=== PATIENT | female | born 1950 | race Caucasian/White ===

== ENCOUNTER 2017-04-11 07:52 | Inpatient (IN) | payer MEDICARE ==
[2017-04-11] MEDS ORDERED: methylPREDNISolone 125 MG* 2 ML VIAL IV ONE (08:01)
[2017-04-11] MEDS ORDERED: Albuterol/Ipratropium NEB.SOL* Albuterol 2.5 MG/Ipratropium 0.5 MG 3 ML INH ONE (08:01)
[2017-04-11 08:15] LABS: Hematocrit 32 % (35-47); Hemoglobin 9.4 g/dl (12.0-16.0); Mean Corpuscular HGB Conc 30 g/dl (31-36); Mean Corpuscular Hemoglobin 24 pg (27-31); Mean Corpuscular Volume 82 fL (80-97); Mean Platelet Volume 8 um3 (7.4-10.4); Red Blood Count 3.86 10^6/ul (4.0-5.4); Red Cell Distribution Width 18 % (10.5-15); White Blood Count 14.2 10^3/ul (3.5-10.8)
[2017-04-11 08:18] LABS: Add Diff/Slide Review? Slide Review Added; Comments Flag Yes
[2017-04-11 08:27] LABS: Albumin 3.4 g/dL (3.2-5.2); BUN/Creatinine Ratio 16.7 (8-20); Calcium 8.6 mg/dL (8.6-10.3); EGFR African American 54.6 (>60); EGFR Non-African American 42.5 (>60); Globulin 2.9 g/dL (2-4); Potassium 5.1 mmol/L (3.5-5.0); Total Bilirubin 0.4 mg/dL (0.2-1.0); Total Protein 6.3 g/dL (6.4-8.9)
[2017-04-11 08:29] LABS: FIO2 100
[2017-04-11 08:29] LABS: Troponin I 0.03 ng/mL (<0.04)
[2017-04-11 08:33] LABS: PCO2 Arterial 35 mmHg (35-45)
[2017-04-11] MEDS ORDERED: cefTRIAXone(*) 1 GM in NS 0.9% 50 ML* 50 ML IVPB ONE (08:34)
[2017-04-11] MEDS ORDERED: Azithromycin IV(*) 500 MG in NS 0.9% 250 ML* 250 ML IVPB ONE (08:34)
[2017-04-11] MEDS ORDERED: Furosemide IV* 10 MG/ML VIAL (40 MG) IV ONE (08:35)
[2017-04-11] MEDS ORDERED: NS 0.9% 1000 ML* 1,000 ML IV ONE (08:47)
--- NOTE | 2017-04-11 08:50 | RAD ---
INDICATION: Respiratory distress COMPARISON: Chest x-ray dated July 08, 2016 TECHNIQUE: Single AP portable view of the chest was obtained. FINDINGS: Image quality is compromised due to the relative inferiority of a portable chest x-ray. Again seen is a cardiac pacemaker overlying the left upper chest with a single lead overlying the heart. There is a very mild degree of cardiomegaly and coarse calcification overlying the arch of the aorta. There is interval appearance of density partially obscuring the left lung base and causing left costophrenic angle blunting. Elsewhere the lungs are grossly clear. There is questionable engorgement of the pulmonary vasculature, but this may be projectional magnification of fact of a portable AP only chest x-ray. Visualized bones are normal for the patient's age. IMPRESSION: In the correct clinical setting the constellation of findings on this portable chest x-ray could be seen in the setting of congestive heart failure.
[2017-04-11] MEDS ORDERED: Insulin GLARGINE(*) 1 UNITS UNIT SUBCUT ONE (09:41)
[2017-04-11] MEDS ORDERED: NS 0.9% 1000 ML* 1,000 ML IV SCH ×2 (09:45→13:38)
--- NOTE | 2017-04-11 09:46 | ED ---
Gayle Castillo Salem, scribed for Bipin Melton MD on 04/11/17 at 0809 . Shortness of Breath - HPI Summary HPI Summary: Patient is a 66 y/o F who presents to the ED per EMS with SOB since yesterday night. Per EMS, pts O2 sat was at 97% upon their arrival and she was tachycardic at 110bpm. Pt denies CP, coughing, wheezing, or any pain. Pt had similar sx in June 2016. Shx of Tobacco use, but denies PMHx of COPD. Pt is taking blood thinners. Per EMS, transport time was approximately 5 minutes. - History of Current Complaint Chief Complaint: EDRespiratoryDistress Time Seen by Provider: 04/11/17 08:13 Hx Obtained From: Patient Onset/Duration: Gradual Onset, Lasting Hours, Still Present Timing: Constant Current Severity: Moderate Dyspnea At: Rest Aggrevating Factors: Nothing Alleviating Factors: Nothing Associated Signs & Symptoms: Negative - Allergy/Home Medications Allergies/Adverse Reactions: Allergies Allergy/AdvReac Type Severity Reaction Status Date / Time Shellfish Allergy Allergy Severe ANAPHYLACTI Verified 01/26/17 10:55 C Atorvastatin [From Lipitor] Allergy Unknown Unknown Verified 01/26/17 10:55 Reaction Details Iodine Allergy See Comment Verified 01/26/17 10:55 Nickel Allergy Unknown Verified 01/26/17 10:55 Reaction Details TOPICAL IODINE Allergy Mild PER PT Uncoded 01/26/17 10:55 DECREASES HEALING PMH/Surg Hx/FS Hx/Imm Hx Endocrine/Hematology History: Reports: Hx Diabetes Cardiovascular History: Reports: Hx Auto Implanted Cardiovert Defib, Hx Congestive Heart Failure - in the past, Hx Hypercholesterolemia, Hx Hypertension , Hx Pacemaker/ICD, Other Cardiovascular Problems/Disorders - DIABETIC Denies: Hx Angina Respiratory History: Reports: Hx Asthma, Hx Pneumonia - 13 yrs ago Denies: Hx Chronic Obstructive Pulmonary Disease (COPD) GI History: Reports: Hx Gastroesophageal Reflux Disease - prilosec History: Denies: Hx Renal Disease Musculoskeletal History: Reports: Hx Arthritis, Hx Back Problems, Hx Scoliosis Sensory History: Reports: Hx Contacts or Glasses, Other Sensory Impairments - dentures Opthamlomology History: Reports: Hx Contacts or Glasses, Other Sensory Impairments - dentures Neurological History: Reports: Hx Nerve Disease - "bulging disc", Other Neuro Impairments/Disorders - PAIN CLINIC PT Psychiatric History: Reports: Hx Depression - Cancer History Hx Chemotherapy: No Hx Radiation Therapy: No - Surgical History Surgery Procedure, Year, and Place: Bilat carpal tunnel , Hysterectomy, femoral artery bypass bilateral 2009, heart cath with stent placement 2013, difibrillator/pacemaker 2014, back surgery "a long time ago" Hx Anesthesia Reactions: No Infectious Disease History: No Infectious Disease History: Reports: Hx Shingles Denies: Traveled Outside the [place] in Last 30 Days - Family History Family History: No FHx of Breast Cancer - Social History Alcohol Use: None Substance Use Type: Reports: None Smoking Status (MU): Former Smoker Type: Cigarettes Have You Smoked in the Last Year: No Review of Systems Positive: Other - No pain. Cardiovascular: Other - No wheezing. Positive: Other - Tachycardia. . Negative: Chest Pain Positive: Shortness Of Breath. Negative: Cough All Other Systems Reviewed And Are Negative: Yes Physical Exam - Summary Physical Exam Summary: The patient is in moderate to severe respiratory distress. Pale and diaphoretic. She can follow commands and is able to sit up. The skin is warm and skin color reflects adequate perfusion. HEENT: The head is normocephalic and atraumatic. The pupils are equal and reactive. The conjunctivae are clear and without drainage. Nares are patent and without drainage. Mouth reveals moist mucous membranes and the throat is without erythema and exudate. The external ears are intact. The ear canals are patent and without drainage. The tympanic membranes are intact. Neck is supple with full range of motion and non-tender. There are no carotid bruits. There is no neck vein distension. Respiratory: Chest is non-tender. Diffuse wheezing. Rales. Rhonchi all throughout. Cardiovascular: Hear is regular rhythm, but tachycardic. There is no murmur or rub auscultated. There is no peripheral edema and pulses are symmetrical and equal. Abdomen: The abdomen is soft and non-tender. Distended. Musculoskeletal: There is no back pain noted. Extremities are non-tender with full range of motion. Capillary refill in less than 3 seconds. There is no peripheral edema of lower extremities. Cyanosis in nail beds. Neurological: Patient is alert and oriented to person, place and time. The patient has symmetrical motor strength in all four extremities. Cranial nerves are grossly intact. Deep tendon reflexes are symmetrical and equal in all four extremities. Psychiatric: The patient has an appropriate affect and does not exhibit any anxiety or depression. Triage Information Reviewed: Yes Vital Signs On Initial Exam: Initial Vitals Temp Pulse Resp BP Pulse Ox 97.6 F 112 25 163/98 100 04/11/17 07:54 04/11/17 07:54 04/11/17 07:54 04/11/17 07:54 04/11/17 07:54 Vital Signs Reviewed: Yes Diagnostics - Vital Signs Vital Signs Temp Pulse Resp BP Pulse Ox 04/11/17 08:04 100 04/11/17 07:58 97.6 F 112 25 159/81 100 04/11/17 07:54 97.6 F 112 25 163/98 100 - Laboratory Lab Results: Lab Results 04/11/17 04/11/17 04/11/17 Range/Units 07:56 07:56 07:56 WBC 14.2 H (3.5-10.8) 10^3/ul RBC 3.86 L (4.0-5.4) 10^6/ul Hgb 9.4 L (12.0-16.0) g/dl Hct 32 L (35-47) % MCV 82 (80-97) fL MCH 24 L (27-31) pg MCHC 30 L (31-36) g/dl RDW 18 H (10.5-15) % Plt Count 440 (150-450) 10^3/ul MPV 8 (7.4-10.4) um3 Neut % (Auto) 73.9 (38-83) % Lymph % (Auto) 13.1 L (25-47) % [place] % (Auto) 9.1 H (1-9) % Eos % (Auto) 2.8 (0-6) % Baso % (Auto) 1.1 (0-2) % Absolute Neuts (auto) 10.5 H (1.5-7.7) 10^3/ul Absolute Lymphs (auto) 1.9 (1.0-4.8) 10^3/ul Absolute Monos (auto) 1.3 H (0-0.8) 10^3/ul Absolute Eos (auto) 0.4 (0-0.6) 10^3/ul Absolute Basos (auto) 0.2 (0-0.2) 10^3/ul Absolute Nucleated RBC 0.01 10^3/ul Nucleated RBC % 0.1 INR (Anticoag Therapy) (0.89-1.11) Patient Temperature ABG pH (7.35-7.45) ABG pCO2 (35-45) mmHg ABG pO2 (80-100) mmHg ABG HCO3 (19-31) mmol/L ABG O2 Saturation (95-98) % ABG Base Excess (-2.0-2.0) Respiration Rate O2 Delivery Device Ventilator Type Vent Mode FiO2 Inspiratory Time PEEP Pressure Support Pressure Control EPAP IPAP BiPAP Sodium 134 (133-145) mmol/L Potassium 5.1 H (3.5-5.0) mmol/L Chloride 101 (101-111) mmol/L Carbon Dioxide 21 L (22-32) mmol/L Anion Gap 12 H (2-11) mmol/L BUN 21 (6-24) mg/dL Creatinine 1.26 H (0.51-0.95) mg/dL Est GFR ( Amer) 54.6 (>60) Est GFR (Non-Af Amer) 42.5 (>60) BUN/Creatinine Ratio 16.7 (8-20) Glucose 371 H (70-100) mg/dL Lactic Acid 5.4 H* (0.5-2.0) mmol/L Calcium 8.6 (8.6-10.3) mg/dL Total Bilirubin 0.40 (0.2-1.0) mg/dL AST 16 (13-39) U/L ALT 15 (7-52) U/L Alkaline Phosphatase 117 H (34-104) U/L Troponin I 0.03 (<0.04) ng/mL B-Natriuretic Peptide ( - 100) pg/mL Total Protein 6.3 L (6.4-8.9) g/dL Albumin 3.4 (3.2-5.2) g/dL Globulin 2.9 (2-4) g/dL Albumin/Globulin Ratio 1.2 (1-3) 04/11/17 04/11/17 04/11/17 Range/Units 07:56 07:56 08:23 WBC (3.5-10.8) 10^3/ul RBC (4.0-5.4) 10^6/ul Hgb (12.0-16.0) g/dl Hct (35-47) % MCV (80-97) fL MCH (27-31) pg MCHC (31-36) g/dl RDW (10.5-15) % Plt Count (150-450) 10^3/ul MPV (7.4-10.4) um3 Neut % (Auto) (38-83) % Lymph % (Auto) (25-47) % [place] % (Auto) (1-9) % Eos % (Auto) (0-6) % Baso % (Auto) (0-2) % Absolute Neuts (auto) (1.5-7.7) 10^3/ul Absolute Lymphs (auto) (1.0-4.8) 10^3/ul Absolute Monos (auto) (0-0.8) 10^3/ul Absolute Eos (auto) (0-0.6) 10^3/ul Absolute Basos (auto) (0-0.2) 10^3/ul Absolute Nucleated RBC 10^3/ul Nucleated RBC % INR (Anticoag Therapy) 0.96 (0.89-1.11) Patient Temperature Not Reportable ABG pH 7.32 L (7.35-7.45) ABG pCO2 35 (35-45) mmHg ABG pO2 332 H (80-100) mmHg ABG HCO3 19.2 (19-31) mmol/L ABG O2 Saturation 97.9 (95-98) % ABG Base Excess -7.4 L (-2.0-2.0) Respiration Rate Not Reportable O2 Delivery Device fnc Ventilator Type Not Reportable Vent Mode Not Reportable FiO2 100 Inspiratory Time Not Reportable PEEP Not Reportable Pressure Support Not Reportable Pressure Control Not Reportable EPAP Not Reportable IPAP Not Reportable BiPAP Not Reportable Sodium (133-145) mmol/L Potassium (3.5-5.0) mmol/L Chloride (101-111) mmol/L Carbon Dioxide (22-32) mmol/L Anion Gap (2-11) mmol/L BUN (6-24) mg/dL Creatinine (0.51-0.95) mg/dL Est GFR ( Amer) (>60) Est GFR (Non-Af Amer) (>60) BUN/Creatinine Ratio (8-20) Glucose (70-100) mg/dL Lactic Acid (0.5-2.0) mmol/L Calcium (8.6-10.3) mg/dL Total Bilirubin (0.2-1.0) mg/dL AST (13-39) U/L ALT (7-52) U/L Alkaline Phosphatase (34-104) U/L Troponin I (<0.04) ng/mL B-Natriuretic Peptide 522 H ( - 100) pg/mL Total Protein (6.4-8.9) g/dL Albumin (3.2-5.2) g/dL Globulin (2-4) g/dL Albumin/Globulin Ratio (1-3) Result Diagrams: 04/11/17 07:56 04/11/17 07:56 Lab Statement: Any lab studies that have been ordered have been reviewed, and results considered in the medical decision making process. - Radiology CXR Radiology Interpretation Completed By: ED Physician - Questionable right middle lobe infiltrate. Increased vascular congestion., Radiologist - IMPRESSION: In the correct clinical setting the constellation of findings on this portable chest x-ray could be seen in the setting of congestive heart failure. - EKG 0810 EKG Interpretation: Sinus tachycardia @ 106 bpm. PRWP. LAD. Old anterior LA. No STEMI. - Additional Comments Diagnostic Additional Comments: Lactic acid: 5.4 Re-Evaluation - Re-Evaluation First Eval Re-Evaluation Time: 08:39 Comment: Pt is looking much better. She is no longer pale or diaphoretic. Pt is talking and able to sit up. Course/Dx - Course Course Of Treatment: 66 y/o F presents with SOB since yesterday night. Pt denies CP, coughing, wheezing, or any pain. She received Duoneb, Lasix, Rocephin , Zithromax, and Solu-MEDROL. CXR shows, per radiology, IMPRESSION: In the correct clinical setting the constellation of findings on this portable chest x- ray could be seen in the setting of congestive heart failure. Per ED attending, Questionable right middle lobe infiltrate. Increased vascular congestion. EKG shows Sinus tachycardia @ 106 bpm. PRWP. LAD. Old anterior LA. Discussed case with Dr. Sarmiento. Pt will be admitted. Fluid bolus not given secondary to low EF of 20-25%. - Diagnoses Differential Diagnosis/HQI/PQRI: Positive: Bronchitis, CHF, COPD Exacerbation, LA, Pneumonia, Pulmonary Edema Provider Diagnoses: Acute dyspnea, Respiratory distress, CHF (congestive heart failure), PNA ( pneumonia) - Physician Notifications Discussed Care of Patient With: Chetna Sarmiento Time Discussed With Above Provider: 08:45 Instructed by Provider To: Admit As Inpatient Admit/Transition Orders Completed By ED Provider: Yes - Critical Care Time Critical Care Time: 30-74 min - 30 minutes Discharge - Discharge Plan Condition: Stable Disposition: ADMITTED TO [facility] documentation as recorded by the Gayle murphy Salem accurately reflects the service I personally performed and the decisions made by , Bipin Melton MD.
[2017-04-11] MEDS: Insulin LISPRO* 1 UNITS UNIT SUBCUT SCH ×6 (10:35→22:07)
[2017-04-11] MEDS: Carvedilol TAB* 6.25 MG PO SCH ×2 (10:37→21:29)
[2017-04-11] MEDS: Aspirin EC Low Dose* 81 MG TAB.EC PO SCH (11:38)
[2017-04-11] MEDS: Clopidogrel TAB* 75 MG PO SCH (11:38)
[2017-04-11] MEDS: FLUoxetine CAP* 20 MG PO SCH (11:38)
[2017-04-11] MEDS: Gabapentin CAP(*) 300 MG PO SCH ×2 (11:38→21:29)
[2017-04-11] MEDS: Nitroglycerin 0.2 MG/HR PATCH* (5 MG) TRANSDERM SCH (11:38)
[2017-04-11] MEDS: CMCS: Pantoprazole TAB (NF) 40 MG TAB PO SCH ×2 (11:39→21:30)
[2017-04-11 12:24] LABS: BUN/Creatinine Ratio 18.8 (8-20); EGFR African American 70.5 (>60); EGFR Non-African American 54.8 (>60); Potassium 3.9 mmol/L (3.5-5.0)
[2017-04-11 13:10] LABS: Calcium 8.7 mg/dL (8.6-10.3)
[2017-04-11] MEDS ORDERED: Albuterol 2.5 MG/3 ML NEB.SOL* (0.083%) INH PRN (13:38)
[2017-04-11] MEDS: BuPROPion XL* 150 MG TAB.XL PO SCH ×2 (13:50→21:29)
[2017-04-11] MEDS: Heparin VIAL(*) 5000 UNITS/ML VIAL (FIVE THOUSAND) SUBCUT SCH ×2 (14:12→21:30)
--- NOTE | 2017-04-11 14:41 | ECHO ---
Patient: LEE ANN CALVILLO [facility] Rec#: [id number] : 1950 Date: 04/11/2017 Age: 66y Height: 149.86 cm / 59.0 in Weight: 83.91 kg / 184.9 lbs Sex: F BSA: 1.78 Room#: ICU 2 Admit Date#: 04/11/2017 Type: Inpatient Referring: Chetna Kiser MD Reading: Jeanne Matias MD Police Captain Senior: Terra Parham,RDCS,RDMS CC: Abran Gordon MD Transthoracic Echocardiogram Indication: CHF, SOB BP: 154/71 HR: 81 Rhythm: NSR with PVCs Findings History: CHF, cardiomyopathy, AICD, CAD, PCI, HLD, HTN, DM, PVD, smoker Technical Comments: The study quality is fair. Completed 1250 Left Ventricle: The left ventricular size is mild to moderately dilated. There is no left ventricular hypertrophy. There is diffuse global hypokinesis of the left ventricle. There is severely decreased left ventricular systolic function. The estimated ejection fraction is less than 20%. Abnormal left ventricular diastolic filling is observed, consistent with impaired relaxation. Left Atrium: The left atrium is mildly dilated. Right Ventricle: The right ventricular chamber size and systolic function are within normal limits. A pacemaker wire is visualized in the right ventricle. Right Atrium: The right atrial cavity size is normal. Aortic Valve: The aortic valve is trileaflet. There is no evidence of aortic valve thickening. There is trace to mild aortic regurgitation. There is no evidence of aortic stenosis. Mitral Valve: The mitral valve leaflets appear normal. There is moderate to severe mitral regurgitation. lateral jet. There is no evidence of mitral stenosis. Pulmonary vein flow reversal is present. Tricuspid Valve: The tricuspid valve leaflets are normal. There is trace tricuspid regurgitation. Unable to estimate the right ventricular systolic pressure. Pulmonic Valve: The pulmonic valve appears normal. There is a trace pulmonic regurgitation. Pericardium: There is no significant pericardial effusion. Aorta: The aortic root appears normal. There is no dilatation of the aortic arch. Pulmonary Artery: The main pulmonary artery is not well visualized. Venous: The inferior vena cava is dilated. There is a greater than 50% respiratory change in the inferior vena cava dimension. Conclusions The left ventricular size is mild to moderately dilated. There is diffuse global hypokinesis of the left ventricle. There is severely decreased left ventricular systolic function. The estimated ejection fraction is less than 20%. Abnormal left ventricular diastolic filling is observed, consistent with impaired relaxation. The right ventricular chamber size and systolic function are within normal limits. There is trace to mild aortic regurgitation. There is moderate to severe mitral regurgitation, wide lateral jet. There is trace tricuspid regurgitation. Unable to estimate the right ventricular systolic pressure. Compared with prior echo of 07/10/16, EF previously 20-25%, RV function previously depressed, AI is newly noted, the degree of MR has increased from moderate. Measurements Name Value Normal Range RVIDd (AP) 2D 2.4 cm (0.9 - 2.6) RVDdMajor (2D) 2.6 cm (2.2 - 4.4) RAd ISD 4CH 4.2 cm (3.4 - 4.9) RA (A4C)W 3.1 cm (2.9 - 4.6) IVSd (2D) 1 cm (0.6 - 1) LVPWd (2D) 1 cm (0.6 - 1) LVIDd (2D) 6 cm (3.6 - 5.4) LVIDs (2D) 5.3 cm - LV FS (2D) 11 % (25 - 45) Aortic Annulus 2 cm (1.4 - 2.6) Ao root diameter (2D) 3 cm (2.1 - 3.5) Ascending Ao 2.6 cm (2.1 - 3.4) Aortic arch 2.1 cm (1.8 - 3.4) LA dimension (AP) 2D 3.7 cm (2.3 - 3.8) LAd ISD 4CH 5.6 cm (2.9 - 5.3) LA ISD 4CH W 4.2 cm (2.5 - 4.5) Name Value Normal Range LA ESV SP 4CH (A/L) 55.04 ml - LA ESV SP 2CH (A/L) 40.9 ml - LA ESV BP (A/L) 48.39 ml - LA ESV BP (A/L) index 27 ml/m2 - LA ESV SP 4CH (MOD) 51.04 ml - LA ESV SP 2CH (MOD) 38.91 ml - Name Value Normal Range MV E-wave Vmax 0.9 m/sec - MV deceleration time 62 msec - MV A-wave Vmax 1.1 m/sec - MV E:A ratio 0.8 ratio - P. vein S-wave Vmax 0.6 m/sec - P. vein D-wave Vmax 0.5 m/sec - P. vein S:D Vmax ratio 1.2 ratio - P. vein A-wave duration 97 msec - LV septal e' Vmax 0.03 m/sec - LV lateral e' Vmax 0.04 m/sec - LV E:e' septal ratio 30 ratio - LV E:e' lateral ratio 22.5 ratio - Name Value Normal Range AV Vmax 1 m/sec - AV VTI 18.2 cm - AV peak gradient 4 mmHg - AV mean gradient 2 mmHg - LVOT Vmax 0.6 m/sec - LVOT VTI 11.5 cm - LVOT peak gradient 1.4 mmHg - LVOT mean gradient 0.8 mmHg - SUPRIYA Vmax 0.8 m/sec - Name Value Normal Range MV Vmax 1.3 m/sec - MV VTI 18 cm - MV peak gradient 7 mmHg - MV mean gradient 3.3 mmHg - MV PHT 19 msec - MR Vmax 5.4 m/sec - MR VTI 116 cm - MR ERO 1.5 cm2 - MR PISA radius 0.7 cm - MVA (PHT) 11 cm2 - Name Value Normal Range RAP 8 mmHg - IVC diameter 2.2 cm - Name Value Normal Range PV Vmax 0.6 m/sec - PV peak gradient 1.4 mmHg -
--- NOTE | 2017-04-11 19:09 | HP ---
CC: Dr. Gordon; Dr. Herring * HISTORY AND PHYSICAL: DATE OF ADMISSION: 04/11/17 TIME OF EVALUATION: 8:40 a.m. PRIMARY CARE PROVIDER: Abran Gordon MD. ADJUDICATION SPECIALIST: Valentino Herring MD. CHIEF COMPLAINT: Shortness of breath. HISTORY OF PRESENT ILLNESS: Ms. 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 The patient states she was in her usual state of health until yesterday around 8 p.m. when she started to feel that the humidity was bothering her and it was harder to breathe. This symptom persisted overnight, and this morning she says that she was severely short of breath and could not catch her breath. She denies fever or chills, had some dry cough. As per EMS note, the patient was sitting on the couch, tripoding on arrival and they described diffuse rales and wheezes. She need CPAP en route and was on Vapotherm in the emergency room. By the time of my evaluation, she said she was feeling much improved. She denies any recent change of medication. She states she is compliant with her diet. She was last seen by Dr. Herring 3 months ago, and at that time, he offered her the option of converting her ICD to a biventricular ICD/pacemaker and she is considering this option. PAST MEDICAL HISTORY: 1. Ischemic/nonischemic cardiomyopathy with ejection fraction of 20% to 25%. The patient had a possible viral myocarditis when she was 53 with ejection fraction less than 10%, and at that time, she had a negative cardiac cath, but later on she had a positive stress test for CAD. 2. 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 3. Status post bilateral fem-pop bypass in 2010. 4. Status post ICD in 2014. 5. Hyperlipidemia. 6. GI bleed. 7. Degenerative disc disease with spinal stenosis. 8. Type 2 diabetes. 9. Asthma. 10. Status post stent to the iliac artery. 11. Status post carpal tunnel repair. 12. Status post hysterectomy. 13. Status post spinal surgery for spinal stenosis in 1999. MEDICATION LIST: 1. Aspirin 81 mg p.o. daily. 2. Bupropion SR 300 mg p.o. daily. 3. Carvedilol 12.5 mg p.o. b.i.d. 4. Clopidogrel 75 mg p.o. daily. 5. Exenatide. 6. Fexofenadine 180 mg p.o. daily. 7. Fluoxetine 5 mg p.o. daily. 8. Gabapentin 300 mg p.o. t.i.d. 9. Glipizide 10 mg p.o. b.i.d. 10. Lisinopril 1.25 mg p.o. daily. 11. Metoclopramide 10 mg p.o. daily. 12. Minocycline 100 mg p.o. b.i.d. 13. Singulair 10 mg p.o. at bedtime. 14. Naproxen 100 mg p.o. b.i.d. 15. Nitro patch 0.2 mg an our topical daily. 16. Omeprazole 20 mg p.o. daily. 17. Rosuvastatin 10 mg p.o. at bedtime. 18. Torsemide 20 mg p.o. daily. 19. Tramadol 50 mg p.o. q.4 hours p.r.n. pain. ALLERGIES: The patient is allergic to SELFISH, LIPITOR, and NICKEL. FAMILY HISTORY: Her father had a history of coronary artery disease and her mother had cancer. SOCIAL HISTORY: She quit smoking. No history of alcohol or drug use. Surrogate decision maker is her , Antonio Nazario, phone number is [phone]. REVIEW OF SYSTEMS: A 14-point review of systems was performed and all the pertinent negative and positive findings are in the HPI. PHYSICAL EXAMINATION GENERAL: The patient is an elderly lady, sitting up on the stretcher, in no acute distress. VITAL SIGNS: Temperature 97.0, heart rate is 98, respiratory rate 21, oxygen saturation 96% on Vapotherm 3 L. FiO2 is 60%. Blood pressure is 154/71. HEENT: Pupils are equal. Moist mucous membranes. CHEST: Breath sounds present bilaterally with right base crackles. CVS: Normal S1 and S2. Regular rate and rhythm. ABDOMEN: Soft, nontender, nondistended. Bowel sounds present. EXTREMITIES: No edema. NEUROLOGIC: She is alert, awake, and oriented x3. Able to move all 4 extremities. LABORATORY AND IMAGING DATA: The patient had a CBC that showed WBC of 14.2, hemoglobin of 9.4, hematocrit of 32, platelets of 440 with 73% neutrophils. INR is 0.96. ABG showed pH 7.32, pCO2 of 35, pO2 of 332, bicarbonate of 19.2, saturation 97.9. Chemistry showed sodium 139, potassium 5.1, chloride 101, bicarb of 21, anion gap of 12, creatinine of 1.26, glucose of 371, lactic acid of 5.4. LFTs were normal except for alk phos of 117 and her BNP was 522. EKG done on 04/11/17 at 8:10 a.m. showed sinus tachycardia at 106 beats per minute with intraventricular conduction delay. This EKG appears to be changed, but when compared from an EKG almost 10 years ago. Portable chest x-ray was read as compatible with congestive heart failure, but to my read I think she may have a a small infiltrate in the right base. ASSESSMENT AND PLAN: Ms. Nazario is a 66-year-old lady with a past medical history of ischemic/nonischemic cardiomyopathy with ejection fraction of 20% to 25%, peripheral vascular disease, status post ICD placement, hyperlipidemia, GI bleed, spinal stenosis, type 2 diabetes, asthma, who presents to the emergency room with complaints of shortness of breath, found to have possible pneumonia. The patient met sepsis criteria with leukocytosis and tachypnea and her qSOFA score is 1. Source is likely pneumonia. 1. Right lower lobe pneumonia. The patient presents with shortness of breath, but she has no other symptoms including no cough or fever. She does have leukocytosis and lactic acidosis. According to EMS note, on their arrival, the patient has diffuse rales and wheezes, but on my physical examination at this point, she has rales only in her right base and that coincides with my impression of a right lower lobe infiltrate. She is going to be started empirically on ceftriaxone, Zithromax. Blood cultures were sent and we are going to check legionella and pneumococcal antigen. 2: Respiratory: Acute hypoxemic respiratory failure. The patient will be admitted to the intensive care unit on Vapotherm and we are going to titrate the oxygen down if possible. 3. Systolic congestive heart failure. The patient has known systolic CHF with ejection fraction of 20% to 25%. She was seen by Dr. Herring 3 months ago, and at that point, he asked her to consider upgrading her ICD to a biventricular ICD /pacemaker due to her progressive intraventricular conduction delay. The patient denies any changes in her medication, states she is compliant with her diet. She has no signs of peripheral edema at this point. Her BNP is 522 ( even lower than in the past). Although she is at risk for CHF exacerbation, it is not clear to me at this point if CHF is playing a role in her shortness of breath. Her infection for now, I am going to give her gentle hydration and hold her diuretics. 4. Acute kidney injury, likely secondary to infection. I am going to hold her lisinopril and diuretics for now and continue to monitor her renal function. 5. Lactic acidosis secondary to sepsis/poor perfusion. We are going to give her gentle IV hydration and monitor her lactic acid. 6. Type 2 diabetes, uncontrolled. The patient will receive 1 dose of Lantus and we are going to monitor her fingersticks with lispro sliding scale. Code status was discussed with the patient. She wishes to be a full code. 7. DVT prophylaxis: The patient has score of 3 on a DVT prophylaxis guide, and she will be started on subcutaneous heparin. 8. Anemia. I am going to send anemia workup. TIME SPENT: Approximately 75 minutes critical care time was spent to complete the admission. [id number]/[facility] #: [id number] BEATRIZ
[2017-04-11] MEDS: Montelukast Sodium TAB* 10 MG PO SCH (21:29)
[2017-04-11] MEDS: Nitro Patch/OINT Remove PATCH OFF SCH (21:32)
[2017-04-11] MEDS: traMADol TAB* 50 MG PO PRN (22:08)
[2017-04-11] MEDS ORDERED: hydrALAZINE IV* 20 MG/ML VIAL IV SLOW PU PRN (23:29)
[2017-04-12] MEDS: Heparin VIAL(*) 5000 UNITS/ML VIAL (FIVE THOUSAND) SUBCUT SCH ×3 (05:15→21:37)
[2017-04-12 05:46] LABS: Hematocrit 27 % (35-47); Hemoglobin 8.1 g/dl (12.0-16.0); Mean Corpuscular HGB Conc 30 g/dl (31-36); Mean Corpuscular Hemoglobin 24 pg (27-31); Mean Corpuscular Volume 80 fL (80-97); Mean Platelet Volume 8 um3 (7.4-10.4); Red Blood Count 3.36 10^6/ul (4.0-5.4); Red Cell Distribution Width 17 % (10.5-15); White Blood Count 13.7 10^3/ul (3.5-10.8)
[2017-04-12 05:59] LABS: Anion Gap 9 mmol/L (2-11); CO2 Carbon Dioxide 24 mmol/L (22-32); Calcium 8.8 mg/dL (8.6-10.3); Chloride 106 mmol/L (101-111); EGFR African American 89.7 (>60); EGFR Non-African American 69.7 (>60); Glucose 80 mg/dL (70-100); Potassium 3.4 mmol/L (3.5-5.0); Sodium 139 mmol/L (133-145)
[2017-04-12 06:06] LABS: Iron 16 ug/dL (50-212); Total Iron Binding Capacity 402 mcg/dL (250-450); Transferrin 287 mg/dL (203-362)
[2017-04-12 06:28] LABS: Ferritin < 10.0 ng/mL (11-307)
[2017-04-12 06:32] LABS: Folate 13.53 ng/mL (>3.99)
[2017-04-12 06:33] LABS: Vitamin B12 268 pg/mL (180-914)
[2017-04-12 06:37] LABS: BUN/Creatinine Ratio 14.6 (8-20); Blood Urea Nitrogen 12 mg/dL (6-24)
[2017-04-12] MEDS: traMADol TAB* 50 MG PO PRN (07:21)
[2017-04-12] MEDS: Nitroglycerin 0.2 MG/HR PATCH* (5 MG) TRANSDERM SCH (07:46)
[2017-04-12] MEDS: FLUoxetine CAP* 20 MG PO SCH (07:48)
[2017-04-12] MEDS: Gabapentin CAP(*) 300 MG PO SCH (07:48)
[2017-04-12] MEDS: CMCS: Pantoprazole TAB (NF) 40 MG TAB PO SCH ×2 (07:48→09:19)
[2017-04-12] MEDS: Clopidogrel TAB* 75 MG PO SCH (07:48)
[2017-04-12] MEDS: Carvedilol TAB* 6.25 MG PO SCH ×3 (07:48→21:33)
[2017-04-12] MEDS: BuPROPion XL* 150 MG TAB.XL PO SCH (07:49)
[2017-04-12] MEDS: Aspirin EC Low Dose* 81 MG TAB.EC PO SCH (07:49)
[2017-04-12] MEDS: Insulin LISPRO* 1 UNITS UNIT SUBCUT SCH ×7 (08:46→21:36)
[2017-04-12] MEDS ORDERED: MINOCYCLINE 100 MG PO SCH (09:00)
[2017-04-12] MEDS ORDERED: Omeprazole CAP* 20 MG PO SCH (09:00)
[2017-04-12] MEDS: Gabapentin CAP(*) 100 MG PO SCH ×3 (09:17→21:30)
[2017-04-12] MEDS: cefTRIAXone VIAL(*) 1,000 MG in NS 0.9% 50 ML* 50 ML IVPB SCH (09:22)
[2017-04-12] MEDS: CMC:Minocycline (NF) 50 MG CAP PO SCH ×2 (09:23→21:34)
[2017-04-12] MEDS ORDERED: Magnesium CITRATE* 300 ML BTL PO ONE (09:29)
[2017-04-12] MEDS: Torsemide TAB* 20 MG PO SCH (09:35)
[2017-04-12] MEDS: Azithromycin IV(*) 500 MG in NS 0.9% 250 ML* 250 ML IVPB SCH (09:53)
--- NOTE | 2017-04-12 11:22 | PN ---
Subjective Date of Service: 04/12/17 Interval History: Pt feels much better. Less SOB. Discussed pt's anemia. Pt is not aware of black or bloody stools. Does not remember where her GI bleed was and doesn't remember her last colonoscopy apart for the location was probably [place] Objective Active Medications: Albuterol (Ventolin 2.5 Mg/3 Ml Neb.Ai*) 2.5 mg INH Q4H PRN PRN Reason: SOB/WHEEZING Aspirin (Aspirin Ec Low Dose*) 81 mg PO DAILY REPLACED BY [facility] Last Admin: 04/12/17 07:49 Dose: 81 mg Bupropion HCl (Wellbutrin Xl *) 150 mg PO BID REPLACED BY [facility] Last Admin: 04/12/17 07:49 Dose: 150 mg Carvedilol (Coreg Tab*) 12.5 mg PO BID REPLACED BY [facility] Last Admin: 04/12/17 09:18 Dose: Not Given Clopidogrel Bisulfate (Plavix Tab*) 75 mg PO DAILY REPLACED BY [facility] Last Admin: 04/12/17 07:48 Dose: 75 mg Ferrous Sulfate (Ferrous Sulfate Tab*) 325 mg PO BID REPLACED BY [facility] Fluoxetine HCl (Prozac Cap*) 40 mg PO DAILY REPLACED BY [facility] Last Admin: 04/12/17 07:48 Dose: 40 mg Gabapentin (Neurontin Cap(*)) 300 mg PO TID REPLACED BY [facility] Last Admin: 04/12/17 09:17 Dose: Not Given Heparin Sodium (Porcine) (Heparin Vial(*)) 5,000 units SUBCUT Q8HR REPLACED BY [facility] Last Admin: 04/12/17 05:15 Dose: 5,000 units Hydralazine HCl (Apresoline Iv*) 10 mg IV SLOW PU Q4H PRN PRN Reason: SBP>175 Ceftriaxone Sodium 1,000 mg/ (Sodium Chloride) 50 mls @ 200 mls/hr IVPB Q24H REPLACED BY [facility] Last Admin: 04/12/17 09:22 Dose: 200 mls/hr Azithromycin 500 mg/ Sodium (Chloride) 250 mls @ 250 mls/hr IVPB Q24H REPLACED BY [facility] Last Admin: 04/12/17 09:53 Dose: 250 mls/hr Insulin Human Lispro (Humalog*) 0 units SUBCUT AC WAYNE PRN Reason: Protocol Last Admin: 04/12/17 10:05 Dose: 2 units Insulin Human Lispro (Humalog*) 0 units SUBCUT ACHS WAYNE PRN Reason: Protocol Last Admin: 04/12/17 08:46 Dose: Not Given Minocycline HCl (Minocycline (Nf)) 100 mg PO BID REPLACED BY [facility] Last Admin: 04/12/17 09:23 Dose: 100 mg Montelukast Sodium (Singulair Tab*) 10 mg PO BEDTIME REPLACED BY [facility] Last Admin: 04/11/17 21:29 Dose: 10 mg Nitroglycerin (Nitroglycerin 5 Mg Patch*) 1 patch TRANSDERM DAILY REPLACED BY [facility] Last Admin: 04/12/17 07:46 Dose: 1 patch Pantoprazole Sodium (Protonix Tab (Nf)) 40 mg PO DAILY REPLACED BY [facility] Last Admin: 04/12/17 09:19 Dose: Not Given Pharmacy Profile Note (Nitro Patch/Oint Remove*) 1 note PATCH OFF 2100 REPLACED BY [facility] Last Admin: 04/11/17 21:32 Dose: 1 patch Torsemide (Demadex*) 20 mg PO DAILY REPLACED BY [facility] Last Admin: 04/12/17 09:35 Dose: 20 mg Tramadol HCl (Ultram*) 50 mg PO Q6H PRN PRN Reason: PAIN Last Admin: 04/12/17 07:21 Dose: 50 mg Vital Signs 04/11/17 04/11/17 04/11/17 11:30 11:34 12:00 Temperature 97.8 F Pulse Rate 87 85 Respiratory 20 19 Rate Blood Pressure 127/58 145/68 (mmHg) O2 Sat by Pulse 100 100 Oximetry 04/11/17 04/11/17 04/11/17 13:00 14:00 14:02 Temperature Pulse Rate 86 93 92 Respiratory 21 19 19 Rate Blood Pressure 160/83 155/68 (mmHg) O2 Sat by Pulse 100 100 100 Oximetry 04/11/17 04/11/17 04/11/17 14:17 15:00 15:20 Temperature 97.7 F Pulse Rate 103 Respiratory 14 23 Rate Blood Pressure 161/76 (mmHg) O2 Sat by Pulse 100 Oximetry 04/11/17 04/11/17 04/11/17 16:00 17:00 17:04 Temperature Pulse Rate 95 100 Respiratory 25 17 21 Rate Blood Pressure 165/61 178/76 (mmHg) O2 Sat by Pulse 100 100 Oximetry 04/11/17 04/11/17 04/11/17 18:00 18:02 19:00 Temperature Pulse Rate 99 102 Respiratory 24 19 23 Rate Blood Pressure 153/75 172/79 (mmHg) O2 Sat by Pulse 100 100 Oximetry 04/11/17 04/11/17 04/11/17 19:44 20:00 21:00 Temperature 98.7 F Pulse Rate 109 93 Respiratory 24 19 Rate Blood Pressure 150/102 134/65 (mmHg) O2 Sat by Pulse 100 99 Oximetry 04/11/17 04/11/17 04/11/17 22:00 23:00 23:32 Temperature Pulse Rate 93 91 88 Respiratory 18 21 18 Rate Blood Pressure 147/55 144/71 (mmHg) O2 Sat by Pulse 100 98 100 Oximetry 04/12/17 04/12/17 04/12/17 00:00 00:01 00:52 Temperature 97.9 F Pulse Rate 86 86 Respiratory 19 20 19 Rate Blood Pressure 132/71 (mmHg) O2 Sat by Pulse 100 100 Oximetry 04/12/17 04/12/17 04/12/17 01:00 02:00 03:00 Temperature Pulse Rate 85 86 87 Respiratory 18 16 18 Rate Blood Pressure 126/73 134/68 134/54 (mmHg) O2 Sat by Pulse 100 100 100 Oximetry 04/12/17 04/12/17 04/12/17 04:00 05:00 06:00 Temperature 97.4 F Pulse Rate 85 87 99 Respiratory 23 24 20 Rate Blood Pressure 128/67 128/70 140/71 (mmHg) O2 Sat by Pulse 100 100 100 Oximetry 04/12/17 04/12/17 04/12/17 07:00 07:58 08:00 Temperature 98.8 F Pulse Rate 92 94 Respiratory 17 17 Rate Blood Pressure 139/71 148/80 (mmHg) O2 Sat by Pulse 100 100 Oximetry 04/12/17 04/12/17 04/12/17 09:00 09:56 10:00 Temperature Pulse Rate 100 89 Respiratory 23 22 19 Rate Blood Pressure 146/104 134/48 (mmHg) O2 Sat by Pulse 100 100 Oximetry Oxygen Devices in Use Now: High Flow Nasal Cannula - at 5L Appearance: 66 yo F in nAD, AAOx3 Eyes: No Scleral Icterus, PERRLA Ears/Nose/Mouth/Throat: NL Teeth, Lips, Gums, Mucous Membranes Moist Neck: NL Appearance and Movements; NL JVP, Trachea Midline Respiratory: Symmetrical Chest Expansion and Respiratory Effort, Clear to Auscultation Cardiovascular: NL Sounds; No Murmurs; No JVD, RRR Abdominal: NL Sounds; No Tenderness; No Distention Lymphatic: No Cervical Adenopathy Extremities: No Edema, No Clubbing, Cyanosis Skin: No Rash or Ulcers, No Nodules or Sclerosis Neurological: Alert and Oriented x 3, NL Muscle Strength and Tone Result Diagrams: 04/12/17 05:09 04/12/17 05:09 Additional Lab and Data: Lab Results 04/11/17 04/11/17 04/11/17 Range/Units 07:56 07:56 07:56 WBC 14.2 H (3.5-10.8) 10^3/ul RBC 3.86 L (4.0-5.4) 10^6/ul Hgb 9.4 L (12.0-16.0) g/dl Hct 32 L (35-47) % MCV 82 (80-97) fL MCH 24 L (27-31) pg MCHC 30 L (31-36) g/dl RDW 18 H (10.5-15) % Plt Count 440 (150-450) 10^3/ul MPV 8 (7.4-10.4) um3 Neut % (Auto) 73.9 (38-83) % Lymph % (Auto) 13.1 L (25-47) % Ceiba % (Auto) 9.1 H (1-9) % Eos % (Auto) 2.8 (0-6) % Baso % (Auto) 1.1 (0-2) % Absolute Neuts (auto) 10.5 H (1.5-7.7) 10^3/ul Absolute Lymphs (auto) 1.9 (1.0-4.8) 10^3/ul Absolute Monos (auto) 1.3 H (0-0.8) 10^3/ul Absolute Eos (auto) 0.4 (0-0.6) 10^3/ul Absolute Basos (auto) 0.2 (0-0.2) 10^3/ul Absolute Nucleated RBC 0.01 10^3/ul Nucleated RBC % 0.1 INR (Anticoag Therapy) (0.89-1.11) Patient Temperature ABG pH (7.35-7.45) ABG pCO2 (35-45) mmHg ABG pO2 (80-100) mmHg ABG HCO3 (19-31) mmol/L ABG O2 Saturation (95-98) % ABG Base Excess (-2.0-2.0) Respiration Rate O2 Delivery Device Ventilator Type Vent Mode FiO2 Inspiratory Time PEEP Pressure Support Pressure Control EPAP IPAP BiPAP Sodium 134 (133-145) mmol/L Potassium 5.1 H (3.5-5.0) mmol/L Chloride 101 (101-111) mmol/L Carbon Dioxide 21 L (22-32) mmol/L Anion Gap 12 H (2-11) mmol/L BUN 21 (6-24) mg/dL Creatinine 1.26 H (0.51-0.95) mg/dL Est GFR ( Amer) 54.6 (>60) Est GFR (Non-Af Amer) 42.5 (>60) BUN/Creatinine Ratio 16.7 (8-20) Glucose 371 H (70-100) mg/dL Lactic Acid 5.4 H* (0.5-2.0) mmol/L Calcium 8.6 (8.6-10.3) mg/dL Total Bilirubin 0.40 (0.2-1.0) mg/dL AST 16 (13-39) U/L ALT 15 (7-52) U/L Alkaline Phosphatase 117 H (34-104) U/L Troponin I 0.03 (<0.04) ng/mL B-Natriuretic Peptide ( - 100) pg/mL Total Protein 6.3 L (6.4-8.9) g/dL Albumin 3.4 (3.2-5.2) g/dL Globulin 2.9 (2-4) g/dL Albumin/Globulin Ratio 1.2 (1-3) 04/11/17 04/11/17 04/11/17 Range/Units 07:56 07:56 08:23 WBC (3.5-10.8) 10^3/ul RBC (4.0-5.4) 10^6/ul Hgb (12.0-16.0) g/dl Hct (35-47) % MCV (80-97) fL MCH (27-31) pg MCHC (31-36) g/dl RDW (10.5-15) % Plt Count (150-450) 10^3/ul MPV (7.4-10.4) um3 Neut % (Auto) (38-83) % Lymph % (Auto) (25-47) % Ceiba % (Auto) (1-9) % Eos % (Auto) (0-6) % Baso % (Auto) (0-2) % Absolute Neuts (auto) (1.5-7.7) 10^3/ul Absolute Lymphs (auto) (1.0-4.8) 10^3/ul Absolute Monos (auto) (0-0.8) 10^3/ul Absolute Eos (auto) (0-0.6) 10^3/ul Absolute Basos (auto) (0-0.2) 10^3/ul Absolute Nucleated RBC 10^3/ul Nucleated RBC % INR (Anticoag Therapy) 0.96 (0.89-1.11) Patient Temperature Not Reportable ABG pH 7.32 L (7.35-7.45) ABG pCO2 35 (35-45) mmHg ABG pO2 332 H (80-100) mmHg ABG HCO3 19.2 (19-31) mmol/L ABG O2 Saturation 97.9 (95-98) % ABG Base Excess -7.4 L (-2.0-2.0) Respiration Rate Not Reportable O2 Delivery Device Hhfnc Ventilator Type Not Reportable Vent Mode Not Reportable FiO2 100 Inspiratory Time Not Reportable PEEP Not Reportable Pressure Support Not Reportable Pressure Control Not Reportable EPAP Not Reportable IPAP Not Reportable BiPAP Not Reportable Sodium (133-145) mmol/L Potassium (3.5-5.0) mmol/L Chloride (101-111) mmol/L Carbon Dioxide (22-32) mmol/L Anion Gap (2-11) mmol/L BUN (6-24) mg/dL Creatinine (0.51-0.95) mg/dL Est GFR ( Amer) (>60) Est GFR (Non-Af Amer) (>60) BUN/Creatinine Ratio (8-20) Glucose (70-100) mg/dL Lactic Acid (0.5-2.0) mmol/L Calcium (8.6-10.3) mg/dL Total Bilirubin (0.2-1.0) mg/dL AST (13-39) U/L ALT (7-52) U/L Alkaline Phosphatase (34-104) U/L Troponin I (<0.04) ng/mL B-Natriuretic Peptide 522 H ( - 100) pg/mL Total Protein (6.4-8.9) g/dL Albumin (3.2-5.2) g/dL Globulin (2-4) g/dL Albumin/Globulin Ratio (1-3) Microbiology and Other Data: Microbiology 04/11/17 15:03 Nasal Screen MRSA (PCR)([facility]) - Final Nasal Mrsa Negative 04/11/17 10:00 Legionella Urinary Antigen - Final Urine Negative Legionella Streptococcus pneumoniae Ag Screen - Final Negative S. pneumo Antigen Assess/Plan/Problems-Billing Assessment: 66 yo F with h/o nonischemic cardiomyopathy, HTN, GERD, DM2 present with sudden onset SOB , diagnosed with RLL pneumonia - Patient Problems (1) Community acquired bacterial pneumonia Comment: pt was septic at admission continues to be afebrile, leukocytosis improving Acute hypoxemic repiratory failure due to pneumonia improving. Off Vapotherm, on 5 l 02, will transfer from ICU Cont Ceftriaxone/Azithro Legionella, Strp pneumo atg neg. (2) Congestive heart failure (CHF) Comment: Acute on chronic systolic CHF. EF on Echo 04/11/17 at 20%, slightly lower than before. Back to her baseline weight of approx 165lbs. Tx with Lasix 40 mg IV in ED. Today appears euvolemic. Will restart home torsemide and cont daily weights. Continue BB, ASA, Plavix (3) Diabetes Comment: holding glipizide . Continue Lispro SS and Lantus (4) Severe mitral regurgitation Comment: according to Echo MR now mod to severe and worse than before. D/w Pt that she may need valve replacement at some point and asked her to f/u with Dr. Herring after discharge. Pt is also planning to see Dr. Herring to consider biventricular pacer placement (5) Normocytic anemia Comment: iron defficient Cont Protonix PO, stool hemoccult pending Started on iron supplement (6) Acute renal failure Comment: due to sepsis and pneumonia Creat back to baseline Holding lisinopril (7) DVT prophylaxis Comment: due to iron defficiency anemia and w/up for GI bleed anticoagulation will not be started , SCD's Status and Disposition: inpatient
[2017-04-12] MEDS: buPROPion SR TAB.SR* 150 MG PO SCH (21:33)
[2017-04-12] MEDS: Ferrous Sulfate TAB* 325 MG PO SCH (21:33)
[2017-04-12] MEDS: Montelukast Sodium TAB* 10 MG PO SCH (21:34)
[2017-04-12] MEDS: Nitro Patch/OINT Remove PATCH OFF SCH (22:12)
[2017-04-13 05:03] LABS: Hematocrit 25 % (35-47); Hemoglobin 7.6 g/dl (12.0-16.0); Mean Corpuscular HGB Conc 31 g/dl (31-36); Mean Corpuscular Hemoglobin 24 pg (27-31); Mean Corpuscular Volume 79 fL (80-97); Mean Platelet Volume 7 um3 (7.4-10.4); Red Blood Count 3.11 10^6/ul (4.0-5.4); Red Cell Distribution Width 17 % (10.5-15); White Blood Count 9.5 10^3/ul (3.5-10.8)
[2017-04-13 05:14] LABS: BUN/Creatinine Ratio 14.7 (8-20); Calcium 8.6 mg/dL (8.6-10.3); EGFR African American 75.7 (>60); EGFR Non-African American 58.9 (>60); Potassium 3.8 mmol/L (3.5-5.0)
[2017-04-13] MEDS: Heparin VIAL(*) 5000 UNITS/ML VIAL (FIVE THOUSAND) SUBCUT SCH ×3 (05:49→22:16)
[2017-04-13] MEDS: Insulin LISPRO* 1 UNITS UNIT SUBCUT SCH ×7 (07:43→22:13)
[2017-04-13] MEDS: Carvedilol TAB* 6.25 MG PO SCH ×2 (08:26→20:09)
[2017-04-13] MEDS: Aspirin EC Low Dose* 81 MG TAB.EC PO SCH (08:26)
[2017-04-13] MEDS: Gabapentin CAP(*) 300 MG PO SCH ×3 (08:27→20:06)
[2017-04-13] MEDS: FLUoxetine CAP* 20 MG PO SCH (08:27)
[2017-04-13] MEDS: Torsemide TAB* 20 MG PO SCH (08:27)
[2017-04-13] MEDS: buPROPion SR TAB.SR* 150 MG PO SCH ×2 (08:27→20:05)
[2017-04-13] MEDS: Clopidogrel TAB* 75 MG PO SCH (08:27)
[2017-04-13] MEDS: CMCS: Pantoprazole TAB (NF) 40 MG TAB PO SCH (08:28)
[2017-04-13] MEDS: Ferrous Sulfate TAB* 325 MG PO SCH ×2 (08:28→20:06)
[2017-04-13] MEDS: Nitroglycerin 0.2 MG/HR PATCH* (5 MG) TRANSDERM SCH (08:29)
[2017-04-13] MEDS: CMC:Minocycline (NF) 50 MG CAP PO SCH ×2 (08:30→20:08)
[2017-04-13] MEDS: cefTRIAXone VIAL(*) 1,000 MG in NS 0.9% 50 ML* 50 ML IVPB SCH (09:38)
[2017-04-13] MEDS: Azithromycin IV(*) 500 MG in NS 0.9% 250 ML* 250 ML IVPB SCH (10:19)
[2017-04-13] MEDS: traMADol TAB* 50 MG PO PRN ×2 (13:08→20:04)
--- NOTE | 2017-04-13 16:57 | PN ---
Subjective Date of Service: 04/13/17 Interval History: Out of ICU on 4S. Breathing feels much better and titrated down to 1L this AM Denies cough. No SOb. No CP Appetite Ok Objective Active Medications: Albuterol (Ventolin 2.5 Mg/3 Ml Neb.Ai*) 2.5 mg INH Q4H PRN PRN Reason: SOB/WHEEZING Aspirin (Aspirin Ec Low Dose*) 81 mg PO DAILY [facility] Last Admin: 04/13/17 08:26 Dose: 81 mg Bupropion HCl (Wellbutrin Sr Tab*) 150 mg PO BID [facility] Last Admin: 04/13/17 08:27 Dose: 150 mg Carvedilol (Coreg Tab*) 12.5 mg PO BID [facility] Last Admin: 04/13/17 08:26 Dose: 12.5 mg Clopidogrel Bisulfate (Plavix Tab*) 75 mg PO DAILY [facility] Last Admin: 04/13/17 08:27 Dose: 75 mg Ferrous Sulfate (Ferrous Sulfate Tab*) 325 mg PO BID [facility] Last Admin: 04/13/17 08:28 Dose: 325 mg Fluoxetine HCl (Prozac Cap*) 40 mg PO DAILY [facility] Last Admin: 04/13/17 08:27 Dose: 40 mg Gabapentin (Neurontin Cap(*)) 300 mg PO TID [facility] Last Admin: 04/13/17 13:51 Dose: 300 mg Heparin Sodium (Porcine) (Heparin Vial(*)) 5,000 units SUBCUT Q8HR [facility] Last Admin: 04/13/17 13:51 Dose: 5,000 units Hydralazine HCl (Apresoline Iv*) 10 mg IV SLOW PU Q4H PRN PRN Reason: SBP>175 Ceftriaxone Sodium 1,000 mg/ (Sodium Chloride) 50 mls @ 200 mls/hr IVPB Q24H [facility] Last Admin: 04/13/17 09:38 Dose: 200 mls/hr Azithromycin 500 mg/ Sodium (Chloride) 250 mls @ 250 mls/hr IVPB Q24H [facility] Last Admin: 04/13/17 10:19 Dose: 250 mls/hr Insulin Human Lispro (Humalog*) 0 units SUBCUT AC [facility] PRN Reason: Protocol Last Admin: 04/13/17 12:57 Dose: 1 units Insulin Human Lispro (Humalog*) 0 units SUBCUT ACHS [facility] PRN Reason: Protocol Last Admin: 04/13/17 13:50 Dose: 3 units Minocycline HCl (Minocycline (Nf)) 100 mg PO BID [facility] Last Admin: 04/13/17 08:30 Dose: 100 mg Montelukast Sodium (Singulair Tab*) 10 mg PO BEDTIME [facility] Last Admin: 04/12/17 21:34 Dose: 10 mg Nitroglycerin (Nitroglycerin 5 Mg Patch*) 1 patch TRANSDERM DAILY [facility] Last Admin: 04/13/17 08:29 Dose: 1 patch Nystatin (Nystatin Top Powder*) 1 applic TOPICAL BID [facility] Pantoprazole Sodium (Protonix Tab (Nf)) 40 mg PO DAILY [facility] Last Admin: 04/13/17 08:28 Dose: 40 mg Pharmacy Profile Note (Nitro Patch/Oint Remove*) 1 note PATCH OFF 2099 [facility] Last Admin: 04/12/17 22:12 Dose: 1 patch Torsemide (Demadex*) 20 mg PO DAILY [facility] Last Admin: 04/13/17 08:27 Dose: 20 mg Tramadol HCl (Ultram*) 50 mg PO Q6H PRN PRN Reason: PAIN Last Admin: 04/13/17 13:08 Dose: 50 mg Vital Signs 04/12/17 04/12/17 04/12/17 19:37 20:15 21:30 Temperature 97.6 F Pulse Rate 89 Respiratory 18 20 18 Rate Blood Pressure 140/75 (mmHg) O2 Sat by Pulse 100 Oximetry 04/13/17 04/13/17 04/13/17 00:09 03:14 08:01 Temperature 97.9 F 98.5 F 98.3 F Pulse Rate 88 87 86 Respiratory 20 20 16 Rate Blood Pressure 119/56 108/34 122/54 (mmHg) O2 Sat by Pulse 100 100 100 Oximetry 04/13/17 04/13/17 04/13/17 08:27 08:45 10:24 Temperature Pulse Rate Respiratory 16 16 17 Rate Blood Pressure (mmHg) O2 Sat by Pulse Oximetry 04/13/17 04/13/17 04/13/17 12:14 13:08 13:51 Temperature 98.1 F Pulse Rate 77 Respiratory 16 19 16 Rate Blood Pressure 103/48 (mmHg) O2 Sat by Pulse 100 Oximetry 04/13/17 04/13/17 04/13/17 15:08 15:31 15:51 Temperature 98.0 F Pulse Rate 81 Respiratory 18 16 18 Rate Blood Pressure 121/57 (mmHg) O2 Sat by Pulse 100 Oximetry Oxygen Devices in Use Now: Nasal Cannula - 1L Appearance: obese, NAD Eyes: No Scleral Icterus, PERRLA Ears/Nose/Mouth/Throat: NL Teeth, Lips, Gums, Clear Oropharnyx, Mucous Membranes Moist Neck: NL Appearance and Movements; NL JVP Respiratory: Symmetrical Chest Expansion and Respiratory Effort, Clear to Auscultation Cardiovascular: RRR Abdominal: NL Sounds; No Tenderness; No Distention, No Hepatosplenomegaly Lymphatic: No Cervical Adenopathy Extremities: No Edema, No Clubbing, Cyanosis Skin: No Rash or Ulcers Neurological: Alert and Oriented x 3 Result Diagrams: 04/13/17 04:50 04/13/17 04:50 Additional Lab and Data: Lab Results 04/11/17 04/11/17 04/11/17 Range/Units 07:56 07:56 07:56 WBC 14.2 H (3.5-10.8) 10^3/ul RBC 3.86 L (4.0-5.4) 10^6/ul Hgb 9.4 L (12.0-16.0) g/dl Hct 32 L (35-47) % MCV 82 (80-97) fL MCH 24 L (27-31) pg MCHC 30 L (31-36) g/dl RDW 18 H (10.5-15) % Plt Count 440 (150-450) 10^3/ul MPV 8 (7.4-10.4) um3 Neut % (Auto) 73.9 (38-83) % Lymph % (Auto) 13.1 L (25-47) % [place] % (Auto) 9.1 H (1-9) % Eos % (Auto) 2.8 (0-6) % Baso % (Auto) 1.1 (0-2) % Absolute Neuts (auto) 10.5 H (1.5-7.7) 10^3/ul Absolute Lymphs (auto) 1.9 (1.0-4.8) 10^3/ul Absolute Monos (auto) 1.3 H (0-0.8) 10^3/ul Absolute Eos (auto) 0.4 (0-0.6) 10^3/ul Absolute Basos (auto) 0.2 (0-0.2) 10^3/ul Absolute Nucleated RBC 0.01 10^3/ul Nucleated RBC % 0.1 INR (Anticoag Therapy) (0.89-1.11) Patient Temperature ABG pH (7.35-7.45) ABG pCO2 (35-45) mmHg ABG pO2 (80-100) mmHg ABG HCO3 (19-31) mmol/L ABG O2 Saturation (95-98) % ABG Base Excess (-2.0-2.0) Respiration Rate O2 Delivery Device Ventilator Type Vent Mode FiO2 Inspiratory Time PEEP Pressure Support Pressure Control EPAP IPAP BiPAP Sodium 134 (133-145) mmol/L Potassium 5.1 H (3.5-5.0) mmol/L Chloride 101 (101-111) mmol/L Carbon Dioxide 21 L (22-32) mmol/L Anion Gap 12 H (2-11) mmol/L BUN 21 (6-24) mg/dL Creatinine 1.26 H (0.51-0.95) mg/dL Est GFR ( Amer) 54.6 (>60) Est GFR (Non-Af Amer) 42.5 (>60) BUN/Creatinine Ratio 16.7 (8-20) Glucose 371 H (70-100) mg/dL Lactic Acid 5.4 H* (0.5-2.0) mmol/L Calcium 8.6 (8.6-10.3) mg/dL Total Bilirubin 0.40 (0.2-1.0) mg/dL AST 16 (13-39) U/L ALT 15 (7-52) U/L Alkaline Phosphatase 117 H (34-104) U/L Troponin I 0.03 (<0.04) ng/mL B-Natriuretic Peptide ( - 100) pg/mL Total Protein 6.3 L (6.4-8.9) g/dL Albumin 3.4 (3.2-5.2) g/dL Globulin 2.9 (2-4) g/dL Albumin/Globulin Ratio 1.2 (1-3) 04/11/17 04/11/17 04/11/17 Range/Units 07:56 07:56 08:23 WBC (3.5-10.8) 10^3/ul RBC (4.0-5.4) 10^6/ul Hgb (12.0-16.0) g/dl Hct (35-47) % MCV (80-97) fL MCH (27-31) pg MCHC (31-36) g/dl RDW (10.5-15) % Plt Count (150-450) 10^3/ul MPV (7.4-10.4) um3 Neut % (Auto) (38-83) % Lymph % (Auto) (25-47) % [place] % (Auto) (1-9) % Eos % (Auto) (0-6) % Baso % (Auto) (0-2) % Absolute Neuts (auto) (1.5-7.7) 10^3/ul Absolute Lymphs (auto) (1.0-4.8) 10^3/ul Absolute Monos (auto) (0-0.8) 10^3/ul Absolute Eos (auto) (0-0.6) 10^3/ul Absolute Basos (auto) (0-0.2) 10^3/ul Absolute Nucleated RBC 10^3/ul Nucleated RBC % INR (Anticoag Therapy) 0.96 (0.89-1.11) Patient Temperature Not Reportable ABG pH 7.32 L (7.35-7.45) ABG pCO2 35 (35-45) mmHg ABG pO2 332 H (80-100) mmHg ABG HCO3 19.2 (19-31) mmol/L ABG O2 Saturation 97.9 (95-98) % ABG Base Excess -7.4 L (-2.0-2.0) Respiration Rate Not Reportable O2 Delivery Device [facility] Ventilator Type Not Reportable Vent Mode Not Reportable FiO2 100 Inspiratory Time Not Reportable PEEP Not Reportable Pressure Support Not Reportable Pressure Control Not Reportable EPAP Not Reportable IPAP Not Reportable BiPAP Not Reportable Sodium (133-145) mmol/L Potassium (3.5-5.0) mmol/L Chloride (101-111) mmol/L Carbon Dioxide (22-32) mmol/L Anion Gap (2-11) mmol/L BUN (6-24) mg/dL Creatinine (0.51-0.95) mg/dL Est GFR ( Amer) (>60) Est GFR (Non-Af Amer) (>60) BUN/Creatinine Ratio (8-20) Glucose (70-100) mg/dL Lactic Acid (0.5-2.0) mmol/L Calcium (8.6-10.3) mg/dL Total Bilirubin (0.2-1.0) mg/dL AST (13-39) U/L ALT (7-52) U/L Alkaline Phosphatase (34-104) U/L Troponin I (<0.04) ng/mL B-Natriuretic Peptide 522 H ( - 100) pg/mL Total Protein (6.4-8.9) g/dL Albumin (3.2-5.2) g/dL Globulin (2-4) g/dL Albumin/Globulin Ratio (1-3) Microbiology and Other Data: Microbiology 04/11/17 15:03 Nasal Screen MRSA (PCR)(SUNG) - Final Nasal Mrsa Negative 04/11/17 10:00 Legionella Urinary Antigen - Final Urine Negative Legionella Streptococcus pneumoniae Ag Screen - Final Negative S. pneumo Antigen Assess/Plan/Problems-Billing Assessment: 66 yo F with h/o severe nonischemic cardiomyopathy (EF 20%), HTN, GERD, DM2 present with sudden onset SOB in setting of suspected RLL pneumonia - Patient Problems (1) Acute respiratory failure with hypoxia Comment: With associated sepis now resolved Suspect in setting or RLL PNA althout no cough/fever and onset was fairly rapid Improving with CTX and azithro (2) Acute renal failure Comment: due to sepsis and pneumonia Creat back to baseline Holding lisinopril (3) Community acquired bacterial pneumonia Comment: pt was septic at admission continues to be afebrile, leukocytosis improved Cont Ceftriaxone/Azithro Legionella, Strp pneumo atg neg. (4) Normocytic anemia Comment: iron defficient Cont Protonix PO, stool hemoccult negative would benefit from outpatient cscope Started on iron supplement (5) Severe mitral regurgitation Comment: according to Echo MR now mod to severe and worse than before. D/w Pt that she may need valve replacement at some point and asked her to f/u with Dr. Herring after discharge. Pt is also planning to see Dr. Herring to consider biventricular pacer placement (6) Diabetes Comment: holding glipizide . Continue Lispro SS and Lantus (7) DVT prophylaxis Comment: due to iron defficiency anemia and w/up for GI bleed anticoagulation will not be started , SCD's Status and Disposition: inpatient
[2017-04-13] MEDS: Montelukast Sodium TAB* 10 MG PO SCH (20:08)
[2017-04-13] MEDS: Nystatin TOP POWDER* 15 GM BTL TOPICAL SCH (20:10)
[2017-04-13] MEDS: Nitro Patch/OINT Remove PATCH OFF SCH (22:17)
[2017-04-14] MEDS: Heparin VIAL(*) 5000 UNITS/ML VIAL (FIVE THOUSAND) SUBCUT SCH ×2 (05:32→12:50)
[2017-04-14 05:40] LABS: Hematocrit 25 % (35-47); Hemoglobin 7.7 g/dl (12.0-16.0); Mean Corpuscular HGB Conc 31 g/dl (31-36); Mean Corpuscular Hemoglobin 24 pg (27-31); Mean Corpuscular Volume 79 fL (80-97); Mean Platelet Volume 8 um3 (7.4-10.4); Red Blood Count 3.18 10^6/ul (4.0-5.4); Red Cell Distribution Width 17 % (10.5-15); White Blood Count 7.8 10^3/ul (3.5-10.8)
[2017-04-14 05:56] LABS: BUN/Creatinine Ratio 10.2 (8-20); Calcium 8.7 mg/dL (8.6-10.3); EGFR African American 82.7 (>60); EGFR Non-African American 64.3 (>60); Potassium 3.3 mmol/L (3.5-5.0)
[2017-04-14] MEDS ORDERED: Potassium Chlor TAB* 20 MEQ TAB.ER PO ONE (08:12)
[2017-04-14] MEDS: Insulin LISPRO* 1 UNITS UNIT SUBCUT SCH ×4 (08:31→12:51)
[2017-04-14] MEDS: Carvedilol TAB* 6.25 MG PO SCH (08:53)
[2017-04-14] MEDS: Aspirin EC Low Dose* 81 MG TAB.EC PO SCH (08:53)
[2017-04-14] MEDS: buPROPion SR TAB.SR* 150 MG PO SCH (08:53)
[2017-04-14] MEDS: cefTRIAXone VIAL(*) 1,000 MG in NS 0.9% 50 ML* 50 ML IVPB SCH (08:54)
[2017-04-14] MEDS: Gabapentin CAP(*) 300 MG PO SCH ×2 (08:54→12:51)
[2017-04-14] MEDS: Torsemide TAB* 20 MG PO SCH (08:54)
[2017-04-14] MEDS: traMADol TAB* 50 MG PO PRN (08:55)
[2017-04-14] MEDS: FLUoxetine CAP* 20 MG PO SCH (08:55)
[2017-04-14] MEDS: CMCS: Pantoprazole TAB (NF) 40 MG TAB PO SCH (08:55)
[2017-04-14] MEDS: Ferrous Sulfate TAB* 325 MG PO SCH (08:55)
[2017-04-14] MEDS: Clopidogrel TAB* 75 MG PO SCH (08:56)
[2017-04-14] MEDS: CMC:Minocycline (NF) 50 MG CAP PO SCH (08:56)
[2017-04-14] MEDS: Nitroglycerin 0.2 MG/HR PATCH* (5 MG) TRANSDERM SCH (08:56)
[2017-04-14] MEDS: Nystatin TOP POWDER* 15 GM BTL TOPICAL SCH (09:00)
[2017-04-14] MEDS: Azithromycin IV(*) 500 MG in NS 0.9% 250 ML* 250 ML IVPB SCH (09:47)
[2017-04-14 11:28] VITALS: BP 124/51
--- NOTE | 2017-04-15 03:54 | DS ---
CC: Dr. Gordon; Dr. Herring * DISCHARGE SUMMARY: DATE OF ADMISSION: 04/11/17 DATE OF DISCHARGE: 04/14/17 PRIMARY CARE PROVIDER: Dr. Gordon. POEM WRITER: Dr. Herring. PRIMARY DIAGNOSES: 1. Right lower lobe pneumonia. 2. Combined systolic/diastolic heart failure exacerbation. SECONDARY DIAGNOSES: Include: 1. Hypertension. 2. Peripheral vascular disease. 3. Hyperlipidemia. 4. History of GI bleed. 5. Iron deficiency anemia. 6. Type 2 diabetes. 7. Asthma. MEDICATIONS ON DISCHARGE: 1. Fexofenadine 180 mg daily. 2. Carvedilol 12.5 mg daily. 3. Aspirin 81 mg daily. 4. Bydureon 2 mg subcutaneously weekly. 5. Clopidogrel 75 mg daily. 6. Neurontin 300 mg 3 times daily. 7. Fluoxetine 40 mg daily. 8. Lisinopril 1.25 mg daily. 9. Glipizide 10 mg twice daily. 10. Minocycline 100 mg twice daily. 11. Metoclopramide 10 mg daily. 12. Naproxen 500 mg twice daily. 13. Singulair 10 mg daily at bedtime. 14. Nitroglycerin 5 mg patch transdermally. 15. Prilosec 20 mg daily. 16. Crestor 10 mg at bedtime. 17. Wellbutrin SR 300 mg daily. 18. Torsemide 20 mg daily. 19. Tramadol 50 mg every 4 hours as needed for pain, max daily dose of 6. 20. Levaquin 750 mg for 4 additional days. 21. Ferrous sulfate 325 mg twice daily. PERTINENT LABORATORY DATA: Lactic acid on presentation 5.4, creatinine on presentation 1.26, on discharge 0.88. Ferritin less than 10, iron percent saturation 4, iron 16, TIBC 402, hemoglobin on discharge 7.7, MCV of 79, stool occult blood was negative. HISTORY OF PRESENT ILLNESS AND HOSPITAL COURSE: This is a 66-year-old female with past medical history as outlined in the history of present illness on day of admission including severe ischemic systolic heart failure with an estimated ejection fraction of 20% to 25%, been in her usual state of health, suddenly developed shortness of breath, presented to the hospital, thought to in the setting of right lower lobe pneumonia, leukocytosis 14.2 on presentation. She was treated with Lasix in the emergency room and then continued on ceftriaxone and azithromycin throughout her hospital stay. She required Vapotherm for part of her stay. However, titrated off to no oxygen requirements prior to discharge. There were no complications during the patient's hospital stay. Her discharge medications were only altered to include Levaquin 750 mg for 4 additional days. The patient was back to her baseline, able to ambulate her usual distance approximately 30 feet to the bathroom and back without shortness of breath on the day of discharge. The patient's ambulation is only limited by her lower back pain and not by work of breathing. At followup, please: 1. Consider CBC for continued stability of hemoglobin. 2. Adjust medications as necessary for continued blood pressure control. 3. No other specific labs or vitals that need followup. Reasons to return to the hospital including, but not limited to, recurrent or worsening symptoms, shortness of breath, chest pain, nausea, vomiting, lightheadedness, or loss of consciousness, near loss of consciousness, fever, chills, night sweats, bleeding from any source, black stools, and inability to obtain or tolerate medications were discussed with the patient and her . They acknowledged understanding. TIME SPENT: Greater than 45 minutes was spent on discharge of this patient, greater than half was spent [id number] with the patient. [id number]/[facility] #: [id number] BEATRIZ
== END 2017-04-14 17:30 | disposition home or self-care (01) | DRG 871 ==
LOC: ED 07:52 → ICU 08:46 → MEDTELE 04-12 09:30
PROVIDERS: ADMIT Internal Medicine; ATTEND Internal Medicine
DX: A41.9 Sepsis, unspecified organism (principal); J18.9 Pneumonia, unspecified organism; J96.01 Acute respiratory failure with hypoxia; N17.9 Acute kidney failure, unspecified; I50.41 Acute combined systolic (congestive) and diastolic (congestive) heart failure; G45.1 Carotid artery syndrome (hemispheric); I10 Essential (primary) hypertension; E11.51 Type 2 diabetes mellitus with diabetic peripheral angiopathy without gangrene; E78.5 Hyperlipidemia, unspecified; D50.9 Iron deficiency anemia, unspecified; J45.909 Unspecified asthma, uncomplicated; E11.65 Type 2 diabetes mellitus with hyperglycemia; M54.5 Low back pain; I25.5 Ischemic cardiomyopathy; I72.4 Aneurysm of artery of lower extremity; M48.00 Spinal stenosis, site unspecified; Z79.82 Long term (current) use of aspirin; Z95.810 Presence of automatic (implantable) cardiac defibrillator; Z79.84 Long term (current) use of oral hypoglycemic drugs; Z79.899 Other long term (current) drug therapy; Z91.013 Allergy to seafood; Z88.8 Allergy status to other drugs, medicaments and biological substances; Z91.048 Other nonmedicinal substance allergy status; Z82.49 Family history of ischemic heart disease and other diseases of the circulatory system; Z80.9 Family history of malignant neoplasm, unspecified; Z87.891 Personal history of nicotine dependence; I34.0 Nonrheumatic mitral (valve) insufficiency
CPT/HCPCS: 36415; 36600; 71010; 80048; 80053; 82272; 82607; 82728; 82746; 82803; 83036; 83540; 83550; 83605; 83880; 84484; 85025; 85610; 87040; 87641; 87899; 93005; 93306; 94760; A9270-GY; J0456; J0696; J1644; J1940; J2930

== ENCOUNTER 2018-05-20 23:27 | Inpatient (IN) | payer MEDICARE ==
--- NOTE | 2018-05-20 23:30 | ED ---
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 Dyspnea at rest. called EMS. Pt on CPAP by EMS. PMHx COPD, CHF. Denies PMHx AK. Non smoker. SOB not alleviated by anything. Associated sx: wheezing. - History of Current Complaint Hx Obtained From: Patient Onset/Duration: Sudden Onset, Lasting Minutes, Still Present Dyspnea At: Rest Alleviating Factors: Nothing Associated Signs & Symptoms: Wheezing - Allergy/Home Medications Allergies/Adverse Reactions: Allergies Allergy/AdvReac Type Severity Reaction Status Date / Time atorvastatin [From Lipitor] Allergy Unknown Verified 05/13/18 10:24 Reaction Details nickel Allergy Unknown Verified 05/13/18 10:24 Reaction Details shellfish derived Allergy Anaphylatic Verified 05/13/18 10:24 Shock TOPICAL IODINE Allergy Mild PER PT Uncoded 02/27/18 11:12 DECREASES HEALING PMH/Surg Hx/FS Hx/Imm Hx Previously Healthy: No Endocrine/Hematology History: Reports: Hx Anticoagulant Therapy - PLAVIX, Hx Diabetes Denies: Hx Blood Disorders, Hx Blood Transfusions, Hx Bone Marrow Disease, Hx Sickle Cell Disease, Hx Thyroid Disease, Hx Anemia, Hx Unexplained Bleeding, Other Endocrine/Hematological Disorders Cardiovascular History: Reports: Hx Auto Implanted Cardiovert Defib, Hx Congestive Heart Failure - in the past, Hx Coronary Artery Disease, Hx Hypercholesterolemia, Hx Hypertension, Hx Pacemaker/ICD, Other Cardiovascular Problems/Disorders - heart failure Denies: Hx Aneurysm, Hx Angina, Hx Angioplasty, Hx Cardiac Arrest, Hx Cardiomegaly, Hx Congenital Heart Disease, Hx Deep Vein Thrombosis, Hx Embolism , Hx Hypotension, Hx Peripheral Vascular Disease, Hx Rheumatic Fever, Hx Syncope , Hx Valvular Heart Disease Respiratory History: Reports: Hx Asthma, Hx Pneumonia - 13 yrs ago Denies: Hx Chronic Bronchitis, Hx Chronic Obstructive Pulmonary Disease (COPD ), Hx Cystic Fibrosis, Hx Lung Cancer, Hx Pleural Effusion, Hx Pulmonary Edema, Hx Pulmonary Embolism, Hx Seasonal Allergies, Hx Sleep Apnea, Other Respiratory Problems/Disorders GI History: Reports: Hx Gastroesophageal Reflux Disease Denies: Hx Cirrhosis, Hx Crohn's Disease, Hx Diverticulosis, Hx Gall Bladder Disease, Hx Gastrointestinal Bleed, Hx Hiatal Hernia, Hx Irritable Bowel, Hx Jaundice, Hx Obstructive Bowel, Hx Ileostomy, Hx Pyloric Stenosis, Hx Ulcer, Other GI Disorders History: Denies: Hx Renal Disease Musculoskeletal History: Reports: Hx Arthritis, Hx Back Problems, Hx Scoliosis Denies: Hx Bursitis, Hx Congenital Bone Abnormalities, Hx Fibromyalgia, Hx Gout, Hx Orthopedic Injury, Hx Osteoporosis, Hx Tendonitis, Other Musculoskeletal History Sensory History: Reports: Hx Contacts or Glasses Denies: Hx Cataracts, Hx Eye Injury, Hx Eye Prosthesis, Hx Glaucoma, Hx Legally Blind, Hx Macular Degeneration, Hx Vision Problem, Hx Deafness, Hx Hearing Aid, Hx Hearing Problem, Other Sensory Impairments Opthamlomology History: Reports: Hx Contacts or Glasses Denies: Hx Cataracts, Hx Eye Injury, Hx Eye Prosthesis, Hx Glaucoma, Hx Legally Blind, Hx Macular Degeneration, Hx Vision Problem, Other Sensory Impairments Neurological History: Reports: Hx Nerve Disease - "bulging disc", Other Neuro Impairments/Disorders - PAIN CLINIC PT Denies: Hx Dementia, Hx Developmental Delay, Hx Headaches, Hx Migraine, Hx Seizures, Hx Spinal Cord Injury, Hx Transient Ischemic Attacks (TIA) Psychiatric History: Reports: Hx Depression Denies: Hx Anxiety, Hx Attention Deficit Hyperactivity Disorder, Hx Eating Disorder, Hx Panic Disorder, Hx Post Traumatic Stress Disorder, Hx Inpatient Treatment, Hx Community Mental Health Tx, Hx Schizophrenia, Hx Bipolar Disorder , Hx Suicide Attempt, Hx of Violent Episodes Against Others, Hx Substance Abuse , Other Psychiatric Issues/Disorders - Cancer History Hx Chemotherapy: No Hx Radiation Therapy: No - Surgical History Surgery Procedure, Year, and Place: Bilat carpal tunnel , Hysterectomy, femoral artery bypass bilateral 2009, heart cath with stent placement 2013, difibrillator/pacemaker 2014, back surgery "a long time ago" Hx Anesthesia Reactions: No Infectious Disease History: Reports: Hx Shingles Denies: Hx Clostridium Difficile, Hx Hepatitis, Hx Human Immunodeficiency Virus (HIV), Hx of Known/Suspected MRSA, Hx Tuberculosis, History Other Infectious Disease - Family History Family History: No FHx of Breast Cancer - Social History Alcohol Use: None Substance Use Type: Reports: None Smoking Status (MU): Former Smoker Type: Cigarettes Have You Smoked in the Last Year: No Review of Systems Constitutional: Negative Eyes: Negative ENT: Negative Cardiovascular: Negative Positive: Shortness Of Breath, Other - wheezing Gastrointestinal: Negative Genitourinary: Negative Musculoskeletal: Negative Skin: Negative Neurological: Negative Psychological: Normal All Other Systems Reviewed And Are Negative: Yes Physical Exam - Summary Physical Exam Summary: Appearance: mod resp distress Skin: warm, dry, reflects adequate perfusion Head/face: normal Eyes: EOMI, JOSE ENT: normal Neck: supple, non-tender Respiratory: Bilateral wheezes, Cardiovascular: Tachycardia, pulses symmetrical Abdomen: non-tender, soft Bowel: present Musculoskeletal: normal, strength/ROM intact Neuro: normal, sensory motor intact, A&Ox3 Triage Information Reviewed: Yes Vital Signs Reviewed: Yes Procedures - Intubation Time of Intubation: 00:00 Intubation Method: orotracheal Tube Size (cm): 7.5 Medications: Succinylcholine Breath Sounds after Intubation: equal Intubation Complications: no complications Post Intubation Xray: Yes Progress/Xray Impression: Pt tolerated well Diagnostics - Laboratory Result Diagrams: 05/20/18 23:43 05/21/18 00:25 Lab Statement: Any lab studies that have been ordered have been reviewed, and results considered in the medical decision making process. - Radiology CXR Radiology Interpretation Completed By: ED Physician - R lower lobe infiltrate CXR2 Radiology Interpretation Completed By: ED Physician - R Lower Lobe PNA - EKG 1 EKG Interpretation: 00:33 - Sinus Tachycardia @ 112 BPM. 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 CXR 1 shows R lower lobe infiltrate. Intubation done, pt tolerated well. EKG @ 00:33 - Sinus Tachycardia @ 112 BPM. CXR 2 shows R lower lobe PNA. Trop negative. Spoke with Dr. Avila, who indicated after reviewing the pt's EKG that the pt has no acute AK. Pt accepted to Dr. Gould's services at [facility]. - Diagnoses Differential Diagnosis/HQI/PQRI: Positive: Asthma, Bronchitis, CHF, COPD Exacerbation, AK, Pneumonia, Pneumothorax, Pulmonary Edema, Unstable Angina Provider Diagnoses: Hypoxia, COPD exacerbation, PNA (pneumonia), Respiratory failure, Sepsis, Required emergency intubation - Physician Notifications Discussed Care of Patient With: Cody Avila Time Discussed With Above Provider: 00:40 Instructed by Provider To: Other - MD will look at EKG - Critical Care Time Critical Care Time: 75-104 min Discharge - Sign-Out/Discharge Documenting (check all that apply): Patient Departure - Discharge Plan Condition: Stable Disposition: ADMITTED TO [facility] - Billing Disposition and Condition Condition: STABLE Disposition: Admitted to Health System
[2018-05-20] MEDS ORDERED: Magnesium Sulfate 2 GM IV* 2 GM/50 ML BAG ONE (23:31)
[2018-05-20] MEDS ORDERED: methylPREDNISolone 125 MG* 2 ML VIAL ONE (23:31)
[2018-05-20] MEDS ORDERED: Albuterol/Ipratropium NEB.SOL* Albuterol 2.5 MG/Ipratropium 0.5 MG 3 ML INH ONE ×2 (23:32→23:34)
[2018-05-20] MEDS ORDERED: Magnesium Sulfate 2 GM IV* 2 GM/50 ML BAG IVPB ONE (23:32)
[2018-05-20] MEDS ORDERED: methylPREDNISolone 125 MG* 2 ML VIAL IV ONE (23:32)
[2018-05-21 00:01] LABS: Hematocrit 34 % (35-47); Hemoglobin 10.2 g/dl (12.0-16.0); INR 0.87 (0.77-1.02); Mean Corpuscular HGB Conc 30 g/dl (31-36); Mean Corpuscular Hemoglobin 24 pg (27-31); Mean Corpuscular Volume 79 fL (80-97); Red Blood Count 4.26 10^6/ul (4.00-5.40); Red Cell Distribution Width 18 % (10.5-15); White Blood Count 18.3 10^3/ul (3.5-10.8)
[2018-05-21 00:04] LABS: ABS Basophils 0.2 10^3/ul (0-0.2); ABS Eosinophils 0.7 10^3/ul (0-0.6); ABS Lymphocytes 4.4 10^3/ul (1.0-4.8); ABS Nucleated RBC 0.1 10^3/ul; Nucleated Red Blood Cells % 0.3
[2018-05-21 00:09] LABS: EGFR Non-African American 46.6 (>60)
[2018-05-21] MEDS ORDERED: Piperacillin/Tazobac ADVAN(*) 3.375 GM in NS 0.9% 100 ML* 100 ML IVPB ONE (00:14)
[2018-05-21] MEDS ORDERED: Vancomycin(*) 1,000 MG in NS 0.9% 250 ML* 250 ML IVPB ONE (00:15)
[2018-05-21 00:43] LABS: Eosinophil % 3.7 % (0-6); Mean Platelet Volume 8.5 um3 (7.4-10.4); Platelet Count 361 10^3/ul (150-450)
[2018-05-21] MEDS ORDERED: Al Hydrox/Mg Hydrox/Simet LIQ* 30 ML UDC PO PRN (01:05)
[2018-05-21] MEDS ORDERED: Ondansetron INJ* 2 MG/ML VIAL IV PRN (01:05)
[2018-05-21] MEDS ORDERED: Propofol* 100 ML ONE (01:13)
[2018-05-21] MEDS ORDERED: Furosemide IV* 10 MG/ML 10 ML VIAL (100 MG) IV ONE (01:40)
[2018-05-21 01:41] LABS: Corrected Retic Count 2.6 % (0.5-1.5); Hematocrit for Retic CNT 33 % (35-47); Immature Retic Fraction 0.55; RBC Retic Count 4.23 10^6/ul (4.6-6.2)
[2018-05-21] MEDS ORDERED: Nitroglycerin 2% OINT* 1 GM PAK TOPICAL ONE (01:42)
[2018-05-21] MEDS ORDERED: nitroGLYCERIN DRIP* 25,000 MCG/250 ML BTL ONE (01:57)
[2018-05-21] MEDS ORDERED: nitroGLYCERIN DRIP* 25,000 MCG/250 ML BTL IV SCH (02:00)
[2018-05-21] MEDS ORDERED: Propofol* 500 MG/50 ML BTL IV SCH (02:00)
[2018-05-21] MEDS: Propofol* 100 ML IV SCH ×2 (02:25→07:19)
[2018-05-21] MEDS ORDERED: Pantoprazole IV* 40 MG IV SCH (03:00)
[2018-05-21] MEDS ORDERED: Insulin REGULAR(*) 1 UNITS UNIT IV PUSH ONE (03:18)
[2018-05-21] MEDS: Insulin REGULAR(*) 1 UNITS UNIT SUBCUT SCH ×7 (03:21→23:49)
[2018-05-21 05:23] LABS: ABS Basophils 0.1 10^3/ul (0-0.2); ABS Eosinophils 0 10^3/ul (0-0.6); ABS Lymphocytes 0.5 10^3/ul (1.0-4.8); ABS Monocytes 0.4 10^3/ul (0-0.8); ABS Neutrophils 16.2 10^3/ul (1.5-7.7); ABS Nucleated RBC 0 10^3/ul; Eosinophil % 0.2 % (0-6); Hematocrit 32 % (35-47); Hemoglobin 9.9 g/dl (12.0-16.0); Lymphocyte % 3.1 % (25-47); Mean Corpuscular HGB Conc 31 g/dl (31-36); Mean Corpuscular Hemoglobin 24 pg (27-31); Mean Corpuscular Volume 76 fL (80-97); Mean Platelet Volume 7.8 um3 (7.4-10.4); Nucleated Red Blood Cells % 0.1; Platelet Count 283 10^3/ul (150-450); Red Blood Count 4.21 10^6/ul (4.00-5.40); Red Cell Distribution Width 18 % (10.5-15); White Blood Count 17.3 10^3/ul (3.5-10.8)
[2018-05-21 05:42] LABS: EGFR Non-African American 45.2 (>60)
[2018-05-21] MEDS: Heparin VIAL(*) 5000 UNITS/ML VIAL (FIVE THOUSAND) SUBCUT SCH ×3 (06:13→20:38)
--- NOTE | 2018-05-21 07:32 | RAD ---
Indication: Shortness of breath. Single frontal view of the chest performed at 2340 hours was reviewed. Comparison is made with previous exam dated April 11, 2017. No mediastinal shift is noted. Heart is of normal size and configuration. Airspace disease is noted in the right base. Pacemaker leads are in place. IMPRESSION: QUESTION OF EARLY RIGHT BASILAR AIRSPACE DISEASE.
--- NOTE | 2018-05-21 07:42 | RAD ---
INDICATION: Tube placement. COMPARISON: Comparison is made with a prior chest x-ray study from May 20, 2018. TECHNIQUE: A portable view of the chest was obtained. FINDINGS: The patient is status post intubation. The endotracheal tube tip projects approximately 1.4 cm above the jeri. There is a nasogastric tube which demonstrates normal course. The heart is mildly enlarged. There is a transvenous pacemaker present. There is a small infiltrate at the right lung base which appears to have progressed slightly. No pleural effusion is seen. IMPRESSION: 1. STATUS POST INTUBATION. THE ENDOTRACHEAL TUBE TIP IS JUST ABOVE THE JERI NOTED. 2. RIGHT BASILAR INFILTRATE DEMONSTRATING SLIGHT PROGRESSION. R1
--- NOTE | 2018-05-21 07:45 | RAD ---
INDICATION: Status post endotracheal tube repositioning. COMPARISON: Comparison is made with a prior exam of the same date from approximately one hour earlier. TECHNIQUE: A single portable view of the chest was obtained. The lung bases are cut off on the film. FINDINGS: There is an endotracheal tube present the tip projects approximately 1.8 cm above the jeri. There is a nasogastric tube which projects over the midline partially visualized on this study. The heart is mildly enlarged and unchanged. There are infiltrates at both lung bases and suggestion of a small left pleural effusion. IMPRESSION: 1. ENDOTRACHEAL TUBE DESCRIBED. 2. BIBASILAR INFILTRATES AND SMALL LEFT PLEURAL EFFUSION. R1
--- NOTE | 2018-05-21 08:00 | HP ---
CC: Dr. Gordon; Valentino Herring M.D. HISTORY AND PHYSICAL: DATE OF ADMISSION: 05/21/18. TIME OF EVALUATION: 0100. PRIMARY CARE PHYSICIAN: Dr. Gordon. PATIENT COMPANION: Valentino Herring M.D. CHIEF COMPLAINT: Respiratory distress. HISTORY OF PRESENT ILLNESS: This is a 67-year-old female with a past medical history of ischemic cardiomyopathy with ejection fraction of 20%, who presented to the emergency room with acute onset of respiratory distress. The patient was subsequently intubated in the emergency room, and the history is provided by the , who is at the bedside. The patient states that the patient always has dyspnea on exertion at baseline. She is only able to ambulate 30 feet before she gets dyspneic. He states for the past few days she has been complaining of shortness of breath and has needed the air conditioning on, which is unusual. She does not usually complain of many things. She was denying any chest pain. No cough. No fever. No other URI symptoms or other complaints. This evening, she was laying down around 11 p.m. when she went to go get ready for bed, she became more acutely dyspneic. She had her get a fan for her and did not improve her shortness of breath and subsequently asked to call EMS. The patient was placed on CPAP via EMS. On arrival to the emergency room, the patient was richards, pale, and cool and clammy. The concern was that she was tiring out and they promptly intubated her. The patient denies any recent changes to her medications. No weight changes. Regarding her COPD, she is on room air. No increased use in her inhalers. She states that she last saw Dr. Herring a month or two ago and there was nothing out of the ordinary during that visit. Otherwise, review of systems is limited due to the patient being intubated and sedated. In the emergency room, the patient had labs, imaging, was given vancomycin, Zosyn, Solu-Medrol, magnesium sulfate, DuoNeb, and referred to the hospitalist service for further evaluation. PAST MEDICAL HISTORY: 1. COPD, on room air. 2. Chronic pain followed with the pain clinic. 3. Depression. 4. History of GI bleed. 5. History of cardiomyopathy with ejection fraction of less than 20%. 6. Jrfprsdj-gg-dnwibm MR. 7. Diabetes. 8. History of ICD pacemaker placement. 9. Coronary artery disease followed by Dr. Herring. 10. Hypertension. 11. Hyperlipidemia. 12. GERD. 13. Arthritis. MEDICATIONS: Per her pain medicine note from 05/13/18: 1. Fluoxetine 40 mg daily. 2. Neurontin 400 mg p.o. 4 times a day. 3. Exenatide microspheres 2 mg subcu weekly. 4. Nitroglycerin patch transdermally daily. 5. Bupropion 200 mg p.o. daily. 6. Tramadol 50 mg t.i.d. as needed. 7. Demodex 20 mg p.o. daily. 8. Fexofenadine 180 mg a day. 9. Lisinopril 2.5 mg daily. 10. Tramadol 100 mg daily. 11. Aspirin 81 mg daily. 12. Coreg 12.5 mg p.o. b.i.d. 13. Plavix 75 mg daily. 14. Reglan 10 mg daily. 15. Minocycline 100 mg p.o. b.i.d. 16. Singulair 10 mg at bedtime. 17. Omeprazole 20 mg daily. 18. Rosuvastatin 10 mg at bedtime. 19. Glipizide 10 mg p.o. b.i.d. ALLERGIES: ATORVASTATIN, NICKEL, SHELLFISH, TOPICAL IODINE. FAMILY HISTORY: Mother from lung cancer, who was also a smoker. Father from an NH. SOCIAL HISTORY: The patient lives at home with her . As mentioned, she only leaves her house for appointments, only able to ambulate 30 feet before getting dyspneic, ambulates with a walker, former smoker, quit in 2002, a pack per day for 20 days. No alcohol use or illicit drug use. Her is her healthcare proxy, who is at the bedside. Code status is confirmed, a full code. REVIEW OF SYSTEMS: Limited due to the patient's intubation and sedation. PHYSICAL EXAMINATION GENERAL: The patient is richards-appearing, cool and clammy and sedated. VITAL SIGNS: Temp is 98.5, pulse rate 107, respiratory rate 16, oxygen saturation 100% intubated with an FiO2 of 40, blood pressure 166/95. HEENT: Head: Normocephalic. Pupils are dilated and reactive. Anicteric. Oropharynx: The patient has ET tube in place. NECK: Supple. No lymphadenopathy. RESPIRATORY: Diminished breath sounds. No wheezing, rhonchi or rales. CARDIAC: Tachycardia. Soft systolic murmur heard throughout. ABDOMEN: Hypoactive bowel sounds, soft, nondistended, nontender. EXTREMITIES: Cool and clammy. No edema. +1 pulses. NEUROLOGIC: The patient is sedated and unresponsive, was just given a paralytic. No spontaneous movement at this time. LABORATORY DATA: White count 18.3, hemoglobin 10, hematocrit 34, platelets 361. INR is 0.87. Initial blood gas is 7.2, pCO2 of 51, pO2 of 116. Repeat blood gas post-intubation is 7.14, pCO2 of 59, pO2 of 67. Venous pO2 is 60. Sodium 135, potassium 5.3, chloride 103, bicarb 19, anion gap of 13, BUN 25, creatinine 1.16, glucose 384, lactic acid 5.8, troponin is 0.03 x2. BNP is 455. RADIOGRAPHIC DATA: EKG is showing some minimal elevation of ST in the anterolateral leads, tachycardic. Chest x-ray shows pulmonary edema. ASSESSMENT AND PLAN: This is a 67-year-old female with past medical history of cardiomyopathy with ejection fraction of less than 20, who presents to the emergency room with acute onset respiratory distress, promptly intubated in the emergency room. 1. Respiratory failure. Assessment: The patient's history and physical are concerning for acute decompensated respiratory failure. I did speak with Dr. Cameron regarding management. Initially, the patient was given Lasix 80 mg and Nitro patch. After seeing with Dr. Cameron, he recommended placing the patient on the nitroglycerin drip, which will be placed in place of the patch. We will repeat her lactate and her venous O2 per Dr. Cameron's request and order an echocardiogram, and followup with Cardiology in the morning. Mixed metabolic and respiratory acidosis. Respiratory therapy has adjusted her vent settings for her respiratory acidosis, metabolic acidosis, likely from her lactic acidosis. Plan: We will follow her numbers in hopes that the nitroglycerin will improve perfusion. 2. Acute kidney injury. In setting of CHF, renally dose her medications and repeat her labs. 3. Diabetes. Her glucose is elevated. She is n.p.o. currently. We will place her on regular insulin to follow her sugars closely. 4. Chronic medical problems. We will hold her p.o. agents at this time. We hold her oral agents at this time for gastroesophageal reflux disease, we will place her on gastrointestinal prophylaxis. 5. Deep venous thrombosis prophylaxis. The patient scores high risk. We will place her on heparin subcu t.i.d. 6. Code status. Full code. 7. Fluids, electrolytes, and nutrition. The patient is n.p.o. at this time due to intubated and sedated. Defer to Dr. Cameron for further management. TIME SPENT: The patient's time greater than 60 minutes were spent doing the history and physical, more than than half of the time was spent in direct patient contact and discussion with Dr. Cameron for critical care time. [id number]/[facility] #: [id number] MTDD
[2018-05-21] MEDS ORDERED: Chlorhexidine MOUTHWASH 0.12%* 15 ML UDC TOPICAL SCH (11:00)
--- NOTE | 2018-05-21 11:18 | ECHO ---
Patient: LEE ANN CALVILLO [facility] Rec#: [id number] : 1950 Date: 05/21/2018 Age: 67y Height: 119 cm / 46.9 in Weight: 65 kg / 143.3 lbs Sex: F BSA: 1.35 Room#: ICU 12 Admit Date#: 05/21/2018 Type: Inpatient Referring: Bre Gould Reading: Jesus Alberto Ashley MD Pedodontist: Terra Parham RDCS,RDMS CC: Valentino Herring MD Transthoracic Echocardiogram Indication: CHF BP: 119/65 HR: 93 Rhythm: NSR with PVCs Findings History: COPD, CHF, AICD, cardiomyopathy, HTN, HLD, CAD, PCI Technical Comments: The study quality is fair. The study is technically limited due to patient being intubated and on a ventilator. Left Ventricle: The left ventricular size is mild to moderately dilated. Mild concentric left ventricular hypertrophy is observed. There is global hypokinesis of the left ventricle with minor regional variation. There is severely decreased left ventricular systolic function. The estimated ejection fraction is 20-25%. There is an E to A reversal in the mitral valve flow pattern suggestive of diastolic dysfunction. Left Atrium: The left atrial chamber size is normal. Right Ventricle: The right ventricular chamber size and systolic function are within normal limits. A pacemaker wire is visualized in the right ventricle. Right Atrium: The right atrial cavity size is normal. A pacemaker wire is visualized in the right atrium. Aortic Valve: The aortic valve is trileaflet. The aortic valve leaflets are mildly thickened. There is no evidence of aortic regurgitation. There is no evidence of aortic stenosis. Mitral Valve: The mitral valve leaflets appear normal. There is mild mitral regurgitation. The quality of the regurgitation interrogation is limited by suboptimal images. There is no evidence of mitral stenosis. Tricuspid Valve: The tricuspid valve leaflets are normal. There is trace tricuspid regurgitation. There is evidence of mild pulmonary hypertension. Pulmonic Valve: The pulmonic valve appears normal. There is a trace pulmonic regurgitation. Pericardium: There is no significant pericardial effusion. Aorta: The aortic root appears normal. There is no dilatation of the aortic arch. Pulmonary Artery: The main pulmonary artery is not well visualized. Venous: Unable to accurately comment on the size collapsibility of the IVC as the patient in known to be on mechanical ventilation. Conclusions The left ventricular size is mild to moderately dilated. Mild concentric left ventricular hypertrophy is observed. There is severely decreased left ventricular systolic function. The estimated ejection fraction is 20-25%. A pacemaker wire is visualized in the right ventricle. A pacemaker wire is visualized in the right atrium. There is mild mitral regurgitation(The quality of the regurgitation interrogation is limited by suboptimal images). There is trace tricuspid regurgitation. There is a trace pulmonic regurgitation. Compared to report of study from 04/11/2017 the degree of mitral regurgitation appears less (from available views), it was moderate to severe on prior study. Suboptimal imaging of the regurgitation may underestimate the severity. Measurements Name Value Normal Range RVIDd (AP) 2D 2.4 cm (0.9 - 2.6) RVDdMajor (2D) 1.9 cm (2.2 - 4.4) RAd ISD 4CH 4.2 cm (3.4 - 4.9) RA (A4C)W 3 cm (2.9 - 4.6) IVSd (2D) 1.1 cm (0.6 - 1) LVPWd (2D) 1.2 cm (0.6 - 1) LVIDd (2D) 6.2 cm (3.6 - 5.4) LVIDs (2D) 5.5 cm - LV FS (2D) 11 % (25 - 45) Aortic Annulus 2.1 cm (1.4 - 2.6) Ao root diameter (2D) 2.8 cm (2.1 - 3.5) Ascending Ao 2.4 cm (2.1 - 3.4) Aortic arch 2.3 cm (1.8 - 3.4) LAd ISD 4CH 5.2 cm (2.9 - 5.3) LA ISD 4CH W 4.1 cm (2.5 - 4.5) Name Value Normal Range LA ESV BP (A/L) index 28 ml/m2 - Name Value Normal Range MV E-wave Vmax 0.7 m/sec - MV deceleration time 49 msec - MV A-wave Vmax 1 m/sec - MV E:A ratio 0.7 ratio - LV septal e' Vmax 0.06 m/sec - LV lateral e' Vmax 0.06 m/sec - LV E:e' septal ratio 13 ratio - LV E:e' lateral ratio 13 ratio - Name Value Normal Range AV Vmax 1.1 m/sec - AV VTI 20 cm - AV peak gradient 5 mmHg - AV mean gradient 3 mmHg - LVOT Vmax 0.9 m/sec - LVOT VTI 13 cm - LVOT peak gradient 3.2 mmHg - LVOT mean gradient 1 mmHg - SUPRIYA Vmax 0.8 m/sec - Name Value Normal Range TR Vmax 2.6 m/sec - TR peak gradient 27 mmHg - RAP 8 mmHg - RVSP 35 mmHg - IVC diameter 2 cm - Name Value Normal Range PV Vmax 0.5 m/sec - PV peak gradient 1 mmHg -
[2018-05-21] MEDS ORDERED: Etomidate* 2 MG/ML 20 ML VIAL (40 MG) ONE (12:02)
[2018-05-21] MEDS ORDERED: Succinylcholine* 20 MG/ML 10 ML VIAL ONE (12:02)
[2018-05-21] MEDS ORDERED: Rocuronium* 10 MG/ML VIAL ONE (12:10)
[2018-05-21] MEDS ORDERED: Albuterol/Ipratropium NEB.SOL* Albuterol 2.5 MG/Ipratropium 0.5 MG 3 ML INH PRN (13:46)
--- NOTE | 2018-05-21 14:10 | PN ---
Date of Service: 05/21/18 Critical Care Services: Patient has done well since admission, and was weaned and extubated today without difficulty. The principal problem does not appear to be heart failure, but rather an acute exacerbation of asthma/COPD. Vital Signs: Temp Pulse Resp BP SpO2 FiO2 98.3 F 106 19 167/90 100 50 Physical Exam: Gen:Somnolent but arousable and responds appropriately HEENT: No facial asymmetry Lungs: No crackles or wheezes Cardiac: Reg rhythm. II/ early systolic murmur heard throughout the precordium Abdomen: Not distended. Extremities:1+edema. No cyanosis Fluid Balance (Past 24 Hours): 05/21/18 06:59 Intake Total 395.9 Balance -1439.1 Weight 162 lb Intake: IV Fluids 50 IVPB 255 ABX - VANCOMYCIN 255 Medicated IV 90.9 CC - Nitroglycerine/ 28.9 Tridil CC - Propofol/Diprivan 62 Output: NG Tube Drainage Amount 300 Unger 1535 Labs: Laboratory Results - last 24 hr 05/20/18 05/20/18 05/20/18 23:40 23:43 23:43 WBC 18.3 H RBC 4.26 Hgb 10.2 L Hct 34 L Plt Count 361 INR (Anticoag Therapy) APTT Patient Temperature ABG pH 7.20 ABG pCO2 51 ABG pO2 116 H ABG HCO3 18.7 L ABG O2 Saturation 97.7 Sodium 135 Potassium TNP Chloride 103 Carbon Dioxide 19 L Anion Gap 13 H BUN 25 H Creatinine 1.16 H Est GFR ( Amer) 56.4 Est GFR (Non-Af Amer) 46.6 BUN/Creatinine Ratio 21.6 H Glucose 384 H POC Glucose (mg/dL) Glucose Meter Confirm Lactic Acid Calcium 8.7 Iron TIBC % Saturation Unsat Iron Binding Transferrin Ferritin Total Bilirubin 0.30 AST TNP ALT 16 Alkaline Phosphatase 168 H Troponin I 0.03 C-Reactive Protein 7.16 B-Natriuretic Peptide Total Protein 6.4 Albumin 3.4 Globulin 3.0 Albumin/Globulin Ratio 1.1 05/20/18 05/20/18 05/20/18 23:43 23:43 23:43 WBC RBC RBC (Retic) Hgb Hct HCT (Retic) MCV MCH MCHC RDW Plt Count MPV Neut % (Auto) Lymph % (Auto) Davison % (Auto) Eos % (Auto) Baso % (Auto) Absolute Neuts (auto) Absolute Lymphs (auto) Absolute Monos (auto) Absolute Eos (auto) Absolute Basos (auto) Absolute Nucleated RBC Nucleated RBC % Retic Count, Calc Corrected Retic Count Retic Shift Factor Retic Production Index Immature Retic Fraction Mean Retic Volume INR (Anticoag Therapy) 0.87 APTT 20.6 L Patient Temperature ABG pH ABG pH (Temp Correct) ABG pCO2 ABG pCO2 (Temp Corrct ABG pO2 ABG pO2 (Temp Correct ABG HCO3 ABG O2 Saturation ABG Base Excess VBG pH VBG pCO2 VBG pO2 VBG HCO3 VBG O2 Saturation VBG Base Excess Respiration Rate O2 Delivery Device Ventilator Type Vent Mode FiO2 Inspiratory Time PEEP Pressure Support Pressure Control EPAP IPAP BiPAP Sodium Potassium Chloride Carbon Dioxide Anion Gap BUN Creatinine Est GFR ( Amer) Est GFR (Non-Af Amer) BUN/Creatinine Ratio Glucose POC Glucose (mg/dL) Glucose Meter Confirm Lactic Acid 5.8 H* Calcium Iron TIBC % Saturation Unsat Iron Binding Transferrin Ferritin Total Bilirubin AST ALT Alkaline Phosphatase Troponin I C-Reactive Protein B-Natriuretic Peptide 455 H Total Protein Albumin Globulin Albumin/Globulin Ratio 05/21/18 05/21/18 05/21/18 00:25 00:40 01:38 WBC RBC RBC (Retic) Hgb Hct HCT (Retic) MCV MCH MCHC RDW Plt Count MPV Neut % (Auto) Lymph % (Auto) Davison % (Auto) Eos % (Auto) Baso % (Auto) Absolute Neuts (auto) Absolute Lymphs (auto) Absolute Monos (auto) Absolute Eos (auto) Absolute Basos (auto) Absolute Nucleated RBC Nucleated RBC % Retic Count, Calc Corrected Retic Count Retic Shift Factor Retic Production Index Immature Retic Fraction Mean Retic Volume INR (Anticoag Therapy) APTT ABG pH 7.14 ABG pCO2 59 ABG pO2 67 L ABG HCO3 17.8 L ABG O2 Saturation 89.3 L VBG pH 7.16 L VBG pCO2 55 H VBG pO2 60 H VBG HCO3 17.7 L VBG O2 Saturation 87.4 Respiration Rate 14 O2 Delivery Device ventilator Ventilator Type 500 Vent Mode cmv/apv FiO2 40 Inspiratory Time 0.86 PEEP 5 Sodium Potassium 5.3 H AST 21 ALT Alkaline Phosphatase Troponin I 0.03 05/21/18 05/21/18 05/21/18 03:18 05:10 05:10 WBC 17.3 H Hgb 9.9 L Hct 32 L Plt Count 283 ABG pH 7.29 L ABG pCO2 41 ABG pO2 83 ABG HCO3 19.8 ABG O2 Saturation 96.7 ABG Base Excess -6.5 L FiO2 50 Sodium 136 Potassium 4.2 Chloride 101 Carbon Dioxide 24 Anion Gap 11 BUN 25 H Creatinine 1.19 H Glucose 319 POC Glucose (mg/dL) Glucose Meter Confirm Lactic Acid Calcium 8.8 Iron TIBC % Saturation Unsat Iron Binding Transferrin Ferritin Total Bilirubin 0.40 AST 25 ALT 19 Alkaline Phosphatase 149 H Troponin I 0.12 H* C-Reactive Protein B-Natriuretic Peptide Total Protein 6.4 Albumin 3.5 Globulin 2.9 Albumin/Globulin Ratio 1.2 05/21/18 05/21/18 05/21/18 05:10 05:10 08:08 VBG pH 7.31 L VBG pCO2 47 VBG pO2 41 VBG HCO3 22.4 L VBG O2 Saturation 74.7 Ventilator Type Vent Mode FiO2 Inspiratory Time PEEP Pressure Support Pressure Control EPAP IPAP BiPAP Sodium Potassium Chloride Carbon Dioxide Anion Gap BUN Creatinine Est GFR ( Amer) Est GFR (Non-Af Amer) BUN/Creatinine Ratio Glucose POC Glucose (mg/dL) 276 Glucose Meter Confirm Lactic Acid 3.9 Calcium Iron TIBC % Saturation Unsat Iron Binding Transferrin Ferritin Total Bilirubin AST ALT Alkaline Phosphatase Troponin I C-Reactive Protein B-Natriuretic Peptide Total Protein Albumin Globulin Albumin/Globulin Ratio Studies: CXR: No pulmonary infiltrates. Cardiac ECHO: LVEF < 20%, which is unchanged from prior study. Nutrition: None since admission Impression: Despite the poor systolic function, I do not think that CHF is responsible for this admission. The culprit is more likely to be an acute exacerbation of asthma /COPD Plan: Will Rx for both airways obstructive disease and systolic heart failure. Critical Care Time: 50 minutes (including time to wean from ventilator and extubate).
[2018-05-21] MEDS: methylPREDNISolone 125 MG* 2 ML VIAL IV SCH (14:27)
[2018-05-21] MEDS: Lisinopril TAB* 5 MG PO SCH (14:28)
[2018-05-21] MEDS: Gabapentin CAP(*) 400 MG PO SCH ×2 (16:59→20:33)
[2018-05-21] MEDS ORDERED: Acetaminophen TAB* 325 MG PO PRN (19:52)
[2018-05-21] MEDS: Carvedilol TAB* 6.25 MG PO SCH (20:33)
[2018-05-21] MEDS: Morphine INJ* 2 MG/ML 1 ML SYRINGE (TWO MG - NEW SYRINGE VERSION) IV PRN (20:34)
[2018-05-21] MEDS: Montelukast Sodium TAB* 10 MG PO SCH (20:34)
[2018-05-21] MEDS: Nystatin TOP POWDER* 15 GM BTL TOPICAL SCH (22:36)
[2018-05-22] MEDS: methylPREDNISolone 125 MG* 2 ML VIAL IV SCH ×2 (02:02→13:45)
[2018-05-22] MEDS: Insulin REGULAR(*) 1 UNITS UNIT SUBCUT SCH ×5 (03:58→21:03)
[2018-05-22] MEDS: Heparin VIAL(*) 5000 UNITS/ML VIAL (FIVE THOUSAND) SUBCUT SCH ×3 (06:01→21:03)
[2018-05-22] MEDS: Lisinopril TAB* 5 MG PO SCH (08:10)
[2018-05-22] MEDS: Gabapentin CAP(*) 400 MG PO SCH ×4 (08:10→21:02)
[2018-05-22] MEDS: Carvedilol TAB* 6.25 MG PO SCH ×2 (08:10→21:02)
[2018-05-22] MEDS: Morphine INJ* 2 MG/ML 1 ML SYRINGE (TWO MG - NEW SYRINGE VERSION) IV PRN (08:11)
[2018-05-22] MEDS: Nystatin TOP POWDER* 15 GM BTL TOPICAL SCH ×2 (08:11→21:04)
[2018-05-22 13:09] LABS: Hematocrit 28 % (35-47); Hemoglobin 8.6 g/dl (12.0-16.0); Mean Corpuscular HGB Conc 31 g/dl (31-36); Mean Corpuscular Hemoglobin 24 pg (27-31); Mean Corpuscular Volume 77 fL (80-97); Platelet Count 242 10^3/ul (150-450); Red Cell Distribution Width 17 % (10.5-15); White Blood Count 16.1 10^3/ul (3.5-10.8)
[2018-05-22 13:31] LABS: EGFR Non-African American 51.1 (>60)
[2018-05-22 14:03] LABS: ABS Basophils 0 10^3/ul (0-0.2); ABS Eosinophils 0 10^3/ul (0-0.6); ABS Lymphocytes 0.6 10^3/ul (1.0-4.8); ABS Monocytes 1.1 10^3/ul (0-0.8); ABS Neutrophils 14.2 10^3/ul (1.5-7.7)
[2018-05-22 14:08] LABS: ABS Basophils 0 10^3/ul (0-0.2); ABS Neutrophils 15.5 10^3/ul (1.5-7.7); Monocytes % 1 % (0-7)
[2018-05-22] MEDS: Montelukast Sodium TAB* 10 MG PO SCH (21:01)
[2018-05-22] MEDS ORDERED: Dextrose 50% Syringe 50 ML* 25 GM/50 ML SYRINGE IV PUSH PRN (21:04)
[2018-05-22] MEDS ORDERED: Insulin GLARGINE(*) 1 UNITS UNIT ONE (21:14)
--- NOTE | 2018-05-22 21:17 | PN ---
Subjective Date of Service: 05/22/18 Interval History: patient reports she feels much better today. Denies any wheezing or SOB. Denies CP. Reports good appetite. Feels that she is close to her baseline. She only ambulates between rooms at home and is fairly home bound. She has been getting up to use the bathroom and feels steady on her feet, breathing feels at baseline. She has some generalized weakness and states she feels "tired". She is not on oxygen at home, currently wearing 2L O2. Objective Active Medications: Acetaminophen (Tylenol Tab*) 650 mg PO Q6H PRN PRN Reason: PAIN Al Hydrox/Mg Hydrox/Simethicone (Maalox Plus*) 30 ml PO Q6H PRN PRN Reason: INDIGESTION Albuterol/Ipratropium (Duoneb (Albuterol 2.5 Mg/Ipratropium 0.5 Mg)) 1 neb INH Q6H PRN PRN Reason: SOB/WHEEZING Carvedilol (Coreg Tab*) 12.5 mg PO BID [facility] Last Admin: 05/22/18 21:02 Dose: 12.5 mg Dextrose (D50w Syringe 50 Ml*) 12.5 gm IV PUSH .FOR FS < 60 - SS PRN PRN Reason: FS < 60 Gabapentin (Neurontin Cap(*)) 400 mg PO QID [facility] Last Admin: 05/22/18 21:02 Dose: 400 mg Heparin Sodium (Porcine) (Heparin Vial(*)) 5,000 units SUBCUT Q8HR [facility] Last Admin: 05/22/18 21:03 Dose: 5,000 units Insulin Glargine (Lantus(*)) 8 units SUBCUT Q24H [facility] Insulin Human Lispro (Humalog*) 0 units SUBCUT ACHS [facility]; Protocol Lisinopril (Prinivil Tab*) 5 mg PO DAILY [facility] Last Admin: 05/22/18 08:10 Dose: 5 mg Montelukast Sodium (Singulair Tab*) 10 mg PO BEDTIME [facility] Last Admin: 05/22/18 21:01 Dose: 10 mg Morphine Sulfate (Morphine Inj ((Syringe))*) 2 mg IV Q2H PRN PRN Reason: PAIN Last Admin: 05/22/18 08:11 Dose: 2 mg Nystatin (Nystatin Top Powder*) 1 applic TOPICAL BID [facility] Last Admin: 05/22/18 21:04 Dose: 1 applic Ondansetron HCl (Zofran Inj*) 4 mg IV Q4H PRN PRN Reason: NAUSEA/VOMITING Prednisone (Deltasone Tab*) 60 mg PO DAILY [facility] Vital Signs - 8 hr 05/22/18 05/22/18 05/22/18 13:44 15:33 16:00 Temperature 98.0 F Pulse Rate 85 Respiratory 16 18 18 Rate Blood Pressure 118/30 (mmHg) O2 Sat by Pulse 100 Oximetry 05/22/18 05/22/18 05/22/18 17:33 18:06 18:18 Temperature Pulse Rate 118 Respiratory 18 Rate Blood Pressure (mmHg) O2 Sat by Pulse 100 100 Oximetry 05/22/18 05/22/18 05/22/18 19:34 19:37 21:02 Temperature 98.2 F Pulse Rate 91 Respiratory 20 16 18 Rate Blood Pressure 121/49 (mmHg) O2 Sat by Pulse 100 Oximetry Oxygen Devices in Use Now: Nasal Cannula, CPAP Appearance: A+Ox 3 chronically ill 67 yo female in NAD. at bedside,. Eyes: No Scleral Icterus, PERRLA Ears/Nose/Mouth/Throat: NL Teeth, Lips, Gums, Mucous Membranes Moist Neck: NL Appearance and Movements; NL JVP Respiratory: Symmetrical Chest Expansion and Respiratory Effort, Clear to Auscultation Cardiovascular: NL Sounds; No Murmurs; No JVD, RRR, No Edema Abdominal: NL Sounds; No Tenderness; No Distention, - - obese Extremities: No Edema, No Clubbing, Cyanosis Skin: No Rash or Ulcers, No Nodules or Sclerosis Neurological: Alert and Oriented x 3, NL Sensation, NL Muscle Strength and Tone Lines/Tubes/Other Access: Clean, Dry and Intact Peripheral IV Nutrition: Taking PO's Result Diagrams: 05/22/18 12:59 05/22/18 12:59 Microbiology and Other Data: Microbiology 05/20/18 00:00 Aerobic Blood Culture - Preliminary Blood Venous No Growth Day 1 Anaerobic Blood Culture - Preliminary No Growth Day 1 05/20/18 00:00 Aerobic Blood Culture - Preliminary Blood Venous No Growth Day 1 Anaerobic Blood Culture - Preliminary No Growth Day 1 05/21/18 02:54 Nasal Screen MRSA (PCR) - Final Nasal Mrsa Not Detected Assess/Plan/Problems-Billing Assessment: 67 yo female with a PMH of chronic systolic HF with cardiomyopathy with EF 20%, COPD, chronic pain followed at the pain clinic, hx of GI bleed, MR , hx of ICD, diabetes who presented 05/20 with acute respiratory failure requiring intubation thought to be secondary to asthma exacerbation - Patient Problems (1) Acute respiratory failure with hypoxia Comment: Resolved Was intubated less than 24 hours for suspected asthma exacerbation. Dc solumedrol and start Prednisone taper continue nebs continue oxygen therapy with goal to titrate as tolerates recommend patient be sent home with nebulizers machine (2) Diabetes Comment: Hyperglycemic suspect d/t steroids. holding glipizide . Continue Lispro SS and start Lantus 8 units qpm (3) Congestive heart failure (CHF) Comment: chronic systolic CHF. EF on Echo 05/21/18 at 20%, stable from last years echo Does not appear to be in failure. Appears euvolemic. Will restart home torsemide and cont daily weights. Continue BB, lisinopril, ASA. Plavix on hold for appointment with pain clinic next - holds for 1 week prior, apply 05/27/18. (4) Acute renal failure Comment: improving. recheck in am. (5) Normocytic anemia Comment: iron deficient anemia hx of GI in the past Stool for occult blood pending (6) Severe mitral regurgitation Comment: according to Echo MR mild regur improved from previous follows with Dr. Herring. (7) DVT prophylaxis Comment: HSQ Status and Disposition: inpatient. DC to home when medically stable.
[2018-05-22] MEDS ORDERED: Insulin GLARGINE(*) 1 UNITS UNIT SUBCUT SCH (22:00)
[2018-05-23] MEDS: Heparin VIAL(*) 5000 UNITS/ML VIAL (FIVE THOUSAND) SUBCUT SCH ×2 (06:20→13:51)
[2018-05-23 07:33] LABS: ABS Basophils 0.1 10^3/ul (0-0.2); ABS Eosinophils 0 10^3/ul (0-0.6); ABS Lymphocytes 1.5 10^3/ul (1.0-4.8); ABS Monocytes 1.5 10^3/ul (0-0.8); ABS Neutrophils 12.3 10^3/ul (1.5-7.7); ABS Nucleated RBC 0 10^3/ul; Eosinophil % 0.1 % (0-6); Hematocrit 28 % (35-47); Hemoglobin 8.9 g/dl (12.0-16.0); Lymphocyte % 9.9 % (25-47); Mean Corpuscular HGB Conc 31 g/dl (31-36); Mean Corpuscular Hemoglobin 24 pg (27-31); Mean Corpuscular Volume 76 fL (80-97); Mean Platelet Volume 7.8 um3 (7.4-10.4); Nucleated Red Blood Cells % 0; Platelet Count 260 10^3/ul (150-450); Red Cell Distribution Width 18 % (10.5-15); White Blood Count 15.3 10^3/ul (3.5-10.8)
[2018-05-23 07:57] LABS: EGFR Non-African American 60.1 (>60)
[2018-05-23] MEDS: Insulin LISPRO* 1 UNITS UNIT SUBCUT SCH ×2 (08:15→12:10)
[2018-05-23] MEDS: Carvedilol TAB* 6.25 MG PO SCH (08:49)
[2018-05-23] MEDS: Gabapentin CAP(*) 400 MG PO SCH ×2 (08:49→13:51)
[2018-05-23] MEDS ORDERED: Torsemide TAB* 20 MG PO SCH (09:00)
[2018-05-23] MEDS ORDERED: Tramadol ER(NF) 100 MG TAB.ER PO SCH (09:00)
[2018-05-23] MEDS ORDERED: Lisinopril TAB* 5 MG PO SCH (09:00)
[2018-05-23] MEDS: traMADol TAB* 50 MG PO PRN ×2 (09:00→12:28)
[2018-05-23] MEDS ORDERED: MINOCYCLINE 100 MG PO SCH (09:00)
[2018-05-23] MEDS ORDERED: Aspirin 81 mg CHEW TAB* 81 MG TAB.CHEW PO SCH (09:00)
[2018-05-23] MEDS ORDERED: Metoclopramide TAB* 10 MG PO SCH (09:00)
[2018-05-23] MEDS ORDERED: FLUoxetine CAP* 20 MG PO SCH (09:00)
[2018-05-23] MEDS ORDERED: predniSONE TAB* 20 MG PO SCH (09:00)
[2018-05-23] MEDS ORDERED: Nitroglycerin 0.2 MG/HR PATCH* (5 MG) TRANSDERM SCH (09:00)
[2018-05-23] MEDS ORDERED: Omeprazole CAP* 20 MG PO SCH (09:00)
[2018-05-23] MEDS ORDERED: buPROPion SR TAB.SR* 150 MG PO SCH (09:00)
--- NOTE | 2018-05-23 09:08 | PN ---
Subjective Date of Service: 05/23/18 Interval History: Ms. Nazario states that she is feeling much better and she is eager for discharge to home. Objective Active Medications: Acetaminophen (Tylenol Tab*) 650 mg PO Q6H PRN Al Hydrox/Mg Hydrox/Simethicone (Maalox Plus*) 30 ml PO Q6H PRN Albuterol/Ipratropium (Duoneb (Albuterol 2.5 Mg/Ipratropium 0.5 Mg)) 1 neb INH Q6H PRN Aspirin (Aspirin 81 Mg Chew Tab*) 81 mg PO DAILY WAYNE Bupropion HCl (Wellbutrin Sr Tab*) 300 mg PO DAILY WAYNE Carvedilol (Coreg Tab*) 12.5 mg PO BID WAYNE Dextrose (D50w Syringe 50 Ml*) 12.5 gm IV PUSH .FOR FS < 60 - SS PRN Fluoxetine HCl (Prozac Cap*) 40 mg PO DAILY WAYNE Gabapentin (Neurontin Cap(*)) 400 mg PO QID WAYNE Heparin Sodium (Porcine) (Heparin Vial(*)) 5,000 units SUBCUT Q8HR WAYNE Insulin Glargine (Lantus(*)) 8 units SUBCUT Q24H WAYNE Insulin Human Lispro (Humalog*) 0 units SUBCUT ACHS WAYNE; Protocol Lisinopril (Prinivil Tab*) 2.5 mg PO DAILY WAYNE Metoclopramide HCl (Reglan Tab*) 10 mg PO DAILY WAYNE Minocycline HCl (Minocycline (Nf)) 100 mg PO BID WAYNE Montelukast Sodium (Singulair Tab*) 10 mg PO BEDTIME WAYNE Montelukast Sodium (Singulair Tab*) 10 mg PO BEDTIME WAYNE Morphine Sulfate (Morphine Inj ((Syringe))*) 2 mg IV Q2H PRN Nitroglycerin (Nitroglycerin 5 Mg Patch*) 1 patch TRANSDERM DAILY WAYNE Nystatin (Nystatin Top Powder*) 1 applic TOPICAL BID WAYNE Omeprazole (Prilosec Cap*) 20 mg PO DAILY WAYNE Ondansetron HCl (Zofran Inj*) 4 mg IV Q4H PRN Prednisone (Deltasone Tab*) 60 mg PO DAILY WAYNE Torsemide (Demadex*) 20 mg PO Q48H WAYNE Torsemide (Demadex*) 40 mg PO Q48H WAYNE Tramadol HCl (Ultram*) 50 mg PO TID PRN Oxygen Devices in Use Now: None Appearance: Female lying in bed in NAD Eyes: No Scleral Icterus Ears/Nose/Mouth/Throat: Mucous Membranes Moist Neck: NL Appearance and Movements; NL JVP Respiratory: Symmetrical Chest Expansion and Respiratory Effort, Clear to Auscultation Cardiovascular: NL Sounds; No Murmurs; No JVD, No Edema Abdominal: NL Sounds; No Tenderness; No Distention Lymphatic: No Cervical Adenopathy Extremities: No Edema Skin: No Rash or Ulcers Neurological: Alert and Oriented x 3, NL Muscle Strength and Tone Nutrition: Taking PO's Result Diagrams: 05/23/18 07:12 05/23/18 07:12 Assess/Plan/Problems-Billing Assessment: Ms. Nazario is a 67 yo female with a PMH of chronic systolic HF with cardiomyopathy with EF 20%, asthma, chronic pain followed at the pain clinic, hx of GI bleed, MR, hx of ICD, diabetes who presented 05/20 with acute respiratory failure requiring intubation thought to be secondary to asthma exacerbation. - Patient Problems (1) Acute respiratory failure with hypoxia Comment: - Resolved. Now off O2. - Was intubated less than 24 hours for suspected asthma exacerbation. - Complete prednisone taper, recommend patient be sent home with nebulizer. (2) Congestive heart failure (CHF) Comment: - Asymptomatic, appears euvolemic. - Chronic systolic CHF. EF on Echo 05/21/18 at 20%, stable from last years echo. - Continue torsemide, BB, lisinopril, ASA. Plavix on hold for appointment with pain clinic next - holds for 1 week prior, apply 05/27/18. (3) Diabetes Comment: - BGs better controlled, likely elevated due to steroids. - Resume home glipizide. (4) Acute renal failure Comment: - Resolved. (5) Microcytic anemia Comment: - Chronic, slightly lower than baseline since 2016. - Hx of GI bleed in the past. - Unable to tolerate iron supplementation due to constipation, recommend close follow up with PCP. (6) DVT prophylaxis Comment: - HSQ Status and Disposition: Discharge to home.
[2018-05-23 12:00] VITALS: BP 107/33
[2018-05-23] MEDS: Nystatin TOP POWDER* 15 GM BTL TOPICAL SCH (12:11)
[2018-05-23] MEDS ORDERED: Montelukast Sodium TAB* 10 MG PO SCH (21:00)
--- NOTE | 2018-05-24 01:55 | DS ---
CC: Dr. Gordon * [facility] MEDICINE DISCHARGE SUMMARY: DATE OF ADMISSION: 05/21/18 DATE OF DISCHARGE: 05/23/18 PRIMARY CARE PHYSICIAN: Dr. Gordon. ATTENDING PHYSICIAN: Dr. Kareem Welsh * (dictation provided by Alona Walker NP). PRIMARY DIAGNOSES: Asthma exacerbation; acute hypercarbic respiratory failure, requiring intubation. SECONDARY DIAGNOSES: 1. Asthma versus chronic obstructive pulmonary disease. 2. Chronic pain, followed at the pain clinic. 3. Depression. 4. History of GI bleed with iron-deficiency anemia. 5. History of cardiomyopathy with ejection fraction less than 20%. 6. Tacehder-cf-zrsuvh mitral regurgitation. 7. Diabetes. 8. History of ICD pacemaker placement. 9. Coronary artery disease, followed by Dr. Herring. 10. Hypertension. 11. Hyperlipidemia. 12. GERD. 13. Arthritis. MEDICATIONS AT THE TIME OF DISCHARGE: 1. Carvedilol 12.5 mg p.o. b.i.d. 2. Aspirin 81 mg p.o. daily. 3. Fluoxetine 40 mg p.o. daily. 4. Fexofenadine 180 mg p.o. daily. 5. Exenatide 2 mg subcutaneously weekly. 6. Metoclopramide 10 mg p.o. daily. 7. Lisinopril 1.25 mg p.o. daily. 8. Gabapentin 400 mg p.o. four times a day. 9. Montelukast 10 mg p.o. at bedtime. 10. Minocycline 100 mg p.o. b.i.d. 11. Rosuvastatin 10 mg p.o. at bedtime. 12. Omeprazole 20 mg p.o. daily. 13. Nitroglycerin patch 0.2 mg daily. 14. Tramadol ER 100 mg p.o. daily. 15. Tramadol IR 50 mg p.o. t.i.d. p.r.n. 16. Torsemide 20 mg p.o. daily. 17. Glipizide 10 mg p.o. b.i.d. 18. Bupropion SR 300 mg p.o. daily. 19. Prednisone 40 mg to taper. 20. Nystatin topically b.i.d. 21. Albuterol ipratropium nebulizers 1 neb q. 6 hours p.r.n. shortness of breath. HOSPITAL COURSE: Ms. Nazario is a 67-year-old female with a past medical history as outlined above who presented to the emergency room on 05/21/18 with concern for shortness of breath. Please see the dictated H and P from Bre Gould for complete details. In brief, at the time of arrival, the patient was in acute hypoxic respiratory distress and required immediate intubation. Health history was provided by the , who is at the bedside, who states the patient was always dyspneic on exertion at baseline, but that she has been complaining of more shortness of breath over the past few days and had been requesting that air conditioner be on, which was unusual for her. In the emergency room, she was richards, pale, cool, and clammy and, therefore, she was immediately intubated. Her workup included a chest x-ray, which showed "question of early right basilar airspace disease." She had labs, which showed a white blood cell count of 18.3. Her ABG showed pH 7.20, pCO2 51, pO2 116. Her CRP was only 7.16. Ms. Nazario was admitted to the intensive care unit for acute hypercarbic respiratory failure. She was able to be extubated the next day. She was continued on prednisone for her asthma versus COPD and has been doing well in the intervening 24 hours. The reminder of her workup included EKG, which showed sinus tachycardia with a heart rate about 112, but with a nonspecific intraventricular conduction delay. Similar tracing was seen on the followup EKG. The patient had transthoracic echocardiogram, which confirmed continued ejection fraction of 20% to 25% and it appeared that her mitral regurgitation had actually improved. Ms. Nazario has been doing very well today. She has been up and able to ambulate short distances without oxygen. Our plan is for her to be discharged home and follow closely with Dr. Gordon and her other specialists as needed. The only other thing of interest during the hospitalization is that the patient has had anemia, which is a little worse than at baseline. Since 2016 she has had a hemoglobin of about 9 to 10. Today she is 8.9, but has been stable throughout the hospitalization. She has no dark tarry stools or report blood in her stool. She states that she has a known history of microcytic anemia, but that she is not able to tolerate iron supplementation because it makes her constipated. At this time, the patient shows no overt evidence of bleeding and further endoscopic evaluation is not warranted both because of the patient's chronic complex underlying medical problems and inability to tolerate endoscopy. I recommend that she have her labs checked in 1 week with report to Dr. Gordon. DISPOSITION: To home. DIET: Low fat, low salt, and low carb. ACTIVITY: As tolerated. FOLLOW UP PLANS: Please follow up with Dr. Gordon regarding this acute hospitalization for asthma versus COPD exacerbation with acute hypercarbic respiratory failure and for ongoing chronic microcytic anemia. TIME SPENT: Approximately 60 minutes were spent on the discharge of this patient, more than half that time was spent with the patient at the bedside reviewing the events leading up to this hospitalization, performing the physical examination, and reviewing the plan of care. ALONA WALKER NP [id number]/[facility] #: [id number] BEATRIZ
[2018-05-24] MEDS ORDERED: Torsemide TAB* 20 MG PO SCH (22:00)
== END 2018-05-23 15:00 | disposition home or self-care (01) | DRG 208 ==
LOC: ED 23:27 → ICU 05-21 01:05 → MED 05-21 17:56
PROVIDERS: ADMIT Pediatrics; ATTEND Internal Medicine
PROC: 0BH17EZ Insertion of Endotracheal Airway into Trachea, Via Natural or Artificial Opening (ICD-10-PCS; principal; 2018-05-21)
PROC: 5A1935Z Respiratory Ventilation, Less than 24 Consecutive Hours (ICD-10-PCS; 2018-05-21)
PROC: 0BP1XDZ Removal of Intraluminal Device from Trachea, External Approach (ICD-10-PCS; 2018-05-21)
DX: J96.01 Acute respiratory failure with hypoxia (principal); J44.1 Chronic obstructive pulmonary disease with (acute) exacerbation; N17.9 Acute kidney failure, unspecified; J45.901 Unspecified asthma with (acute) exacerbation; I42.9 Cardiomyopathy, unspecified; I50.22 Chronic systolic (congestive) heart failure; J96.02 Acute respiratory failure with hypercapnia; I25.10 Atherosclerotic heart disease of native coronary artery without angina pectoris; I11.0 Hypertensive heart disease with heart failure; K21.9 Gastro-esophageal reflux disease without esophagitis; G89.29 Other chronic pain; E11.65 Type 2 diabetes mellitus with hyperglycemia; E78.5 Hyperlipidemia, unspecified; I34.0 Nonrheumatic mitral (valve) insufficiency; D64.9 Anemia, unspecified; M41.9 Scoliosis, unspecified; M19.90 Unspecified osteoarthritis, unspecified site; F32.9 Major depressive disorder, single episode, unspecified; Z88.8 Allergy status to other drugs, medicaments and biological substances; Z87.01 Personal history of pneumonia (recurrent); Z91.041 Radiographic dye allergy status; Z91.013 Allergy to seafood; Z95.810 Presence of automatic (implantable) cardiac defibrillator; Z90.710 Acquired absence of both cervix and uterus; Z95.5 Presence of coronary angioplasty implant and graft; Z98.62 Peripheral vascular angioplasty status; Z86.19 Personal history of other infectious and parasitic diseases; Z80.3 Family history of malignant neoplasm of breast; Z87.891 Personal history of nicotine dependence; Z82.49 Family history of ischemic heart disease and other diseases of the circulatory system; Z81.2 Family history of tobacco abuse and dependence; Z79.82 Long term (current) use of aspirin; Z79.84 Long term (current) use of oral hypoglycemic drugs; Z79.52 Long term (current) use of systemic steroids
CPT/HCPCS: 36415; 36600; 71045; 80048; 80053; 82728; 82803; 82947; 83540; 83550; 83605; 83735; 83880; 84484; 85025; 85045; 85060; 85610; 85730; 86140; 87040; 87641; 93005; 93306; 99284; A9270-GY; J0330; J1644; J1940; J2270; J2543; J2704; J2930; J3370; J3475; J7512

== ENCOUNTER 2019-01-06 12:41 | Observation (INO) | payer MEDICARE ==
--- NOTE | 2019-01-06 13:11 | ED ---
Lower Extremity - HPI Summary HPI Summary: This patient is a 68 year old F presenting to ED with a chief complaint of R foot pain since 12/28/18 s/p she bumped it on stairs. It started in the toe and then gradually radiated to right below her ankle. Patient states that the area is swollen and a little erythematous. She has not been able to ambulate. The patient rates the pain 9/10 in severity. Symptoms aggravated by ambulation. Symptoms alleviated by nothing. Patient denies SOB, CP, N/V, urinary or BM sx, and any rashes. Patient was on blood thinners but stopped on 01/01/19 after she tripped on her dog and hit her head on the bathtub. Patient reports bruises on her face that is secondary to the fall. She also has bruises on her arms that are her baseline. - History of Current Complaint Chief Complaint: EDExtremityLower Stated Complaint: RT FOOT SWELLING/LEFT LEG WEAKNESS PER PT Time Seen by Provider: 01/06/19 12:57 Hx Obtained From: Patient Mechanism Of Injury: Blunt Trauma - hit her foot on stairs Onset of Pain: Immediate Onset/Duration: Still Present Severity Initially: Severe Severity Currently: Severe Pain Intensity: 9 Pain Scale Used: 0-10 Numeric Timing: Constant, Lasting Days Location: Is Discrete @ - R foot Associated Signs And Symptoms: Positive: Swelling, Redness Aggravating Factor(s): Ambulation Alleviating Factor(s): Nothing Able to Bear Weight: No - Allergies/Home Medications Allergies/Adverse Reactions: Allergies Allergy/AdvReac Type Severity Reaction Status Date / Time atorvastatin [From Lipitor] Allergy Unknown Verified 01/06/19 12:54 Reaction Details nickel Allergy Unknown Verified 01/06/19 12:54 Reaction Details shellfish derived Allergy Anaphylatic Verified 01/06/19 12:54 Shock TOPICAL IODINE Allergy Mild PER PT Uncoded 12/19/18 11:03 DECREASES HEALING Home Medications: Home Medications Carvedilol TAB* [Coreg TAB*] 12.5 mg PO BID 01/06/19 [History Confirmed 01/06/19 ] Clopidogrel TAB* [Plavix TAB*] 75 mg PO DAILY 01/06/19 [History Confirmed ] DULoxetine DR CAP* [Cymbalta CAP*] 30 mg PO DAILY 01/06/19 [History Confirmed ] Exenatide Microspheres [Bydureon] 2 mg SUBCUT WEEKLY 01/06/19 [History Confirmed 01/06/19] FLUoxetine CAP* [PROzac CAP*] 20 mg PO DAILY 01/06/19 [History Confirmed ] Fluconazole 100 MG TAB* [Diflucan 100 MG TAB*] 100 mg PO DAILY 01/06/19 [ History Confirmed 01/06/19] Fluocinonide 0.05 % TOPICAL BID 01/06/19 [History Confirmed 01/06/19] Gabapentin CAP(*) [Neurontin 400 mg CAP(*)] 400 mg PO QID 01/06/19 [History Confirmed 01/06/19] Lisinopril [Lisinopril 2.5 MG-] 2.5 mg PO DAILY 01/06/19 [History Confirmed ] Naproxen [Naproxen 250 mg tab] 500 mg PO BID PRN 01/06/19 [History Confirmed ] Nystatin CREAM* [Nystatin Cream*] 1 applic TOPICAL BID 01/06/19 [History Confirmed 01/06/19] Rosuvastatin (NF) [Crestor (NF)] 10 mg PO DAILY 01/06/19 [History Confirmed ] Torsemide TAB* [Demadex*] 20 mg PO EVERY OTHER DAY 01/06/19 [History Confirmed 01/06/19] Torsemide [Demadex 20 MG] 40 mg PO EVERY OTHER DAY 01/06/19 [History Confirmed 01/06/19] Tramadol ER(NF) [Ultram HCl ER(NF)] 100 mg PO DAILY 01/06/19 [History Confirmed 01/06/19] Tramadol HCl 50 mg PO TID 01/06/19 [History Confirmed 01/06/19] glipiZIDE TAB* [Glucotrol TAB*] 10 mg PO BID 01/06/19 [History Confirmed ] PMH/Surg Hx/FS Hx/Imm Hx Endocrine/Hematology History: Reports: Hx Anticoagulant Therapy - plavix 75mg, Hx Diabetes Denies: Hx Blood Disorders, Hx Blood Transfusions, Hx Bone Marrow Disease, Hx Sickle Cell Disease, Hx Thyroid Disease, Hx Anemia, Hx Unexplained Bleeding, Other Endocrine/Hematological Disorders Cardiovascular History: Reports: Hx Auto Implanted Cardiovert Defib - 2002, Hx Congestive Heart Failure - in the past, Hx Coronary Artery Disease, Hx Hypercholesterolemia, Hx Hypertension, Hx Pacemaker/ICD, Other Cardiovascular Problems/Disorders - heart failure Denies: Hx Aneurysm, Hx Angina, Hx Angioplasty, Hx Cardiac Arrest, Hx Cardiomegaly, Hx Congenital Heart Disease, Hx Deep Vein Thrombosis, Hx Embolism , Hx Hypotension, Hx Peripheral Vascular Disease, Hx Rheumatic Fever, Hx Syncope , Hx Valvular Heart Disease Respiratory History: Reports: Hx Asthma - hospitalization 05/21/18 for asthma (3 days), Hx Pneumonia - 13 yrs ago Denies: Hx Chronic Bronchitis, Hx Chronic Obstructive Pulmonary Disease (COPD ), Hx Cystic Fibrosis, Hx Lung Cancer, Hx Pleural Effusion, Hx Pulmonary Edema, Hx Pulmonary Embolism, Hx Seasonal Allergies, Hx Sleep Apnea, Other Respiratory Problems/Disorders GI History: Reports: Hx Gastroesophageal Reflux Disease Denies: Hx Cirrhosis, Hx Crohn's Disease, Hx Diverticulosis, Hx Gall Bladder Disease, Hx Gastrointestinal Bleed, Hx Hiatal Hernia, Hx Irritable Bowel, Hx Jaundice, Hx Obstructive Bowel, Hx Ileostomy, Hx Pyloric Stenosis, Hx Ulcer, Other GI Disorders History: Denies: Hx Renal Disease Musculoskeletal History: Reports: Hx Arthritis, Hx Back Problems, Hx Scoliosis Denies: Hx Bursitis, Hx Congenital Bone Abnormalities, Hx Fibromyalgia, Hx Gout, Hx Orthopedic Injury, Hx Osteoporosis, Hx Tendonitis, Other Musculoskeletal History Sensory History: Reports: Hx Contacts or Glasses Denies: Hx Cataracts, Hx Eye Injury, Hx Eye Prosthesis, Hx Glaucoma, Hx Legally Blind, Hx Macular Degeneration, Hx Vision Problem, Hx Deafness, Hx Hearing Aid, Hx Hearing Problem, Other Sensory Impairments Opthamlomology History: Reports: Hx Contacts or Glasses Denies: Hx Cataracts, Hx Eye Injury, Hx Eye Prosthesis, Hx Glaucoma, Hx Legally Blind, Hx Macular Degeneration, Hx Vision Problem, Other Sensory Impairments Neurological History: Reports: Hx Nerve Disease - "bulging disc", "fusion 80's" , Other Neuro Impairments/Disorders - PAIN CLINIC PT Denies: Hx Dementia, Hx Developmental Delay, Hx Headaches, Hx Migraine, Hx Seizures, Hx Spinal Cord Injury, Hx Transient Ischemic Attacks (TIA) Psychiatric History: Reports: Hx Depression Denies: Hx Anxiety, Hx Attention Deficit Hyperactivity Disorder, Hx Eating Disorder, Hx Panic Disorder, Hx Post Traumatic Stress Disorder, Hx Inpatient Treatment, Hx Community Mental Health Tx, Hx Schizophrenia, Hx Bipolar Disorder , Hx Suicide Attempt, Hx of Violent Episodes Against Others, Hx Substance Abuse , Other Psychiatric Issues/Disorders - Cancer History Hx Chemotherapy: No Hx Radiation Therapy: No - Surgical History Surgery Procedure, Year, and Place: Bilat carpal tunnel , Hysterectomy, femoral artery bypass bilateral 2009, heart cath with stent placement 2013, difibrillator/pacemaker 2014, back surgery "a long time ago" Hx Anesthesia Reactions: No Infectious Disease History: No Infectious Disease History: Reports: Hx Shingles - 5 years ago Denies: Hx Clostridium Difficile, Hx Hepatitis, Hx Human Immunodeficiency Virus (HIV), Hx of Known/Suspected MRSA, Hx Tuberculosis, History Other Infectious Disease, Traveled Outside the [place] in Last 30 Days - Family History Known Family History: Positive: Other Family History: No FHx of Breast Cancer - Social History Alcohol Use: None Substance Use Type: Reports: None Smoking Status (MU): Former Smoker Type: Cigarettes Have You Smoked in the Last Year: No - 20 year smoker, quit in 2002 Review of Systems Negative: Chest Pain Negative: Shortness Of Breath Positive: Other - denies BM sx. Negative: Vomiting, Nausea Positive: no symptoms reported Positive: Other - R foot pain with swelling and a little erythematous, she has difficulty ambulation Positive: Bruising - Patient reports bruises on her face that is secondary to fall on 01/01/19. She also has bruises on her arms that are her baseline.. Negative: Rash All Other Systems Reviewed And Are Negative: Yes Physical Exam - Summary Physical Exam Summary: Constitutional: Well-developed, Well-nourished, Alert. (-) Distressed Skin: Warm, Dry, Bruising all over her face, her arms, and R shoulder. HENT: Normocephalic; Atraumatic Eyes: Conjunctiva normal Neck: Musculoskeletal ROM normal neck. (-) JVD, (-) Stridor, (-) Tracheal deviation Cardio: Rhythm regular, rate normal, Heart sounds normal; Intact distal pulses; The pedal pulses are 2+ and symmetric. Radial pulses are 2+ and symmetric. (-) Murmur Pulmonary/Chest wall: Effort normal. (-) Respiratory distress, (-) Wheezes, (-) Rales Abd: Soft, (-) tenderness, (-) Distension, (-) Guarding, (-) Rebound Musculoskeletal: (-) Edema, R foot has erythema and tenderness over the first MP joint, swelling over the dorsal area of the R foot, and tenderness of the midfoot. Erythema extending to plantar surface in the arch of the R foot. Lymph: (-) Cervical adenopathy Neuro: Alert, Oriented x3, no focal neurological deficits Psych: Mood and affect Normal GCS: 15 Triage Information Reviewed: Yes Vital Signs On Initial Exam: Initial Vitals Temp Pulse Resp BP Pulse Ox 98.3 F 99 16 123/87 99 01/06/19 12:50 01/06/19 12:50 01/06/19 12:50 01/06/19 12:50 01/06/19 12:50 Vital Signs Reviewed: Yes Diagnostics - Vital Signs Vital Signs Temp Pulse Resp BP Pulse Ox 01/06/19 12:50 98.3 F 99 16 123/87 99 - Laboratory Result Diagrams: 01/06/19 13:39 01/06/19 13:39 Lab Statement: Any lab studies that have been ordered have been reviewed, and results considered in the medical decision making process. - Radiology R foot XR Radiology Interpretation Completed By: Radiologist Summary of Radiographic Findings: NO ACUTE OSSEOUS INJURY. IF SYMPTOMS PERSIST, RECOMMEND REPEAT IMAGING. Dr. Barrow has reviewed this radiology report. CXR Radiology Interpretation Completed By: Radiologist Summary of Radiographic Findings: LEFT BASILAR ATELECTASIS VERSUS CONSOLIDATION. Dr. Barrow has reviewed this radiology report. - CT Brain CT CT Interpretation Completed By: Radiologist Summary of CT Findings: NO ACUTE INTRACRANIAL PATHOLOGY. CHRONIC SMALL VESSEL ISCHEMIC CHANGE. Dr. Barrow has reviewed this radiology report. - Ultrasound No standard instances Ultrasound Interpretation Completed By: Radiologist Summary of Ultrasound Findings: VL LE reveals NO RIGHT LOWER EXTREMITY DEEP VEIN THROMBOSIS. Dr. Barrow has reviewed this radiology report. - EKG 1352 Cardiac Rate: Tachycardia - 106 BPM EKG Rhythm: Sinus Tachycardia Summary of EKG Findings: Sinus tachycardia at 106 bpm, normal MN, prolonged QRS , normal QTc, ST elevated in V2 and V3 and depressed in V6, non-specific EKG. EKG limited by artifact. ST depression in V6 is unchanged from 05/21/18. Re-Evaluation - Re-Evaluation First Eval Re-Evaluation Time: 13:26 Comment: The patient reports she has been so weak that doesnt feel like she can walk well and is unsteady on her feet. She says that her weakness in both her legs began yesterday and is progressively getting worse. On exam, she has no focal neurological deficits. Second Eval Re-Evaluation Time: 16:33 Comment: Patient is doing good in the ER. Lower Extremity Course/Dx - Course Assessment/Plan: This patient is a 68 year old F presenting to ED with a chief complaint of R foot pain since 12/28/18 s/p she bumped it on stairs. On exam, the patient has bruising all over her face, her arms, and R shoulder. Her R foot has erythema and tenderness over the first MP joint, swelling over the dorsal area of the R foot, and tenderness of the midfoot. There is erythema extending to plantar surface in the arch of the R foot. R foot XR reveals NO ACUTE OSSEOUS INJURY. IF SYMPTOMS PERSIST, RECOMMEND REPEAT IMAGING. CXR reveals LEFT BASILAR ATELECTASIS VERSUS CONSOLIDATION. Brain CT reveals NO ACUTE INTRACRANIAL PATHOLOGY. CHRONIC SMALL VESSEL ISCHEMIC CHANGE. VL LE reveals NO RIGHT LOWER EXTREMITY DEEP VEIN THROMBOSIS. EKG reveals sinus tachycardia at 106 bpm, normal MN, prolonged QRS, normal QTc, ST elevated in V2 and V3 and depressed in V6, non-specific EKG. EKG limited by artifact. ST depression in V6 is unchanged from 05/21/18. In the ED course, the patient was given morphine, kefzol, and vancomycin. Lactic acid is 2.6. - Diagnoses Differential Diagnosis/HQI/PQRI: Positive: Cellulitis, Infection, Osteomyelitis , Other Provider Diagnoses: Congestive heart failure (CHF) Discharge - Sign-Out/Discharge Documenting (check all that apply): Patient Departure Patient Received Moderate/Deep Sedation with Procedure: No - Discharge Plan Condition: Stable Disposition: ADMITTED TO [facility] - Billing Disposition and Condition Condition: STABLE Disposition: Admitted to [facility] - Attestation Statements Document Initiated by Scribe: Yes Documenting Scribe: Paco Huitron Provider For Whom Scribe is Documenting (Include Credential): Patsy Rubio Scribe Attestation: IPaco, scribed for Patsy Sigala on 01/06/19 at 2224. Scribe Documentation Reviewed: Yes Provider Attestation: The documentation as recorded by the scribePaco accurately reflects the service I personally performed and the decisions made by me, Patsy Rubio Status of Scribe Document: Viewed
[2019-01-06] MEDS ORDERED: MORPHINE IV ONE (13:40)
[2019-01-06 13:55] LABS: ABS Basophils 0.2 10^3/ul (0-0.2); ABS Eosinophils 0.1 10^3/ul (0-0.6); ABS Lymphocytes 0.7 10^3/ul (1.0-4.8); ABS Monocytes 1.2 10^3/ul (0-0.8); ABS Neutrophils 10.1 10^3/ul (1.5-7.7); ABS Nucleated RBC 0 10^3/ul; Eosinophil % 0.6 %; Hematocrit 30 % (33-41); Hemoglobin 9.4 g/dL (12.0-16.0); Lymphocyte % 5.7 %; Mean Corpuscular HGB Conc 31 g/dL (31-36); Mean Corpuscular Hemoglobin 24 pg (27-31); Mean Corpuscular Volume 76 fL (80-97); Mean Platelet Volume 8.4 fL (7.4-10.4); Nucleated Red Blood Cells % 0; Platelet Count 301 10^3/uL (150-450); Red Blood Count 3.97 10^6 /uL (3.70-4.87); Red Cell Distribution Width 19 % (10.5-15); White Blood Count 12.3 10^3/uL (3.5-10.8)
[2019-01-06] MEDS ORDERED: Morphine 4 MG/ML VIAL (1 ml) 4 MG/ML VIAL IV ONE (14:00)
[2019-01-06] MEDS ORDERED: Morphine 4 MG/ML VIAL (1 ml) 4 MG/ML VIAL ONE (14:04)
[2019-01-06 14:22] LABS: Albumin 3.4 g/dL (3.2-5.2); Albumin/Globulin Ratio 1.3 (1-3); BUN/Creatinine Ratio 13.6 (8-20); Calcium 8.6 mg/dL (8.6-10.3); EGFR African American 64.5 (>60); EGFR Non-African American 53.3 (>60); Globulin 2.6 g/dL (2-4); Total Bilirubin 0.5 mg/dL (0.2-1.0)
[2019-01-06 14:23] LABS: Troponin I 0.03 ng/mL (<0.04)
[2019-01-06 14:25] LABS: Potassium 4.9 mmol/L (3.5-5.0)
[2019-01-06] MEDS ORDERED: ceFAZolin 1 GM ADVAN(*) 1 GM in NS 0.9% 50 ML* 50 ML IVPB ONE (16:35)
[2019-01-06] MEDS ORDERED: Vancomycin(*) 1,000 MG in NS 0.9% 250 ML* 250 ML IVPB ONE (16:38)
[2019-01-06] MEDS ORDERED: Piperacillin/Tazobac ADVAN(*) 3.375 GM in NS 0.9% 100 ML* 100 ML IVPB ONE (16:38)
[2019-01-06 19:57] LABS: C Reactive Protein 24.16 mg/L (<8.01)
[2019-01-06] MEDS ORDERED: Dextrose 50% Syringe 50 ML* 25 GM/50 ML SYRINGE IV PUSH PRN (21:49)
[2019-01-06] MEDS: Torsemide TAB* 20 MG PO SCH (23:32)
[2019-01-06] MEDS: traMADol TAB* 50 MG PO SCH (23:33)
[2019-01-06] MEDS: DULoxetine DR CAP* 30 MG CAP.DR PO SCH (23:33)
[2019-01-06] MEDS: Carvedilol TAB* 6.25 MG PO SCH (23:35)
[2019-01-06] MEDS: Montelukast Sodium TAB* 10 MG PO SCH (23:36)
[2019-01-06] MEDS: buPROPion SR TAB.SR* 150 MG PO SCH (23:37)
[2019-01-06] MEDS: Insulin LISPRO* 1 UNITS UNIT SUBCUT SCH (23:38)
--- NOTE | 2019-01-06 23:56 | HP ---
HISTORY AND PHYSICAL: DATE OF ADMISSION: 01/06/19. ADMITTING PROVIDER: Felice Narayan MD. PRIMARY CARE PROVIDER: Dr. Abran Gordon. OUTPATIENT MANAGER RAIL: Dr. Herring. CHIEF COMPLAINT: Altered mental status; recent fall; right foot pain. HISTORY OF PRESENT ILLNESS: Malika Nazario is a 68-year-old female with past medical history of severe ischemic cardiomyopathy( with ejection fraction 20% to 25% April 2018), COPD, former smoker, depression, diastolic dysfunction, non- insulin dependent diabetes mellitus, coronary artery disease, hypertension, hyperlipidemia, arthritis, GERD, chronic back pain. She is accompanied by her and medical proxy, Antonio, and is notably a very poor historian in the emergency room. Gene relates that Malika fell on either Sunday01/01/19 or 01/02/19 four to five days ago. While walking to the bathroom, her legs "gave out," she fell and hit her head against the toilet. Later that day, she stubbed her right foot against some stairs or possibly tripped over a pet and since that time, her foot has been painful and her back pain is getting worse. She follows with the pain clinic for chronic back pain. Today, she presented to the [facility] Emergency Room for further evaluation of these pains. Of note, she did not use any of her medications today and has had a slight leukocytosis of 12.3. She is tachycardic, initially 99, but it has been in the low 100s since then off of her Coreg. Blood pressures have been normal to slightly hypertensive. She has been afebrile. She got a dose of vancomycin and Zosyn in the emergency room, but no IV fluids. She has a markedly elevated BNP of 1150, but is satting mid 90s on room air. She is not tachypneic on my evaluation here. Denies any shortness of breath. She denies any fevers, chills , abdominal pain, headaches, vision changes. She has some ecchymosis around her bilateral eyes from the fall. Per Gene, she is markedly more confused than she is at baseline. She had a CT of the head, which demonstrated no acute process, but chronic small vessel ischemic changes. She had a duplex Doppler of her right lower extremity, which showed no DVT. She had three-view x-ray of her right foot, which showed no acute osseous injury. Chest x-ray showed left basilar atelectasis versus consolidation. She had initial lactic acidosis of 2.6, CRP of 24, troponin of 0.03 x3. Denies any chest pain. She is being referred to the hospitalist service for admission for altered mental status. PAST MEDICAL HISTORY: Includes COPD; severe ischemic cardiomyopathy with EF of 20% to 25%; diastolic dysfunction; depression; chronic back pain (followed at the pain clinic); history of GI bleed, resolved; non-insulin dependent diabetes mellitus; ICD placement; coronary artery disease; hypertension; hyperlipidemia; GERD; arthritis. MEDICATIONS: Current medications include: 1. Diflucan 100 mg daily. 2. Bydureon 2 mg subcutaneously weekly. 3. Tramadol 100mg ER daily and recently also 50 mg p.o. t.i.d. 4. Torsemide 20 mg alternating with 40 mg every other day. 5. Lisinopril 2.5 mg daily. 6. Naproxen 500 mg p.o. b.i.d. p.r.n. 7. Prozac 20 mg p.o. daily. 8. Plavix 75 mg daily. 9. Reglan 10 mg p.o. b.i.d. p.r.n. 10. Prilosec 20 mg p.o. daily. 11. Aspirin 81 mg daily. 12. Wellbutrin 300 mg p.o. daily. 13. Crestor 10 mg daily. 14. Glipizide 10 mg p.o. b.i.d. 15. Carvedilol 12.5 mg p.o. b.i.d. 16. Singulair 10 mg p.o. at bedtime. 17. Nystatin 1 application topical b.i.d. 18. Cymbalta 20 mg p.o. daily. 19. Fluocinonide 0.05% topical b.i.d. 20. Minocycline 100 mg p.o. b.i.d. 21. Gabapentin 400 mg p.o. 4 times a day. ALLERGIES: Include ATORVASTATIN (unknown), NICKEL, SHELLFISH, IODINE. FAMILY HISTORY: Mother of lung cancer and was a smoker. Father of heart attack. SOCIAL HISTORY: The patient is a former smoker, quit in 2002, 20 pack years. No alcohol or drug use. , Gene, is at bedside, who is her medical surrogate. She desires to be a full code. REVIEW OF SYSTEMS: A complete 14-point review of systems negative except as per HPI. Notably, she is a markedly limited historian. PHYSICAL EXAMINATION GENERAL APPEARANCE: No acute distress, but with prominent ecchymosis of bilateral eyes. VITAL SIGNS: Temperature 98.3; pulse rate initially 99, currently 111; respiratory rate is mostly in the mid 20s, although highest reading was recorded as 46; blood pressure currently is 127/77. HEENT: Normocephalic. Ecchymoses of bilateral eyes. No oropharynx lesions. NECK: Supple. LUNGS: Clear to auscultation bilaterally with no wheezing, rales, or rhonchi. CARDIOVASCULAR: Regular, tachycardic. No murmurs, rubs, or gallops. ABDOMEN: Soft, nontender. She has a midline well-healed scar. No rebound or guarding. No Turner sign. EXTREMITIES: Slightly cool. Pulses are intact. No edema. No ecchymoses of the toes. She has some slight pain at the right ball of the foot. No seeming pain with passive range of motion of right ankle NEUROLOGIC: Cranial nerves II through XII grossly intact, though she is having troubles following some commands initially. [employer] strength is 5/5. No pronator drift. DIAGNOSTIC STUDIES/LAB DATA: White count 12.3, hemoglobin 9.4, hematocrit 30, platelets 301,000, MCV 76. Sodium 133, potassium 4.9, chloride 101, carbon dioxide 23, BUN 14, creatinine 1.03, glucose 256, lactic acid 2.6, magnesium 2.0 , calcium 8.6. Total bili 0.5, AST 31, ALT 21, alk phos 156. BNP is 1150. Total protein is 6.0, albumin 3.4. Imaging: Chest x-ray demonstrated left basilar atelectasis versus consolidation. CT of the brain without contrast showed no acute intracranial pathology. Chronic small vessel ischemic changes. Foot, right three-view x- ray shows no acute osseous injury. If symptoms persist, recommend repeat imaging. Duplex Doppler of the right leg showed no evidence of lower extremity deep venous thrombosis. EKG demonstrated sinus tachycardia, PVCs, wandering baseline making it a very poor study. QRS of [address] elevations or depressions ASSESSMENT AND PLAN: Malika Nazario is a 68-year-old female with past medical history of severe ischemic cardiomyopathy with EF of 20% to 25%, chronic obstructive pulmonary disease, depression, non-insulin dependent diabetes mellitus, presenting four to five days after a fall with some head trauma and concern for some altered mental status. 1. Altered Mental Status: No acute process on CT of the head including no subdural or other bleed. Still waiting on a urinalysis. We will have to rule out a UTI. She is markedly off her baseline per her , Gene. She is status post vancomycin and Zosyn in the emergency room and blood cultures have been obtained. We will follow up on that. I am going to continue her on ceftriaxone for now until we can rule out that she has had a urinary tract infection. I do not think she needs quite as broad coverages of vancomycin and Zosyn. We will repeat the lactic acid. Hold her gabapentin and reduce her tramadol dose for now in the setting of altered mental status. Differential could include hypoxia from CHF. Consider ABG to rule out hypercapnea if not resolving with antibiotics or increased diuresis 2. Chronic severe congestive heart failure. BNP is markedly elevated at 1150, and she has been recorded as being tachypneic though breathing comfortably for me now. No other clear evidence of clinically decompensated congestive heart failure. No rales. No edema. Some left basilar atelectasis versus consolidation in the lung. I am going to increase her home diuretics to 40 mg torsemide daily from her home dose of alternating between 20 and 40. Strict i//o , daily weights. 3. Tachycardia, which could be in the setting of potential occult infection ( urinary tract infection or other infection), some mild leukocytosis but also in the setting of missing her carvedilol, which I am going to restart at 12.5 mg p.o. b.i.d. 4. HTN: restart coreg as above but hold her lisinopril and minocycline for now. 5. Depression, continue Cymbalta and Prozac and Wellbutrin. 6. CAD: Continue her aspirin, Plavix, coreg, and statin. 7. NIDDM: Put her on sliding scale insulin with point of care testing q.a.c. and h.s. Hold bydureon, hold glipizide. 8. Chronic Pain: Will give her tramadol 50 mg p.o. t.i.d which she was recently on, hold her 100mg ER. 9. COPD: continue singular. not in acute exacerbation. 10. DVT prophylaxis, put her on heparin 5000 t.i.d. Given age, obesity, CHF, COPD she is "highest risk" via Adult Thrombosis Risk Calculator She can eat a carbohydrate consistent, heart healthy diet. She is a full code. Medical surrogate is her , Antonio. Physical therapy will be ordered [id number]/[facility] #: [id number] MTDD
[2019-01-06] MEDS: CMCS: Rosuvastatin (NF) 10 MG TAB PO SCH (23:58)
[2019-01-06] MEDS: cefTRIAXone(*) 1 GM in NS 0.9% 50 ML* 50 ML IVPB SCH (23:58)
[2019-01-07 00:44] LABS: Urine Appearance Clear; Urine Bacteria Absent (Absent); Urine Bilirubin Negative (Negative); Urine Blood Negative (Negative); Urine Color Yellow; Urine Glucose Negative (Negative); Urine Ketones Negative (Negative); Urine Nitrite Negative (Negative); Urine Protein 1+(30 mg/dL) (Negative); Urine Red Blood Cell Trace(0-2/hpf) (Absent); Urine Specific Gravity 1.018 (1.010-1.030); Urine Squamous Epithelial Cell Present (Absent); Urine Urobilinogen Negative (Negative); Urine White Blood Cell Trace(0-5/hpf) (Absent)
[2019-01-07 04:52] LABS: Erythrocyte Sed Rate 35 mm/Hr (0-30)
[2019-01-07 07:32] LABS: BUN/Creatinine Ratio 12.9 (8-20); Calcium 8.5 mg/dL (8.6-10.3); EGFR Non-African American 54.5 (>60); Potassium 3.5 mmol/L (3.5-5.0)
[2019-01-07 07:39] LABS: ABS Basophils 0.1 10^3/ul (0-0.2); ABS Eosinophils 0.1 10^3/ul (0-0.6); ABS Lymphocytes 1.3 10^3/ul (1.0-4.8); ABS Monocytes 1.3 10^3/ul (0-0.8); ABS Neutrophils 6.2 10^3/ul (1.5-7.7); ABS Nucleated RBC 0 10^3/ul; Eosinophil % 0.8 %; Hematocrit 28 % (33-41); Hemoglobin 8.9 g/dL (12.0-16.0); Lymphocyte % 14.2 %; Mean Corpuscular HGB Conc 31 g/dL (31-36); Mean Corpuscular Hemoglobin 24 pg (27-31); Mean Corpuscular Volume 76 fL (80-97); Mean Platelet Volume 8.6 fL (7.4-10.4); Nucleated Red Blood Cells % 0; Platelet Count 237 10^3/uL (150-450); Red Blood Count 3.75 10^6 /uL (3.70-4.87); Red Cell Distribution Width 20 % (10.5-15); White Blood Count 8.9 10^3/uL (3.5-10.8)
[2019-01-07] MEDS: Pantoprazole TAB * 40 MG TAB PO SCH (07:50)
[2019-01-07] MEDS: Clopidogrel TAB* 75 MG PO SCH (07:50)
[2019-01-07] MEDS: DULoxetine DR CAP* 30 MG CAP.DR PO SCH (07:50)
[2019-01-07] MEDS: FLUoxetine CAP* 20 MG PO SCH (07:50)
[2019-01-07] MEDS: traMADol TAB* 50 MG PO SCH ×3 (07:50→21:27)
[2019-01-07] MEDS: buPROPion SR TAB.SR* 150 MG PO SCH (07:50)
[2019-01-07] MEDS: Carvedilol TAB* 6.25 MG PO SCH ×2 (07:50→21:28)
[2019-01-07] MEDS: Aspirin 81 mg CHEW TAB* 81 MG TAB.CHEW PO SCH (07:50)
[2019-01-07] MEDS: CMCS: Rosuvastatin (NF) 10 MG TAB PO SCH (07:51)
[2019-01-07] MEDS: Torsemide TAB* 20 MG PO SCH (07:51)
[2019-01-07] MEDS: Azithromycin IV(*) 500 MG in NS 0.9% 250 ML* 250 ML IVPB SCH (07:54)
[2019-01-07] MEDS: Insulin LISPRO* 1 UNITS UNIT SUBCUT SCH ×4 (08:00→21:30)
[2019-01-07] MEDS ORDERED: MINOCYCLINE 100 MG PO SCH (09:00)
[2019-01-07] MEDS: Nystatin CREAM* 15 GM TUBE TOPICAL SCH ×2 (10:42→23:00)
--- NOTE | 2019-01-07 10:52 | PN ---
Subjective Date of Service: 01/07/19 Interval History: C/o right arm weakness, unable to move right arm. states started this AM. Denies headache or dizziness. Denies chest pain or shortness of breath. denies abd pain. n/v/d. Dr. Santos into examine patient at the bedside. 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 Family History: Unchanged from Admission Social History: Unchanged from Admission Past Medical History: Unchanged from Admission Objective Active Medications: Aspirin (Aspirin 81 Mg Chew Tab*) 81 mg PO DAILY [facility] Last Admin: 01/07/19 07:50 Dose: 81 mg Bupropion HCl (Wellbutrin Sr Tab*) 300 mg PO DAILY [facility] Last Admin: 01/07/19 07:50 Dose: 300 mg Carvedilol (Coreg Tab*) 12.5 mg PO BID [facility] Last Admin: 01/07/19 07:50 Dose: 12.5 mg Clopidogrel Bisulfate (Plavix Tab*) 75 mg PO DAILY [facility] Last Admin: 01/07/19 07:50 Dose: 75 mg Dextrose (D50w Syringe 50 Ml*) 12.5 gm IV PUSH .FOR FS < 60 - SS PRN PRN Reason: FS < 60 Duloxetine HCl (Cymbalta Cap*) 30 mg PO DAILY [facility] Last Admin: 01/07/19 07:50 Dose: 30 mg Fluoxetine HCl (Prozac Cap*) 20 mg PO DAILY [facility] Last Admin: 01/07/19 07:50 Dose: 20 mg Heparin Sodium (Porcine) (Heparin Vial(*)) 5,000 units SUBCUT Q8HR [facility] Ceftriaxone Sodium 1 gm/ (Sodium Chloride) 50 mls @ 200 mls/hr IVPB Q24H [facility] Last Admin: 01/06/19 23:58 Dose: 200 mls/hr Azithromycin 500 mg/ Sodium (Chloride) 250 mls @ 250 mls/hr IVPB Q24H [facility] Last Admin: 01/07/19 07:54 Dose: 250 mls/hr Insulin Human Lispro (Humalog*) 0 units SUBCUT ACHS [facility]; Protocol Last Admin: 01/07/19 08:00 Dose: Not Given Montelukast Sodium (Singulair Tab*) 10 mg PO BEDTIME [facility] Last Admin: 01/06/19 23:36 Dose: 10 mg Nystatin (Nystatin Cream*) 1 applic TOPICAL BID [facility] Last Admin: 01/07/19 10:42 Dose: Not Given Pantoprazole Sodium (Protonix Tab*) 40 mg PO DAILY [facility] Last Admin: 01/07/19 07:50 Dose: 40 mg Rosuvastatin Calcium (Crestor (Nf)) 10 mg PO DAILY [facility]; Protocol Last Admin: 01/07/19 07:51 Dose: 10 mg Torsemide (Demadex*) 40 mg PO DAILY [facility] Last Admin: 01/07/19 07:51 Dose: 40 mg Tramadol HCl (Ultram*) 50 mg PO TID [facility] Last Admin: 01/07/19 07:50 Dose: 50 mg Vital Signs - 8 hr 01/07/19 01/07/19 01/07/19 02:53 07:25 07:50 Temperature 98.9 F 98.4 F Pulse Rate 90 93 Respiratory 24 20 16 Rate Blood Pressure 113/52 118/64 (mmHg) O2 Sat by Pulse 100 100 Oximetry 01/07/19 10:41 Temperature Pulse Rate Respiratory 16 Rate Blood Pressure (mmHg) O2 Sat by Pulse Oximetry Oxygen Devices in Use Now: None Appearance: Alert , appears comfortable resting in bed. Result Diagrams: 01/07/19 07:19 01/07/19 06:59 Microbiology and Other Data: Microbiology 01/07/19 00:15 Legionella Urinary Antigen - Final Urine Negative Legionella Antigen Streptococcus pneumoniae Ag Screen - Final Negative S. pneumo Antigen Assess/Plan/Problems-Billing Assessment: Ms. Nazario is a 68 y.o female with a past medical history significant for severe ischemic cardiomyopathy( with ejection fraction 20% to 25% April 2018), COPD, former smoker, depression, diastolic dysfunction, non-insulin dependent diabetes mellitus, coronary artery disease, hypertension, hyperlipidemia, arthritis, GERD, chronic back pain who presented to the emergency room for back pain and right foot pain and increased confusion after a fall on December 28, 2018. - Patient Problems (1) Altered mental status Current Visit: Yes Status: Acute Code(s): R41.82 - ALTERED MENTAL STATUS, UNSPECIFIED SNOMED Code(s): 408587553 Comment: - CT of the head was negative for bleed or hematoma - alert and oriented this AM - suspect this could be related to PNA- she does have consolidation on cxr, leukocytosis on admission - will continue Azithromycin and ceftriaxone - urine - negative for UTI (2) Right arm weakness Current Visit: Yes Status: Acute Code(s): R29.898 - OTH SYMPTOMS AND SIGNS INVOLVING THE MUSCULOSKELETAL SYSTEM SNOMED Code(s): 009758043 Comment: - Acute onset right arm weakness - IV infiltration in the same extremity - will get CT of the C spine to r/o hematoma - negative for fracture or hematoma - Neurology consulted - will elevate/ ice to right arm - reevaluated at 1600 - able to move arm , swelling improving (3) Anemia Current Visit: Yes Status: Acute Code(s): D64.9 - ANEMIA, UNSPECIFIED SNOMED Code(s): 518647775 Comment: baseline since 2017 stable (4) HTN (hypertension) Current Visit: Yes Status: Acute Code(s): I10 - ESSENTIAL (PRIMARY) HYPERTENSION SNOMED Code(s): 67877289 Comment: Holding lisinopril - SBP 104 (5) Congestive heart failure (CHF) Current Visit: No Status: Chronic Code(s): I50.9 - HEART FAILURE, UNSPECIFIED SNOMED Code(s): 22033590 Comment: appears euvolemic - chronic systolic CHF. EF from last echo 05/21/19 at 20% - will continue torsemide, BB - holding lisinopril d/t soft SBP 104 (6) Diabetes Current Visit: No Status: Chronic Code(s): E11.9 - TYPE 2 DIABETES MELLITUS WITHOUT COMPLICATIONS SNOMED Code(s): 38393482 Comment: FS ACHS lispro SS (7) DVT prophylaxis Current Visit: No Status: Acute Code(s): DYF7619 - SNOMED Code(s): 235597055 (8) Full code status Current Visit: Yes Status: Acute Code(s): Z78.9 - OTHER SPECIFIED HEALTH STATUS SNOMED Code(s): 409374001 Status and Disposition: discharge home when medically stable
--- NOTE | 2019-01-07 13:44 | CONS ---
NEUROLOGY CONSULTATION NOTE: DATE OF CONSULT: 01/07/19 CONSULTING PROVIDER: Nancy Rivas NP REASON FOR CONSULT: Right arm weakness. CHIEF COMPLAINT: Right arm weakness and burning sensation. HISTORY OF PRESENT ILLNESS: Ms. Malika Nazario is a 68-year-old female with a past medical history of severe systolic heart failure; COPD; former smoker; depression; coronary artery disease, on dual antiplatelet therapy; diabetes mellitus type 2, who presented to [facility] on 01/06/19 after a fall. The patient was walking to the bathroom when she thought her legs gave up. She hit her head on the tub. She never lost consciousness. She suffered a hematoma in the forehead and periorbital ecchymosis. She refused to go to the hospital. This took place on 01/01/19. She did stop taking her Plavix due to the hematoma. She developed back pain and right leg pain and that is when her decided to bring her into [facility]. In the ER, the patient had an IV placed in the right upper extremity. The patient was a hard stick and it was difficult placing the IV. She apparently received antibiotic therapy through the IV, which included vancomycin, azithromycin, and ceftriaxone. Her noted that the right arm was slightly swollen yesterday. This morning at approximately 7 a.m. the patient was complaining of severe burning sensation in the right forearm and she cannot move the right hand. Her stated that the fingers were appearing like they were sausage. It was found that the IV had infiltrated. The IV was removed. The patient still complains of significant swelling and pain in the right elbow and the hand. Neurology was emergently contacted to evaluate the patient for possible stroke. The patient denied any current headaches, visual disturbance, swallowing difficulty, or slurred speech. She denied any weakness anywhere else in the extremities. She has chronic low back pain radiating to the left lower extremity with chronic mild lower extremity weakness. The patient had an episode of confusion and altered sensorium. The stated that the patient usually cannot tolerate morphine and she becomes confused after a dose of morphine. Morphine was given in the emergency room. PAST MEDICAL HISTORY: COPD, systolic heart failure with EF of 20%, depression, chronic back pain, history of GI bleed, diabetes mellitus type 2, ICD placement , coronary artery disease, hypertension, dyslipidemia, GERD, arthritis. MEDICATIONS: 1. Bupropion 300 mg daily. 2. Aspirin 81 mg p.o. daily. 3. Metoclopramide 10 mg p.o. twice daily as needed. 4. Montelukast 10 mg p.o. at bedtime. 5. Minocycline 100 mg p.o. b.i.d. 6. Omeprazole 20 mg p.o. daily. 7. Rosuvastatin 10 mg p.o. daily. 8. Bydureon 2 mg subcutaneously weekly. 9. Glipizide 10 mg p.o. b.i.d. 10. Carvedilol 12.5 mg p.o. b.i.d. 11. Duloxetine 30 mg p.o. daily. 12. Gabapentin 400 mg 4 times daily. 13. Tramadol 100 mg p.o. daily. 14. Fluconazole 100 mg p.o. daily. 15. Tramadol 50 mg p.o. t.i.d. 16. Torsemide 20 mg p.o. every other day. 17. Lisinopril 2.5 mg p.o. daily. 18. Naproxen 500 mg p.o. b.i.d. 19. Fluoxetine 20 mg p.o. daily. 20. Torsemide 40 mg p.o. every other day. 21. Clopidogrel 75 mg p.o. daily. ALLERGIES: ATORVASTATIN, NICKEL, SHELLFISH, IODINE. FAMILY HISTORY: Mother of lung cancer and was a smoker. Father after a heart attack. SOCIAL HISTORY: The patient is a former smoker and she quit in 2002. She denied any alcohol use. 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 She is a full code. REVIEW OF SYSTEMS: A 14-point review of systems was obtained and otherwise negative except what is mentioned in the HPI. PHYSICAL EXAMINATION: Vitals: Temperature 98.4, pulse of 93, respiratory rate of 20, oxygen saturation 100%, blood pressure 118/64. General: Ill-appearing, obese female, in no acute distress. Alert and cooperative. Head: Normocephalic without obvious abnormality. Eyes: Conjunctivae/corneas are clear. She has raccoon signs bilaterally with periorbital ecchymosis. Neck is supple and symmetrical. No carotid bruit. Lungs: Clear to auscultation bilaterally. Cardiovascular: Regular rate and rhythm with normal S1, S2. Extremities: Normal range of motion except that she cannot move the right distal upper extremity. Skin: There is bruising in the right shoulder. Psych : Affect is broad and normal mood. Neurological Examination: The patient is awake, alert, oriented to person, place, time, and general circumstance. She has mild psychomotor slowing. Cranial Nerves: Normal confrontation testing bilaterally. Pupils are mid range and reactive. Sensation is intact in the forehead, cheeks, and jaw region bilaterally. There is no facial droop. She is able to hear throughout the history process. There is normal strength against shoulder resistance. Tongue is symmetric and midline with no atrophy or fasciculation. Motor Examination: No abnormal movements or pronator drift. Normal bulk and tone throughout. No fasciculation. Shoulder range of motion is restricted on the right due to pain. Shoulder abduction 4/5, elbow flexion 2 /5, extension 4/5, wrist flexion 1/5, extension 0/5, finger abduction 0/5. Hip flexion 5/5, abduction 5/5, knee flexion 5/5, extension 5/5. Ankle dorsiflexion 5/5. Reflexes right/left, brachioradialis trace/trace, biceps trace/trace, triceps trace/trace, patella 0/0, ankle 0/0, plantar flexor/ flexor. Sensation is intact to light touch, pinprick, and temperature sensation all throughout. She has reduced vibration sensation at the toes at 4 seconds bilaterally. Coordination: Normal [id number] on the left, unable to perform on the right due to weakness. Gait was not assessed due to anemia as well as recent injury. DIAGNOSTIC STUDIES/LAB DATA: WBC of 8.9, hemoglobin of 8.9, hematocrit of 28, platelets of 237. Sodium of 137, chloride of 102, potassium 3.5, creatinine 1.01. Blood glucose 263, hemoglobin A1c 6.4. Calcium 8.5. CT head without contrast was reviewed. There is no evidence of intracranial abnormality. There are diffuse chronic small vessel ischemic changes as well as global cerebral atrophy. ASSESSMENT AND RECOMMENDATION: 1. Ms. Malika Nazario is a 68-year-old female who had a fall and subsequent head injury with severe forehead hematoma as well as periorbital ecchymosis, who developed sudden onset right hand swelling and weakness that started yesterday after IV cannulization. The patient was found to have infiltrated IV with extravasation after she has received multiple antibiotic therapies including vancomycin, Zosyn, Rocephin, and azithromycin last night. She does not have any evidence of compartment syndrome (the hand and arm is soft and not severely painful) in that hand, although she is severely weak and has lost motor function. She has intact sensation but did complain of severe burning sensation in the medial aspect of the jae as well as the entire hand. I do not suspect she had a stroke. Instead, I suspected that the patient has some irritation from the antibiotics and the edema restricting the range of motion of that hand. We also need to exclude any possible epidural hematoma compression on the cervical cord. She has an ICD that I am not sure if it is MRI compatible. Please discuss with the patient and her to check the compatibility for the ICD device to obtain an MRI. In the meantime, start with CT of the cervical spine to evaluate for epidural hematoma, compression fractures, or severe spinal stenosis. Also order a venous ultrasound to check for DVTs in the right upper extremity. Please consult with pharmacy to see if there is any other intervention other than cold compresses and elevating the arm to help reduce the swelling and the loss of function. 2. Acute toxic encephalopathy. Most likely related to morphine use. This has improved overnight. Please do not use morphine as the patient has had similar reaction in the past where she had become confused in the past. TIME SPENT: Seventy-five minutes of which more than 50% was spent obtaining history, examining the patient, discussing the case with Nancy and the patient 's at bedside. I answered all his questions to the patient's to the best of my abilities. I will continue to follow. [id number]/[facility] #: [id number] BEATRIZ
[2019-01-07] MEDS ORDERED: Acetaminophen TAB* 325 MG PO PRN (20:42)
[2019-01-07] MEDS: Montelukast Sodium TAB* 10 MG PO SCH (21:28)
[2019-01-07] MEDS: Heparin VIAL(*) 5000 UNITS/ML VIAL (FIVE THOUSAND) SUBCUT SCH (22:32)
[2019-01-07] MEDS: cefTRIAXone(*) 1 GM in NS 0.9% 50 ML* 50 ML IVPB SCH (22:34)
[2019-01-08] MEDS: Heparin VIAL(*) 5000 UNITS/ML VIAL (FIVE THOUSAND) SUBCUT SCH (05:30)
[2019-01-08] MEDS ORDERED: Heparin VIAL(*) 5000 UNITS/ML VIAL (FIVE THOUSAND) SUBCUT SCH (06:00)
[2019-01-08 07:37] VITALS: BP 105/52
[2019-01-08] MEDS: Azithromycin IV(*) 500 MG in NS 0.9% 250 ML* 250 ML IVPB SCH (08:34)
[2019-01-08] MEDS: traMADol TAB* 50 MG PO SCH (08:34)
[2019-01-08] MEDS: Carvedilol TAB* 6.25 MG PO SCH (08:34)
[2019-01-08] MEDS: buPROPion SR TAB.SR* 150 MG PO SCH (08:35)
[2019-01-08] MEDS: DULoxetine DR CAP* 30 MG CAP.DR PO SCH (08:35)
[2019-01-08] MEDS: Pantoprazole TAB * 40 MG TAB PO SCH (08:36)
[2019-01-08] MEDS: FLUoxetine CAP* 20 MG PO SCH (08:36)
[2019-01-08] MEDS: Torsemide TAB* 20 MG PO SCH (08:37)
[2019-01-08] MEDS: Aspirin 81 mg CHEW TAB* 81 MG TAB.CHEW PO SCH (08:37)
[2019-01-08] MEDS: Clopidogrel TAB* 75 MG PO SCH (08:37)
[2019-01-08] MEDS: CMCS: Rosuvastatin (NF) 10 MG TAB PO SCH (08:37)
[2019-01-08] MEDS: Insulin LISPRO* 1 UNITS UNIT SUBCUT SCH (08:38)
--- NOTE | 2019-01-08 09:11 | PN ---
Subjective Date of Service: 01/08/19 Length of Stay: 2 Days Neurology is following for right arm weakness following IV infiltration. Interval History: She is moving her right hand and arm. She still has some pain over the medial forearm. She denied any facial weakness or slurred speech. The swelling over the right hand and arm has significantly improved. Review of Systems: Denied CP, SOB, or palpitations. Family History: Unchanged from Admission Social History: Unchanged from Admission Past Medical History: Unchanged from Admission Objective Active Medications: Acetaminophen (Tylenol Tab*) 650 mg PO Q6H PRN PRN Reason: FEVER/PAIN Aspirin (Aspirin 81 Mg Chew Tab*) 81 mg PO DAILY [facility] Last Admin: 01/08/19 08:37 Dose: 81 mg Bupropion HCl (Wellbutrin Sr Tab*) 300 mg PO DAILY [facility] Last Admin: 01/08/19 08:35 Dose: 300 mg Carvedilol (Coreg Tab*) 12.5 mg PO BID [facility] Last Admin: 01/08/19 08:34 Dose: 12.5 mg Clopidogrel Bisulfate (Plavix Tab*) 75 mg PO DAILY [facility] Last Admin: 01/08/19 08:37 Dose: 75 mg Dextrose (D50w Syringe 50 Ml*) 12.5 gm IV PUSH .FOR FS < 60 - SS PRN PRN Reason: FS < 60 Duloxetine HCl (Cymbalta Cap*) 30 mg PO DAILY [facility] Last Admin: 01/08/19 08:35 Dose: 30 mg Fluoxetine HCl (Prozac Cap*) 20 mg PO DAILY [facility] Last Admin: 01/08/19 08:36 Dose: 20 mg Heparin Sodium (Porcine) (Heparin Vial(*)) 5,000 units SUBCUT Q8HR [facility] Last Admin: 01/08/19 05:30 Dose: 5,000 units Ceftriaxone Sodium 1 gm/ (Sodium Chloride) 50 mls @ 200 mls/hr IVPB Q24H [facility] Last Admin: 01/07/19 22:34 Dose: 200 mls/hr Azithromycin 500 mg/ Sodium (Chloride) 250 mls @ 250 mls/hr IVPB Q24H [facility] Last Admin: 01/08/19 08:34 Dose: 250 mls/hr Insulin Human Lispro (Humalog*) 0 units SUBCUT ACHS [facility]; Protocol Last Admin: 01/08/19 08:38 Dose: 2 units Montelukast Sodium (Singulair Tab*) 10 mg PO BEDTIME [facility] Last Admin: 01/07/19 21:28 Dose: 10 mg Nystatin (Nystatin Cream*) 1 applic TOPICAL BID [facility] Last Admin: 01/07/19 23:00 Dose: Not Given Pantoprazole Sodium (Protonix Tab*) 40 mg PO DAILY [facility] Last Admin: 01/08/19 08:36 Dose: 40 mg Rosuvastatin Calcium (Crestor (Nf)) 10 mg PO DAILY [facility]; Protocol Last Admin: 01/08/19 08:37 Dose: 10 mg Torsemide (Demadex*) 40 mg PO DAILY [facility] Last Admin: 01/08/19 08:37 Dose: 40 mg Tramadol HCl (Ultram*) 50 mg PO TID [facility] Last Admin: 01/08/19 08:34 Dose: 50 mg Vital Signs 01/07/19 01/07/19 01/08/19 21:27 23:23 03:37 Temperature 97.5 F 98.3 F Pulse Rate 91 90 Respiratory 18 16 16 Rate Blood Pressure 127/72 144/76 (mmHg) O2 Sat by Pulse 100 100 Oximetry 01/08/19 01/08/19 07:36 08:34 Temperature 97.4 F Pulse Rate 92 Respiratory 16 18 Rate Blood Pressure 105/52 (mmHg) O2 Sat by Pulse 99 Oximetry Intake and Output Last 24 Hours 01/06/19 01/07/19 01/08/19 01/09/19 06:59 06:59 06:59 06:59 Intake Total 458 970 Output Total 250 Balance 458 720 Weight 155 lb 8 oz Intake: IV Fluids 350 IVPB 58 250 ABX - AZITHROMYCIN 250 Oral 50 720 Output: Urine 250 Other: Estimated Void Small Medium Date of Last Bowel unknown Movement # Bowel Movements 0 0 # Voids 1 1 Oxygen Devices in Use Now: None Neurology Exam: General: Ill appearing female who is overweight but in no acute distress. HEENT: periorbital ecchymosis and frontal hematoma. Improving. Neurological Findings: Awake, alert, and oriented to person, place, and time. Speech: fluent without dysarthria, repetition intact Cranial Nerve: PERRL, EOM intact, VFF, no nystagmus Motor: 4/5 strength in the right and 5/5 strength on the left upper extremity. 5/5 strength in bilateral lower extremities. Sensation: intact to LT/PP bilaterally upper and lower extremities Result Diagrams: 01/07/19 07:19 01/07/19 06:59 Microbiology and Other Data: Microbiology 01/07/19 00:15 Legionella Urinary Antigen - Final Urine Negative Legionella Antigen Streptococcus pneumoniae Ag Screen - Final Negative S. pneumo Antigen Assessment/Plan 1. Acute right upper extremity weakness with associated edema. This is due to IV infiltration causing mild IV extravasation (swelling, pain, weakness that has improved). The patient was not receiving any cytotoxic drugs through the IV. Overall, she is slowly improving. There is no indication for further neurological work-up. I recommend getting the patient OOB to chair and encouraging her to work with OT. Keep the arm elevated. Minimize any prolonged cold compressors. I will sign off but please note that I am available for any questions or concerns.
[2019-01-08] MEDS: Nystatin CREAM* 15 GM TUBE TOPICAL SCH (10:38)
--- NOTE | 2019-01-09 20:30 | DS ---
CC: Dr. Abran Gordon; Dr. Valentino Herring * DISCHARGE SUMMARY: DATE OF ADMISSION: 01/06/19 DATE OF DISCHARGE: 01/08/19 PRIMARY CARE PROVIDER: Dr. Abran Gordon. OUTPATIENT TOE LASTER: Dr. Valentino Herring. MY ATTENDING WHILE IN THE HOSPITAL: Dr. Justine Klein.* (DICTATED BY ARIES VASQUEZ) PRIMARY DISCHARGE DIAGNOSES: 1. Toxic metabolic encephalopathy. 2. Community-acquired pneumonia. SECONDARY DISCHARGE DIAGNOSES: 1. Chronic obstructive pulmonary disease. 2. Ischemic cardiomyopathy. 3. Diastolic cardiac dysfunction. 4. Depression. 5. Chronic low back pain. 6. Diabetes mellitus type 2. 7. Coronary artery disease. 8. Hypertension. 9. Hyperlipidemia. 10. Gastroesophageal reflux disease. 11. Arthritis. 12. Status post ICD placement. 13. History of gastrointestinal bleed. 14. Congestive heart failure, EF of 19% to 20%. STUDIES DONE WHILE IN THE HOSPITAL: Foot x-ray from 01/06/19 read as no acute osseous injury. If symptoms persist, we recommend a repeat imaging. Venous Doppler study read as no right lower extremity deep vein thrombosis. Brain CT read as no acute intracranial pathology, chronic small-vessel ischemic change. Chest x-ray read as left basilar atelectasis versus consolidation. Cervical spine CT read as degenerative disk disease at C3-C4 with spondylotic ridge and left uncovertebral joint hypertrophy, narrowing of the left foramen and degenerative disk disease at C5-C6, spondylotic ridge and bilateral uncovertebral joint hypertrophy resulting in mild spinal stenosis. Venous Doppler study from 01/07/19 read as no evidence for deep vein thrombosis in the right upper extremity. MEDICATIONS AT DISCHARGE: 1. Bupropion SR 300 mg p.o. daily. 2. Aspirin 81 mg p.o. daily. 3. Reglan 10 mg p.o. b.i.d. as needed. 4. Singulair 10 mg p.o. at bedtime. 5. Minocycline 100 mg p.o. b.i.d. 6. Omeprazole 20 mg p.o. daily. 7. Rosuvastatin 10 mg p.o. daily. 8. Exenatide 2 mg subcutaneous weekly. 9. Glipizide 10 mg p.o. b.i.d. 10. Carvedilol 12.5 mg p.o. b.i.d. 11. Nystatin 1 application topical b.i.d. 12. Duloxetine 30 mg p.o. daily. 13. Fluocinonide 0.05%, 15 g topical b.i.d. 14. Neurontin 400 mg p.o. 4 times daily. 15. Tramadol 100 mg p.o. daily. 16. Fluconazole 100 mg p.o. daily. 17. Tramadol 50 mg p.o. t.i.d. as needed. 18. Torsemide 20 mg every other day. 19. Torsemide 40 mg p.o. every other day. 20. Lisinopril 2.5 mg p.o. daily. 21. Naproxen 500 mg p.o. b.i.d. as needed. 22. Fluoxetine 20 mg p.o. daily. 23. Clopidogrel 75 mg p.o. daily. 24. Tylenol 650 mg p.o. q.6 hours as needed. 25. Zithromax 250 mg p.o. daily x3. 26. Cefuroxime 500 mg p.o. b.i.d. x16. New medications at discharge: 1. Tylenol. 2. Azithromycin. 3. Cefuroxime. HOSPITAL COURSE: This is a brief summary of the patient's presentation. For more details, please see the history and physical from Dr. Felice Narayan on . In brief, the patient is a 68-year-old female with past medical history significant for the above, who presented to the emergency department after a fall 4 to 5 days prior to coming into the hospital due to weakness without other prodromal symptoms. The patient was unable to get up and was not evaluated at that time. The patient had increasing confusion and weakness. The patient had minimal respiratory symptoms. The patient had a chest x-ray read as above concerning for pneumonia. The patient was not hypoxic but did have a lactic acidosis, elevated BNP, and a slight leukocytosis. The patient was started on IV antibiotics for community- acquired pneumonia, azithromycin and ceftriaxone. The patient received morphine in the emergency department, which appeared to make her altered mental status much worse. The patient in the hospital improved greatly; however, the patient had issues of being unable to move her right hand on the second day of her hospitalization. The patient already has a cervical spine CT. The patient was seen in consultation by Dr. Al Santos of Neurology, who believes this was not a central neurologic process and it was related to infiltration of IV fluid overload in that arm. The patient had no DVT in that arm. As IV fluids were stopped going through this arm and the swelling went down, her range of motion returned to its previous full level. The patient was able to walk at her baseline, per her , enough to function in her home. The patient had no other neurologic concerns. Dr. Al Santos believes that her altered mental status was likely due to metabolic encephalopathy from pain medication and possibly pneumonia. The patient had returned to her baseline mentally on the day of discharge. The patient had no more leukocytosis. The patient's lactic acidosis had resolved and the patient had no new symptoms or complaints. The patient was stable and amenable for discharge on 01/08/19. PHYSICAL EXAM ON THE DAY OF DISCHARGE: General: The patient is a 68-year-old female, who appears older than stated age and sitting comfortably in bed, in no acute distress. Vital Signs: At the time of discharge, temperature 97.4, pulse rate 92, respiratory rate 16, oxygen saturation 99% on room air, blood pressure 105/52. HEENT: Head normocephalic, atraumatic. Sclerae anicteric. No conjunctival injection. Nasal mucosa moist. Oral mucosa moist. No pharyngeal erythema, discharge, or exudate. Neck: Supple, nontender. No lymphadenopathy. No carotid bruits auscultated. No JVD. Cardiac: Regular rate and rhythm. No clicks, murmurs, gallops, or rubs. Pulses are 2+ in the bilateral dorsalis pedis, posterior tibialis, and radial areas. No bilateral lower extremity edema noted. Edema of the right upper extremity. Respiratory: Clear to auscultation bilaterally. No wheezes, rales, or rhonchi. Good air exchange bilaterally. Abdomen: Soft, nontender, nondistended. Bowel sounds present and normoactive in all 4 quadrants. No hepatosplenomegaly. No abdominal bruits auscultated. No hepatojugular reflux. Genitourinary: No suprapubic or CVA tenderness. Skin: Bruising. Otherwise, no rash or ulcers. Neuro: Cranial nerves II through XII intact. No focal deficits. Alert and oriented x3. Psychiatric: Pleasant and cooperative. DISCHARGE PLAN: The patient will be discharged to home. The patient has been under the care of her and has her daughter who comes and helps frequently. The patient has declined other help at discharge including visiting nurse services. The patient is unaware when her next followup with her cytotechnologist/cytology supervisor is. She has been encouraged to make a followup with her cytotechnologist/cytology supervisor to discuss her most recent echocardiogram, which she appears not to have followed up on, which showed a continuing decrease in her EF. The patient will continue on chronic home medications of torsemide, rosuvastatin, lisinopril, carvedilol. Addition of spironolactone or Entresto could be considered if the patient's blood pressure would tolerate it. The patient will be continued on antibiotics for her presumed pneumonia as above. The patient should avoid opiate pain medications if possible and avoid other psychotropic medications. The patient should also avoid NSAID use as much as possible due to her heart failure. The patient should engage in activities as tolerated and have a heart-healthy diet without caffeine. The patient has a microcytic anemia at her baseline; however, the patient is not on iron supplementation. Iron studies should be considered outpatient and iron supplementation should be considered to help with symptoms of her heart failure. TIME SPENT: Approximately 60 minutes was spent on the discharge of the patient , 30 of which was spent [id number] with the patient obtaining history and physical and discussing treatment plan. ARIES VASQUEZ [id number]/CPS #: [id number] BEATRIZ
== END 2019-01-08 12:00 | disposition home or self-care (01) ==
LOC: ED 12:41 → MED 21:04
PROVIDERS: ADMIT Internal Medicine; ATTEND Internal Medicine
DX: G92 Toxic encephalopathy (principal); J18.9 Pneumonia, unspecified organism; M79.671 Pain in right foot; J44.9 Chronic obstructive pulmonary disease, unspecified; I25.5 Ischemic cardiomyopathy; Z87.891 Personal history of nicotine dependence; I50.32 Chronic diastolic (congestive) heart failure; F32.9 Major depressive disorder, single episode, unspecified; M54.5 Low back pain; G89.29 Other chronic pain; E11.9 Type 2 diabetes mellitus without complications; I25.10 Atherosclerotic heart disease of native coronary artery without angina pectoris; I10 Essential (primary) hypertension; E78.5 Hyperlipidemia, unspecified; K21.9 Gastro-esophageal reflux disease without esophagitis; M19.90 Unspecified osteoarthritis, unspecified site; Z95.0 Presence of cardiac pacemaker; K92.2 Gastrointestinal hemorrhage, unspecified
CPT/HCPCS: 36415; 70450; 71045; 72125; 80048; 80053; 81003; 81015; 82550; 83036; 83605; 83735; 83880; 84484; 85025; 85652; 86140; 87040; 87086; 87899; 93005; 96365; 96366; 96372; 96375; 99284; 99285; A9270-GY; G0378; G8978-GP-CJ; G8979-GP-CI; J0456; J0696; J1644; J2270; J2543; J3370

== ENCOUNTER 2019-03-14 16:28 | Inpatient (IN) | payer MEDICARE ==
--- OUTSIDE RECORDS SUMMARY | 2019-03-14 16:55 | XMS REPORT | Continuity of Care Document ---
:1950 External Reference #:[id number] Author Name Dayron Lynn M.D. Address [address] [place] [address] Care Team Providers Name Role Phone Abran Gordon M.D. Primary Care Physician Unavailable Payers Date Identification Numbers Payment Provider Subscriber Policy Number: [id number] [facility] PayID: [id number] [address] [address] [place] [address] Problems Active Problems Provider Date Chronic back pain Onset: Spinal stenosis of lumbar region Onset: Hypercholesterolemia Onset: Hypertensive disorder Onset: Type 2 diabetes mellitus Onset: Note: dx 2002 Cardiomyopathy Onset: Note: secondary to viral infection 2002 Mitral valve disorder Onset: Note: secondary to viral infection 2002 Arthritis Onset: Asthma Onset: Depressive disorder Onset: Combined form of senile cataract Dayron Lynn M.D. Onset: 08/01/2018 Vitreous degeneration Dayron Lynn M.D. 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 Employment ETOH Use Denies alcohol use Tobacco Use Start: Unknown End: Patient is a former smoker Recreational Drug Use Denies Drug Use Smoking Status Reviewed: 03/07/19 Patient is a former smoker Allergies, Adverse Reactions, Alerts Active Allergies Reaction Severity Comments Date Lipitor 08/01/2018 Iodine 08/01/2018 Medications Active Medications SIG Qnty Indications Ordering Provider Date Gabapentin Unknown 400mg Capsules Minocycline HCL Unknown 100mg Capsules Metoclopramide HCL Unknown 10mg Tablets Bupropion HCL ER (SR) Unknown 150mg Tablets ER 12HR Tramadol HCL ER Take One Tablet Unknown 100mg Tablets By Mouth Every ER 24HR Day Maximum Daily Dose 1 Torsemide Unknown 20mg Tablets Montelukast Sodium Unknown 10mg Tablets Glipizide Unknown 10mg Tablets Fluoxetine HCL Unknown 20mg Capsules Clopidogrel Bisulfate Unknown 75mg Tablets Carvedilol Unknown 12.5mg Tablets Nystatin Unknown [id number] Suspension Ipratropium Alona Walker MANOMETER TECHNICIAN [place]/Albuterol Sulfate 0.5-2.5(3)mg/3ML Solution Lisinopril Unknown 2.5mg Tablets Symbicort Unknown 160-4.5mcg/Act Aerosol Aspirin Unknown 81mg Chewtabs History Medications Gentamicin Sulfate one drop in the 5ml Dayron Lynn, 08/29/2018 - 0.3% left eye three M.D. 03/07/2019 Solution times a day starting the day before surgery Vigamox one drop left eye 3ml Dayron Lynn, 08/27/2018 - 0.5% Solution three times a day, M.D. 08/29/2018 start the day before surgery Ketorolac Tromethamine use one drop in 10ml Dayron Lynn, 08/27/2018 - the left eye three M.D. 03/07/2019 0.5% Solution times a day, start the day before surgery Prednisolone Acetate 1 drops left eye 15ml Dayron Lynn, 08/27/2018 - 1% three times a day. M.D. 03/07/2019 Suspension taper as directed Ciprofloxacin HCL instill one drop 10units Dayron Lynn, 08/27/2018 - 0.3% in the left eye M.D. 08/29/2018 Solution three times a day, start the day before surgery Aby HANLEY Unknown - 500mg Tablets 03/07/2019 Tramadol HCL ER Take One Tablet By Unknown - (Biphasic) Mouth Every Day 07/31/2018 100mg Tablets Maximum Daily Dose ER 24HR 1 Prednisone Unknown - 10mg Tablets 07/31/2018 Onetouch Ultra Blue [place], Abran - M.D. 07/31/2018 Strips Bydureon Unknown - 2mg Pen 07/31/2018 Naproxen Unknown - 500mg Tablets 03/07/2019 Rosuvastatin Calcium Unknown - 10mg 03/07/2019 Tablets Duloxetine HCL Unknown - 30mg Caps 03/07/2019 DR [address] Fluocinonide Unknown - 0.05% 03/07/2019 Solution Nystatin Unknown - [id number] 07/31/2018 Powder Tramadol HCL Take One Tablet By Unknown - 50mg Tablets Mouth Three Times 07/31/2018 A Day as Needed For Pain Maximum Daily Dose3 Fluconazole Take Two Tablets Unknown - 100mg Tablets By Mouth On Day 03/07/2019 One Then Take One Tablet By Mouth Every Day For Yeast Infection Procedures Date Code Description Status 08/27/2018 09254 Ophthalmic Biometry Completed 08/27/2018 12616 Ophthalmic Biometry Completed 08/27/2018 41054 Est Patient Intermediate Exam Completed 08/01/2018 05867 New Patient Comprehensive Exam Completed Plan of Treatment 03/07/2019 - Dayron Lynn M.D.H25.813 Combined forms of age-related cataract , bilateralComments:Smoking can increase the risk of developing or worsening any eye related disease, as well as affect your overall health. If you are a smoker, we strongly recommend that you quit.If you are not a smoker, we strongly recommend that you do not start.E11.9 Type 2 diabetes mellitus without complicationsComments:You have diabetes. I do not detect any changes in both of your retinas from diabetes at this time. Proper control of your diabetes is important for the health of your eyes. Changes in your eyes from diabetes can happen without symptoms, so it is important that you have your eyes examined. Dr. Lynn has sent a report to your primary care doctor, letting them know there is no damage from the Diabetes in your eyes.H43.813 Vitreous degeneration , bilateralComments:You have a Posterior Vitreous Detachment. If you have any changes in your floaters or flashing lights, please contact this office.
--- OUTSIDE RECORDS SUMMARY | 2019-03-14 16:55 | XMS REPORT | Continuity of Care Document ---
:1950 External Reference #:[id number] Author Name NathaliaGeri crooks Care Team Providers Name Role Phone Abran Gordon MD Primary Care Physician Unavailable Payers Date Identification Numbers Payment Provider Subscriber Effective: 2013 Policy Number: [id number] [employer] Facets Malika Nazario Expires: 2015 PayID: [id number] [address] [address] [place] [address] Effective: 2012 Policy Number: [id number] BS John Nazario Expires: 2013 Group Name: [employer] [place] [address] PayID: [id number] [place] [address] Expires: 2012 Policy Number: [id number] [facility] Manuel Nazario PayID: [id number] [address] [address] [place] [address] Effective: 2012 Policy Number: [id number] [facility] Blue Malika Nazario Expires: 2012 PayID: [id number] [address] [address] [place] [address] Policy Number: [id number] [facility] [employer] Malika Nazario PayID: [id number] [address] [address] Attn: [place] [address] Advance Directives Description No Information Available Problems Active Problems Provider Date Primary cardiomyopathy Terra Laws, N.P. Onset: 02/06/2012 Pure hypercholesterolemia Terra Laws, N.P. Onset: 02/06/2012 Palpitations Terra Laws N.Jocelyn Onset: 02/06/2012 Mitral valve disorder Valentino Herring M.D. Onset: 07/02/2013 Congestive heart failure Valentino Herring M.D. 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 Onset: 03/31/2016 Family History Date Family Member(s) Observation Comments General Diabetes General Heart Disease General Cancer : (age 75 Years) Father due to [place] : (age 54 Years) Mother due to Cancer Siblings 3 Social History Type Date Description Comments Sex Unknown Marital Status Lives With Occupation Currently Working [employer] Tobacco Use Start: Unknown End: Former Cigarette Smoker Unknown Smoking Status Reviewed: 03/04/19 Former Cigarette Smoker ETOH Use Denies alcohol use Tobacco Use Start: Unknown End: Patient is a former Unknown smoker Recreational Drug Use Denies Drug Use Exercise Type/Frequency Does not exercise Allergies, Adverse Reactions, Alerts Active Allergies Reaction Severity Comments Date shellfish sensity 12/17/2003 Iodine 12/17/2003 Lipitor myalgias 12/17/2003 Morphine 01/16/2019 Medications Active Medications SIG Qnty Indications Ordering Date Provider Lisinopril 1 by mouth 90tabs Bhavna Adamson, 02/26/2019 2.5mg Tablets every day N.P. Carvedilol 2 tabs by mouth 180tabs I42.9 Valentino Davidson 01/16/2019 6.25mg Tablets in the morning Adele Herring and 1 tab by mouth at night. Symbicort 2 puff daily 3units Other Ordering 12/21/2016 80-4.5mcg/Act Provider Aerosol Crestor 1 tablet by 90tabs Valentino Davidson 07/14/2013 10mg Tablets mouth every day Adele Herring Minocycline HCL 1 po bid 28caps Other Ordering 07/02/2013 100mg Provider Capsules Torsemide 2 tabs on even 90tabs Valentino Davidson 09/21/2010 20mg Tablets days and 1 tab Adele Herring on odd days Prilosec 1 po bid 90caps Valentino Davidson 12/17/[address] Nima M.D. Glipizide 1 PO bid 180tabs Valentino Davidson 09/10/2008 10mg Tablets Adele Herring Fexofenadine HCL 1 PO bid prn 180tabs Valentino Davidson 09/10/2008 60mg Adele Herring Tablets Metro Gel bid prn Valentino Davidson 09/10/2008 Adele Herring Singulair One qd At hs 30tabs Valentino Davidson 12/16/2003 10mg Tablets Adele Herring Aspirin Enteric Coated qd Valentino Davidson 12/16/2003 81mg Adele Herring Tablets Fluoxetine HCL 2 po q a.m. 90caps Unknown 20mg Capsules Bydureon inject 2 mg sc Unknown 2mg Pen weekly Bupropion HCL ER (SR) 1 by mouth Unknown 150mg twice a day Tablets ER 12HR Metoclopramide HCL take one tablet Unknown 5mg by mouth three Tablets times a day as needed before meals Gabapentin 1 po tid Unknown 400mg Capsules Tramadol HCL 1 tablet every Unknown 4hrs prn for pain Plavix 1 by mouth Unknown 75mg Tablets every day History Medications Entresto take 1/2 tab by 30tabs I50.42 Bhavna Adamson, 02/07/2019 - 24-26mg mouth twice daily N.P. 02/20/2019 Tablets Lisinopril 1/2 by mouth every 90tabs Valentino Davidson 07/31/2016 - 2.5mg day Adele Herring 02/07/2019 Tablets Lisinopril 1/2 tab by mouth 180tabs Valentino Davidson 07/04/2016 - 20mg twice a day Adele Herring 07/31/2016 Tablets Nitro-Dur 1 patch every day on 90units R94.31 Valentino Davidson 07/01/2015 - 0.2mg/HR in the in the Adele Herring 02/07/2019 Patches 24HR morning, off in the at night Lisinopril Take 1 tablet by 180tabs Valentino Davidson 04/21/2015 - 10mg mouth twice a day Adele Herring 07/04/2016 Tablets Lisinopril 2 by mouth each 300tabs Valentino Davidson 03/25/2015 - 5mg morning and one each Adele Herring 04/21/2015 Tablets evening. Carvedilol take 1 tablet by 180tabs Valentino Davidson 01/06/2014 - 12.5mg mouth twice a day Adele Herring 01/16/2019 Tablets Lisinopril 1 tab by mouth twice 60tabs Valentino Davidson 11/06/2013 - 5mg a day Adele Herring 03/25/2015 Tablets Aldactone 1/2 by mouth every 45tabs Valentino Davidson 11/06/2013 - 25mg day on odd days Adele Herring 08/21/2014 Tablets Byetta inject 1 dose under Other Ordering 09/21/2013 - 10mcg/0.04ML the skin twice daily Provider 03/24/2015 Solution as directed Aldactone 1 po qd 90tabs Valentino Davidson 06/11/2013 - 25mg Adele Herring 08/28/2013 Tablets Carvedilol 1 po bid 360tabs Valentino Davidson 07/12/2012 - 12.5mg Adele Herring 01/06/2014 Tablets Lovastatin 1 po qd 100tabs Valentino Davidson 07/12/2012 - 10mg Adele Herring 07/14/2013 Tablets Lovaza 2 po bid 120caps Valentino Davidson 03/28/2012 - 1gm Capsules Adele Herring 03/03/2019 Lisinopril 1 po qd 30tabs Valentino Davidson 03/28/2012 - 5mg Adele Herring 11/06/2013 Tablets Byetta sc bid Valentino Love 03/28/2012 - 5mcg/0.02ML Adele Herring 11/06/2013 Solution Carvedilol 1 1/2 pill by mouth 90tabs Terra 02/27/2012 - 12.5mg twice per day ( Eusebia N.Jocelyn 07/12/2012 Tablets 10-12 hours apart) Fish Oil Concentrate 4 pills by mouth Tracey 02/06/2012 - daily Brayden Killian 02/27/2012 1000mg Capsules Metoprolol Tartrate 1 tablet in am and 270tabs Valentino Davidson 02/02/2012 - 2 tablets in pm Adele Herring 02/27/2012 25mg Tablets Lovastatin 1/2 po qhs 100tabs Valentino Davidson 01/04/2012 - 20mg Adele Herring 07/12/2012 Tablets Lovastatin 2 po qd 180tabs Valentino Davidson 05/01/2011 - 20mg Adele Herring 01/04/2012 Tablets Metoprolol 1 po qam and 2 qpm 100tabs Valentino Davidson 01/12/2011 - 25mg Adele Herring 02/02/2012 Tablets ER Torsemide 2 po qod for wt less 60tabs Valentino Davidson 09/08/2010 - 20mg than 148. if 148 or Adele Herring 09/21/2010 Tablets more, take daily. Torsemide 2 po qod 90tabs Valentino Davidson 08/29/2010 - 20mg Adele Herring 09/08/2010 Tablets Metoprolol Tartrate 1 tablet po bid 60tabs Valentino Davidson 07/06/2010 - Adele Herring 01/12/2011 25mg Tablets Coreg 1 po bid 60tabs Valentino Davidson 06/30/2010 - 3.125mg Tablets Adele Herring 07/06/2010 Lisinopril 2 po qd 90tabs Valentino Davidson 06/30/2010 - 2.5mg Adele Herring 03/28/2012 Tablets Lovastatin 1 po qhs 90tabs Valentino Davidson 12/23/2009 - 40mg Adele Herring 05/01/2011 Tablets Lovastatin 2 po qd 180tabs Valentino Davidson 07/15/2009 - 20mg Adele Herring 12/23/2009 Tablets Metoprolol Tartrate one po bid 60tabs Valentino Davidson 12/18/2008 - Adele Herring 06/30/2010 25mg Tablets Toprol XL 1 po qd 90tabs Valentino Davidson 12/17/2008 - 25mg Adele Herring 12/18/2008 Tablets ER 24HR Torsemide 1 po qd 90tabs Valentino Davidson 12/17/2008 - 20mg Adele Herring 08/29/2010 Tablets Naproxen 1 po bid 60tabs Valentino Davidson 09/10/2008 - 500mg Adele Herring Unknown Tablets Byetta bid Valentino Davidson 09/10/2008 - Solution Adele Herring 03/28/2012 Lovaza 1 PO tid hold 180caps Valentino Davidson 09/10/2008 - 1gm Capsules 3.15.12 for 1 month Adele Herring 02/06/2012 to assess fatigue. Metformin HCL 1 PO qd 180tabs Valentino Davidson 09/10/2008 - 500mg Adele Herring 01/04/2012 Tablets Torsemide 1 PO sunday , 90tabs Valentino Davidson 09/10/2008 - 20mg sunday and Adele Herring 12/17/2008 Tablets Sunday.and prn Toprol XL 1/2 PO qd 90tabs Valentino Davidson 09/10/2008 - 100mg Adele Herring 12/17/2008 Tablets ER 24HR Nexium 1 PO qd 30caps Valentino Davidson 09/10/2008 - 40mg Capsules Adele Herring 12/17/2008 Naprelan one bid Valentino Davidson 09/10/2008 - 500mg Adele Herring 09/10/2008 Tablets ER 24HR Lovastatin 1 PO qd 90tabs Valentino Davidson 09/10/2008 - 10mg Adele Herring 07/15/2009 Tablets Doxycycline Hyclate bid 60caps Valentino Davidson 09/10/2008 - Adele Herring 07/02/2013 100mg Capsules Toprol XL 1 po qd Valentino Davidson 08/30/2004 - 50mg Adele Herring 09/10/2008 Tablets Lisinopril 1 po qd 30tabs Valentino Davidson 08/30/2004 - 20mg Adele Herring 03/31/2010 Tablets Prandin 1 po tid Valentino Davidson 08/30/2004 - 0.5mg Tablets Adele Herring 09/10/2008 Furosemide 2 tabs qod, 30tabs Valentino Davidson 08/30/2004 - 20mg alternating day 1 Adele Herring 09/10/2008 Tablets tab Protonix 1 po bid Valentino Davidson 08/30/2004 - 40mg Tablets Adele Herring 09/10/2008 Toprol XL 1 po qd 30tabs Valentino Davidson 12/17/2003 - 25mg Adele Herring 08/30/2004 Tablets Prandin before breakfast 30tabs Valentino Davidson 12/16/2003 - 1.5mg Tablets Adele Herring 08/30/2004 Prandin before lunch and 60tabs Valentino Davidson 12/16/2003 - 1mg Tablets dinner Adele Herring 09/10/2008 Doxycycline bid 60units Valentino Davidson 12/16/2003 - 100mg Adele Herring 09/10/2008 Coumadin use as directed 30tabs Valentino Davidson 12/16/2003 - 5mg Tablets Adele Herring 08/30/2004 Zestril 1 po qd 30tabs Valentino Davidson 12/16/2003 - 10mg Tablets Adele Herring 08/30/2004 Plavix 1 PO qd 30tabs Valentino Davidson 12/16/2003 - 75mg Tablets Adele Herring 10/27/2015 Lacey 1 PO bid 60caps Valentino Davidson 12/16/2003 - 60mg Capsules Adele Herring 09/10/2008 Flonase prn 16gm Valentino Davidson 12/16/2003 - 50mcg/[place] Adele Herring 09/10/2008 Suspension Spironalactone 1 po qd 90tabs Valentino Davidson 12/16/2003 - 25mg Nima M.D. 08/30/2004 Tablets Montelukast Sodium 1 by mouth every day Unknown - 07/04/2016 10mg Tablets Aspir-81 1 by mouth every day Unknown - 81mg Tablets 2016 DR Aleman twice daily with Unknown - 500mg food bid 07/22/2017 Tablets Omeprazole 1 by mouth every day Unknown - 20mg [address] Pires inject 2 mg weekly Unknown - 18mg/3ML 2016 Solution Pen-Inject Victoza inject 1.2 mg Unknown - 18mg/3ML subcutaneously in 03/31/2016 Solution Pen-Inject the morning Neurontin 2 qhs 90caps Unknown - 100mg 2016 Capsules Ondansetron HCL 1 q6h prn 20tabs Unknown - 4mg 02/06/2012 Tablets Docusate Sodium 1 po bid 60caps Unknown - 100mg 11/22/2010 Capsules Zinc Sulfate one po qd Unknown - 220mg 02/06/2012 Vit C one po qd Unknown - 500mg 06/08/2011 Vitamin one po qd Unknown - 11/22/2010 Medications Administered in Office Medication SIG Qnty Indications Ordering Provider Date Depomedrol 40MG Tracey Peres M.D. 06/12/2018 Injection Immunizations Description No Information Available Vital Signs Date Vital Result Comment 03/04/2019 11:20am Height 59 inches 4'11" Weight 141.00 lb Heart Rate 64 /min BP Systolic Sitting 120 mmHg lue reg cuff BP Diastolic Sitting 56 mmHg lue reg cuff BMI (Body Mass Index) 28.5 kg/m2 Ejection Fraction <20% echo. 02/03/19 02/07/2019 1:45pm Height 59 inches 4'11" Weight 141.00 lb with shoes Heart Rate 68 /min BP Systolic Sitting 120 mmHg lue reg cuff BP Diastolic Sitting 58 mmHg lue reg cuff BMI (Body Mass Index) 28.5 kg/m2 01/16/2019 1:46pm Height 59 inches 4'11" Weight 149.00 lb with shoes Heart Rate 60 /min BP Systolic Sitting 124 mmHg lue reg cuff BP Diastolic Sitting 58 mmHg lue reg cuff BP Systolic Standing 132 mmHg lue reg cuff BP Diastolic Standing 54 mmHg lue reg cuff Respiratory Rate 14 /min BMI (Body Mass Index) 30.1 kg/m2 Ejection Fraction 15-20% echo10/10/18 08/28/2018 11:34am Height 59 inches 4'11" Weight 157.00 lb W/ Shoes Heart Rate 88 /min BP Systolic Sitting 148 mmHg Lue Reg Cuff BP Diastolic Sitting 78 mmHg Lue Reg Cuff BMI (Body Mass Index) 31.7 kg/m2 Ejection Fraction 20-25% ECHO 02/13/18 06/12/2018 10:41am Height 59 inches 4'11" Weight 153.00 lb Heart Rate 70 /min BP Systolic 126 mmHg BP Diastolic 74 mmHg Respiratory Rate 16 /min Pain Level 5 BMI (Body Mass Index) 30.9 kg/m2 11/21/2017 11:25am Height 59 inches 4'11" Weight 149.75 lb with shoes Heart Rate 72 /min BP Systolic Sitting 130 mmHg LA, reg cuff BP Diastolic Sitting 70 mmHg LA, reg cuff BMI (Body Mass Index) 30.2 kg/m2 Ejection Fraction 20% echo 04/11/17 07/23/2017 12:04pm Height 59 inches 4'11" Weight 149.00 lb Heart Rate 86 /min BP Systolic Sitting 100 mmHg lue reg cuff BP Diastolic Sitting 60 mmHg lue reg cuff Respiratory Rate 18 /min BMI (Body Mass Index) 30.1 kg/m2 Ejection Fraction < 20% echo 04/11/17 12/21/2016 9:40am Height 59 inches 4'11" Weight 163.00 lb with shoes Heart Rate 82 /min BP Systolic Sitting 142 mmHg LA reg cuff BP Diastolic Sitting 76 mmHg LA reg cuff BP Systolic Standing 138 mmHg la repeat sitting BP Diastolic Standing 64 mmHg la repeat sitting O2 % BldC Oximetry 99 % room air BMI (Body Mass Index) 32.9 kg/m2 Ejection Fraction 20% - 25% echo 07/10/16 07/19/2016 11:31am Height 59 inches 4'11" Weight 160.00 lb with shoes Heart Rate 98 /min BP Systolic Sitting 106 mmHg LA reg cuff BP Diastolic Sitting 70 mmHg LA reg cuff BP Systolic Standing 106 mmHg LA reg cuff BP Diastolic Standing 76 mmHg LA reg cuff Respiratory Rate 18 /min O2 % BldC Oximetry 98 % BMI (Body Mass Index) 32.3 kg/m2 Ejection Fraction 20-25% date 07/10/2016 ECHO 07/04/2016 10:00am Height 59 inches 4'11" Weight 166.75 lb w/shoes Heart Rate 100 /min BP Systolic Sitting 168 mmHg LA reg cuff BP Diastolic Sitting 80 mmHg LA reg cuff BP Systolic Standing 168 mmHg la repeat ist BP Diastolic Standing 86 mmHg la repeat ist BMI (Body Mass Index) 33.7 kg/m2 Ejection Fraction 20-25% Echo 07/26/15 05/08/2016 1:59pm Height 59 inches 4'11" Weight 165.00 lb Heart Rate 84 /min BP Systolic Sitting 130 mmHg BP Diastolic Sitting 70 mmHg Pain Level 6 BMI (Body Mass Index) 33.3 kg/m2 03/31/2016 9:34am Height 59 inches 4'11" Weight 165.00 lb Heart Rate 84 /min BP Systolic Sitting 110 mmHg BP Diastolic Sitting 80 mmHg Pain Level 5 BMI (Body Mass Index) 33.3 kg/m2 10/27/2015 3:27pm Height 59 inches 4'11" Weight 163.25 lb with shoes Heart Rate 80 /min BP Systolic Sitting 100 mmHg La reg cuff BP Diastolic Sitting 52 mmHg La reg cuff Respiratory Rate 17 /min BMI (Body Mass Index) 33.0 kg/m2 Ejection Fraction 20-25% date 07/26/15 ECHO 07/13/2015 3:57pm Height 59 inches 4'11" Weight 166.00 lb Heart Rate 76 /min BP Systolic Sitting 122 mmHg Ra, reg BP Diastolic Sitting 74 mmHg Ra, reg BMI (Body Mass Index) 33.5 kg/m2 Ejection Fraction 20-25% 04/16/15 ECHO 07/01/2015 1:05pm Height 59 inches 4'11" Weight 162.25 lb w/ shoes Heart Rate 100 /min BP Systolic Sitting 118 mmHg LA, reg BP Diastolic Sitting 68 mmHg LA, reg BMI (Body Mass Index) 32.8 kg/m2 Ejection Fraction 20-25% 04/16/15 ECHO 04/21/2015 10:06am Height 59 inches 4'11" Weight 163.00 lb Heart Rate 84 /min BP Systolic 152 mmHg LA reg BP Diastolic 86 mmHg LA reg BMI (Body Mass Index) 32.9 kg/m2 Ejection Fraction 20-25% 04/16/15 03/25/2015 8:29am Height 59 inches 4'11" Weight 162.00 lb Heart Rate 76 /min BP Systolic Sitting 158 mmHg LA, reg BP Diastolic Sitting 84 mmHg LA, reg BP Systolic Standing 158 mmHg la repeat sitting BP Diastolic Standing 82 mmHg la repeat sitting BMI (Body Mass Index) 32.7 kg/m2 Ejection Fraction 25%-30% 07/29/14 echo 08/21/2014 10:05am Height 59 inches 4'11" Weight 156.25 lb Heart Rate 80 /min reg BP Systolic 104 mmHg right, reg BP Diastolic 62 mmHg right, reg BP Systolic Sitting 104 mmHg left, reg BP Diastolic Sitting 64 mmHg left, reg BP Systolic Standing 98 mmHg left. reg BP Diastolic Standing 60 mmHg left. reg BMI (Body Mass Index) 31.6 kg/m2 05/21/2014 8:17am Height 59 inches 4'11" Weight 158.75 lb Heart Rate 68 /min BP Systolic Sitting 132 mmHg BP Diastolic Sitting 74 mmHg Respiratory Rate 16 /min BMI (Body Mass Index) 32.1 kg/m2 01/27/2014 10:31am Height 59 inches 4'11" Heart Rate 76 /min BP Systolic Sitting 120 mmHg BP Diastolic Sitting 66 mmHg 01/06/2014 1:28pm Height 59 inches 4'11" Weight 152.00 lb Heart Rate 88 /min BP Systolic Sitting 126 mmHg BP Diastolic Sitting 66 mmHg BMI (Body Mass Index) 30.7 kg/m2 11/06/2013 10:57am Height 59 inches 4'11" Weight 159.00 lb Heart Rate 64 /min BP Systolic 148 mmHg BP Diastolic 76 mmHg BMI (Body Mass Index) 32.1 kg/m2 08/27/2013 2:52pm Height 59 inches 4'11" Weight 164.00 lb Heart Rate 84 /min BP Systolic 112 mmHg BP Diastolic 70 mmHg BMI (Body Mass Index) 33.1 kg/m2 07/02/2013 10:12am Height 59 inches 4'11" Weight 156.00 lb Heart Rate 75 /min BP Systolic 152 mmHg BP Diastolic 80 mmHg Respiratory Rate 14 /min BMI (Body Mass Index) 31.5 kg/m2 11/14/2012 10:27am Height 59 inches 4'11" Weight 158.00 lb Heart Rate 76 /min BP Systolic 122 mmHg BP Diastolic 70 mmHg BMI (Body Mass Index) 31.9 kg/m2 07/12/2012 10:52am Height 59 inches 4'11" Weight 151.00 lb Heart Rate 72 /min BP Systolic Sitting 138 mmHg BP Diastolic Sitting 80 mmHg Respiratory Rate 20 /min BMI (Body Mass Index) 30.5 kg/m2 03/28/2012 1:41pm Height 59 inches 4'11" Weight 147.00 lb Heart Rate 72 /min BP Systolic Sitting 122 mmHg BP Diastolic Sitting 68 mmHg BMI (Body Mass Index) 29.7 kg/m2 02/27/2012 9:34am Height 59 inches 4'11" Weight 148.38 lb Heart Rate 72 /min BP Systolic Sitting 138 mmHg BP Diastolic Sitting 82 mmHg BMI (Body Mass Index) 30.0 kg/m2 02/06/2012 9:43am Height 59 inches 4'11" Weight 143.12 lb Heart Rate 76 /min BP Systolic Sitting 150 mmHg BP Diastolic Sitting 90 mmHg BMI (Body Mass Index) 28.9 kg/m2 01/04/2012 3:16pm Height 59 inches 4'11" Weight 141.00 lb Heart Rate 83 /min BP Systolic Sitting 150 mmHg L BP Diastolic Sitting 58 mmHg L BMI (Body Mass Index) 28.5 kg/m2 06/08/2011 9:30am Height 59 inches 4'11" Weight 140.00 lb Heart Rate 68 /min BP Systolic 140 mmHg BP Diastolic 78 mmHg BMI (Body Mass Index) 28.3 kg/m2 01/12/2011 10:16am Height 59 inches 4'11" Weight 136.00 lb Heart Rate 91 /min BP Systolic Sitting 130 mmHg L BP Diastolic Sitting 80 mmHg L BMI (Body Mass Index) 27.5 kg/m2 08/26/2010 9:27am Weight 152.50 lb Heart Rate 78 /min BP Systolic Sitting 142 mmHg BP Diastolic Sitting 76 mmHg Respiratory Rate 20 /min 03/31/2010 9:57am Height 59 inches 4'11" Weight 149.00 lb Heart Rate 65 /min BP Systolic 140 mmHg L BP Diastolic 70 mmHg L BMI (Body Mass Index) 30.1 kg/m2 07/09/2009 9:26am Height 59 inches 4'11" Weight 149.00 lb Heart Rate 59 /min BP Systolic Sitting 144 mmHg L BP Diastolic Sitting 80 mmHg L BMI (Body Mass Index) 30.1 kg/m2 03/17/2009 10:01am Weight 152.00 lb Heart Rate 66 /min BP Systolic Sitting 140 mmHg BP Diastolic Sitting 74 mmHg Respiratory Rate 14 /min 12/17/2008 9:03am Weight 157.00 lb Heart Rate 74 /min BP Systolic Sitting 150 mmHg BP Diastolic Sitting 80 mmHg Respiratory Rate 16 /min 09/10/2008 3:18pm Height 59.75 inches 4'11.75" Weight 153.00 lb Heart Rate 83 /min BP Systolic Sitting 130 mmHg L BP Diastolic Sitting 70 mmHg L BMI (Body Mass Index) 30.1 kg/m2 09/02/2004 11:42am Height 59.75 inches 4'11.75" BP Systolic Sitting 112 mmHg left arm, right arm 110/60 BP Diastolic Sitting 60 mmHg left arm, right arm 110/60 BP Systolic Standing 104 mmHg BP Diastolic Standing 64 mmHg O2 % BldC Oximetry 98 % 08/30/2004 4:03pm Height 59.75 inches 4'11.75" Weight 164.00 lb BMI (Body Mass Index) 32.3 kg/m2 12/17/2003 10:45am Height 59.75 inches Weight 148.00 lb Heart Rate 86 /min BP Systolic Sitting 122 mmHg BP Diastolic Sitting 70 mmHg BP Systolic Standing 120 mmHg BP Diastolic Standing 74 mmHg BMI (Body Mass Index) 29.1 kg/m2 Results Test Date Facility Test Result H/L Range Note Basic Metabolic 08/24/2016 [facility] Sodium 137 mmol/L N 133- 145 [address] [place] [address] [phone] Potassium 4.8 mmol/L N 3.5-5.0 Chloride 102 mmol/L N 101-111 Co2 Carbon Dioxide 28 mmol/L N 22-32 Anion Gap 7 mmol/L N 2-11 Glucose 113 mg/dL High 70-100 Blood Urea Nitrogen 28 mg/dL High 6-24 Creatinine 1.04 mg/dL High 0.51-0.95 BUN/Creatinine Ratio 26.9 High 8-20 Calcium 9.6 mg/dL N 8.6-10.3 Egfr Non- 53.0 N >60 Egfr 68.2 N >60 1 Basic Metabolic Panel 07/20/2016 [facility] Sodium 133 mmol/L N 133-145 [address] [place] [address] [phone] Potassium 4.9 mmol/L N 3.5-5.0 Chloride 101 mmol/L N 101-111 Co2 Carbon Dioxide 23 mmol/L N 22-32 Anion Gap 9 mmol/L N 2-11 Glucose 226 mg/dL High 70-100 Blood Urea Nitrogen 32 mg/dL High 6-24 Creatinine 1.16 mg/dL High 0.51-0.95 BUN/Creatinine Ratio 27.6 High 8-20 Calcium 9.1 mg/dL N 8.6-10.3 Egfr Non- 46.7 N >60 Egfr 60.1 N >60 2 Laboratory test 07/20/2016 [facility] Magnesium 2.0 mg/dL N 1.9-2.[address] [place] [address] [phone] CBC Auto Diff 07/20/2016 [facility] White Blood 9.2 N 3.5- 10.[address] Count 10^3/[place] [address] [phone] Red Blood Count 4.02 10^6/uL N 4.0-5.4 Hemoglobin 11.4 g/dL Low 12.0-16.0 Hematocrit 35 % N 35-47 Mean Corpuscular Volume 86 fL N 80-97 Mean Corpuscular Hemoglobin 29 pg N 27-31 Mean Corpuscular HGB Conc 33 g/dL N 31-36 Red Cell Distribution Width 15 % N 10.5-15 Platelet Count 401 10^3/uL N 150-450 Mean Platelet Volume 8 um3 N 7.4-10.4 Abs Neutrophils 7.2 10^3/uL N 1.5-7.7 Abs Lymphocytes 0.9 10^3/uL Low 1.0-4.8 Abs Monocytes 0.8 10^3/uL N 0-0.8 Abs Eosinophils 0.2 10^3/uL N 0-0.6 Abs Basophils 0.2 10^3/uL N 0-0.2 Abs Nucleated RBC 0 10^3/uL N Granulocyte % 78.1 % N 38-83 Lymphocyte % 10.0 % Low 25-47 Monocyte % 8.3 % N 1-9 Eosinophil % 1.7 % N 0-6 Basophil % 1.9 % N 0-2 Nucleated Red Blood Cells % 0 N Platelet Count 04/26/2016 [facility] Platelet Count 252 10^3/uL N 150-[address] [place] [address] [phone] Mean Platelet Volume 8 um3 N 7.4-10.4 Laboratory test 04/26/2016 [facility] Blood Urea 22 mg/dL N 6- [address] [place] [address] [phone] Creatinine 04/26/2016 [facility] Creatinine 1.04 mg/dL High 0.51-0.[address] [place] [address] [phone] Egfr Non- 53.2 N >60 Egfr 68.4 N >60 3 Inr/Protime 04/26/2016 [facility] Inr 0.97 N 0.89-1.[address] [place] [address] [phone] Laboratory test 04/26/2016 [facility] Partial Thrombo 31.4 N 26.0-36.[address] [place] [address] [phone] Lipid Profile 09/21/2014 [facility] Triglycerides 259 mg/dL N 4, 5 (Trig/Chol/HDL) [address] [place] [address] [phone] Cholesterol 128 mg/dL N 6 HDL Cholesterol 41.6 mg/dL N 7 LDL Cholesterol 35 mg/dL N 8 Comp Metabolic Panel 09/21/2014 [facility] Sodium 133 mmol/L N 133-[address] [place] [address] [phone] Potassium 4.9 mmol/L N 3.5-5.0 9 Chloride 101 mmol/L N 101-111 Co2 Carbon Dioxide 25 mmol/L N 22-32 Anion Gap 7 mmol/L N 2-11 Glucose 266 mg/dL High 70-100 Blood Urea Nitrogen 19 mg/dL N 6-24 Creatinine 0.99 mg/dL High 0.51-0.95 BUN/Creatinine Ratio 19.2 N 8-20 Calcium 8.9 mg/dL N 8.6-10.3 Total Protein 6.1 g/dL Low 6.4-8.9 Albumin 3.5 g/dL N 3.2-5.2 Globulin 2.6 g/dL N 2-4 Albumin/Globulin Ratio 1.3 N 1-3 Total Bilirubin 0.30 mg/dL N 0.2-1.0 Alkaline Phosphatase 93 U/L N 34-104 Alt 15 U/L N 7-52 Ast 16 U/L N 13-39 Egfr Non- 56.5 N >60 Egfr 72.6 N >60 10 CBC Auto Diff 09/21/2014 [facility] White Blood 7.4 10^3/uL N 4.8-10.[address] [place] [address] [phone] Red Blood Count 4.29 10^6/uL N 4.0-5.4 Hemoglobin 12.7 g/dL N 12.0-16.0 Hematocrit 39 % N 35-47 Mean Corpuscular Volume 90 fL N 80-97 Mean Corpuscular Hemoglobin 30 pg N 27-31 Mean Corpuscular HGB Conc 33 g/dL N 31-36 Red Cell Distribution Width 15 % N 10.5-15 Platelet Count 220 10^3/uL N 150-450 Mean Platelet Volume 9 um3 N 7.4-10.4 Abs Neutrophils 5.6 10^3/uL N 1.5-7.7 Abs Lymphocytes 0.9 10^3/uL Low 1.0-4.8 Abs Monocytes 0.5 10^3/uL N 0-0.8 Abs Eosinophils 0.2 10^3/uL N 0-0.6 Abs Basophils 0.1 10^3/uL N 0-0.2 Abs Nucleated RBC 0 10^3/uL N Granulocyte % 75.8 % N 38-83 Lymphocyte % 12.7 % Low 25-47 Monocyte % 7.3 % N 1-9 Eosinophil % 2.7 % N 0-6 Basophil % 1.5 % N 0-2 Nucleated Red Blood Cells % 0 N Lipid Panel - 09/21/2014 [facility] Creatine Kinase 47 U/L N 10-223 [address] [place], [place] [id number] [phone] Laboratory test 01/12/2014 [facility] B Type 109 N [address] Natriuretic pg/[place] [address] Peptide [phone] CBC Auto Diff 01/12/2014 [facility] White Blood 7.0 N 4.8- 10.[address] Count 10^3/[place] [address] [phone] Red Blood Count 4.04 10^6/uL N 4.0-5.4 Hemoglobin 12.4 g/dL N 12.0-16.0 Hematocrit 37 % N 35-47 Mean Corpuscular Volume 90 fL N 80-97 Mean Corpuscular Hemoglobin 31 pg N 27-31 Mean Corpuscular HGB Conc 34 g/dL N 31-36 Red Cell Distribution Width 14 % N 10.5-15 Platelet Count 230 10^3/uL N 150-450 Mean Platelet Volume 8 um3 N 7.4-10.4 Abs Neutrophils 5.0 10^3/uL N 1.5-7.7 Abs Lymphocytes 1.1 10^3/uL N 1.0-4.8 Abs Monocytes 0.7 10^3/uL N 0-0.8 Abs Eosinophils 0.1 10^3/uL N 0-0.6 Abs Basophils 0.1 10^3/uL N 0-0.2 Abs Nucleated RBC 0.01 10^3/uL N Granulocyte % 72.4 % N 38-83 Lymphocyte % 15.5 % Low 25-47 Monocyte % 9.5 % High 1-9 Eosinophil % 1.9 % N 0-6 Basophil % 0.7 % N 0-2 Nucleated Red Blood Cells % 0.1 N Comp Metabolic Panel 01/12/2014 [facility] Sodium 134 mmol/L N 133-[address] [place] [address] [phone] Potassium 4.6 mmol/L N 3.7-5.6 Chloride 105 mmol/L N 101-111 Co2 Carbon Dioxide 21 mmol/L Low 22-32 Anion Gap 8 mmol/L N 2-11 Glucose 347 mg/dL High 70-100 Blood Urea Nitrogen 16 mg/dL N 6-24 Creatinine 0.84 mg/dL N 0.51-0.95 BUN/Creatinine Ratio 19.0 N 8-20 Calcium 8.7 mg/dL N 8.6-10.3 Total Protein 6.0 g/dL Low 6.4-8.9 Albumin 3.5 g/dL N 3.2-5.2 Globulin 2.5 g/dL N 2-4 Albumin/Globulin Ratio 1.4 N 1-3 Total Bilirubin 0.30 mg/dL N 0.2-1.0 Alkaline Phosphatase 90 U/L N 34-104 Alt 23 U/L N 7-52 Ast 18 U/L N 13-39 Egfr Non- 68.5 N >60 Egfr 88.1 N >60 13 Cath Panel 11/17/2013 [facility] Activated 28.4 seconds 24.0- 36.[address] [place] [address] Time [phone] CBC Auto 11/17/2013 [facility] White Blood 9.0 10^3/uL 4.8- 10.[address] [place] [address] [phone] Red Blood Count 4.24 10^6/uL 4.0-5.4 Hemoglobin 12.9 g/dL 12.0-16.0 Hematocrit 38 % 35-47 Mean Corpuscular Volume 90 fL 80-97 Mean Corpuscular Hemoglobin 30 pg 27-31 Mean Corpuscular HGB Conc 34 g/dL 31-36 Red Cell Distribution Width 14 % 10.5-15 Platelet Count 244 10^3/uL 150-450 Mean Platelet Volume 9 um3 7.4-10.4 Abs Neutrophils 6.7 10^3/uL 1.5-7.7 Abs Lymphocytes 1.3 10^3/uL 1.0-4.8 Abs Monocytes 0.7 10^3/uL 0-0.8 Abs Eosinophils 0.2 10^3/uL 0-0.6 Abs Basophils 0.1 10^3/uL 0-0.2 Abs Nucleated RBC 0 10^3/uL Granulocyte % 74.8 % 38-83 Lymphocyte % 14.2 % Low 25-47 Monocyte % 7.9 % 1-9 Eosinophil % 1.8 % 0-6 Basophil % 1.3 % 0-2 Nucleated Red Blood Cells % 0 Basic Metabolic Panel 11/17/2013 [facility] Sodium 133 mmol/L 133-[address] [place] [address] [phone] Potassium 4.8 mmol/L 3.5-5.0 Chloride 102 mmol/L 101-111 Co2 Carbon Dioxide 23.0 mmol/L 22-32 Anion Gap 8.0 mmol/L 2-11 Glucose 270 mg/dL High 70-100 Blood Urea Nitrogen 18 mg/dL 6-24 Creatinine 1.00 mg/dL 0.50-1.40 BUN/Creatinine Ratio 18.0 8-20 Calcium 9.1 mg/dL 8.1-9.9 Egfr Non- 56.0 >60 Egfr 72.0 >60 15 Inr/Protime 11/17/2013 [facility] Inr 0.92 0.85-1.06 [address] [place] [address] [phone] Basic Metabolic 09/11/2013 [facility] Sodium 136 mmol/L 133- 145 Panel [address] [place] [address] [phone] Potassium 4.4 mmol/L 3.5-5.0 Chloride 102 mmol/L 101-111 Co2 Carbon Dioxide 25.0 mmol/L 22-32 Anion Gap 9.0 mmol/L 2-11 Glucose 200 mg/dL High 70-100 Blood Urea Nitrogen 24 mg/dL 6-24 Creatinine 1.00 mg/dL 0.50-1.40 BUN/Creatinine Ratio 24.0 High 8-20 Calcium 9.2 mg/dL 8.1-9.9 Egfr Non- 56.0 >60 Egfr 72.0 >60 16 Laboratory test 08/28/2013 [facility] B Type 26.0 pg/mL 0- [address] [place] [address] Peptide [phone] Basic Metabolic 08/28/2013 [facility] Sodium 134 mmol/L 133- 145 Panel [address] [place] [address] [phone] Potassium 5.8 mmol/L High 3.5-5.0 Chloride 101 mmol/L 101-111 Co2 Carbon Dioxide 26.0 mmol/L 22-32 Anion Gap 7.0 mmol/L 2-11 Glucose 205 mg/dL High 70-100 Blood Urea Nitrogen 22 mg/dL 6-24 Creatinine 1.20 mg/dL 0.50-1.40 BUN/Creatinine Ratio 18.3 8-20 Calcium 9.3 mg/dL 8.1-9.9 Egfr Non- 45.4 >60 Egfr 58.4 >60 17 Comp Metabolic Panel 07/10/2013 [facility] Sodium 134 mmol/L 133-145 [address] [place] [address] [phone] Potassium 5.2 mmol/L High 3.5-5.0 Chloride 101 mmol/L 101-111 Co2 Carbon Dioxide 27.0 mmol/L 22-32 Anion Gap 6.0 mmol/L 2-11 Glucose 181 mg/dL High 70-100 Blood Urea Nitrogen 19 mg/dL 6-24 Creatinine 1.10 mg/dL 0.50-1.40 BUN/Creatinine Ratio 17.3 8-20 Calcium 9.1 mg/dL 8.1-9.9 Total Protein 6.1 g/dL Low 6.2-8.1 Albumin 3.3 g/dL 3.2-5.2 Globulin 2.8 g/dL 2-4 Albumin/Globulin Ratio 1.2 1-3 Total Bilirubin 0.8 mg/dL 0.4-1.5 Alkaline Phosphatase 83 U/L 30-110 Alt 22 U/L 14-54 Ast 24 U/L 12-42 Egfr Non- 50.2 >60 Egfr 64.5 >60 18 Lipid Profile 07/10/2013 [facility] Triglycerides 460 mg/dL High 40-200 (Trig/Chol/HDL) [address] [place] [address] [phone] Cholesterol 228 mg/dL High Less than 200 HDL Cholesterol 44 mg/dL 40-60 19 Cholesterol/HDL Ratio 5.2 Average High 1-4.44 LDL Cholesterol (SEE NOTE) Less Than 100 20 Laboratory test 07/10/2013 [facility] Creatine 44 U/L 0-[address] [place] [address] [phone] CBC Auto Diff 07/10/2013 [facility] White Blood 7.1 4.8-10.[address] Count 10^3/[place] [address] [phone] Red Blood Count 4.02 10^6/uL 4.0-5.4 Hemoglobin 13.0 g/dL 12.0-16.0 Hematocrit 38 % 35-47 Mean Corpuscular Volume 94 fL 80-97 Mean Corpuscular Hemoglobin 32 pg High 27-31 Mean Corpuscular HGB Conc 34 g/dL 31-36 Red Cell Distribution Width 14 % 10.5-15 Platelet Count 243 10^3/uL 150-450 Mean Platelet Volume 8 um3 7.4-10.4 Abs Neutrophils 5.3 10^3/uL 1.5-7.7 Abs Lymphocytes 0.9 10^3/uL Low 1.0-4.8 Abs Monocytes 0.6 10^3/uL 0-0.8 Abs Eosinophils 0.2 10^3/uL 0-0.6 Abs Basophils 0.1 10^3/uL 0-0.2 Abs Nucleated RBC 0 10^3/uL Granulocyte % 74.5 % 38-83 Lymphocyte % 12.0 % Low 25-47 Monocyte % 8.9 % 1-9 Eosinophil % 3.3 % 0-6 Basophil % 1.3 % 0-2 Nucleated Red Blood Cells % 0 Laboratory test 07/10/2013 [facility] TSH (Thyroid 1.16 0.34- 5.[address] Stimulating miu/[place] [address] Horm) [phone] CBC Auto Diff 01/11/2012 [facility] White Blood 7.9 CUMM 4.8- 10.[address] [place] [address] [phone] Red Cell Count 4.21 CUMM 4.2-5.4 Hemoglobin 13.4 g/dL 12.0-16.0 Hematocrit 38 % 35-47 Mean Corpuscular Volume 89 um3 79-97 Mean Corpuscular Hemoglob 32 pg High 27-31 Mean Corpuscular HGB Cone 36 g/dL 32-36 Redcell Distribution WDTH 13 % 10.5-15 Platelet Count 271 CUMM 150-450 Mean Platelet Volume 8.0 um3 7.4-10.4 21 Laboratory test 01/11/2012 [facility] Vitamin B1 116 nmol/L 80-150 [address] [place] [address] [phone] Vitamin B12 483 pg/mL 180-914 Folic Acid 12.5 NG/ML See Below 23 Homocysteine 13 mcmol/L () 24 BNP Evaluatr 18.0 pg/mL 0-100 Manual Differential 01/11/2012 [facility] Polysegmented 74 % 38-[address] [place] [address] [phone] Lymphocyte 18 % Low 25-47 Monocyte 7 % 0-13 Eosinophil 1 % 0-6 Absolute Neutrophil Count 5.8 RBC Morphology NORMAL Laboratory test 01/11/2012 [facility] TSH 0.72 MIU/ML 0.34- 5.[address] [place] [address] [phone] Basic Metabolic 01/11/2012 [facility] Sodium 136 mmol/L 135- [address] [place] [address] [phone] Potassium 4.1 mmol/L 3.5-5.0 Chloride 103 mmol/L 101-111 Co2 (Carbon Dioxide) 23.0 mmol/L 22-32 Anion Gap 10.0 mmol/L 2-11 25 Glucose 195 mg/dL High 70-100 BUN 23 mg/dL 6-24 Creatinine 1.1 mg/dL 0.50-1.40 One Over Creatinine 0.90 BUN/Creatinine Ratio 20.9 High 8-20 Calcium 9.1 mg/dL 8.1-9.9 eGFR Non- 50.5 > 60 eGFR 64.9 > 60 26 CBC With 01/05/2011 [facility] White Blood 9.3 CUMM 4.8-10.8 Electronic Diff [address] [place] [address] [phone] Red Cell Count 3.46 CUMM Low 4.2-5.4 Hemoglobin 10.8 g/dL Low 12.0-16.0 Hematocrit 31 % Low 35-47 Mean Corpuscular Volume 91 um3 79-97 Mean Corpuscular Hemoglob 31 pg 27-31 Mean Corpuscular HGB Cone 34 g/dL 32-36 Redcell Distribution WDTH 16 % High 10.5-15 Platelet Count 321 CUMM 150-450 Mean Platelet Volume 7.5 um3 7.4-10.4 27 Manual Differential 01/05/2011 [facility] Polysegmented 80 % 38-[address] [place] [address] [phone] Band Neutrophil 1 % 0-8 Lymphocyte 11 % Low 25-47 Monocyte 6 % 0-13 Eosinophil 1 % 0-6 Atypical Lymph 1 % 0-6 Absolute Neutrophil Count 7.5 Anisocytosis SLIGHT Laboratory test 01/05/2011 [facility] TSH 0.70 MIU/ML 0.34- 5.[address] [place] [address] [phone] Laboratory test 03/22/2010 [facility] BUN 15 mg/dL 6-24 finding [address] [place] [address] [phone] Basic Metabolic 03/22/2010 [facility] Sodium 137 mmol/L 135- 145 Panel [address] [place] [address] [phone] Potassium 4.9 mmol/L 3.5-5.0 Chloride 104 mmol/L 101-111 Co2 (Carbon Dioxide) 27.0 mmol/L 22-32 Anion Gap 6.0 mmol/L 2-11 28 Glucose 134 mg/dL High 70-100 29 Creatinine 1.00 mg/dL 0.50-1.40 One Over Creatinine 1.00 BUN/Creatinine Ratio 15.0 8-20 Calcium 9.1 mg/dL 8.1-9.9 30 eGFR Non- 60.3 > 60 eGFR 73.0 > 60 31 Basic Metabolic Panel 01/27/2010 [facility] Sodium 141 mmol/L 135-145 [address] [place] [address] [phone] Potassium 5.0 mmol/L 3.5-5.0 Chloride 105 mmol/L 101-111 Co2 (Carbon Dioxide) 29.0 mmol/L 22-32 Anion Gap 7.0 mmol/L 2-11 32 Glucose 105 mg/dL High 70-100 33 BUN 28 mg/dL High 6-24 Creatinine 1.17 mg/dL 0.50-1.40 One Over Creatinine 0.80 BUN/Creatinine Ratio 23.9 High 8-20 Calcium 9.8 mg/dL 8.1-9.9 34 eGFR Non- 50.3 > 60 eGFR 60.9 > 60 35 1 Because ethnic data is not always readily available, this report includes an eGFR for both -Americans and non- Americans. The National Kidney Disease Education Program (NKDEP) does not endorse the use of the MDRD equation for patients that are not between the ages of 18 and 70, are , have extremes of body size, muscle mass, or nutritional status, or are non- or non-. According to the National Kid[employer], irrespective of diagnosis, the stage of the disease is based on the level of kidney function: Stage Description GFR(mL/min/1.73 m(2)) 1 Kidney damage with normal or decreased GFR 90 2 Kidney damage with mild decrease in GFR 60-89 3 Moderate decrease in GFR 30-59 4 Severe decrease in GFR 15-29 5 Kidney failure <15 (or dialysis) 2 Because ethnic data is not always readily available, this report includes an eGFR for both -Americans and non- Americans. The National Kidney Disease Education Program (NKDEP) does not endorse the use of the MDRD equation for patients that are not between the ages of 18 and 70, are , have extremes of body size, muscle mass, or nutritional status, or are non- or non-. According to the National Kid[employer] Foundation, irrespective of diagnosis, the stage of the disease is based on the level of kidney function: Stage Description GFR(mL/min/1.73 m(2)) 1 Kidney damage with normal or decreased GFR 90 2 Kidney damage with mild decrease in GFR 60-89 3 Moderate decrease in GFR 30-59 4 Severe decrease in GFR 15-29 5 Kidney failure <15 (or dialysis) 3 Because ethnic data is not always readily available, this report includes an eGFR for both -Americans and non- Americans. The National Kidney Disease Education Program (NKDEP) does not endorse the use of the MDRD equation for patients that are not between the ages of 18 and 70, are , have extremes of body size, muscle mass, or nutritional status, or are non- or non-. According to the National Kidney Foundation, irrespective of diagnosis, the stage of the disease is based on the level of kidney function: Stage Description GFR(mL/min/1.73 m(2)) 1 Kidney damage with normal or decreased GFR 90 2 Kidney damage with mild decrease in GFR 60-89 3 Moderate decrease in GFR 30-59 4 Severe decrease in GFR 15-29 5 Kidney failure <15 (or dialysis) 4 FASTING 5 Desirable <150 Borderline high 150-199 High 200-499 Very High >500 6 Desirable <200 Borderline high 200-239 High >239 7 Low <40 Desirable: 40-60 High: >60 8 Desirable <100 Near Optimal 100-129 Borderline high 130-159 High 160-189 Very High >189 9 Potassium reference range changed effective 08/23/14 10 Because ethnic data is not always readily available, this report includes an eGFR for both -Americans and non- Americans. The National Kidney Disease Education Program (NKDEP) does not endorse the use of the MDRD equation for patients that are not between the ages of 18 and 70, are , have extremes of body size, muscle mass, or nutritional status, or are non- or non-. According to the National Kidney Foundation, irrespective of diagnosis, the stage of the disease is based on the level of kidney function: Stage Description GFR(mL/min/1.73 m(2)) 1 Kidney damage with normal or decreased GFR 90 2 Kidney damage with mild decrease in GFR 60-89 3 Moderate decrease in GFR 30-59 4 Severe decrease in GFR 15-29 5 Kidney failure <15 (or dialysis) 11 FASTING 12 >100 to <200 pg/mL: likely compensated congestive heart failure (CHF) 200 to 400 pg/mL: likely moderate CHF >400 pg/mL: likely moderate to severe CHF [place] [facility] 13 Because ethnic data is not always readily available, this report includes an eGFR for both -Americans and non- Americans. The National Kidney Disease Education Program (NKDEP) does not endorse the use of the MDRD equation for patients that are not between the ages of 18 and 70, are , have extremes of body size, muscle mass, or nutritional status, or are non- or non-. According to the National Kidney Foundation, irrespective of diagnosis, the stage of the disease is based on the level of kidney function: Stage Description GFR(mL/min/1.73 m(2)) 1 Kidney damage with normal or decreased GFR 90 2 Kidney damage with mild decrease in GFR 60-89 3 Moderate decrease in GFR 30-59 4 Severe decrease in GFR 15-29 5 Kidney failure <15 (or dialysis) 14 in 1-2 weeks not before Please have done Sunday November 17, 2013 15 Because ethnic data is not always readily available, this report includes an eGFR for both -Americans and non- Americans. The National Kidney Disease Education Program (NKDEP) does not endorse the use of the MDRD equation for patients that are not between the ages of 18 and 70, are , have extremes of body size, muscle mass, or nutritional status, or are non- or non-. According to the National Kidney Foundation, irrespective of diagnosis, the stage of the disease is based on the level of kidney function: Stage Description GFR(mL/min/1.73 m(2)) 1 Kidney damage with normal or decreased GFR 90 2 Kidney damage with mild decrease in GFR 60-89 3 Moderate decrease in GFR 30-59 4 Severe decrease in GFR 15-29 5 Kidney failure <15 (or dialysis) 16 Because ethnic data is not always readily available, this report includes an eGFR for both -Americans and non- Americans. The National Kidney Disease Education Program (NKDEP) does not endorse the use of the MDRD equation for patients that are not between the ages of 18 and 70, are , have extremes of body size, muscle mass, or nutritional status, or are non- or non-. According to the National Kidney Foundation, irrespective of diagnosis, the stage of the disease is based on the level of kidney function: Stage Description GFR(mL/min/1.73 m(2)) 1 Kidney damage with normal or decreased GFR 90 2 Kidney damage with mild decrease in GFR 60-89 3 Moderate decrease in GFR 30-59 4 Severe decrease in GFR 15-29 5 Kidney failure <15 (or dialysis) 17 Because ethnic data is not always readily available, this report includes an eGFR for both -Americans and non- Americans. The National Kidney Disease Education Program (NKDEP) does not endorse the use of the MDRD equation for patients that are not between the ages of 18 and 70, are , have extremes of body size, muscle mass, or nutritional status, or are non- or non-. According to the National Kidney Foundation, irrespective of diagnosis, the stage of the disease is based on the level of kidney function: Stage Description GFR(mL/min/1.73 m(2)) 1 Kidney damage with normal or decreased GFR 90 2 Kidney damage with mild decrease in GFR 60-89 3 Moderate decrease in GFR 30-59 4 Severe decrease in GFR 15-29 5 Kidney failure <15 (or dialysis) 18 Because ethnic data is not always readily available, this report includes an eGFR for both -Americans and non- Americans. The National Kidney Disease Education Program (NKDEP) does not endorse the use of the MDRD equation for patients that are not between the ages of 18 and 70, are , have extremes of body size, muscle mass, or nutritional status, or are non- or non-. According to the National Kid[employer] Foundation, irrespective of diagnosis, the stage of the disease is based on the level of kidney function: Stage Description GFR(mL/min/1.73 m(2)) 1 Kidney damage with normal or decreased GFR 90 2 Kidney damage with mild decrease in GFR 60-89 3 Moderate decrease in GFR 30-59 4 Severe decrease in GFR 15-29 5 Kidney failure <15 (or dialysis) 19 HDL Interpretation: Undesirable: High Risk: Less than 40 mg/dL Desirable: Low Risk: Greater than 60 mg/dL 20 Unable to calculate LDL as triglyceride is > 400 21 Lymphopenia % 22 High-Performance Liquid Chromatography (HPLC) with fluorescence detection Test Performed by: [facility] [address] [place] [address] Delivery Professional: Michele Singh III, M.D. 23 Please note: New reference range, effective 10/12/11 NORMAL REFERENCE RANGE: GREATER THAN 4.1 NG/ML 24 -- REFERENCE VALUE -- <=13 (Fasting) Test Performed by: [facility] [address] [place] [address] Delivery Professional: Michele Singh III, M.D. 25 Anion gap measurement may be of limited value in the presence of any alkalosis, especially in a combined acid base disorder. . 26 Because ethnic data is not always readily available, this report includes an eGFR for both -Americans and non- Americans. The National Kidney Disease Education Program (NKDEP) does not endorse the use of the MDRD equation for patients that are not between the ages of 18 and 70, are , have extremes of body size, muscle mass, or nutritional status, or are non- or non-. According to the National Kidney Foundation, irrespective of diagnosis, the stage of the disease is based on the level of kidney function: Stage Description GFR(mL/min/1.73 m(2)) 1 Kidney damage with normal or decreased GFR 90 2 Kidney damage with mild decrease in GFR 60-89 3 Moderate decrease in GFR 30-59 4 Severe decrease in GFR 15-29 5 Kidney failure <15 (or dialysis) 27 Lymphopenia % 28 Anion gap measurement may be of limited value in the presence of any alkalosis, especially in a combined acid base disorder. . 29 Note change in reference range as of 06/11/08. The change was based on recommendations from the [employer]. 30 Please note change in reference range effective 08 . 31 Because ethnic data is not always readily available, this report includes an eGFR for both -Americans and non- Americans. The National Kidney Disease Education Program (NKDEP) does not endorse the use of the MDRD equation for patients that are not between the ages of 18 and 70, are , have extremes of body size, muscle mass, or nutritional status, or are non- or non-. According to the National Kidney Foundation, irrespective of diagnosis, the stage of the disease is based on the level of kidney function: Stage Description GFR(mL/min/1.73 m(2)) 1 Kidney damage with normal or decreased GFR 90 2 Kidney damage with mild decrease in GFR 60-89 3 Moderate decrease in GFR 30-59 4 Severe decrease in GFR 15-29 5 Kidney failure <15 (or dialysis) 32 Anion gap measurement may be of limited value in the presence of any alkalosis, especially in a combined acid base disorder. . 33 Note change in reference range as of 06/11/08. The change was based on recommendations from the [employer]. 34 Please note change in reference range effective 08 . 35 Because ethnic data is not always readily available, this report includes an eGFR for both -Americans and non- Americans. The National Kidney Disease Education Program (NKDEP) does not endorse the use of the MDRD equation for patients that are not between the ages of 18 and 70, are , have extremes of body size, muscle mass, or nutritional status, or are non- or non-. According to the National Kidney Foundation, irrespective of diagnosis, the stage of the disease is based on the level of kidney function: Stage Description GFR(mL/min/1.73 m(2)) 1 Kidney damage with normal or decreased GFR 90 2 Kidney damage with mild decrease in GFR 60-89 3 Moderate decrease in GFR 30-59 4 Severe decrease in GFR 15-29 5 Kidney failure <15 (or dialysis) Procedures Date Code Description Status 02/03/2019 41693 ECHO Transthoracic, Real-Time 2D With Doppler And Color Completed Flow 02/03/2019 24106 ECHO Transthoracic, Real-Time 2D With Doppler And Color Completed Flow 01/16/2019 86170 EKG Tracing & Interpretation Completed 12/27/2018 57829 Icd eval w/iterative adjment single lead Icd Completed 12/27/2018 68092 Icd eval w/iterative adjment single lead Icd Completed 10/21/2018 32855 Icd eval w/iterative adjment single lead Icd Completed 10/21/2018 84353 Icd eval w/iterative adjment single lead Icd Completed 10/10/2018 22837 ECHO Transthoracic, Real-Time 2D With Doppler And Color Completed Flow 10/10/2018 53752 ECHO Transthoracic, Real-Time 2D With Doppler And Color Completed Flow 08/28/2018 34085 EKG Tracing & Interpretation Completed 07/18/2018 53190 Icd eval w/iterative adjment single lead Icd Completed 07/18/2018 21732 Icd eval w/iterative adjment single lead Icd Completed 06/12/2018 58851 Inject Tendon Sheath Or Ligament Aponeurosis Eg Plantar Completed Fascia 05/21/2018 49755 ECHO Transthorasic Realtime 2D W Doppler & Color Flow Hosp Completed 05/21/2018 46989 EKG, Interpretation Only Completed 02/13/2018 71026 ECHO Transthoracic, Real-Time 2D With Doppler And Color Completed Flow 02/13/2018 88491 ECHO Transthoracic, Real-Time 2D With Doppler And Color Completed Flow 12/20/2017 86229 Icd Eval W/Iterative Adjustmnt Single Lead Icd Completed 12/20/2017 44971 Icd Eval W/Iterative Adjustmnt Single Lead Icd Completed 11/21/2017 33187 EKG Tracing & Interpretation Completed 07/23/2017 95483 EKG Tracing & Interpretation Completed 05/30/2017 42255 Icd Eval W/Iterative Adjustmnt Single Lead Icd Completed 04/11/2017 65982 ECHO Transthorasic Realtime 2D W Doppler & Color Flow Hosp Completed 02/20/2017 62007 Icd Eval W/Iterative Adjustmnt Single Lead Icd Completed 12/21/2016 85188 EKG Tracing & Interpretation Completed 12/05/2016 75917 Icd Eval W/Iterative Adjustmnt Single Lead Icd Completed 09/12/2016 77986 Icd Eval W/Iterative Adjustmnt Single Lead Icd Completed 07/19/2016 08534 EKG Tracing & Interpretation Completed 07/19/2016 16748 EKG Tracing & Interpretation Completed 07/10/2016 44515 ECHO Transthorasic Realtime 2D W Doppler & Color Flow Hosp Completed 07/04/2016 59039 EKG Tracing & Interpretation Completed 06/19/2016 14281 Icd Eval W/Iterative Adjustmnt Single Lead Icd Completed 03/09/2016 20243 Interrogation Device Eval In Person W/DR Completed Analysis,Single,Dual,Mul 11/30/2015 94781 Interrogation Device Eval In Person W/DR Completed Analysis,Single,Dual,Mul 10/27/2015 84250 EKG Tracing & Interpretation Completed 09/01/2015 83768 Icd eval w/iterative adjment single lead Icd Completed 07/26/2015 89187 ECHO Transthoracic, Real-Time 2D With Doppler And Color Completed Flow 07/13/2015 28751 EKG Tracing & Interpretation Completed 07/02/2015 48494 Icd Check Single,Dual Or Multiple In Person W/DR Incl Completed Heart Rhyth 07/01/2015 34315 EKG Tracing & Interpretation Completed 04/16/2015 89420 ECHO Transthoracic, Real-Time 2D With Doppler And Color Completed Flow 03/25/2015 26650 EKG Tracing & Interpretation Completed 08/21/2014 99826 EKG Tracing & Interpretation Completed 07/29/2014 39681 ECHO Transthoracic, Real-Time 2D With Doppler And Color Completed Flow 03/02/2014 33445 ECHO Transthoracic, Real-Time 2D With Doppler And Color Completed Flow 01/27/2014 85417 EKG Tracing & Interpretation Completed 11/06/2013 65657 EKG Tracing & Interpretation Completed 10/07/2013 61844 Color Flow Doppler/Interp & Reprt Completed 10/07/2013 27939 Pulse Wave/Continuous-Interp.RPT Completed 10/07/2013 07815 Echocardiography, Transesophageal, Real Time W/Image 2D Completed W/W/O M-M 09/02/2013 81498 ECHO Transthoracic, Real-Time 2D With Doppler And Color Completed Flow 08/27/2013 65748 EKG Tracing & Interpretation Completed 07/29/2013 32669 Treadmill Interp/Report Only Completed 07/29/2013 55869 Stress Test Supervsn W/Out I/R Completed 07/02/2013 09494 EKG Tracing & Interpretation Completed 06/10/2013 97694 ECHO Transthoracic, Real-Time 2D With Doppler And Color Completed Flow 11/14/2012 79608 EKG Tracing & Interpretation Completed 09/11/2012 49605 ECHO Transthoracic, Real-Time 2D With Doppler And Color Completed Flow 07/12/2012 51148 EKG Tracing & Interpretation Completed 01/08/2012 63948 Holter Monitor Review (24 hr)dr review & interp only Completed 01/04/2012 31108 EKG Tracing & Interpretation Completed 12/26/2011 57758 ECHO Transthoracic, Real-Time 2D With Doppler And Color Completed Flow 06/08/2011 19377 EKG Tracing & Interpretation Completed 01/12/2011 95678 EKG Tracing & Interpretation Completed 10/03/2010 01838 Holter Monitor Completed 09/12/2010 25500 ECHO Transthoracic, Real-Time 2D With Doppler And Color Completed Flow 09/06/2010 37363 Treadmill Interp/Report Only Completed 09/06/2010 81907 Stress Test Supervsn W/Out I/R Completed 08/26/2010 36125 EKG Tracing & Interpretation Completed 06/30/2010 99309 ECHO Transthoracic, Real-Time 2D With Doppler And Color Completed Flow 03/31/2010 92254 EKG Tracing & Interpretation Completed 07/09/2009 68582 EKG Tracing & Interpretation Completed 03/11/2009 85787 ECHO Transthoracic, Real-Time 2D With Doppler And Color Completed Flow 12/17/2008 37662 EKG Tracing & Interpretation Completed 10/09/2008 87554 Echocardiogram Completed 10/09/2008 80943 Pulse Doppler & Continuous Wave Completed 10/09/2008 41328 Pulse Doppler & Continuous Wave Completed 10/09/2008 54104 Color Doppler Completed 09/10/2008 06837 EKG Tracing & Interpretation Completed 09/10/2008 63839 EKG Tracing & Interpretation Completed 12/10/2007 95476 EKG, Interpretation Only Completed 07/25/2005 85117 EKG, Interpretation Only Completed 08/30/2004 89023 EKG Tracing & Interpretation Completed 12/21/2003 43144 EKG Tracing & Interpretation Completed 09/22/2003 13386 Color Doppler Completed 09/22/2003 65598 Pulse Doppler & Continuous Wave Completed 09/22/2003 39640 Echocardiogram Completed Encounters Type Date Location Provider Dx Diagnosis Office Visit 02/07/2019 [facility] Bhavna Adamson, I42.9 Cardiomyopathy, 2:00p Of Drop Hammer Mechanic N.P. 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 unspecified organism I50.42 Chronic combined systolic and diastolic hrt fail I42.9 Cardiomyopathy, unspecified Z95.810 Presence of automatic (implantable) cardiac defibrillator I34.0 Nonrheumatic mitral (valve) insufficiency Office Visit 01/08/2019 [facility] Al Santos, T80.89xA Oth comp fol 7:00a Clinic infusion, transfuse and theraputc inject, init M62.81 Muscle weakness (generalized) R60.0 Localized edema Office Visit 01/08/2019 [facility] Moo G93.41 Metabolic 10:39a Assoc,pc ARIES Ellison encephalopathy Hospitalists J18.9 Pneumonia, unspecified organism I50.42 Chronic combined systolic and diastolic hrt fail I11.0 Hypertensive heart disease with heart failure Office Visit 01/07/2019 [facility] Al Santos, T80.89xA Oth comp fol 7:00a Clinic infusion, transfuse and theraputc inject, init M62.81 Muscle weakness (generalized) R60.0 Localized edema G93.40 Encephalopathy, unspecified Office Visit 01/06/2019 10:38a [facility] Felice Narayan, I11.0 Hypertensive heart Assoc,vanna MCKEON disease with heart Hospitalists failure I50.9 Heart failure, unspecified R41.82 Altered mental status, unspecified R00.0 Tachycardia, unspecified Office 08/28/2018 [place] Valentino Davidson E78.00 Pure Visit 11:20a Tiburcio Herring M.D. hypercholesterolemia, unspecified I25.10 Athscl heart disease of [place] coronary artery w/o ang pctrs I42.9 Cardiomyopathy, unspecified I34.0 Nonrheumatic mitral (valve) insufficiency Office Visit 06/12/2018 Orth[facility] Tracey M65.4 Radial styloid 10:30a Services Of Adele Peres tenosynovitis [Armas] M18.12 Unil primary osteoarth of first carpometacarp joint, l hand Office Visit 05/23/2018 3:43p [facility] Alona Walker, J96.02 Acute respiratory Assoc,pc N.P. failure with Hospitalists hypercapnia J44.1 Chronic obstructive pulmonary disease w (acute) exacerbation J45.901 Unspecified asthma with (acute) exacerbation Office Visit 05/22/2018 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 Bre J96.90 Respiratory Assoc,pc Luis Fernando, DO failure, unsp, Hospitalists unsp w hypoxia or hypercapnia Z87.891 Personal history of nicotine dependence N17.9 Acute kidney failure, unspecified E11.9 Type 2 diabetes mellitus without complications I50.9 Heart failure, unspecified Office Visit 05/21/2018 3:42p Intensivists Jesus Alberto Cameron J44.1 Chronic obstructive M.D. pulmonary disease w (acute) exacerbation J45.901 Unspecified asthma with (acute) exacerbation Office Visit 11/21/2017 [place] Valentino Davidson I42.9 Cardiomyopathy, 11:20a Cardiology Adele Herring unspecified I95.2 Hypotension due to drugs I25.10 Athscl heart disease of [place] coronary artery w/o ang pctrs E78.00 Pure hypercholesterolemia, unspecified Office Visit 07/23/2017 [place] Valentino Davidson I42.9 Cardiomyopathy, 11:40a Cardiology Adele Herring unspecified I50.22 Chronic systolic (congestive) heart failure Z95.810 Presence of automatic (implantable) cardiac defibrillator I95.2 Hypotension due to drugs I25.10 Athscl heart disease of [place] coronary artery w/o ang pctrs Office Visit 04/14/2017 3:12p [facility] Wes J96.01 Acute respiratory Assoc,vanna Sandhu M.D. failure with Hospitalists hypoxia A41.9 Sepsis, unspecified organism J18.1 Lobar pneumonia, unspecified organism I50.22 Chronic systolic (congestive) heart failure Office Visit 04/13/2017 3:12p [facility] Wes J96.01 Acute respiratory Assoc,vanna Sandhu M.D. failure with Hospitalists hypoxia J18.1 Lobar pneumonia, unspecified organism A41.9 Sepsis, unspecified organism I50.22 Chronic systolic (congestive) heart failure Office Visit 04/12/2017 [facility] Corinne Fleming, J96.01 Acute respiratory 3:11p vanna Pabon M.D. failure with Hospitalists hypoxia J18.1 Lobar pneumonia, unspecified organism A41.9 Sepsis, unspecified organism I50.22 Chronic systolic (congestive) heart failure Office Visit 04/11/2017 3:10p [facility] Chetna J96.01 Acute respiratory Assoc,vanna Sarmiento M.D. failure with Hospitalists hypoxia J18.1 Lobar pneumonia, unspecified organism A41.9 Sepsis, unspecified organism Office Visit 12/21/2016 [place] Valentino Davidson I42.9 Cardiomyopathy, 10:00a Cardiology Adele Herring unspecified I50.22 Chronic systolic (congestive) heart failure Office Visit 07/19/2016 11:30a Jaden Rose, I42.9 Cardiomyopathy, [facility] Of [place] unspecified Drop Hammer Mechanic I95.2 Hypotension due to drugs I50.22 Chronic systolic (congestive) heart failure R42 Dizziness and giddiness Office Visit 07/10/2016 [facility] Corinne Fleming, R19.7 Diarrhea, 2:02p Assoc,vanna Angulo unspecified Hospitalists E87.2 Acidosis I42.9 Cardiomyopathy, unspecified E87.5 Hyperkalemia Office Visit 07/09/2016 2:01p [facility] Caden R19.7 Diarrhea, Assoc,vanna Welsh M.D. unspecified Hospitalists I42.9 Cardiomyopathy, unspecified E87.2 Acidosis E87.5 Hyperkalemia Office Visit 07/08/2016 [facility] Fernando R19.7 Diarrhea, 2:00p Assoc,pc Marlon, N.PLove unspecified Hospitalists I42.9 Cardiomyopathy, unspecified E87.2 Acidosis A41.9 Sepsis, unspecified organism Office Visit 07/04/2016 Ileana Davidson I42.9 Cardiomyopathy, 10:20a Cardiology Adele Herring unspecified Z95.810 Presence of automatic (implantable) cardiac defibrillator M48.06 Spinal stenosis, lumbar region E78.0 Pure hypercholesterolemia I34.0 Nonrheumatic mitral (valve) insufficiency R06.00 Dyspnea, unspecified I10 Essential (primary) hypertension Office Visit 05/08/2016 Neurosurgery Reed Guillen, M48.06 Spinal stenosis , 2:30p Services Of [facility] Adele lumbar region Office Visit 03/31/2016 Neurosurgery Sol Thrasher, M48.06 Spinal stenosis, 10:00a Services Of [facility] ARIES-C lumbar region Office Visit 10/27/2015 [place] Tiburcio Davidson I42.9 Cardiomyopathy , 3:40p Adele Herring unspecified Z95.810 Presence of automatic (implantable) cardiac defibrillator E78.0 Pure hypercholesterolemia I34.0 Nonrheumatic mitral (valve) insufficiency R06.00 Dyspnea, unspecified I20.1 Angina pectoris with documented spasm Office Visit 07/13/2015 3:30p Ileana Rose Z95.810 Presence of Cardiology ARIES automatic (implantable) cardiac defibrillator E78.0 Pure hypercholesterolemia R06.00 Dyspnea, unspecified I25.118 Athscl heart disease of [place] cor art w oth ang pctrs R94.31 Abnormal electrocardiogram [ECG] [EKG] I25.5 Ischemic cardiomyopathy Office 07/01/2015 Ileana Davidson 272.0 Hypercholesterolemia Pure Visit 1:20p Tiburcio Herring M.D. 414.01 Coronary Atherosclerosis Eek 424.0 Mitral Valve Disorder 428.0 Congestive Heart Failure Unspecified 425.9 Cardiomyopathy Secondary Unspecified 794.31 Electrocardiogram (ECG) (EKG) Abnormal Office Visit 04/21/2015 Ileana Rose 414.01 Coronary 10:30a Cardiology ARIES Atherosclerosis Eek 425.4 Cardiomyopathy Other Prim 272.0 Hypercholesterolemia Pure 786.09 Dyspnea & Respiratory Abnormalities Other Office Visit 03/25/2015 9:00a [place] Tiburcio Davidson 424.0 Mitral Valve Adele Herring Disorder 272.0 Hypercholesterolemia Pure 414.01 Coronary Atherosclerosis Eek 428.0 Congestive Heart Failure Unspecified Office Visit 08/21/2014 10:00a [place] [facility] Valentino Davidson 424.0 Mitral Valve Adele Herring Disorder 272.0 Hypercholesterolemia Pure 414.01 Coronary Atherosclerosis Eek 425.4 Cardiomyopathy Other Prim 428.0 Congestive Heart Failure Unspecified 782.3 Edema 786.09 Dyspnea & Respiratory Abnormalities Other 780.4 Dizziness & Giddiness Office Visit 05/21/2014 8:30a [place] [facility] Sanam Rose 425.9 Cardiomyopathy PA Secondary Unspecified 272.0 Hypercholesterolemia Pure 414.01 Coronary Atherosclerosis Eek Office Visit 01/27/2014 [place] Sanam Rose 414.01 Coronary 10:30a Cardiology [place] Atherosclerosis Eek 425.4 Cardiomyopathy Other Prim Office Visit 01/06/2014 Ileana Davidson 425.9 Cardiomyopathy 1:40p Cardiology Adele Herring Secondary Unspecified 428.0 Congestive Heart Failure Unspecified 794.31 Electrocardiogram (ECG) (EKG) Abnormal Office Visit 11/06/2013 Ileana Davidson 425.4 Cardiomyopathy Other 10:00a Cardiology Adele Herring Prim 424.0 Mitral Valve Disorder 272.0 Hypercholesterolemia Pure Office Visit 10/07/2013 Ileana Davidson 424.0 Mitral Valve 8:00a Tiburcio Herring M.D. Disorder Office Visit 08/27/2013 Ileana Davidson 425.9 Cardiomyopathy 3:00p Tiburcio Herring M.D. Secondary Unspecified 424.0 Mitral Valve Disorder 428.0 Congestive Heart Failure Unspecified Office 07/02/2013 Ileana Davidson 272.0 Hypercholesterolemia Pure Visit 10:00a Tiburcio Herring M.D. 424.0 Mitral Valve Disorder 428.0 Congestive Heart Failure Unspecified 425.4 Cardiomyopathy Other Prim Office Visit 11/14/2012 Ileana Davidson 425.4 Cardiomyopathy Other 10:40a Tiburcio Herring M.D. Prim 424.0 Mitral Valve Disorder 272.0 Hypercholesterolemia Pure 428.0 Congestive Heart Failure Unspecified Office Visit 07/12/2012 Ileana Davidson 425.4 Cardiomyopathy Other 11:00a Tiburcio Herring M.D. Prim 272.0 Hypercholesterolemia Pure Office Visit 03/28/2012 Ileana Brownheriberto Laws, 425.4 Cardiomyopathy 2:00p Cardiology AT N.P. Other Prim [facility] Office Visit 02/27/2012 Ileana Ellison Eusebia, 425.4 Cardiomyopathy 10:00a Cardiology AT N.P. Other Prim [facility] 272.0 Hypercholesterolemia Pure Office Visit 02/06/2012 Ileana Ellison Eusebia, 425.4 Cardiomyopathy 10:00a Cardiology AT N.P. Other Prim [facility] 272.0 Hypercholesterolemia Pure 785.1 Palpitations Office Visit 01/04/2012 Ileana Davidson 425.4 Cardiomyopathy Other 3:40p Tiburcio Herring M.D. Prim 786.09 Dyspnea & Respiratory Abnormalities Other 428.0 Congestive Heart Failure Unspecified 272.0 Hypercholesterolemia Pure Office Visit 06/08/2011 10:00a [place] Tiburcio Davidson 428.0 Congestive Heart Adele Herring Failure Unspecified 425.4 Cardiomyopathy Other Prim 786.09 Dyspnea & Respiratory Abnormalities Other 272.0 Hypercholesterolemia Pure Office Visit 01/12/2011 Ileana Davidson 425.4 Cardiomyopathy Other 10:20a Tiburcio Herring M.D. Prim 428.0 Congestive Heart Failure Unspecified 785.1 Palpitations Office Visit 09/06/2010 Ileana Davidson 794.31 Electrocardiogram 10:00a Tiburcio Herring M.D. (ECG) (EKG) Abnormal 786.09 Dyspnea & Respiratory Abnormalities Other 425.4 Cardiomyopathy Other Prim 272.0 Hypercholesterolemia Pure Office Visit 08/26/2010 Ileana Davidson 425.4 Cardiomyopathy Other 9:50a Tiburcio Herring M.D. Prim 424.0 Mitral Valve Disorder 250.00 Diabetes Mellitus W/O Compl Type II Or Unspec Controlled 428.0 Congestive Heart Failure Unspecified 786.59 Pain Chest Other Office Visit 03/31/2010 Ileana Davidson 425.4 Cardiomyopathy Other 10:00a Tiburcio Herring M.D. Prim 424.0 Mitral Valve Disorder 250.00 Diabetes Mellitus W/O Compl Type II Or Unspec Controlled Office Visit 07/09/2009 Ileana Davidson 425.4 Cardiomyopathy Other 9:20a Tiburcio Herring M.D. Prim 250.00 Diabetes Mellitus W/O Compl Type II Or Unspec Controlled 424.0 Mitral Valve Disorder 785.1 Palpitations 428.0 Congestive Heart Failure Unspecified Office Visit 03/17/2009 [place] Valentino Lima.4 Cardiomyopathy Other 10:00a Cardiology Adele Herring Prim 250.00 Diabetes Mellitus W/O Compl Type II Or Unspec Controlled 424.0 Mitral Valve Disorder 785.1 Palpitations Office Visit 12/17/2008 [place] Valentino Davidson 425.4 Cardiomyopathy Other 9:00a Tiburcio Herring M.D. Prim 250.00 Diabetes Mellitus W/O Compl Type II Or Unspec Controlled 428.0 Congestive Heart Failure Unspecified Office Visit 09/10/2008 [place] Valentino Davidson 425.4 Cardiomyopathy Other 3:40p Cardiology Adele Herring Prim 250.00 Diabetes Mellitus W/O Compl Type II Or Unspec Controlled 428.0 Congestive Heart Failure Unspecified 786.59 Pain Chest Other Office Visit 08/30/2004 [place] Valentino Davidson 425.4 Cardiomyopathy Other 3:40p Tiburcio Herring M.D. Prim 250.00 Diabetes Mellitus W/O Compl Type II Or Unspec Controlled Office Visit 12/21/2003 [place] Valentino Davidson 425.4 Cardiomyopathy Other 10:20a Cardiology Adele Herring Prim Plan of Treatment Future Appointment(s):03/25/2019 10:00 am - Nurse Visit [facility] at [facility]04/23/2019 11:00 am - Valentino Herring M.D. at [facility]2018 - Bhavna Adamson N.PLoveI42.9 Cardiomyopathy, unspecifiedReferral:Sumanth Stahl D.OLove, Cardiology/Internal MedFollow up:[place] 3 weeks EKG, BP check OV 2018 [facility] as scheduled.Recommendations:Increase carvedilol to 2 tabs by mouth in the morning and 1 tab at night. No need to have lab order. Call MD Schaeffer office to schedule visit to discuss upgrade to BiV pacemaker to help heart function. i50.42 Chronic combined systolic (congestive) and diastolic (gesyfsV42.0 Nonrheumatic mitral (valve) [id number] Presence of automatic (implantable) cardiac defibrillator
[2019-03-14 19:20] LABS: ABS Basophils 0.1 10^3/ul (0-0.2); ABS Lymphocytes 1.4 10^3/ul (1.0-4.8); ABS Monocytes 1.2 10^3/ul (0-0.8); ABS Neutrophils 7.2 10^3/ul (1.5-7.7); Eosinophil % 0.5 %; Hematocrit 40 % (35-47); Hemoglobin 13.1 g/dL (12.0-16.0); Lymphocyte % 14.3 %; Mean Corpuscular HGB Conc 32 g/dL (31-36); Mean Corpuscular Hemoglobin 26 pg (27-31); Mean Corpuscular Volume 80 fL (80-97); Mean Platelet Volume 9.2 fL (7.4-10.4); Nucleated Red Blood Cells % 0.1; Platelet Count 185 10^3/uL (150-450); Red Blood Count 5.04 10^6 /uL (3.70-4.87); Red Cell Distribution Width 21 % (10.5-15)
--- NOTE | 2019-03-14 19:23 | ED ---
Neurological HPI - HPI Summary HPI Summary: A 68 y/o female accompanied by and daughter presents to [facility] with a chief complaint of weakness over the past two weeks. Pt c/o dizziness, lightheadedness, diarrhea, not eating much, and urgency for bowel movements. Pt denies any fever, chills, erythema of eyes, sore throat, CP, SOB, cough, abdominal pain, dysuria, hematuria, edema, or rash. The patient had her Carvedilol reduced. She has not been eating much, eating broth and ice cream, she tends to vomit solid foods. She also thinks that drinking water would trigger her vomiting episodes. The patient denies a Hx of gout. The patient goes to a pain clinic for her back pain, she is taking Tramadol and Gabapentin. The patient reports that last time she was hospitalized she was discharged even though she could not walk. - History of Current Complaint Chief Complaint: EDWeakness Stated Complaint: WEAKNESS PER PT Time Seen by Provider: 03/14/19 18:08 Hx Obtained From: Patient, Family/Sap Data Architect Onset/Duration: Gradual Onset, Started weeks ago, Still Present Timing: Constant Onset Severity: Moderate Current Severity: Moderate Pain Intensity: 5 Pain Scale Used: 0-10 Numeric Character: Weak Aggravating: Nothing Alleviating: Nothing Associated Signs and Symptoms: Positive: Dizziness, Nausea/Vomiting, Diarrhea. Negative: Fever, Chest Pain, Shortness of Breath - Additional Pertinent History Primary Care Physician: [id number] - Allergy/Home Medications Allergies/Adverse Reactions: Allergies Allergy/AdvReac Type Severity Reaction Status Date / Time atorvastatin [From Lipitor] Allergy Unknown Verified 03/14/19 16:45 Reaction Details morphine Allergy Altered Verified 03/14/19 16:45 Mental Status nickel Allergy Unknown Verified 03/14/19 16:45 Reaction Details shellfish derived Allergy Anaphylatic Verified 03/14/19 16:45 Shock TOPICAL IODINE Allergy Mild PER PT Uncoded 12/19/18 11:03 DECREASES HEALING Home Medications: Home Medications Carvedilol TAB* [Coreg TAB*] 6.25 mg PO QPM 03/14/19 [History Confirmed 03/14/19 ] Exenatide Microspheres [Bydureon] 2 mg SUBCUT WEEKLY 03/14/19 [History Confirmed 03/14/19] Fexofenadine (NF) [Lacey (NF)] 60 mg PO BID PRN 03/14/19 [History Confirmed ] Lisinopril TAB* [Prinivil TAB*] 2.5 mg PO DAILY 03/14/19 [History Confirmed ] Montelukast Sodium TAB* [Singulair TAB*] 10 mg PO BEDTIME 03/14/19 [History Confirmed 03/14/19] metroNIDAZOLE [Metrogel] 1 % TOPICAL BID PRN 03/14/19 [History Confirmed ] traMADol TAB* [Ultram*] 100 mg PO Q4HR PRN 03/14/19 [History Confirmed 03/14/19] PMH/Surg Hx/FS Hx/Imm Hx Endocrine/Hematology History: Reports: Hx Anticoagulant Therapy - plavix 75mg, Hx Diabetes Denies: Hx Blood Disorders, Hx Blood Transfusions, Hx Bone Marrow Disease, Hx Sickle Cell Disease, Hx Thyroid Disease, Hx Anemia, Hx Unexplained Bleeding, Other Endocrine/Hematological Disorders Cardiovascular History: Reports: Hx Auto Implanted Cardiovert Defib - 2002, Hx Congestive Heart Failure - in the past, Hx Coronary Artery Disease, Hx Hypercholesterolemia, Hx Hypertension, Hx Pacemaker/ICD, Other Cardiovascular Problems/Disorders - heart failure Denies: Hx Aneurysm, Hx Angina, Hx Angioplasty, Hx Cardiac Arrest, Hx Cardiomegaly, Hx Congenital Heart Disease, Hx Deep Vein Thrombosis, Hx Embolism , Hx Hypotension, Hx Peripheral Vascular Disease, Hx Rheumatic Fever, Hx Syncope , Hx Valvular Heart Disease Respiratory History: Reports: Hx Asthma - hospitalization 05/21/18 for asthma (3 days), Hx Pneumonia - 13 yrs ago Denies: Hx Chronic Bronchitis, Hx Chronic Obstructive Pulmonary Disease (COPD ), Hx Cystic Fibrosis, Hx Lung Cancer, Hx Pleural Effusion, Hx Pulmonary Edema, Hx Pulmonary Embolism, Hx Seasonal Allergies, Hx Sleep Apnea, Other Respiratory Problems/Disorders GI History: Reports: Hx Gastroesophageal Reflux Disease Denies: Hx Cirrhosis, Hx Crohn's Disease, Hx Diverticulosis, Hx Gall Bladder Disease, Hx Gastrointestinal Bleed, Hx Hiatal Hernia, Hx Irritable Bowel, Hx Jaundice, Hx Obstructive Bowel, Hx Ileostomy, Hx Pyloric Stenosis, Hx Ulcer, Other GI Disorders History: Denies: Hx Renal Disease Musculoskeletal History: Reports: Hx Arthritis, Hx Back Problems, Hx Scoliosis Denies: Hx Bursitis, Hx Congenital Bone Abnormalities, Hx Fibromyalgia, Hx Gout, Hx Orthopedic Injury, Hx Osteoporosis, Hx Tendonitis, Other Musculoskeletal History Sensory History: Reports: Hx Contacts or Glasses Denies: Hx Cataracts, Hx Eye Injury, Hx Eye Prosthesis, Hx Glaucoma, Hx Legally Blind, Hx Macular Degeneration, Hx Vision Problem, Hx Deafness, Hx Hearing Aid, Hx Hearing Problem, Other Sensory Impairments Opthamlomology History: Reports: Hx Contacts or Glasses Denies: Hx Cataracts, Hx Eye Injury, Hx Eye Prosthesis, Hx Glaucoma, Hx Legally Blind, Hx Macular Degeneration, Hx Vision Problem, Other Sensory Impairments Neurological History: Reports: Hx Nerve Disease - "bulging disc", "fusion 80's" , Other Neuro Impairments/Disorders - PAIN CLINIC PT Denies: Hx Dementia, Hx Developmental Delay, Hx Headaches, Hx Migraine, Hx Seizures, Hx Spinal Cord Injury, Hx Transient Ischemic Attacks (TIA) Psychiatric History: Reports: Hx Depression Denies: Hx Anxiety, Hx Attention Deficit Hyperactivity Disorder, Hx Eating Disorder, Hx Panic Disorder, Hx Post Traumatic Stress Disorder, Hx Inpatient Treatment, Hx Community Mental Health Tx, Hx Schizophrenia, Hx Bipolar Disorder , Hx Suicide Attempt, Hx of Violent Episodes Against Others, Hx Substance Abuse , Other Psychiatric Issues/Disorders - Cancer History Hx Chemotherapy: No Hx Radiation Therapy: No - Surgical History Surgery Procedure, Year, and Place: Bilat carpal tunnel , Hysterectomy, femoral artery bypass bilateral 2009, heart cath with stent placement 2013, difibrillator/pacemaker 2014, back surgery "a long time ago" Hx Anesthesia Reactions: No Infectious Disease History: No Infectious Disease History: Reports: Hx Shingles - 5 years ago Denies: Hx Clostridium Difficile, Hx Hepatitis, Hx Human Immunodeficiency Virus (HIV), Hx of Known/Suspected MRSA, Hx Tuberculosis, History Other Infectious Disease, Traveled Outside the [place] in Last 30 Days - Family History Known Family History: Positive: Other Family History: No FHx of Breast Cancer - Social History Alcohol Use: None Substance Use Type: Reports: None Smoking Status (MU): Former Smoker Type: Cigarettes Have You Smoked in the Last Year: No - 20 year smoker, quit in 2002 Review of Systems Negative: Fever, Chills Negative: Erythema Negative: Sore Throat Negative: Chest Pain Negative: Shortness Of Breath, Cough Positive: Vomiting, Diarrhea, Nausea, Other - positive: urgent BMs. Negative: Abdominal Pain Negative: dysuria, hematuria Positive: Myalgia - back pain. Negative: Edema Negative: Rash Neurological: Other - positive: dizziness Positive: Weakness All Other Systems Reviewed And Are Negative: Yes Physical Exam - Summary Physical Exam Summary: Constitutional: Well-developed, Well-nourished, Alert. (-) Distressed Skin: Warm, Dry HENT: Normocephalic; Atraumatic Eyes: Conjunctiva normal Neck: Musculoskeletal ROM normal neck. (-) JVD, (-) Stridor, (-) Tracheal deviation Cardio: Rhythm regular, rate normal, Heart sounds normal; Intact distal pulses; The pedal pulses are 2+ and symmetric. Radial pulses are 2+ and symmetric. (-) Murmur Pulmonary/Chest wall: Effort normal. (-) Respiratory distress, (-) Wheezes, (-) Rales Abd: Soft, (-) tenderness, (-) Distension, (-) Guarding, (-) Rebound, no incontinence, no retention Musculoskeletal: (-) Edema, left leg is weak, she only able to raise it approximately 20 degrees, Lymph: (-) Cervical adenopathy Neuro: Alert, Oriented x3 Psych: Mood and affect Normal Triage Information Reviewed: Yes Vital Signs On Initial Exam: Initial Vitals Temp Pulse Resp BP Pulse Ox 97.6 F 92 14 101/67 98 03/14/19 16:40 03/14/19 16:40 03/14/19 16:40 03/14/19 16:40 03/14/19 16:40 Vital Signs Reviewed: Yes Diagnostics - Vital Signs Vital Signs Temp Pulse Resp BP Pulse Ox 03/14/19 18:16 120/92 03/14/19 18:00 85 17 99 03/14/19 17:46 79 21 137/76 97 03/14/19 17:16 86 11 121/75 97 03/14/19 17:15 92 21 98 03/14/19 16:40 97.6 F 92 14 101/67 98 - Laboratory Lab Results: Lab Results 03/14/19 Range/Units 19:05 WBC 10.0 (3.5-10.8) 10^3/uL RBC 5.04 H (3.70-4.87) 10^6 /uL Hgb 13.1 (12.0-16.0) g/dL Hct 40 (35-47) % MCV 80 (80-97) fL MCH 26 L (27-31) pg MCHC 32 (31-36) g/dL RDW 21 H (10.5-15) % Plt Count 185 (150-450) 10^3/uL MPV 9.2 (7.4-10.4) fL Neut % (Auto) 72.1 % Lymph % (Auto) 14.3 % Cloud % (Auto) 12.5 % Eos % (Auto) 0.5 % Baso % (Auto) 0.6 % Absolute Neuts (auto) 7.2 (1.5-7.7) 10^3/ul Absolute Lymphs (auto) 1.4 (1.0-4.8) 10^3/ul Absolute Monos (auto) 1.2 H (0-0.8) 10^3/ul Absolute Eos (auto) 0.0 (0-0.6) 10^3/ul Absolute Basos (auto) 0.1 (0-0.2) 10^3/ul Absolute Nucleated RBC 0.0 10^3/ul Nucleated RBC % 0.1 Result Diagrams: 03/14/19 19:05 03/14/19 19:05 Lab Statement: Any lab studies that have been ordered have been reviewed, and results considered in the medical decision making process. - Radiology CXR Radiology Interpretation Completed By: ED Physician Summary of Radiographic Findings: No acute disease. Pending official imaging report. - EKG 18:36 Cardiac Rate: Other Rate - Motion artifact at 89 bpm Summary of EKG Findings: Motion artifact at 89 bpm, frequent PVCs. Course/Dx - Course Course Of Treatment: A 68 y/o female accompanied by and daughter presents to [facility] with a chief complaint of weakness over the past two weeks. The physical exam revealed left leg is weak, she only able to raise it approximately 20 degrees, no incontinence, no retention. EKG showed Motion artifact at 89 bpm, frequent PVCs. Bloodwork and chemistries obtained. Potassium of 2.9, Lactic acid of 2.1 and Troponin of 0.05 at 19:05. In the ED course the patient was given Potassium Chloride and Sodium Chloride. The patient 's left lower extremity weakness was sub-acute and cauda equina syndrome was not suspected. Her CT lumbar spine showed no active figures. CXR showed No acute disease. Case discussed with Dr. Heredia, hospitalist, who accepted the patient for admission. The patient is agreeable with this plan. - Diagnoses Provider Diagnoses: Hypokalemia, Starvation ketoacidosis, Vomiting, Diarrhea, Chronic back pain, Left leg weakness - Physician Notifications Discussed Care Of Patient With: Cammy Heredia Time Discussed With Above Provider: 21:01 Instructed by Provider To: Admit As Inpatient - Critical Care Time Critical Care Time: 30-74 min Discharge - Sign-Out/Discharge Documenting (check all that apply): Patient Departure - admit Patient Received Moderate/Deep Sedation with Procedure: No - Discharge Plan Condition: Fair Disposition: ADMITTED TO [facility] Referrals: Abran Gordon MD [Primary Care Provider] - - Attestation Statements Document Initiated by Scribe: Yes Documenting Scribe: Jesus Alberto Duncan Provider For Whom Scribe is Documenting (Include Credential): Gildardo Kelley MD Scribe Attestation: Jesus Alberto Castillo, scribed for Gildardo Kelley MD on 03/14/19 at 2140. Status of Scribe Document: Ready
[2019-03-14 19:32] LABS: ALT 101 U/L (7-52); AST 107 U/L (13-39); Albumin 2.8 g/dL (3.2-5.2); Alkaline Phosphatase 253 U/L (34-104); Anion Gap 12 mmol/L (2-11); BUN/Creatinine Ratio 14.2 (8-20); Blood Urea Nitrogen 27 mg/dL (6-24); CO2 Carbon Dioxide 33 mmol/L (22-32); Calcium 8.5 mg/dL (8.6-10.3); Chloride 95 mmol/L (101-111); EGFR African American 31.8 (>60); EGFR Non-African American 26.3 (>60); Globulin 2.9 g/dL (2-4); Glucose 188 mg/dL (70-100); Magnesium 2.2 mg/dL (1.9-2.7); Potassium 2.9 mmol/L (3.5-5.0); Sodium 140 mmol/L (135-145); Total Protein 5.7 g/dL (6.4-8.9)
[2019-03-14] MEDS ORDERED: NS 0.9% 1000 ML** 1,000 ML IV ONE (19:33)
[2019-03-14 19:36] LABS: Troponin I 0.05 ng/mL (<0.04)
[2019-03-14 20:03] LABS: TSH (Thyroid Stimulating Horm) 1.66 mcIU/mL (0.34-5.60)
[2019-03-14] MEDS: KCL 20 MEQ/100 ML IVPREMIX* 20 MEQ/100 ML BAG IV SCH ×2 (20:44→22:30)
[2019-03-14 21:34] LABS: Amylase 24 U/L (29-103)
[2019-03-14] MEDS ORDERED: Acetaminophen TAB* 325 MG PO PRN (22:05)
[2019-03-14] MEDS ORDERED: NS 0.9% 1000 ML** 1,000 ML IV SCH (22:15)
[2019-03-14 23:41] LABS: Troponin I 0.05 ng/mL (<0.04)
--- NOTE | 2019-03-15 00:37 | HP ---
CC: Dr. Gordon* HISTORY AND PHYSICAL: DATE OF ADMISSION: 03/14/19 PRIMARY CARE PROVIDER: Dr. Gordon. ATTENDING PHYSICIAN WHILE IN THE HOSPITAL: Dr. Cammy Heredia* (dictated by Nancy Rivas NP). CHIEF COMPLAINT: Weakness, diarrhea, and decreased appetite. HISTORY OF PRESENT ILLNESS: Ms. Nazario is a 68-year-old female with a past medical history significant for COPD, severe cardiomyopathy with an EF of 20% to 25%, diastolic dysfunction, history of non-insulin dependent diabetes, ICD pacemaker placement, coronary artery disease, hypertension, hyperlipidemia, chronic back pain, and GERD, who presented to the emergency room with complaints of progressively worsening weakness. The patient reports that she has had diarrhea for the past couple of weeks and she reports that she is becoming progressively more weak to the point that she reports she is unable to sit up by herself, unable to walk by herself, unable to even move in bed due to her weakness. The patient's reports that the patient started with weakness on her day of discharge, 01/09/19 and has progressively gotten worse over the past couple of months, but more noticeably in the past 2 weeks. The patient reports that she has had a decreased appetite and reports approximately 20 pound weight loss in the past 2 months. The patient reports that she just does not feel like eating. She states that she always feels full. She has over the past 2 weeks been only eating beef broth with occasional solid foods with intermittent vomiting with ingestion of solid foods. She denies any fever. She denies any chest pain or edema. No cough, hemoptysis or shortness of breath. She does report vomiting, diarrhea, and denies any abdominal pain, hematuria, dysuria. She does report chronic weakness on the left side. Denies any visual changes. Denies any dysphagia. She does complain of generalized body aches. No rashes, lesions or open sores, psychosis or anxiety. While in the emergency room, the patient did receive 1 L of normal saline and potassium 40 mEq. The patient had routine lab work drawn. She was found to have elevated BUN and creatinine. She also was found to have elevated liver functions and a low potassium. Due to these findings we were asked to see and evaluate her for remission. PAST MEDICAL HISTORY: 1. COPD. 2. Severe cardiomyopathy with an EF of 20% to 25%. 3. Diastolic dysfunction. 4. Non-insulin dependent diabetes. 5. ICD placement. 6. Coronary artery disease. 7. Hypertension. 8. Hyperlipidemia. 9. GERD. 10. Chronic back pain. PAST SURGICAL HISTORY: 1. Femoral arteries bilaterally replaced. 2. ICD placement. 3. Lumbar surgery. HOME MEDICATIONS: Include: 1. Singulair 10 mg p.o. daily. 2. Duloxetine 30 mg p.o. daily. 3. Tramadol 100 mg p.o. daily. 4. Plavix 75 mg p.o. daily. 5. Gabapentin 400 mg p.o. 4 times a day. 6. Reglan 10 mg p.o. b.i.d. as needed. 7. Wellbutrin 300 mg p.o. daily. 8. Bydureon 2 mg subcu weekly. 9. Fluoxetine 20 mg p.o. daily. 10. Aspirin 81 mg p.o. daily. 11. Glipizide 10 mg p.o. b.i.d. 12. Omeprazole 20 mg p.o. b.i.d. 13. Carvedilol 6.25 mg p.o. b.i.d. 14. Minocycline 100 mg p.o. b.i.d. 15. Torsemide 40 mg alternating with 20 mg every other day. 16. Rosuvastatin 10 mg at bedtime. 17. Lisinopril 2.5 mg. ALLERGIES: She has an allergy to ATORVASTATIN, MORPHINE, NICKEL, SHELL FISH and TOPICAL IODINE. FAMILY HISTORY: Mother of lung cancer. She was a smoker. Father from a heart attack. Father and sisters with diabetes. SOCIAL HISTORY: The patient is a former smoker. She reports she quit smoking in 2002. Prior to that she smoked a pack a day for approximately 30 years. Denies any illicit drug use or alcohol use. She is . Surrogate decision maker in the event she is unable to make her own decision is her or daughter. She is a full code. REVIEW OF SYSTEMS: An 11-point review of systems was completed. All pertinent positives were mentioned in the HPI. PHYSICAL EXAMINATION GENERAL: At this time, Ms. Nazario is a 68-year-old female. She is resting on the stretcher in the emergency room. Her color is sallow. She does have multiple ecchymotic areas noted to bilateral arms and lower abdomen at different stages of healing. VITAL SIGNS: Blood pressure 134/68, heart rate is 89, respirations are 18, O2 saturation is 98%, temperature was 97.6. HEENT: Head is atraumatic, normocephalic. Eyes: EOMs are intact. Sclerae are pale. Oral mucosa appear to be dry. NECK: Supple. LUNGS: Diminished bilaterally. No wheezes, rales or rhonchi. CARDIAC: S1, S2. No gallops or rubs. ABDOMEN: Soft, and nontender. Bowel sounds are active x4. MUSCULOSKELETAL: She is able to move all 4 extremities. She does have multiple ecchymotic areas noted to bilateral arms at different staging. NEUROLOGIC: She is awake, alert, oriented x3. Speech is clear. Thought process is intact. There are no gross focal deficits. SKIN: Intact. DIAGNOSTIC STUDIES/LAB DATA: WBCs are 10.0, RBCs are 5.04, hemoglobin 13.1, hematocrit is 40, platelet count 185. Sodium 140, potassium 2.9, chloride 95, carbon dioxide is 33, anion gap is 12, BUN was 27, creatinine 1.90, glucose is 188, lactic acid 2.1, calcium 8.5, magnesium 2.2. AST was 107, ALT was 101, alkaline phosphatase was 253. Troponin was 0.05. BNP was 405. Amylase was 24. Albumin was 2.8. TSH was 1.66. Urine is currently pending. EKG showed atrial fibrillation of 89 with PVCs. ASSESSMENT AND PLAN: Ms. Nazario is a 68-year-old female with past medical history significant for severe cardiomyopathy with an EF of 20% to 25%, diastolic dysfunction, diabetes, ICD placement, pacemaker, coronary artery disease, hypertension, hyperlipidemia, who presented to the emergency room with complaint of generalized weakness and was found to be hypokalemic with acute kidney injury. She will be admitted for: 1. Hypokalemia. I suspect her hypokalemia is due to dehydration and malnutrition as the patient reports she has not been eating well for the past several weeks. She did receive 40 mEq of potassium in the emergency room. I will repeat another 40 mEq and repeat a potassium level in the a.m. 2. Weakness. I suspect her weakness is related to dehydration and malnutrition. As the patient reports that she is currently living on a diet of beef broth with occasional ice cream and has had difficulty tolerating solid foods. I will give her gentle hydration overnight as she does have cardiomyopathy with an EF of 20% to 25%. 3. Elevated liver functions. I suspect her elevation in liver functions are related to dehydration. I will get an ultrasound of her liver and repeat her liver functions in the a.m. 4. Acute kidney injury. The patient does have an elevated BUN and creatinine above her baseline. I suspect this is related to dehydration in conjunction with the use of torsemide. We will avoid nephrotoxic medications. I will give her gentle hydration, repeat a BMP in the a.m. 5. Severe cardiomyopathy. I will continue her on her home medications as previously prescribed. I will hold her dose of torsemide due to underlying dehydration and we will monitor her fluid status carefully and resume her torsemide as able. 6. Diabetes. I will place her on lispro insulin sliding scale. we will hold her glipizide and we will do fingersticks a.c. 7. Hypertension. I will continue her on carvedilol as previously prescribed. I will hold her lisinopril given her elevation in BUN and creatinine. We will resume this when able. 8. Weight loss. The patient reports she has had a 20-pound weight loss in the past 2 months unintended. She reports that she constantly feels full and has been intolerant of solid foods. The patient denies any abdominal pain, may want to consider GI consult. 9. FEN. I will place her on a regular diet. 10. Code status. She is a full code. 11. DVT prophylaxis. We will place her on heparin subcu. 12. Disposition. She will be placed inpatient for weakness, dehydration, and hypokalemia. TIME SPENT: Time spent on this admission was 60 minutes, greater than half that time was spent at the bedside reviewing events leading thus far to her hospitalization, performing my physical exam, and reviewing my plan of care. I have discussed this with my attending, Dr. Cammy Heredia, she is in agreement with my plan. NANCY DAVONTE, INDEX EDITOR [id number]/[facility] #: [id number] BEATRIZ
[2019-03-15] MEDS: KCL 20 MEQ/100 ML IVPREMIX* 20 MEQ/100 ML BAG IV SCH ×2 (00:48→03:33)
[2019-03-15 02:24] LABS: Troponin I 0.04 ng/mL (<0.04)
[2019-03-15] MEDS: Heparin VIAL(*) 5000 UNITS/ML VIAL (FIVE THOUSAND) SUBCUT SCH ×3 (06:15→22:08)
[2019-03-15 06:47] LABS: ABS Basophils 0.1 10^3/ul (0-0.2); ABS Eosinophils 0.2 10^3/ul (0-0.6); ABS Lymphocytes 1.3 10^3/ul (1.0-4.8); ABS Monocytes 1.2 10^3/ul (0-0.8); ABS Neutrophils 5.7 10^3/ul (1.5-7.7); Eosinophil % 2.1 %; Hematocrit 34 % (35-47); Hemoglobin 10.7 g/dL (12.0-16.0); Mean Corpuscular HGB Conc 32 g/dL (31-36); Mean Corpuscular Hemoglobin 26 pg (27-31); Mean Corpuscular Volume 81 fL (80-97); Mean Platelet Volume 9.2 fL (7.4-10.4); Platelet Count 132 10^3/uL (150-450); Red Blood Count 4.13 10^6 /uL (3.70-4.87); Red Cell Distribution Width 21 % (10.5-15); White Blood Count 8.5 10^3/uL (3.5-10.8)
[2019-03-15 07:07] LABS: Albumin/Globulin Ratio 0.9 (1-3); BUN/Creatinine Ratio 14.3 (8-20); Calcium 6.7 mg/dL (8.6-10.3); EGFR African American 45.2 (>60); EGFR Non-African American 37.4 (>60); Globulin 2.2 g/dL (2-4); Indirect Bilirubin 0.4 mg/dL (0.3-1.0); Potassium 3.1 mmol/L (3.5-5.0); Total Bilirubin 0.7 mg/dL (0.2-1.0); Total Protein 4.2 g/dL (6.4-8.9)
[2019-03-15] MEDS ORDERED: Dextrose 50% Syringe 50 ML* 25 GM/50 ML SYRINGE IV PUSH PRN (08:19)
[2019-03-15] MEDS: Aspirin 81 mg CHEW TAB* 81 MG TAB.CHEW PO SCH (08:39)
[2019-03-15] MEDS: Carvedilol TAB* 6.25 MG PO SCH ×2 (08:39→22:07)
[2019-03-15] MEDS: Clopidogrel TAB* 75 MG PO SCH (08:39)
[2019-03-15] MEDS: buPROPion SR TAB.SR* 150 MG PO SCH (08:40)
[2019-03-15] MEDS ORDERED: DULoxetine DR CAP* 30 MG CAP.DR PO SCH (09:00)
[2019-03-15] MEDS ORDERED: buPROPion SR TAB.SR* 150 MG PO SCH (09:00)
[2019-03-15] MEDS ORDERED: MINOCYCLINE 100 MG PO SCH (09:00)
[2019-03-15] MEDS ORDERED: Carvedilol TAB* 6.25 MG PO SCH ×2 (09:00)
[2019-03-15 10:16] LABS: Urine Appearance Cloudy; Urine Bacteria Absent (Absent); Urine Bilirubin Negative (Negative); Urine Blood 1+ (Negative); Urine Color Yellow; Urine Glucose Negative (Negative); Urine Ketones Negative (Negative); Urine Nitrite Negative (Negative); Urine Protein Negative (Negative); Urine Red Blood Cell Trace(0-2/hpf) (Absent); Urine Renal Epithelial Cells Present (Absent); Urine Specific Gravity 1.012 (1.010-1.030); Urine Squamous Epithelial Cell Present (Absent); Urine Urobilinogen Negative (Negative); Urine White Blood Cell 3+(>20/hpf) (Absent)
[2019-03-15] MEDS: Insulin LISPRO* 1 UNITS UNIT SUBCUT SCH ×2 (11:32→17:03)
--- NOTE | 2019-03-15 13:56 | PN ---
Subjective Date of Service: 03/15/19 Interval History: Diarrhea only once since admission. No nausea, no SOB, chest pain. Objective Active Medications: Acetaminophen (Tylenol Tab*) 650 mg PO Q4H PRN PRN Reason: FEVER/PAIN Aspirin (Aspirin 81 Mg Chew Tab*) 81 mg PO DAILY [facility] Last Admin: 03/15/19 08:39 Dose: 81 mg Bupropion HCl (Wellbutrin Sr Tab*) 300 mg PO DAILY [facility] Last Admin: 03/15/19 08:40 Dose: 300 mg Carvedilol (Coreg Tab*) 12.5 mg PO QAM [facility] Last Admin: 03/15/19 08:39 Dose: 12.5 mg Carvedilol (Coreg Tab*) 6.25 mg PO 2100 [facility] Clopidogrel Bisulfate (Plavix Tab*) 75 mg PO DAILY [facility] Last Admin: 03/15/19 08:39 Dose: 75 mg Dextrose (D50w Syringe 50 Ml*) 12.5 gm IV PUSH .FOR FS < 60 - SS PRN PRN Reason: FS < 60 Duloxetine HCl (Cymbalta Cap*) 20 mg PO DAILY [facility] Heparin Sodium (Porcine) (Heparin Vial(*)) 5,000 units SUBCUT Q8HR [facility] Last Admin: 03/15/19 13:23 Dose: 5,000 units Insulin Human Lispro (Humalog*) 0 units SUBCUT AC [facility]; Protocol Last Admin: 03/15/19 11:32 Dose: Not Given Minocycline HCl (Minocycline (Nf)) 100 mg PO DAILY [facility] Montelukast Sodium (Singulair Tab*) 10 mg PO BEDTIME [facility] Potassium Chloride (Klor Con Er Tab*) 20 meq PO BID [facility] Vital Signs - 8 hr 03/15/19 03/15/19 03/15/19 07:29 08:00 11:19 Temperature 97.6 F 97.3 F Pulse Rate 80 69 Respiratory 19 18 20 Rate Blood Pressure 133/58 123/50 (mmHg) O2 Sat by Pulse 100 100 Oximetry Oxygen Devices in Use Now: None Appearance: Alert, partly up in bed. In fair spirits, looks comfortable. Eyes: No Scleral Icterus Respiratory: Symmetrical Chest Expansion and Respiratory Effort, Clear to Auscultation, Clear to Percussion Cardiovascular: NL Sounds; No Murmurs; No JVD, RRR, No Edema, - Extremities: No Edema, No Clubbing, Cyanosis, - Skin: No Rash or Ulcers, No Nodules or Sclerosis, - - Aiken complexion Neurological: Alert and Oriented x 3, NL Sensation - Nutrition: Malnutrition Diagnosis/Plan Malnutrition Assessment by Registered Dietitian: Malnutrition Assessment Clinical Characteristics Acute,Severe Malnutrition Assessment: 8.5% wt loss x 1 week (severe) Criteria < or = 50% EEE x > or = 5 days Malnutrition Assessment: Trial Ensure Clear this afternoon and monitor Interventions acceptance. 240 kcal, 8 g pro per serving. Malnutrition Assessment: Goals 1. Pt will tolerate PO without diarrhea/ vomiting 2. Intake will be adequate to maintain stable body wt and preserve/replete lean body mass 3. LFTs, Cr, and electrolytes will normalize with adequate intake and hydration Result Diagrams: 03/15/19 06:31 03/15/19 06:31 Additional Lab and Data: Lab Results 03/14/19 Range/Units 19:05 WBC 10.0 (3.5-10.8) 10^3/uL RBC 5.04 H (3.70-4.87) 10^6 /uL Hgb 13.1 (12.0-16.0) g/dL Hct 40 (35-47) % MCV 80 (80-97) fL MCH 26 L (27-31) pg MCHC 32 (31-36) g/dL RDW 21 H (10.5-15) % Plt Count 185 (150-450) 10^3/uL MPV 9.2 (7.4-10.4) fL Neut % (Auto) 72.1 % Lymph % (Auto) 14.3 % [place] % (Auto) 12.5 % Eos % (Auto) 0.5 % Baso % (Auto) 0.6 % Absolute Neuts (auto) 7.2 (1.5-7.7) 10^3/ul Absolute Lymphs (auto) 1.4 (1.0-4.8) 10^3/ul Absolute Monos (auto) 1.2 H (0-0.8) 10^3/ul Absolute Eos (auto) 0.0 (0-0.6) 10^3/ul Absolute Basos (auto) 0.1 (0-0.2) 10^3/ul Absolute Nucleated RBC 0.0 10^3/ul Nucleated RBC % 0.1 Assess/Plan/Problems-Billing Assessment: - Patient Problems (1) Ischemic cardiomyopathy Current Visit: Yes Status: Acute Code(s): I25.5 - ISCHEMIC CARDIOMYOPATHY SNOMED Code(s): 470012660 Comment: Lisinopril, rosuvastatin on hold. Continue carvedilol, ASA, clopidogrel. (2) Acute renal failure Current Visit: No Status: Resolved Comment: Improved 03/15. Repeat labs . (3) Hypokalemia Current Visit: Yes Status: Acute Code(s): E87.6 - HYPOKALEMIA SNOMED Code( s): 24881027 Comment: Potassium 40 meq bid start with 2 doses 03/15. Repeat labs 03/16.
[2019-03-15] MEDS: Potassium Chlor TAB* 20 MEQ TAB.ER PO SCH ×2 (14:00→22:07)
[2019-03-15] MEDS: Montelukast Sodium TAB* 10 MG PO SCH (22:07)
[2019-03-16] MEDS: Heparin VIAL(*) 5000 UNITS/ML VIAL (FIVE THOUSAND) SUBCUT SCH ×3 (05:54→21:17)
[2019-03-16 07:16] LABS: Albumin 2.3 g/dL (3.2-5.2); BUN/Creatinine Ratio 12.5 (8-20); Calcium 8.1 mg/dL (8.6-10.3); EGFR African American 50.2 (>60); EGFR Non-African American 41.5 (>60); Globulin 2.4 g/dL (2-4); Potassium 3.7 mmol/L (3.5-5.0); Total Bilirubin 0.8 mg/dL (0.2-1.0); Total Protein 4.7 g/dL (6.4-8.9)
[2019-03-16] MEDS: Insulin LISPRO* 1 UNITS UNIT SUBCUT SCH ×3 (08:07→16:34)
[2019-03-16] MEDS: Aspirin 81 mg CHEW TAB* 81 MG TAB.CHEW PO SCH (08:07)
[2019-03-16] MEDS: Clopidogrel TAB* 75 MG PO SCH (08:07)
[2019-03-16] MEDS: DULoxetine DR CAP* 20 MG CAP.DR PO SCH (08:08)
[2019-03-16] MEDS: buPROPion SR TAB.SR* 150 MG PO SCH (08:08)
[2019-03-16] MEDS: CMCS - Minocycline (NF) 50 MG CAP PO SCH (08:08)
[2019-03-16] MEDS: Potassium Chlor TAB* 20 MEQ TAB.ER PO SCH (08:08)
[2019-03-16] MEDS: Carvedilol TAB* 6.25 MG PO SCH ×2 (08:08→21:15)
[2019-03-16] MEDS ORDERED: traMADol TAB* 50 MG PO PRN (09:06)
[2019-03-16] MEDS: Ondansetron TAB* 4 MG PO PRN ×2 (09:47→21:15)
--- NOTE | 2019-03-16 11:35 | PN ---
Subjective Date of Service: 03/16/19 Interval History: Feels a little worse today. Some nausea, poor appetite. Assist of 1 to walk to the commode. Diarrhea twice since my last visit. Objective Active Medications: Acetaminophen (Tylenol Tab*) 650 mg PO Q4H PRN PRN Reason: FEVER/PAIN Aspirin (Aspirin 81 Mg Chew Tab*) 81 mg PO DAILY [facility] Last Admin: 03/16/19 08:07 Dose: 81 mg Bupropion HCl (Wellbutrin Sr Tab*) 300 mg PO DAILY [facility] Last Admin: 03/16/19 08:08 Dose: 300 mg Carvedilol (Coreg Tab*) 12.5 mg PO QAM [facility] Last Admin: 03/16/19 08:08 Dose: 12.5 mg Carvedilol (Coreg Tab*) 6.25 mg PO 2100 [facility] Last Admin: 03/15/19 22:07 Dose: 6.25 mg Clopidogrel Bisulfate (Plavix Tab*) 75 mg PO DAILY [facility] Last Admin: 03/16/19 08:07 Dose: 75 mg Dextrose (D50w Syringe 50 Ml*) 12.5 gm IV PUSH .FOR FS < 60 - SS PRN PRN Reason: FS < 60 Duloxetine HCl (Cymbalta Cap*) 20 mg PO DAILY [facility] Last Admin: 03/16/19 08:08 Dose: 20 mg Heparin Sodium (Porcine) (Heparin Vial(*)) 5,000 units SUBCUT Q8HR [facility] Last Admin: 03/16/19 05:54 Dose: 5,000 units Insulin Human Lispro (Humalog*) 0 units SUBCUT AC [facility]; Protocol Last Admin: 03/16/19 11:21 Dose: Not Given Minocycline HCl (Minocycline (Nf)) 100 mg PO DAILY [facility] Last Admin: 03/16/19 08:08 Dose: 100 mg Montelukast Sodium (Singulair Tab*) 10 mg PO BEDTIME [facility] Last Admin: 03/15/19 22:07 Dose: 10 mg Ondansetron HCl (Zofran Tab*) 4 mg PO Q4H PRN PRN Reason: NAUSEA Last Admin: 03/16/19 09:47 Dose: 4 mg Potassium Chloride (Klor Con Er Tab*) 10 meq PO TID [facility] Tramadol HCl (Ultram*) 25 mg PO Q8H PRN PRN Reason: PAIN Vital Signs - 8 hr 03/16/19 03/16/19 03/16/19 07:52 09:47 11:21 Temperature 97.8 F Pulse Rate 80 Respiratory 21 16 16 Rate Blood Pressure 136/62 (mmHg) O2 Sat by Pulse 100 Oximetry Oxygen Devices in Use Now: None Appearance: Alert, lying on L side in bed. Neutral affect, looksw comfortable. Respiratory: Symmetrical Chest Expansion and Respiratory Effort, Clear to Auscultation, Clear to Percussion Cardiovascular: NL Sounds; No Murmurs; No JVD, RRR, No Edema, - Extremities: No Edema, No Clubbing, Cyanosis, - Skin: No Rash or Ulcers, No Nodules or Sclerosis, - Neurological: Alert and Oriented x 3, NL Sensation - No tremor. - Nutrition: Malnutrition Diagnosis/Plan Malnutrition Assessment by Registered Dietitian: Malnutrition Assessment Clinical Characteristics Acute,Severe Malnutrition Assessment: 8.5% wt loss x 1 week (severe) Criteria < or = 50% EEE x > or = 5 days Malnutrition Assessment: Trial Ensure Clear this afternoon and monitor Interventions acceptance. 240 kcal, 8 g pro per serving. Malnutrition Assessment: Goals 1. Pt will tolerate PO without diarrhea/ vomiting 2. Intake will be adequate to maintain stable body wt and preserve/replete lean body mass 3. LFTs, Cr, and electrolytes will normalize with adequate intake and hydration Result Diagrams: 03/15/19 06:31 03/16/19 06:21 Additional Lab and Data: Lab Results 03/14/19 Range/Units 19:05 WBC 10.0 (3.5-10.8) 10^3/uL RBC 5.04 H (3.70-4.87) 10^6 /uL Hgb 13.1 (12.0-16.0) g/dL Hct 40 (35-47) % MCV 80 (80-97) fL MCH 26 L (27-31) pg MCHC 32 (31-36) g/dL RDW 21 H (10.5-15) % Plt Count 185 (150-450) 10^3/uL MPV 9.2 (7.4-10.4) fL Neut % (Auto) 72.1 % Lymph % (Auto) 14.3 % [place] % (Auto) 12.5 % Eos % (Auto) 0.5 % Baso % (Auto) 0.6 % Absolute Neuts (auto) 7.2 (1.5-7.7) 10^3/ul Absolute Lymphs (auto) 1.4 (1.0-4.8) 10^3/ul Absolute Monos (auto) 1.2 H (0-0.8) 10^3/ul Absolute Eos (auto) 0.0 (0-0.6) 10^3/ul Absolute Basos (auto) 0.1 (0-0.2) 10^3/ul Absolute Nucleated RBC 0.0 10^3/ul Nucleated RBC % 0.1 Microbiology and Other Data: Microbiology 03/15/19 09:50 Urine Culture - Final Urine No Growth (<1,000 CFU/mL) Assess/Plan/Problems-Billing Assessment: - Patient Problems (1) Ischemic cardiomyopathy Current Visit: Yes Status: Acute Code(s): I25.5 - ISCHEMIC CARDIOMYOPATHY SNOMED Code(s): 268656980 Comment: Lisinopril, rosuvastatin on hold. Continue carvedilol, ASA, clopidogrel. (2) Acute renal failure Current Visit: No Status: Resolved Comment: Improved. Creatinine down to 1.28 on 03/16. (3) Hypokalemia Current Visit: Yes Status: Acute Code(s): E87.6 - HYPOKALEMIA SNOMED Code( s): 18784773 Comment: Reduce potassium to 10 meq tid, 03/16. She thinks the potassium gives her nausea. Repeat labs 03/18.. (4) Malnutrition Current Visit: Yes Status: Acute Code(s): E46 - UNSPECIFIED PROTEIN-CALORIE MALNUTRITION SNOMED Code(s): 92468810 Comment: Prealbumin requested addon. Nausea may be part of problem, coulg be related to tramadol. Tramadol dose decreased to 25 mg q 8 hr PNR on 03/16. Patient reluctant to consider EGD as Dr. Herring said her heart was too weak for cataract surgery. (5) Anemia Current Visit: No Status: Acute Code(s): D64.9 - ANEMIA, UNSPECIFIED SNOMED Code(s): 929219244 Comment: stable
[2019-03-16] MEDS: Potassium Chlor TAB* 10 MEQ TAB.ER PO SCH ×2 (13:09→21:16)
[2019-03-16] MEDS: traMADol TAB* 50 MG PO PRN (21:15)
[2019-03-16] MEDS: Montelukast Sodium TAB* 10 MG PO SCH (21:15)
[2019-03-17] MEDS: Heparin VIAL(*) 5000 UNITS/ML VIAL (FIVE THOUSAND) SUBCUT SCH ×3 (05:58→20:30)
[2019-03-17] MEDS: Insulin LISPRO* 1 UNITS UNIT SUBCUT SCH ×3 (08:11→17:53)
[2019-03-17] MEDS: traMADol TAB* 50 MG PO PRN (08:18)
[2019-03-17] MEDS: buPROPion SR TAB.SR* 150 MG PO SCH (08:19)
[2019-03-17] MEDS: CMCS - Minocycline (NF) 50 MG CAP PO SCH (08:19)
[2019-03-17] MEDS: Ondansetron TAB* 4 MG PO PRN ×3 (08:19→20:29)
[2019-03-17] MEDS: DULoxetine DR CAP* 20 MG CAP.DR PO SCH (08:19)
[2019-03-17] MEDS: Clopidogrel TAB* 75 MG PO SCH (08:20)
[2019-03-17] MEDS: Potassium Chlor TAB* 10 MEQ TAB.ER PO SCH ×3 (08:20→20:27)
[2019-03-17] MEDS: Carvedilol TAB* 6.25 MG PO SCH ×2 (08:20→20:36)
[2019-03-17] MEDS: Aspirin 81 mg CHEW TAB* 81 MG TAB.CHEW PO SCH (08:20)
--- NOTE | 2019-03-17 09:34 | PN ---
Subjective Date of Service: 03/17/19 Interval History: No new c/o. Appetite poor. Objective Active Medications: Acetaminophen (Tylenol Tab*) 650 mg PO Q4H PRN PRN Reason: FEVER/PAIN Aspirin (Aspirin 81 Mg Chew Tab*) 81 mg PO DAILY [facility] Last Admin: 03/17/19 08:20 Dose: 81 mg Bupropion HCl (Wellbutrin Sr Tab*) 300 mg PO DAILY [facility] Last Admin: 03/17/19 08:19 Dose: 300 mg Carvedilol (Coreg Tab*) 12.5 mg PO QAM [facility] Last Admin: 03/17/19 08:20 Dose: 12.5 mg Carvedilol (Coreg Tab*) 6.25 mg PO 2100 [facility] Last Admin: 03/16/19 21:15 Dose: 6.25 mg Clopidogrel Bisulfate (Plavix Tab*) 75 mg PO DAILY [facility] Last Admin: 03/17/19 08:20 Dose: 75 mg Cosyntropin (Cosyntropin*) 0.25 mg IV ONCE ONE Stop: 03/17/19 10:01 Dextrose (D50w Syringe 50 Ml*) 12.5 gm IV PUSH .FOR FS < 60 - SS PRN PRN Reason: FS < 60 Duloxetine HCl (Cymbalta Cap*) 20 mg PO DAILY [facility] Last Admin: 03/17/19 08:19 Dose: 20 mg Heparin Sodium (Porcine) (Heparin Vial(*)) 5,000 units SUBCUT Q8HR [facility] Last Admin: 03/17/19 05:58 Dose: 5,000 units Insulin Human Lispro (Humalog*) 0 units SUBCUT AC [facility]; Protocol Last Admin: 03/17/19 08:11 Dose: Not Given Minocycline HCl (Minocycline (Nf)) 100 mg PO DAILY [facility] Last Admin: 03/17/19 08:19 Dose: 100 mg Montelukast Sodium (Singulair Tab*) 10 mg PO BEDTIME [facility] Last Admin: 03/16/19 21:15 Dose: 10 mg Ondansetron HCl (Zofran Tab*) 4 mg PO Q4H PRN PRN Reason: NAUSEA Last Admin: 03/17/19 08:19 Dose: 4 mg Potassium Chloride (Klor Con Er Tab*) 10 meq PO TID [facility] Last Admin: 03/17/19 08:20 Dose: 10 meq Tramadol HCl (Ultram*) 25 mg PO Q8H PRN PRN Reason: PAIN Last Admin: 03/17/19 08:18 Dose: 25 mg Vital Signs - 8 hr 03/17/19 03/17/19 03:30 08:18 Temperature 98.4 F Pulse Rate 81 Respiratory 18 18 Rate Blood Pressure 106/42 (mmHg) O2 Sat by Pulse 100 Oximetry Oxygen Devices in Use Now: None Appearance: Alert, partly up in bed. In fair spirits. Looks weak but comfortable. Eyes: No Scleral Icterus Respiratory: Symmetrical Chest Expansion and Respiratory Effort, Clear to Auscultation, Clear to Percussion Cardiovascular: NL Sounds; No Murmurs; No JVD, RRR, No Edema, - Extremities: No Edema, No Clubbing, Cyanosis, - Skin: No Rash or Ulcers, No Nodules or Sclerosis, - - markedly hyperpigmented. Neurological: Alert and Oriented x 3, NL Sensation - Nutrition: Malnutrition Diagnosis/Plan Malnutrition Assessment by Registered Dietitian: Malnutrition Assessment Clinical Characteristics Acute,Severe Malnutrition Assessment: 8.5% wt loss x 1 week (severe) Criteria < or = 50% EEE x > or = 5 days Malnutrition Assessment: Trial Ensure Clear this afternoon and monitor Interventions acceptance. 240 kcal, 8 g pro per serving. Malnutrition Assessment: Goals 1. Pt will tolerate PO without diarrhea/ vomiting 2. Intake will be adequate to maintain stable body wt and preserve/replete lean body mass 3. LFTs, Cr, and electrolytes will normalize with adequate intake and hydration Result Diagrams: 03/15/19 06:31 03/16/19 06:21 Additional Lab and Data: Lab Results 03/14/19 Range/Units 19:05 WBC 10.0 (3.5-10.8) 10^3/uL RBC 5.04 H (3.70-4.87) 10^6 /uL Hgb 13.1 (12.0-16.0) g/dL Hct 40 (35-47) % MCV 80 (80-97) fL MCH 26 L (27-31) pg MCHC 32 (31-36) g/dL RDW 21 H (10.5-15) % Plt Count 185 (150-450) 10^3/uL MPV 9.2 (7.4-10.4) fL Neut % (Auto) 72.1 % Lymph % (Auto) 14.3 % [place] % (Auto) 12.5 % Eos % (Auto) 0.5 % Baso % (Auto) 0.6 % Absolute Neuts (auto) 7.2 (1.5-7.7) 10^3/ul Absolute Lymphs (auto) 1.4 (1.0-4.8) 10^3/ul Absolute Monos (auto) 1.2 H (0-0.8) 10^3/ul Absolute Eos (auto) 0.0 (0-0.6) 10^3/ul Absolute Basos (auto) 0.1 (0-0.2) 10^3/ul Absolute Nucleated RBC 0.0 10^3/ul Nucleated RBC % 0.1 Microbiology and Other Data: Microbiology 03/15/19 09:50 Urine Culture - Final Urine No Growth (<1,000 CFU/mL) Assess/Plan/Problems-Billing Assessment: - Patient Problems (1) Ischemic cardiomyopathy Current Visit: Yes Status: Acute Code(s): I25.5 - ISCHEMIC CARDIOMYOPATHY SNOMED Code(s): 890237207 Comment: Lisinopril, rosuvastatin on hold. Continue carvedilol, ASA, clopidogrel. (2) Hypokalemia Current Visit: Yes Status: Acute Code(s): E87.6 - HYPOKALEMIA SNOMED Code( s): 10101290 Comment: Reduce potassium to 10 meq tid, 03/16. She thinks the potassium gives her nausea. Repeat labs 03/18.. (3) Malnutrition Current Visit: Yes Status: Acute Code(s): E46 - UNSPECIFIED PROTEIN-CALORIE MALNUTRITION SNOMED Code(s): 59099764 Comment: Prealbumin 12 on 03/16. Nausea may be part of problem, could be related to tramadol. Tramadol dose decreased to 25 mg q 8 hr PNR on 03/16. Patient reluctant to consider EGD as Dr. Herring said her heart was too weak for cataract surgery. Calorie count ordered 03/17. Supplemnents tid ordered 03/17. (4) Anemia Current Visit: No Status: Acute Code(s): D64.9 - ANEMIA, UNSPECIFIED SNOMED Code(s): 761382430 Comment: stable (5) Hyperpigmentation Current Visit: Yes Status: Acute Code(s): L81.9 - DISORDER OF PIGMENTATION, UNSPECIFIED SNOMED Code(s): 74867062 Comment: AM cortisol 11.25 03/15/19. Cosyntropin stim test 03/17.
[2019-03-17] MEDS ORDERED: Cosyntropin* 0.25 MG VIAL IV ONE (10:00)
[2019-03-17 12:28] LABS: % Iron Saturation 61 % (15-55); Iron 105 ug/dL (50-212); Total Iron Binding Capacity 171 mcg/dL (250-450); Transferrin 122 mg/dL (203-362)
[2019-03-17 12:48] LABS: Ferritin 47.2 ng/mL (11-307)
[2019-03-17 14:37] LABS: Carcinoembryonic Antigen 3.8 ng/mL (0.1-5.0)
--- NOTE | 2019-03-17 17:23 | CONS ---
CONSULTATION REPORT: DATE OF CONSULT: REFERRING PHYSICIAN: Dr. Welsh. PRIMARY CARE PHYSICIAN: Dr. Gordon. REASON FOR CONSULT: Weight loss. HISTORY OF PRESENT ILLNESS: Ms. Nazario is a 68-year-old female with severe respiratory and cardiac disease. She has had several admissions over the past year and a half for COPD exacerbation and CHF. She presented on 03/14/19 with the complaints of anorexia and weight loss. She feels her loss of appetite started approximately 2 months ago. Food is not appealing. She has not had any abdominal pain, but has had some intermittent diarrhea. Her weight has been in the 150s at baseline and it has gone down to 129 on presentation that is on 03/14/19. She also has had progressive weakness. This happened gradually over 2 months as well with limited mobility and then it has gone to the point where she can hardly sit up herself or walk without assistance. reports progressive weakness since approximately third week of December when she was last discharged from the hospital, and it has been getting worse over the past several weeks. She denies dysphagia or obstructive symptoms. Denies fever, chills, or night sweats. She has longstanding iron deficiency anemia, but denies seeing bright red blood in her stool. She has not had any symptoms of failure, no edema, no shortness of breath, no chest pain. She has had no fevers or chills. No swollen glands or lymph nodes. No skin lesions. PAST MEDICAL HISTORY: 1. COPD, multiple admissions with COPD exacerbation including a stay in the ICU late last year. 2. CHF. She has severe cardiomyopathy with ejection fraction of 20% to 25%. ICD placement, thought to be secondary to atherosclerotic disease. 3. Coronary artery disease. No clear record of revascularization. 4. Insulin dependent diabetes, type 2. 5. Hypertension. 6. Hyperlipidemia. 7. GERD. 8. Chronic back pain, status post lumbar surgery in the past. 9. Longstanding iron deficiency anemia. 10. Virtual colonoscopy in October 2018 with asymmetry in the sigmoid colon, question of mass. PAST SURGICAL HISTORY: 1. Femoral artery bypass surgery, both sides. 2. ICD placement. 3. Lumbar spine surgery. MEDICATIONS: At this time in the hospital, she is managed with: 1. Tylenol 650 q.4 p.r.n. 2. Aspirin 81 mg a day. 3. Wellbutrin 300 mg daily. 4. Carvedilol 2.5 mg q.a.m. 5. Coreg 6.5 at night. 6. Plavix 75 mg daily. 7. Cymbalta 20 mg daily. 8. Subcu insulin. 9. Minocycline 100 mg p.o. daily. 10. Singulair 10 mg a day. 11. Zofran 4 mg q.4 p.r.n. 12. Potassium chloride 10 mEq t.i.d. 13. Ultram 25 mg q.8 p.r.n. pain. At home, her diabetes is managed with: 1. Glipizide. 2. Bydureon 2 mg subcu weekly. She takes gabapentin 400 mg 4 times a day for chronic pain. ALLERGIES: 1. ATORVASTATIN. 2. MORPHINE. 3. NICKEL. 4. SHELL FISH. 5. TOPICAL LIDOCAINE. FAMILY HISTORY: Mother had lung cancer, she was a smoker. Father had coronary artery disease. There is diabetes in the family. SOCIAL HISTORY: She is a former smoker, over [id number], quit in 2002. Her is with her in the hospital, and her and daughter are her closest family. REVIEW OF SYSTEMS: General: Fatigue and weakness. No fever, chills, or night sweats. HEENT: Negative. Skin: Excessive bruising. Every time she takes her insulin injection, has bruises in the arms. Respiratory: COPD, but recently breathing has been fine. Cardiac: CHF and coronary artery disease, but not had any chest pain and no swelling of the ankles recently. GI: As noted above. : Polyuria. Musculoskeletal: Some chronic joint pains, but nothing has changed recently. Neurologic: No complaints of increased memory loss. PHYSICAL EXAM: Temperature 97.6, BP 137/76, heart rate 88, respirations 16, O2 sat 99%. Ill appearing and ashen. HEENT: Conjunctive pale. Mucosa dry. No JVD. No lymphadenopathy. Lungs: Decreased breath sounds. No wheezes or crackles. Heart: Decreased heart sounds, rate in the 70s and regular. S1 and S2. Abdomen: Obese, nontender, and nondistended. No palpable hepatosplenomegaly, but exam is nonspecific. Nodes: No peripheral lymphadenopathy. Extremities: Cool, but with good pulses. Neurological: Alert and oriented x3, otherwise full exam deferred. DIAGNOSTIC STUDIES/LAB DATA: She had virtual colonoscopy in October that showed questionable sigmoid lesion. On that study, noncontrast image of the liver was unremarkable and showed a fairly normal spleen size, no clear lymphadenopathy. Hemoglobin 10.7 with MCV of 81 and RDW of 21%, consistent with longstanding iron deficiency. Platelets are 132 and white count 8.5. Chemistry showed creatinine 1.28, up from baseline, down from admission. Glucose is better controlled. AST 85, ALT 81, alk phos 225 and normal bilirubin. Albumin is 2.3 , from baseline of 3.4 as recently as in December. Prealbumin is 12. ASSESSMENT AND PLAN: A 68-year-old female with multiple chronic medical problems including severe cardiac and pulmonary disease and now has acute decompensation with anorexia and progressive weight loss. It does not appear to be cardiogenic or related to her COPD. She has longstanding iron deficiency anemia, but with deferred evaluation secondary to her medical comorbidities. Recent CT scan in October and virtual colonoscopy raises a question of sigmoid pathology. Differential diagnosis for progressive weight loss includes occult worsening of her cardiac disease, chronic lower GI bleed with progressive anemia. She had hemoglobin of 13.1 on admission, but this is due to dehydration. Looking back at her blood counts from December, she has been on a low side of her baseline, occult malignancy. 1. Evaluation for malignancy. Longstanding smoker. No recent chest imaging, we will check noncontrast CT of the chest. Contrast scan of the abdomen and pelvis would be helpful, but impractical with her current creatinine clearance. We will check a CEA. She did have an ultrasound of her liver without clear lesions. 2. Iron deficiency. No oral iron given chronic constipation. We will start IV iron 125 mg daily while she is in the hospital. Hold on transfusions for risk of fluid overload. 3. We will continue current medications, but if any biopsy is planned, we need to hold the Plavix for at least 5 days. 4. Malnutrition. Managed by Dr. Welsh. Nutrition consult and nutrient supplementation. 5. We will follow up on studies ordered today and follow during hospitalization. [id number]/[facility] #: [id number] [facility] CENTERFlorentin
[2019-03-17] MEDS: Montelukast Sodium TAB* 10 MG PO SCH (20:29)
[2019-03-18] MEDS: Heparin VIAL(*) 5000 UNITS/ML VIAL (FIVE THOUSAND) SUBCUT SCH ×3 (05:10→21:59)
[2019-03-18 06:59] LABS: BUN/Creatinine Ratio 12.6 (8-20); Calcium 8.1 mg/dL (8.6-10.3); EGFR African American 54.6 (>60); EGFR Non-African American 45.1 (>60); Potassium 4.5 mmol/L (3.5-5.0)
[2019-03-18] MEDS: Insulin LISPRO* 1 UNITS UNIT SUBCUT SCH ×3 (07:40→17:22)
[2019-03-18] MEDS ORDERED: Ferric Gluconate IV* 25 MG in NS 0.9% 50 ML* 50 ML IVPB ONE (08:22)
[2019-03-18] MEDS ORDERED: Ferric Gluconate IV* 100 MG in NS 0.9% 100 ML* 100 ML IVPB ONE (08:23)
[2019-03-18 09:42] LABS: Albumin 2.2 g/dL (3.2-5.2); Albumin/Globulin Ratio 0.9 (1-3); Globulin 2.5 g/dL (2-4); Indirect Bilirubin 0.4 mg/dL (0.3-1.0); Total Bilirubin 0.6 mg/dL (0.2-1.0); Total Protein 4.7 g/dL (6.4-8.9)
[2019-03-18] MEDS: DULoxetine DR CAP* 20 MG CAP.DR PO SCH (09:43)
[2019-03-18] MEDS: CMCS - Minocycline (NF) 50 MG CAP PO SCH (09:43)
[2019-03-18] MEDS: Potassium Chlor TAB* 10 MEQ TAB.ER PO SCH (09:44)
[2019-03-18] MEDS: Clopidogrel TAB* 75 MG PO SCH (09:44)
[2019-03-18] MEDS: buPROPion SR TAB.SR* 150 MG PO SCH (09:44)
[2019-03-18] MEDS: Aspirin 81 mg CHEW TAB* 81 MG TAB.CHEW PO SCH (09:45)
[2019-03-18] MEDS: Carvedilol TAB* 6.25 MG PO SCH ×2 (09:45→21:59)
[2019-03-18] MEDS: Ondansetron TAB* 4 MG PO PRN ×2 (10:06→16:18)
[2019-03-18] MEDS: PROCHLORPERAZINE INJ 5 MG/ML 2 ML VIAL IV PRN ×2 (11:21→17:26)
--- NOTE | 2019-03-18 12:27 | PN ---
Subjective Date of Service: 03/18/19 Interval History: Pt has lost 20 lbs in the past 2 weeks . Has had chronic LBP and surgery on l spine ith the past. Currently c/o no pain. BM was solid yesterday. c/o constant nausea and no appetite Objective Active Medications: Acetaminophen (Tylenol Tab*) 650 mg PO Q4H PRN PRN Reason: FEVER/PAIN Last Admin: 03/17/19 20:27 Dose: 650 mg Aspirin (Aspirin 81 Mg Chew Tab*) 81 mg PO DAILY [facility] Last Admin: 03/18/19 09:45 Dose: 81 mg Bupropion HCl (Wellbutrin Sr Tab*) 300 mg PO DAILY [facility] Last Admin: 03/18/19 09:44 Dose: 300 mg Carvedilol (Coreg Tab*) 12.5 mg PO QAM [facility] Last Admin: 03/18/19 09:45 Dose: 12.5 mg Carvedilol (Coreg Tab*) 6.25 mg PO 2100 [facility] Last Admin: 03/17/19 20:36 Dose: 6.25 mg Clopidogrel Bisulfate (Plavix Tab*) 75 mg PO DAILY [facility] Last Admin: 03/18/19 09:44 Dose: 75 mg Dextrose (D50w Syringe 50 Ml*) 12.5 gm IV PUSH .FOR FS < 60 - SS PRN PRN Reason: FS < 60 Duloxetine HCl (Cymbalta Cap*) 20 mg PO DAILY [facility] Last Admin: 03/18/19 09:43 Dose: 20 mg Heparin Sodium (Porcine) (Heparin Vial(*)) 5,000 units SUBCUT Q8HR [facility] Last Admin: 03/18/19 05:10 Dose: 5,000 units Ferric Sodium Gluconate Complex 125 mg/ Sodium Chloride 110 mls @ 110 mls/hr IVPB DAILY [facility] Stop: 03/26/19 08:59 Insulin Human Lispro (Humalog*) 0 units SUBCUT AC [facility]; Protocol Last Admin: 03/18/19 07:40 Dose: Not Given Minocycline HCl (Minocycline (Nf)) 100 mg PO DAILY [facility] Last Admin: 03/18/19 09:43 Dose: 100 mg Montelukast Sodium (Singulair Tab*) 10 mg PO BEDTIME [facility] Last Admin: 03/17/19 20:29 Dose: 10 mg Ondansetron HCl (Zofran Tab*) 4 mg PO Q4H PRN PRN Reason: NAUSEA Last Admin: 03/18/19 10:06 Dose: 4 mg Potassium Chloride (Klor Con Er Tab*) 10 meq PO TID [facility] Last Admin: 03/18/19 09:44 Dose: 10 meq Prochlorperazine Edisylate (Compazine Inj*) 5 mg IV Q6H PRN PRN Reason: NAUSEA/VOMITING Last Admin: 03/18/19 11:21 Dose: 5 mg Tramadol HCl (Ultram*) 25 mg PO Q8H PRN PRN Reason: PAIN Last Admin: 03/17/19 08:18 Dose: 25 mg Vital Signs - 8 hr 03/18/19 03/18/19 03/18/19 07:40 07:41 11:36 Temperature 99.2 F 96.7 F Pulse Rate 83 76 Respiratory 18 18 16 Rate Blood Pressure 130/67 121/61 (mmHg) O2 Sat by Pulse 100 100 Oximetry Oxygen Devices in Use Now: None Appearance: 68 yo F in nAD, AAOx3 Eyes: No Scleral Icterus, PERRLA Ears/Nose/Mouth/Throat: NL Teeth, Lips, Gums, Mucous Membranes Moist Neck: NL Appearance and Movements; NL JVP, Trachea Midline Respiratory: Symmetrical Chest Expansion and Respiratory Effort, Clear to Auscultation Cardiovascular: NL Sounds; No Murmurs; No JVD, RRR Abdominal: NL Sounds; No Tenderness; No Distention Lymphatic: No Cervical Adenopathy Extremities: No Edema, No Clubbing, Cyanosis Skin: No Rash or Ulcers, - - cardoza disoloration of skin with multiple hyperpigmented spots on dorsum of both hands-"sun spots" Neurological: Alert and Oriented x 3, NL Muscle Strength and Tone - Nutrition: Malnutrition Diagnosis/Plan Malnutrition Assessment by Registered Dietitian: Malnutrition Assessment Clinical Characteristics Acute,Severe Malnutrition Assessment: 8.5% wt loss x 1 week (severe) Criteria < or = 50% EEE x > or = 5 days Malnutrition Assessment: Trial Ensure Clear this afternoon and monitor Interventions acceptance. 240 kcal, 8 g pro per serving. Malnutrition Assessment: Goals 1. Pt will tolerate PO without diarrhea/ vomiting 2. Intake will be adequate to maintain stable body wt and preserve/replete lean body mass 3. LFTs, Cr, and electrolytes will normalize with adequate intake and hydration Result Diagrams: 03/15/19 06:31 03/18/19 06:22 Additional Lab and Data: Lab Results 03/14/19 Range/Units 19:05 WBC 10.0 (3.5-10.8) 10^3/uL RBC 5.04 H (3.70-4.87) 10^6 /uL Hgb 13.1 (12.0-16.0) g/dL Hct 40 (35-47) % MCV 80 (80-97) fL MCH 26 L (27-31) pg MCHC 32 (31-36) g/dL RDW 21 H (10.5-15) % Plt Count 185 (150-450) 10^3/uL MPV 9.2 (7.4-10.4) fL Neut % (Auto) 72.1 % Lymph % (Auto) 14.3 % [place] % (Auto) 12.5 % Eos % (Auto) 0.5 % Baso % (Auto) 0.6 % Absolute Neuts (auto) 7.2 (1.5-7.7) 10^3/ul Absolute Lymphs (auto) 1.4 (1.0-4.8) 10^3/ul Absolute Monos (auto) 1.2 H (0-0.8) 10^3/ul Absolute Eos (auto) 0.0 (0-0.6) 10^3/ul Absolute Basos (auto) 0.1 (0-0.2) 10^3/ul Absolute Nucleated RBC 0.0 10^3/ul Nucleated RBC % 0.1 Microbiology and Other Data: Microbiology 03/15/19 09:50 Urine Culture - Final Urine No Growth (<1,000 CFU/mL) Assess/Plan/Problems-Billing Assessment: 68 yo f with h/o ischemic cardiomyopathy EF 20% presents with progressive wt loss, constant nausea - Patient Problems (1) Malnutrition Comment: Prealbumin 12 on 03/16. Nausea may be part of problem, could be related to tramadol. Tramadol dose decreased to 25 mg q 8 hr PNR on 03/16. Patient reluctant to consider EGD/colononoscopy as Dr. Herring said her heart was too weak for cataract surgery. Cardiology consulted for clearance. Supplemnents tid ordered 03/17. Oncology consult appreciated. Possible occult malignancy. CT chest neg. will get CT abd. Pt had abn on sigmoid noted on virtual colonoscopy in 10/2018-GI consulted. (2) CKD (chronic kidney disease) stage 3, GFR 30-59 ml/min Comment: chronic, creat at baseline (3) Hyperpigmentation Comment: AM cortisol 11.25 03/15/19. Cosyntropin stim test appropiate response (4) Ischemic cardiomyopathy Current Visit: Yes Comment: Lisinopril, rosuvastatin on hold. Continue carvedilol, ASA, clopidogrel. Asked cardiology to see pt in consult and possible clearance for colonsocopy (5) Anemia Comment: stable , on iron infusions as per oncology (6) Diabetes Comment: FS ACHS lispro SS (7) DVT prophylaxis Comment: HSQ Status and Disposition: inpatient
--- NOTE | 2019-03-18 17:09 | CONS ---
CC: Dr. Gordon; Dr. Pappas; Dr. Herring; Hospitalist Service CARDIOLOGY CONSULT: DATE OF CONSULT: 03/18/19 HISTORY OF PRESENT ILLNESS: I was asked by hospitalist service to see this 68- year- old female patient, who was hospitalized with weight loss of unclear etiology. On further evaluation, there was some concern of occult malignancy. The patient had a CT of the chest that showed emphysema and atherosclerosis. There was some suggestion to proceed with EGD and colonoscopy for further evaluation; however, the patient does have known history of severe ischemic/ nonischemic cardiomyopathy with an EF reported at 10%. Her last echo was back on 02/03/19, EF less than 20%. There is moderate mitral insufficiency as well. The patient had history of coronary artery disease with intervention in the past , ICD. She is scheduled to have an upgrade to a biventricular ICD next month. At some point, she could not tolerate Entresto and she was seen recently at the Cardiology office and there was suggestion to increase her carvedilol instead. She had history of systemic arterial hypertension as well as hyperlipidemia, history of congestive heart failure in the past, diabetes mellitus, DVT, history of tobacco consumption, obesity, arthritis, history of carotid disease, and vascular disease. Herself, she gives no significant history of chest pain, no orthopnea, no PND, no dizziness, no syncope, no fever, no chills, no skin rash, no tremors, no hematochezia. Her major concern was the weight loss. Her review of all other systems essentially is negative. PAST MEDICAL HISTORY: Extensive including history of coronary artery disease, severe cardiomyopathy, mitral insufficiency, hyperlipidemia, CAD, arthritis, and DVT, status post ICD implantation. 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 MEDICATIONS: Her medications as an inpatient include: 1. Tylenol 650 mg p.o. q.4 hours p.r.n. 2. Aspirin 81 mg daily. 3. Coreg 12.5 mg daily. 4. Plavix 75 mg daily. 5. Heparin 5000 units subcu q.8 hours. 6. Insulin. 7. Singulair. 8. Tramadol 25 mg p.o. q.8 hours. ALLERGIES: She is allergic to SHELLFISH, IODINE, LIPITOR, MORPHINE. FAMILY HISTORY: No family history of premature coronary artery disease, although her father of [place] at age 75. SOCIAL HISTORY: History of smoking, although she quit. No history of illicit drug use. No significant alcohol drinking. REVIEW OF SYSTEMS: Her review of all other systems essentially is negative. PHYSICAL EXAM: On exam, she is frail and she looks jaundiced and pale. Vitals : Blood pressure 121/61; pulse 76, sinus; respiratory rate 16; temperature 96.7. Head and Neck Exam: Normocephalic, atraumatic head. Ears, Nose, and Throat: Essentially benign. Neck: Supple. JVP is not elevated. No carotid bruits. No masses in the neck are appreciated. Chest: Clear to auscultation. No rales, no wheeze. No added sounds appreciated. Heart: Normal S1, S2. No added sounds. No gallops, no rubs. Abdomen: Benign. Positive bowel sounds. Extremities: No edema, no cyanosis, no clubbing. Skin Exam: She appears to be jaundiced. PLATE CUTTER: No focal deficits. Psych: Normal affect and mood. DIAGNOSTIC STUDIES/LAB DATA: Her labs showed the following: White blood cells 8.5, hemoglobin 10.7, hematocrit 34, platelets 132. Sodium 138, potassium 4.5, chloride 109, BUN 15, creatinine 1.19. Direct bilirubin 0.20, AST 66, ALT 75. Her EKG showed her to be in sinus rhythm; poor R-wave progression; Qs in V1, V2 , V3; PVC appreciated. IMPRESSION: The patient is a 68-year-old female patient with: 1. Admitted for further evaluation of significant weight loss and concerns for occult malignancy. 2. Severe ischemic/nonischemic cardiomyopathy with last EF reported by an echo done January 2019 less than 20%. 3. Moderate mitral insufficiency. 4. History of coronary artery disease, status post angioplasty and stenting in the past. 5. Status post ICD implantation and she is scheduled to have an upgrade to a biventricular ICD next month in [place]. 6. Obesity. 7. Systemic arterial hypertension. 8. Hyperlipidemia. 9. Diabetes mellitus. 10. Vascular disease. PLAN: This patient is considered a very high risk to proceed for procedures based on her severe cardiomyopathy with EF 10%, significant comorbidities. As Dr. Herring indicated in the past and recommends against surgeries. At the present time, I have discussed this with the patient and her daughter, who was at bedside. I answered all their concerns and questions up to their satisfaction and they understand that she is very high risk to proceed. For the present time, I do recommend continuing medical treatment as you are already doing with her aspirin, beta-gage treatment. TIME SPENT: More than half of at least 60 to 65 plus minutes was in the education and counseling mode answering their concerns and questions and making above recommendations. [id number]/[facility] #: [id number] BEATRIZ
--- NOTE | 2019-03-18 19:40 | CONS ---
GASTROENTEROLOGY CONSULT: DATE OF CONSULT: 03/18/19 CONSULTING PHYSICIANS: Corinne Fleming, Abran Gordon, Valentino Herring. REASON FOR CONSULT: Anorexia; weight loss; abnormal LFTs, low albumin (2.2); iron deficiency anemia and sigmoid abnormality on virtual colonoscopy 11/16/18, yet to have been definitively evaluated or biopsied. HISTORY: This 68-year-old woman with severe cardiomyopathy and COPD, was evaluated for the heart transplant program at [place] in 2001 or 2002 though ultimately decided not to be listed. There have been several recent admissions for exacerbations and two months ago, she was again admitted with weakness and was treated for pneumonia . She had a cardiac evaluation and has been followed closely since then. Nonetheless, she has continued to feel weak and anorectic and has become less and less functional and was admitted 4 days ago. She was also complaining of diarrhea. Since admission, she has had some IV fluid, potassium, and an iron infusion. Her creatinine has fallen from 1.90 to 1.19. Other labs of note are albumin 2.2 (down from 3.4, 01/06/19) with alkaline phosphatase 206, ALT 75, and total bilirubin 0.6. PAST MEDICAL HISTORY: 1. Cardiomyopathy - in 2002 she went through a full workup in [place], to be potentially listed for heart transplant, but elected not to do so. The evaluation did include a colonoscopy. 2. Iron-deficiency anemia - other than the 2003 colonoscopy, she has not had any endoscopic evaluation and recently 04/12/17 her iron saturation was 4%, iron 16, ferritin less than 10. Eventually, it was elected in fall 2017 to have a Cologuard and it was positive, so she had the virtual colonoscopy, which showed thickening in the sigmoid colon and after further consideration it was elected not to attempt colonoscopy. The russell images are sagittal 57 of 147 and axial 68 of 97. 3. COPD - she quit smoking a number of years ago. 4. Peripheral vascular disease - she has had stents on the iliac arteries. 5. Chronic back pain - she is followed in the pain clinic. 6. GERD - on a PPI in the past then off certain lists then back on admission and discharge December 2018 7. Insulin-dependent diabetes type 2. 8. ICD placement - left subclavicular. 9. Lumbar spine surgery. MEDICATIONS: Of GI relevance: Aspirin 81, Plavix 75, Cymbalta 20, Glipizide. SOCIAL HISTORY: She is . Her daughter tends to go to all her appointments at least in recent years. REVIEW OF SYSTEMS: Reviewed other ROS. No history of vomiting recently, though she gags and is very anorectic. No dysphagia. She does not see any bright red blood in the stool. In 2016, she was taking Prilosec and Reglan and at some point they were off her list then reappeared. Discontinuence dates on those are not known. PHYSICAL EXAM: She is a chronically ill-appearing woman, in bed, morbidly obese with her daughter and with her. She is very sallow and richards complected. There is extensive subcutaneous ecchymosis over the forearms. Temperature is 98.9, pulse rate 81, O2 sat 100% on supplementary oxygen, blood pressure 123/52. HEENT exam shows no icterus. She has full neck veins. Breath sounds are diminished with effort being poor. The subclavicular ICD is nontender. Heart sounds are distant and regular. The abdomen has distant bowel sounds that are nonmechanical. There is no tenderness or mass. Rectal: Deferred. Extremities show 3+ edema at the ankles and she is diffusely weak in all 4 extremities, but symmetrically so. Cranial nerves are symmetric. IMAGING: Liver ultrasound 03/14/19 shows coarse liver echotexture, 17 cm liver , common bile duct 2 mm, and gallbladder just showing a 3 mm echogenic structure. Transthoracic echocardiogram last done 05/21/18 showed ejection fraction 20% to 25% with diastolic dysfunction. The LV is moderately dilated with LV function judged as severely depressed. 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 Her family states that she is scheduled in late March to have a ventricular assist device installed. The practicality of that taking place and the anticipated chance of benefit is unknown at this time. A cardiac consult was done today, but is still pending at this time. Esophageal irritation from being bedbound and reclining during meals and med injestion could be present and would make sure she is upright for all oral intake. At this moment, despite maximal medical treatment, it appears that she is not a candidate for any invasive procedure. A limited sigmoidoscopy would be relatively less stressful but for the moment appears more than would be advisable. Even if a procedure could be tolerated it is clear no definitive surgery could be tolerated. If the thickening on the virtual colonoscopy is indeed a cancer, it is not causing obstruction or any direct pain or fever. It may be contributing to anemia and an iron infusion has been given today. Further infusions may be all she needs to avoid any direct contribution from a possible mass or other GI conditions to her decline. The abnormal liver function tests are likely from poor perfusion of the liver. There is no sign of any progressive injury, which might cast suspicion on a recent change in medication. [id number]/[facility] #: [id number] [facility]
[2019-03-18] MEDS: Montelukast Sodium TAB* 10 MG PO SCH (21:59)
[2019-03-19] MEDS: Heparin VIAL(*) 5000 UNITS/ML VIAL (FIVE THOUSAND) SUBCUT SCH ×3 (05:37→21:01)
[2019-03-19 06:46] LABS: ABS Basophils 0.1 10^3/ul (0-0.2); ABS Eosinophils 0.2 10^3/ul (0-0.6); ABS Lymphocytes 1.3 10^3/ul (1.0-4.8); ABS Neutrophils 6.2 10^3/ul (1.5-7.7); Eosinophil % 2.3 %; Hematocrit 32 % (35-47); Hemoglobin 10.4 g/dL (12.0-16.0); Lymphocyte % 14.9 %; Mean Corpuscular HGB Conc 32 g/dL (31-36); Mean Corpuscular Hemoglobin 26 pg (27-31); Mean Corpuscular Volume 81 fL (80-97); Mean Platelet Volume 9.3 fL (7.4-10.4); Platelet Count 128 10^3/uL (150-450); Red Blood Count 3.97 10^6 /uL (3.70-4.87); Red Cell Distribution Width 22 % (10.5-15); White Blood Count 8.7 10^3/uL (3.5-10.8)
[2019-03-19 07:00] LABS: BUN/Creatinine Ratio 11.4 (8-20); Calcium 8.4 mg/dL (8.6-10.3); EGFR African American 57.4 (>60); EGFR Non-African American 47.4 (>60); Potassium 4.9 mmol/L (3.5-5.0)
[2019-03-19] MEDS: Insulin LISPRO* 1 UNITS UNIT SUBCUT SCH ×3 (08:07→18:22)
[2019-03-19] MEDS: Carvedilol TAB* 6.25 MG PO SCH ×2 (08:24→21:00)
[2019-03-19] MEDS: buPROPion SR TAB.SR* 150 MG PO SCH (08:25)
[2019-03-19] MEDS: Clopidogrel TAB* 75 MG PO SCH (08:26)
[2019-03-19] MEDS: Aspirin 81 mg CHEW TAB* 81 MG TAB.CHEW PO SCH (08:26)
[2019-03-19] MEDS: DULoxetine DR CAP* 20 MG CAP.DR PO SCH ×2 (08:27→10:27)
[2019-03-19] MEDS: Ondansetron TAB* 4 MG PO PRN (08:32)
[2019-03-19] MEDS: CMCS - Minocycline (NF) 50 MG CAP PO SCH (08:32)
[2019-03-19 10:16] LABS: Erythrocyte Sed Rate 1 mm/Hr (0-29)
[2019-03-19] MEDS: PROCHLORPERAZINE INJ 5 MG/ML 2 ML VIAL IV PRN (10:23)
[2019-03-19] MEDS: Ferric Gluconate IV* 125 MG in NS 0.9% 100 ML* 100 ML IVPB SCH (11:06)
[2019-03-19] MEDS: traMADol TAB* 50 MG PO PRN ×2 (11:16→21:00)
[2019-03-19] MEDS: Iodixanol* (CONTRAST) 320 MG/ML 100 ML SDV IV ONE ×2 (14:04→14:29)
--- NOTE | 2019-03-19 15:04 | PN ---
Subjective Date of Service: 03/19/19 Interval History: Pt continues to have nausea and no appetite Objective Active Medications: Acetaminophen (Tylenol Tab*) 650 mg PO Q4H PRN PRN Reason: FEVER/PAIN Last Admin: 03/17/19 20:27 Dose: 650 mg Aspirin (Aspirin 81 Mg Chew Tab*) 81 mg PO DAILY [facility] Last Admin: 03/19/19 08:26 Dose: 81 mg Bupropion HCl (Wellbutrin Sr Tab*) 300 mg PO DAILY [facility] Last Admin: 03/19/19 08:25 Dose: 300 mg Carvedilol (Coreg Tab*) 12.5 mg PO QAM [facility] Last Admin: 03/19/19 08:24 Dose: 12.5 mg Carvedilol (Coreg Tab*) 6.25 mg PO 2100 [facility] Last Admin: 03/18/19 21:59 Dose: 6.25 mg Clopidogrel Bisulfate (Plavix Tab*) 75 mg PO DAILY [facility] Last Admin: 03/19/19 08:26 Dose: 75 mg Dextrose (D50w Syringe 50 Ml*) 12.5 gm IV PUSH .FOR FS < 60 - SS PRN PRN Reason: FS < 60 Duloxetine HCl (Cymbalta Cap*) 20 mg PO DAILY [facility] Last Admin: 03/19/19 10:27 Dose: 20 mg Heparin Sodium (Porcine) (Heparin Vial(*)) 5,000 units SUBCUT Q8HR [facility] Last Admin: 03/19/19 14:47 Dose: 5,000 units Ferric Sodium Gluconate Complex 125 mg/ Sodium Chloride 110 mls @ 110 mls/hr IVPB DAILY [facility] Stop: 03/26/19 08:59 Last Admin: 03/19/19 11:06 Dose: 110 mls/hr Insulin Human Lispro (Humalog*) 0 units SUBCUT AC [facility]; Protocol Last Admin: 03/19/19 12:37 Dose: Not Given Minocycline HCl (Minocycline (Nf)) 100 mg PO DAILY [facility] Last Admin: 03/19/19 08:32 Dose: 100 mg Montelukast Sodium (Singulair Tab*) 10 mg PO BEDTIME [facility] Last Admin: 03/18/19 21:59 Dose: 10 mg Ondansetron HCl (Zofran Tab*) 4 mg PO Q4H PRN PRN Reason: NAUSEA Last Admin: 03/19/19 08:32 Dose: 4 mg Prochlorperazine Edisylate (Compazine Inj*) 5 mg IV Q6H PRN PRN Reason: NAUSEA/VOMITING Last Admin: 03/19/19 10:23 Dose: 5 mg Tramadol HCl (Ultram*) 25 mg PO Q8H PRN PRN Reason: PAIN Last Admin: 03/19/19 11:16 Dose: 25 mg Vital Signs - 8 hr 03/19/19 03/19/19 03/19/19 07:53 08:19 11:16 Temperature 98.1 F Pulse Rate 84 Respiratory 14 16 Rate Blood Pressure 94/30 108/60 (mmHg) O2 Sat by Pulse 100 Oximetry 03/19/19 03/19/19 11:20 11:34 Temperature Pulse Rate Respiratory 16 Rate Blood Pressure 110/60 (mmHg) O2 Sat by Pulse Oximetry Oxygen Devices in Use Now: None Appearance: 68 yo F in nAD, AAOx3 Eyes: No Scleral Icterus, PERRLA Ears/Nose/Mouth/Throat: NL Teeth, Lips, Gums, Mucous Membranes Moist Neck: NL Appearance and Movements; NL JVP, Trachea Midline Respiratory: Symmetrical Chest Expansion and Respiratory Effort, Clear to Auscultation Cardiovascular: RRR, No Edema Abdominal: NL Sounds; No Tenderness; No Distention Lymphatic: No Cervical Adenopathy Extremities: No Clubbing, Cyanosis Skin: No Rash or Ulcers, No Nodules or Sclerosis, - - cardoza skin discoloration- diffuse Neurological: Alert and Oriented x 3, NL Muscle Strength and Tone - Nutrition: Malnutrition Diagnosis/Plan Malnutrition Assessment by Registered Dietitian: Malnutrition Assessment Clinical Characteristics Acute,Severe Malnutrition Assessment: 8.5% wt loss x 1 week (severe) Criteria < or = 50% EEE x > or = 5 days Malnutrition Assessment: Trial Ensure Clear this afternoon and monitor Interventions acceptance. 240 kcal, 8 g pro per serving. Malnutrition Assessment: Goals 1. Pt will tolerate PO without diarrhea/ vomiting 2. Intake will be adequate to maintain stable body wt and preserve/replete lean body mass 3. LFTs, Cr, and electrolytes will normalize with adequate intake and hydration Result Diagrams: 03/19/19 06:23 03/19/19 06:23 Additional Lab and Data: Lab Results 03/14/19 Range/Units 19:05 WBC 10.0 (3.5-10.8) 10^3/uL RBC 5.04 H (3.70-4.87) 10^6 /uL Hgb 13.1 (12.0-16.0) g/dL Hct 40 (35-47) % MCV 80 (80-97) fL MCH 26 L (27-31) pg MCHC 32 (31-36) g/dL RDW 21 H (10.5-15) % Plt Count 185 (150-450) 10^3/uL MPV 9.2 (7.4-10.4) fL Neut % (Auto) 72.1 % Lymph % (Auto) 14.3 % [place] % (Auto) 12.5 % Eos % (Auto) 0.5 % Baso % (Auto) 0.6 % Absolute Neuts (auto) 7.2 (1.5-7.7) 10^3/ul Absolute Lymphs (auto) 1.4 (1.0-4.8) 10^3/ul Absolute Monos (auto) 1.2 H (0-0.8) 10^3/ul Absolute Eos (auto) 0.0 (0-0.6) 10^3/ul Absolute Basos (auto) 0.1 (0-0.2) 10^3/ul Absolute Nucleated RBC 0.0 10^3/ul Nucleated RBC % 0.1 Microbiology and Other Data: Microbiology 03/15/19 09:50 Urine Culture - Final Urine No Growth (<1,000 CFU/mL) Assess/Plan/Problems-Billing Assessment: 68 yo f with h/o ischemic cardiomyopathy EF 20% presents with progressive wt loss, constant nausea - Patient Problems (1) Malnutrition Comment: Due to no appetitie and constant nausea. Cardiology consulted for clearancefor EGD/flex sig and noted pt to be high risk. Aslo she would not be a surgical candidate if needed further. GI consult appreciated Oncology consult appreciated. Possible occult malignancy but CT chest neg, CT abd neg and CEA 3.7. It is possible that nthe nausea is a symptom of low perfusion state due to end stage cardiomyopathy. will d/w cardiology Try to add Reglan AC and marinol (2) CKD (chronic kidney disease) stage 3, GFR 30-59 ml/min Comment: chronic, creat at baseline (3) Hyperpigmentation Comment: AM cortisol 11.25 03/15/19. Cosyntropin stim test appropiate response (4) Ischemic cardiomyopathy Current Visit: Yes Comment: Lisinopril, rosuvastatin on hold. Continue carvedilol, ASA, clopidogrel. Asked cardiology to see pt in consult (5) Anemia Comment: stable , on iron infusions as per oncology (6) Diabetes Comment: FS ACHS lispro SS (7) LFT elevation Comment: ? hypoperfusion due to low EF? liver US l unremarkable (8) DVT prophylaxis Comment: HSQ Status and Disposition: inpatient
[2019-03-19] MEDS: Dronabinol CAP* 2.5 MG PO SCH (18:24)
[2019-03-19] MEDS: Metoclopramide TAB* 10 MG PO SCH (18:24)
[2019-03-19] MEDS: Montelukast Sodium TAB* 10 MG PO SCH (21:00)
--- NOTE | 2019-03-19 21:42 | PN ---
Subjective Date of Service: 03/19/19 - CC: nausea Interval History: Nausea and weight loss for weeks. Patient with severe CM, has ICD, scheduled for BiV ICD upgrade April 10. The patient was examined in the presence of her daughter. No increase in orthopnea, PND and no CP. Anorexia, N/V are cheif complaints, vomited this AM. Off Torsemide since admission. Medications Active Medications: Acetaminophen (Tylenol Tab*) 650 mg PO Q4H PRN PRN Reason: FEVER/PAIN Last Admin: 03/17/19 20:27 Dose: 650 mg Aspirin (Aspirin 81 Mg Chew Tab*) 81 mg PO DAILY [facility] Last Admin: 03/19/19 08:26 Dose: 81 mg Bupropion HCl (Wellbutrin Sr Tab*) 300 mg PO DAILY [facility] Last Admin: 03/19/19 08:25 Dose: 300 mg Carvedilol (Coreg Tab*) 12.5 mg PO QAM [facility] Last Admin: 03/19/19 08:24 Dose: 12.5 mg Carvedilol (Coreg Tab*) 6.25 mg PO 2100 [facility] Last Admin: 03/19/19 21:00 Dose: 6.25 mg Clopidogrel Bisulfate (Plavix Tab*) 75 mg PO DAILY [facility] Last Admin: 03/19/19 08:26 Dose: 75 mg Dextrose (D50w Syringe 50 Ml*) 12.5 gm IV PUSH .FOR FS < 60 - SS PRN PRN Reason: FS < 60 Dronabinol (Marinol Cap*) 2.5 mg PO AC [facility] Last Admin: 03/19/19 18:24 Dose: 2.5 mg Duloxetine HCl (Cymbalta Cap*) 20 mg PO DAILY [facility] Last Admin: 03/19/19 10:27 Dose: 20 mg Heparin Sodium (Porcine) (Heparin Vial(*)) 5,000 units SUBCUT Q8HR [facility] Last Admin: 03/19/19 21:01 Dose: 5,000 units Ferric Sodium Gluconate Complex 125 mg/ Sodium Chloride 110 mls @ 110 mls/hr IVPB DAILY [facility] Stop: 03/26/19 08:59 Last Admin: 03/19/19 11:06 Dose: 110 mls/hr Insulin Human Lispro (Humalog*) [address] [facility]; Protocol Last Admin: 03/19/19 18:22 Dose: 8 unit Metoclopramide HCl (Reglan Tab*) 5 mg PO AC [facility] Last Admin: 03/19/19 18:24 Dose: 5 mg Montelukast Sodium (Singulair Tab*) 10 mg PO BEDTIME [facility] Last Admin: 03/19/19 21:00 Dose: 10 mg Tramadol HCl (Ultram*) 25 mg PO Q8H PRN PRN Reason: PAIN Last Admin: 03/19/19 21:00 Dose: 25 mg Objective Vital Signs: Temp Pulse Resp BP Pulse Ox 97.7 F 85 18 112/58 100 03/19/19 20:59 03/19/19 20:59 03/19/19 21:00 03/19/19 20:56 03/19/19 20:59 Oxygen Devices in Use Now: None Appearance: short female, skin is blue cardoza on face, thorax, appears chroniclly ill. Eyes: No Scleral Icterus, PERRLA Ears/Nose/Mouth/Throat: Clear Oropharnyx Neck: Trachea Midline Respiratory: Symmetrical Chest Expansion and Respiratory Effort - rare basilar crackles, distant, no wheezing. Cardiovascular: RRR Abdominal: - - centripetaly obese, soft, no appreciable hepatomagally. Extremities: No Edema - thin, pale, white Skin: - - multiple ecchymotic areas on upper extremities c/w prior IV sites. Blue/cardoza as above. Neurological: Alert and Oriented x 3 Laboratory Results: 03/19/19 06:23 03/19/19 06:23 Total Bilirubin 0.60 mg/dL (0.2-1.0) 03/18/19 06:22 Direct Bilirubin 0.20 mg/dL (0.03-0.18) H 03/18/19 06:22 Indirect Bilirubin 0.4 mg/dL (0.3-1.0) 03/18/19 06:22 AST 66 U/L (13-39) H 03/18/19 06:22 ALT 75 U/L (7-52) H 03/18/19 06:22 Alkaline Phosphatase 206 U/L (34-104) H 03/18/19 06:22 B-Natriuretic Peptide 405 pg/mL (<=100) H 03/14/19 19:05 Total Protein 4.7 g/dL (6.4-8.9) L 03/18/19 06:22 Albumin 2.2 g/dL (3.2-5.2) L 03/18/19 06:22 Globulin 2.5 g/dL (2-4) 03/18/19 06:22 Albumin/Globulin Ratio 0.9 (1-3) L 03/18/19 06:22 TSH 1.66 mcIU/mL (0.34-5.60) 03/14/19 19:05 03/14/19 03/14/19 03/15/19 19:05 23:08 01:57 Troponin I 0.05 H* 0.05 H* 0.04 H* Assessment/Plan 68 yo female with severe CM, EF 20-25% who presented to ED for N/V, anorexia and weight loss. N/V could be cardiac cacexia. Minocyline could cause GI c/o, not sure why she is on this, if this is chronic consider stopping. Could stop ASA as this can cause gastritis. Continue Plavix for antiplatelet benefits in setting of CAD. I would review any non essential medications, d/c if able to simplify her regimen. Agree with holding Torsemide for now. Dr Herring, her regular monorail operator, will assume cardiology coverage in AM
[2019-03-20] MEDS: Heparin VIAL(*) 5000 UNITS/ML VIAL (FIVE THOUSAND) SUBCUT SCH ×3 (06:05→22:37)
[2019-03-20] MEDS: Insulin LISPRO* 1 UNITS UNIT SUBCUT SCH ×3 (07:46→17:03)
[2019-03-20] MEDS: Metoclopramide TAB* 10 MG PO SCH ×3 (07:50→17:04)
[2019-03-20] MEDS: Dronabinol CAP* 2.5 MG PO SCH ×3 (07:50→17:04)
[2019-03-20] MEDS: DULoxetine DR CAP* 20 MG CAP.DR PO SCH (09:45)
[2019-03-20] MEDS: buPROPion SR TAB.SR* 150 MG PO SCH (09:46)
[2019-03-20] MEDS: Clopidogrel TAB* 75 MG PO SCH (09:46)
[2019-03-20] MEDS: Carvedilol TAB* 6.25 MG PO SCH ×2 (09:57→22:56)
[2019-03-20] MEDS: Ferric Gluconate IV* 125 MG in NS 0.9% 100 ML* 100 ML IVPB SCH (09:58)
--- NOTE | 2019-03-20 12:15 | PN ---
Subjective Date of Service: 03/20/19 Interval History: Pt was able to drink Ensure today. Seems that the nausea is a little bit better on Reglan. Objective Active Medications: Acetaminophen (Tylenol Tab*) 650 mg PO Q4H PRN PRN Reason: FEVER/PAIN Last Admin: 03/17/19 20:27 Dose: 650 mg Bupropion HCl (Wellbutrin Sr Tab*) 300 mg PO DAILY [facility] Last Admin: 03/20/19 09:46 Dose: 300 mg Carvedilol (Coreg Tab*) 6.25 mg PO 2100 [facility] Last Admin: 03/19/19 21:00 Dose: 6.25 mg Carvedilol (Coreg Tab*) 6.25 mg PO QAM [facility] Clopidogrel Bisulfate (Plavix Tab*) 75 mg PO DAILY [facility] Last Admin: 03/20/19 09:46 Dose: 75 mg Dextrose (D50w Syringe 50 Ml*) 12.5 gm IV PUSH .FOR FS < 60 - SS PRN PRN Reason: FS < 60 Dronabinol (Marinol Cap*) 2.5 mg PO AC [facility] Last Admin: 03/20/19 07:50 Dose: 2.5 mg Duloxetine HCl (Cymbalta Cap*) 20 mg PO DAILY [facility] Last Admin: 03/20/19 09:45 Dose: 20 mg Heparin Sodium (Porcine) (Heparin Vial(*)) 5,000 units SUBCUT Q8HR [facility] Last Admin: 03/20/19 06:05 Dose: 5,000 units Ferric Sodium Gluconate Complex 125 mg/ Sodium Chloride 110 mls @ 110 mls/hr IVPB DAILY [facility] Stop: 03/26/19 08:59 Last Admin: 03/20/19 09:58 Dose: 110 mls/hr Insulin Human Lispro (Humalog*) 0 units SUBCUT [facility]; Protocol Last Admin: 03/20/19 07:46 Dose: Not Given Metoclopramide HCl (Reglan Tab*) 5 mg PO AC [facility] Last Admin: 03/20/19 07:50 Dose: 5 mg Montelukast Sodium (Singulair Tab*) 10 mg PO BEDTIME [facility] Last Admin: 03/19/19 21:00 Dose: 10 mg Tramadol HCl (Ultram*) 25 mg PO Q8H PRN PRN Reason: PAIN Last Admin: 03/19/19 21:00 Dose: 25 mg Vital Signs - 8 hr 03/20/19 03/20/19 03/20/19 07:17 07:50 09:57 Temperature 98.1 F Pulse Rate 90 Respiratory 14 16 16 Rate Blood Pressure 101/45 (mmHg) O2 Sat by Pulse 100 Oximetry Oxygen Devices in Use Now: None Appearance: 68 yo F in nAD, aAOx3 Eyes: No Scleral Icterus, PERRLA Ears/Nose/Mouth/Throat: NL Teeth, Lips, Gums, Mucous Membranes Moist Neck: NL Appearance and Movements; NL JVP, Trachea Midline Respiratory: Symmetrical Chest Expansion and Respiratory Effort, Clear to Auscultation Cardiovascular: NL Sounds; No Murmurs; No JVD Abdominal: NL Sounds; No Tenderness; No Distention Lymphatic: No Cervical Adenopathy Extremities: No Edema, No Clubbing, Cyanosis Skin: - - cardoza skin discoloration and ecchymoses on b/l forearms Neurological: Alert and Oriented x 3, NL Muscle Strength and Tone - Nutrition: Malnutrition Diagnosis/Plan Malnutrition Assessment by Registered Dietitian: Malnutrition Assessment Clinical Characteristics Acute,Severe Malnutrition Assessment: 8.5% wt loss x 1 week (severe) Criteria < or = 50% EEE x > or = 5 days Malnutrition Assessment: Trial Ensure Clear this afternoon and monitor Interventions acceptance. 240 kcal, 8 g pro per serving. Malnutrition Assessment: Goals 1. Pt will tolerate PO without diarrhea/ vomiting 2. Intake will be adequate to maintain stable body wt and preserve/replete lean body mass 3. LFTs, Cr, and electrolytes will normalize with adequate intake and hydration Result Diagrams: 03/19/19 06:23 03/19/19 06:23 Additional Lab and Data: Lab Results 03/14/19 Range/Units 19:05 WBC 10.0 (3.5-10.8) 10^3/uL RBC 5.04 H (3.70-4.87) 10^6 /uL Hgb 13.1 (12.0-16.0) g/dL Hct 40 (35-47) % MCV 80 (80-97) fL MCH 26 L (27-31) pg MCHC 32 (31-36) g/dL RDW 21 H (10.5-15) % Plt Count 185 (150-450) 10^3/uL MPV 9.2 (7.4-10.4) fL Neut % (Auto) 72.1 % Lymph % (Auto) 14.3 % Norman % (Auto) 12.5 % Eos % (Auto) 0.5 % Baso % (Auto) 0.6 % Absolute Neuts (auto) 7.2 (1.5-7.7) 10^3/ul Absolute Lymphs (auto) 1.4 (1.0-4.8) 10^3/ul Absolute Monos (auto) 1.2 H (0-0.8) 10^3/ul Absolute Eos (auto) 0.0 (0-0.6) 10^3/ul Absolute Basos (auto) 0.1 (0-0.2) 10^3/ul Absolute Nucleated RBC 0.0 10^3/ul Nucleated RBC % 0.1 Microbiology and Other Data: Microbiology 03/15/19 09:50 Urine Culture - Final Urine No Growth (<1,000 CFU/mL) Assess/Plan/Problems-Billing Assessment: 68 yo f with h/o ischemic cardiomyopathy EF 20% presents with progressive wt loss, constant nausea - Patient Problems (1) Malnutrition Comment: Due to no appetitie and constant nausea improved slightly after Reglan and marinol were started and minocycline d/c'ed Cardiology consulted for clearance for EGD/flex sig and noted pt to be high risk. Also she would not be a surgical candidate if needed further. GI consult appreciated Oncology consult appreciated. Possible occult malignancy , but CT chest neg, CT abd neg and CEA 3.7. It is possible that the nausea is a symptom of low perfusion state due to end stage cardiomyopathy. Dr. Herring will see pt today (2) CKD (chronic kidney disease) stage 3, GFR 30-59 ml/min Comment: chronic, creat at baseline (3) Hyperpigmentation Comment: AM cortisol 11.25 03/15/19. Cosyntropin stim test appropiate response (4) Ischemic cardiomyopathy Current Visit: Yes Comment: Lisinopril, rosuvastatin on hold. Continue carvedilol (AM dose lowered due to low SBP from 12.5 to 6.25) clopidogrel. ASA d/c'd as per Dr. Matias's recommendations (5) Anemia Comment: stable , on iron infusions as per oncology (6) Diabetes Comment: FS ACHS lispro SS (7) LFT elevation Comment: ? hypoperfusion due to low EF? liver US unremarkable (8) DVT prophylaxis Comment: HSQ Status and Disposition: inpatient
[2019-03-20] MEDS: Al Hydrox/Mg Hydrox/Simet LIQ* 30 ML UDC PO PRN ×2 (15:35→20:20)
[2019-03-20] MEDS: Montelukast Sodium TAB* 10 MG PO SCH (22:56)
[2019-03-21] MEDS: Al Hydrox/Mg Hydrox/Simet LIQ* 30 ML UDC PO PRN ×2 (00:19→09:33)
[2019-03-21] MEDS: Pantoprazole TAB * 40 MG TAB PO SCH ×2 (00:20→09:32)
[2019-03-21] MEDS: Montelukast Sodium TAB* 10 MG PO SCH (00:20)
[2019-03-21] MEDS: Heparin VIAL(*) 5000 UNITS/ML VIAL (FIVE THOUSAND) SUBCUT SCH ×2 (05:36→14:11)
[2019-03-21] MEDS: Insulin LISPRO* 1 UNITS UNIT SUBCUT SCH ×3 (07:36→17:25)
[2019-03-21] MEDS: Metoclopramide TAB* 10 MG PO SCH ×3 (07:38→17:25)
[2019-03-21] MEDS: Dronabinol CAP* 2.5 MG PO SCH ×3 (07:38→17:25)
[2019-03-21] MEDS ORDERED: Carvedilol TAB* 6.25 MG PO SCH (09:00)
[2019-03-21] MEDS: buPROPion SR TAB.SR* 150 MG PO SCH (09:32)
[2019-03-21] MEDS: Clopidogrel TAB* 75 MG PO SCH (09:33)
[2019-03-21] MEDS: DULoxetine DR CAP* 20 MG CAP.DR PO SCH (10:22)
[2019-03-21] MEDS: Ferric Gluconate IV* 125 MG in NS 0.9% 100 ML* 100 ML IVPB SCH (10:23)
[2019-03-21 11:18] LABS: Hematocrit 29 % (35-47); Mean Corpuscular HGB Conc 32 g/dL (31-36); Mean Corpuscular Hemoglobin 27 pg (27-31); Mean Corpuscular Volume 84 fL (80-97); Platelet Count 132 10^3/uL (150-450); Red Cell Distribution Width 23 % (10.5-15); White Blood Count 8.4 10^3/uL (3.5-10.8)
[2019-03-21 11:31] LABS: Albumin 2.2 g/dL (3.2-5.2); BUN/Creatinine Ratio 13.2 (8-20); EGFR African American 62.4 (>60); EGFR Non-African American 51.6 (>60); Globulin 2.2 g/dL (2-4); Magnesium 2.4 mg/dL (1.9-2.7); Potassium 4.9 mmol/L (3.5-5.0); Total Bilirubin 0.4 mg/dL (0.2-1.0); Total Protein 4.4 g/dL (6.4-8.9)
[2019-03-21 11:42] LABS: ABS Basophils 0.1 10^3/ul (0-0.2); ABS Eosinophils 0.2 10^3/ul (0-0.6); ABS Monocytes 0.9 10^3/ul (0-0.8); ABS Neutrophils 6.3 10^3/ul (1.5-7.7); Eosinophil % 2.4 %; Lymphocyte % 11.6 %; Mean Platelet Volume 9.1 fL (7.4-10.4); Nucleated Red Blood Cells % 0.1
--- NOTE | 2019-03-21 12:30 | PN ---
Subjective Date of Service: 03/21/19 Interval History: Pt still c/o nausea abut was able to drink Ensure. Denies SOB Objective Active Medications: Acetaminophen (Tylenol Tab*) 650 mg PO Q4H PRN PRN Reason: FEVER/PAIN Last Admin: 03/17/19 20:27 Dose: 650 mg Al Hydrox/Mg Hydrox/Simethicone (Maalox Plus*) 30 ml PO Q4H PRN PRN Reason: discomfort Last Admin: 03/21/19 09:33 Dose: 30 ml Bupropion HCl (Wellbutrin Sr Tab*) 300 mg PO DAILY [facility] Last Admin: 03/21/19 09:32 Dose: 300 mg Carvedilol (Coreg Tab*) 6.25 mg PO 2100 [facility] Last Admin: 03/20/19 22:56 Dose: 6.25 mg Carvedilol (Coreg Tab*) 6.25 mg PO QAM [facility] Last Admin: 03/21/19 09:33 Dose: 6.25 mg Clopidogrel Bisulfate (Plavix Tab*) 75 mg PO DAILY [facility] Last Admin: 03/21/19 09:33 Dose: 75 mg Dextrose (D50w Syringe 50 Ml*) 12.5 gm IV PUSH .FOR FS < 60 - SS PRN PRN Reason: FS < 60 Dronabinol (Marinol Cap*) 2.5 mg PO [facility] Last Admin: 03/21/19 12:06 Dose: 2.5 mg Duloxetine HCl (Cymbalta Cap*) 20 mg PO DAILY [facility] Last Admin: 03/21/19 10:22 Dose: 20 mg Heparin Sodium (Porcine) (Heparin Vial(*)) 5,000 units SUBCUT Q8HR [facility] Last Admin: 03/21/19 05:36 Dose: 5,000 units Ferric Sodium Gluconate Complex 125 mg/ Sodium Chloride 110 mls @ 110 mls/hr IVPB DAILY [facility] Stop: 03/26/19 08:59 Last Admin: 03/21/19 10:23 Dose: 110 mls/hr Insulin Human Lispro (Humalog*) 0 units SUBCUT [facility]; Protocol Last Admin: 03/21/19 12:06 Dose: 4 unit Metoclopramide HCl (Reglan Tab*) 5 mg PO [facility] Last Admin: 03/21/19 12:07 Dose: 5 mg Montelukast Sodium (Singulair Tab*) 10 mg PO BEDTIME [facility] Last Admin: 03/21/19 00:20 Dose: 10 mg Pantoprazole Sodium (Protonix Tab*) 40 mg PO DAILY [facility] Last Admin: 03/21/19 09:32 Dose: 40 mg Tramadol HCl (Ultram*) 25 mg PO Q8H PRN PRN Reason: PAIN Last Admin: 03/19/19 21:00 Dose: 25 mg Vital Signs - 8 hr 03/21/19 03/21/19 03/21/19 07:38 07:43 10:23 Temperature 97.8 F Pulse Rate 83 Respiratory 16 16 14 Rate Blood Pressure 131/53 (mmHg) O2 Sat by Pulse 100 Oximetry 03/21/19 12:06 Temperature Pulse Rate Respiratory 16 Rate Blood Pressure (mmHg) O2 Sat by Pulse Oximetry Oxygen Devices in Use Now: None Appearance: 68 yo F in nAD, aAOx3 Eyes: No Scleral Icterus, PERRLA Ears/Nose/Mouth/Throat: NL Teeth, Lips, Gums, Mucous Membranes Moist Neck: NL Appearance and Movements; NL JVP, Trachea Midline Respiratory: Symmetrical Chest Expansion and Respiratory Effort, Clear to Auscultation Cardiovascular: NL Sounds; No Murmurs; No JVD, RRR Abdominal: NL Sounds; No Tenderness; No Distention Lymphatic: No Cervical Adenopathy Extremities: No Edema, No Clubbing, Cyanosis Skin: No Nodules or Sclerosis, - - diffuse cardoza skin discoloration and multiple ecchymotic areas after venipunctures b/l UE's Neurological: Alert and Oriented x 3, NL Muscle Strength and Tone, - - generalized weakness and deconditioning, no focal deficit - Nutrition: Malnutrition Diagnosis/Plan Malnutrition Assessment by Registered Dietitian: Malnutrition Assessment Clinical Characteristics Acute,Severe Malnutrition Assessment: 8.5% wt loss x 1 week (severe) Criteria < or = 50% EEE x > or = 5 days Malnutrition Assessment: Trial Ensure Clear this afternoon and monitor Interventions acceptance. 240 kcal, 8 g pro per serving. Malnutrition Assessment: Goals 1. Pt will tolerate PO without diarrhea/ vomiting 2. Intake will be adequate to maintain stable body wt and preserve/replete lean body mass 3. LFTs, Cr, and electrolytes will normalize with adequate intake and hydration Result Diagrams: 03/21/19 11:01 03/21/19 11:01 Additional Lab and Data: Lab Results 03/14/19 Range/Units 19:05 WBC 10.0 (3.5-10.8) 10^3/uL RBC 5.04 H (3.70-4.87) 10^6 /uL Hgb 13.1 (12.0-16.0) g/dL Hct 40 (35-47) % MCV 80 (80-97) fL MCH 26 L (27-31) pg MCHC 32 (31-36) g/dL RDW 21 H (10.5-15) % Plt Count 185 (150-450) 10^3/uL MPV 9.2 (7.4-10.4) fL Neut % (Auto) 72.1 % Lymph % (Auto) 14.3 % [place]val % (Auto) 12.5 % Eos % (Auto) 0.5 % Baso % (Auto) 0.6 % Absolute Neuts (auto) 7.2 (1.5-7.7) 10^3/ul Absolute Lymphs (auto) 1.4 (1.0-4.8) 10^3/ul Absolute Monos (auto) 1.2 H (0-0.8) 10^3/ul Absolute Eos (auto) 0.0 (0-0.6) 10^3/ul Absolute Basos (auto) 0.1 (0-0.2) 10^3/ul Absolute Nucleated RBC 0.0 10^3/ul Nucleated RBC % 0.1 Microbiology and Other Data: Microbiology 03/15/19 09:50 Urine Culture - Final Urine No Growth (<1,000 CFU/mL) Assess/Plan/Problems-Billing Assessment: 68 yo f with h/o ischemic cardiomyopathy EF 20% presents with progressive wt loss, constant nausea - Patient Problems (1) Malnutrition Comment: Due to no appetitie and constant nausea improved slightly after Reglan and marinol were started and minocycline d/c'ed. Cardiology consulted for clearance for EGD/flex sig and noted pt to be high risk. Also she would not be a surgical candidate if needed further. GI consult appreciated Oncology consult appreciated: possible occult malignancy , but CT chest neg, CT abd neg and CEA 3.7. It is possible that the nausea is a symptom of low perfusion state due to end stage cardiomyopathy. Dr. Herring evaluated the pt and recommended evaluation at a cardiac transplant center for LVAD/heart transplant. [facility] initially accepted pt(Dr. [place]edo), but pt's insurance is not accepted at [place]. CM is in process or trying to resolve this issue (2) CKD (chronic kidney disease) stage 3, GFR 30-59 ml/min Comment: chronic, creat at baseline (3) Hyperpigmentation Comment: AM cortisol 11.25 03/15/19. Cosyntropin stim test appropiate response (4) Ischemic cardiomyopathy Current Visit: Yes Comment: Lisinopril, rosuvastatin on hold. Continue carvedilol (AM dose lowered due to low SBP from 12.5 to 6.25) clopidogrel. ASA d/c'd as per Dr. Matias's recommendations Torsemide on hold (5) Anemia Comment: stable , on iron infusions as per oncology (6) Diabetes Comment: FS ACHS lispro SS (7) LFT elevation Comment: ? hypoperfusion due to low EF? liver US unremarkable (8) DVT prophylaxis Comment: HSQ Status and Disposition: inpatient
[2019-03-21 16:45] VITALS: BP 118/48
--- NOTE | 2019-03-21 18:03 | TRS ---
CC: Dr. Gordon; Dr. Herring; Dr. Matias; Dr. Vazquez; Dr. Trujillo * CC: Dr. Sumanth Stahl, [facility] Cardiology Department in [place], [place]; * CC: Dr. Kirk, Internal Medicine Provider, [facility]. * TRANSFER SUMMARY: DATE OF ADMISSION: 03/14/19 DATE OF DISCHARGE: 03/21/19 PRIMARY CARE PROVIDER: Dr. Gordon. DISCHARGE DIAGNOSES/TRANSFER DIAGNOSES: Cardiac cachexia manifesting with low perfusion state, mildly elevated lactic acid, persistent nausea, low appetite, weight loss and liver function test elevation in patient with severe cardiomyopathy, an EF of 15%. SECONDARY DIAGNOSES: 1. Mild elevation in liver function test. 2. Chronic kidney disease. 3. History of cardiomyopathy as mentioned above. 4. History of chronic obstructive pulmonary disease, not oxygen dependent. 5. Noninsulin-dependent diabetes. 6. Status post ICD placement. 7. Hypertension. MEDICATIONS: Medications active at the time of transfer included: 1. Acetaminophen on a p.r.n. basis. 2. Maalox on a p.r.n. basis. 3. Bupropion SR 300 mg daily. 4. Coreg 6.25 mg b.i.d. 5. Plavix 75 mg daily. 6. Marinol 2.5 mg with each meal 3 times a day. 7. Duloxetine DR 20 mg daily. 8. Ferric gluconate. The patient had been receiving infusions of ferric gluconate 125 mg daily. 9. Heparin 5000 units subcutaneously every 8 hours. 10. Insulin lispro sliding scale. 11. Reglan 5 mg with each meal. 12. Singulair 10 mg daily. 13. Protonix 40 mg daily. 14. Tramadol 25 mg every 8 hours p.r.n. CONSULTATIONS DURING THE HOSPITAL STAY: Included Dr. Trujillo, Gastroenterology ; Dr. Matias and Dr. Herring, Cardiology; Dr. Vazquez, Oncology. LABORATORY DATA AND STUDIES PERFORMED DURING THE HOSPITAL STAY: Included: On , white blood cell count of 8.4, hemoglobin of 9.0, hematocrit of 29, and platelets of 132. Sodium was 136, potassium 4.9, chloride 108, carbon dioxide 24, BUN 14, creatinine 1.06. Liver function tests showed AST of 41, ALT of 56, alkaline phosphatase of 174, total protein of 4.4, albumin was 2.2. The patient's iron level was 105, TIBC 171, iron saturation of 61, transferrin 122, ferritin 47.2. Troponin ranging between 0.05 to 0.04 during the hospital stay. TSH was noted to be 1.6 at admission. Cortisol stim test showed initial cortisol of 13.7. After cosyntropin stimulation test, it went up to 25.02 and then 30 minutes later to 30.6. CEA cancer marker was 3.7. 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 No shadowing gallstones. Small gallbladder polyp. Coarse hepatic echotexture. No hepatomegaly." HOSPITALIZATION COURSE: Malika Nazario is a 68-year-old female with history of ischemic cardiomyopathy with EF of approximately 15%, who presented to the hospital on 03/14/19 complaining of weakness, diarrhea, decreased appetite, progressive weight loss. Apparently, she lost 20 pounds in the past 2 weeks. She was so weak to the point of that she was unable to ambulate any more. She continues to be weak during the hospital stay and continued to have persistent nausea. Initially, the patient's Ultram dose was lowered. Throughout the hospital stay, she is to be on minocycline for she said her skin problems and that was discontinued. At the administrative assistant coordinator's recommendation, we withheld the patient's diuretics, which it seems that she did not need while she had a very low p.o. intake. We also discontinued the aspirin and continued the patient on Plavix only. She was started on Marinol and Reglan with good results. She was evaluated by Oncology, who mentioned that the patient has the possibility of a malignancy, but unfortunately, the gastroenterology evaluation yielded the patient is a high risk of an endoscopy procedure and it was not recommended. The patient had a virtual colonoscopy performed in October of this year at our facility; there was noted thickening of the sigmoid colon with potential for malignancy. It is possible that the lipoma noted on the CT of the abdomen and pelvis was that abnormality. Furthermore, the patient's CEA was not drastically elevated to indicate malignancy. Oncology recommended for the patient to undergo iron infusions for her anemia, which she has gotten for the past 4 days. During continuation of her evaluation, the patient was noted that there was no apparent reason for her mild elevation of LFTs and failure to thrive. Apart of that that she has a very low cardiac output, she may have developed cardiac cachexia. That was discussed with the administrative assistant coordinator, specifically, Dr. Herring who is the patient's outpatient administrative assistant coordinator. Dr. Herring discussed the case with Dr. Sumanth Stahl who kindly accepted the patient in transfer to [facility] with the help of Dr. Kirk the internal medicine provider at [facility]. The patient is being transferred to [facility] for consideration of placement of left ventricular assist device or biventricular pacer to improve the patient's cardiac output. At transfer, the patient is hemodynamically stable, does not require oxygen, systolic pressure in the 120s. She is alert and oriented x3. She has generalized weakness and she cannot ambulate by herself. For further details of the patient's physical exam, please see daily progress notes. Please note that this is a short summary of the patient's hospital stay. Please refer to further medical records for details. CONDITION ON DISCHARGE: Stable. DISPOSITION: Transfer to [facility]. TIME SPENT: Approximately 50 minutes was spent on the patient's transfer. [id number]/CPS #: [id number] MTDD
== END 2019-03-21 18:00 | disposition short-term general hospital (02) | DRG 291 ==
LOC: ED 16:28 → MEDTELE 22:05 → OBSVTOIN 03-16 12:00
PROVIDERS: ADMIT Nurse Practitioner; ATTEND Internal Medicine
DX: I13.0 Hypertensive heart and chronic kidney disease with heart failure and stage 1 through stage 4 chronic kidney disease, or unspecified chronic kidney disease (principal); E43 Unspecified severe protein-calorie malnutrition; R64 Cachexia; N17.9 Acute kidney failure, unspecified; I51.9 Heart disease, unspecified; I42.9 Cardiomyopathy, unspecified; R79.89 Other specified abnormal findings of blood chemistry; E11.22 Type 2 diabetes mellitus with diabetic chronic kidney disease; K82.4 Cholesterolosis of gallbladder; I70.90 Unspecified atherosclerosis; J43.9 Emphysema, unspecified; K57.30 Diverticulosis of large intestine without perforation or abscess without bleeding; D17.79 Benign lipomatous neoplasm of other sites; D64.9 Anemia, unspecified; R62.7 Adult failure to thrive; E87.6 Hypokalemia; I49.3 Ventricular premature depolarization; M19.90 Unspecified osteoarthritis, unspecified site; M41.9 Scoliosis, unspecified; I25.10 Atherosclerotic heart disease of native coronary artery without angina pectoris; N18.3 Chronic kidney disease, stage 3 (moderate); F32.9 Major depressive disorder, single episode, unspecified; E78.5 Hyperlipidemia, unspecified; G89.29 Other chronic pain; K21.9 Gastro-esophageal reflux disease without esophagitis; Z91.013 Allergy to seafood; Z88.5 Allergy status to narcotic agent; Z88.8 Allergy status to other drugs, medicaments and biological substances; Z80.1 Family history of malignant neoplasm of trachea, bronchus and lung; Z83.3 Family history of diabetes mellitus; Z87.891 Personal history of nicotine dependence; Z98.1 Arthrodesis status; Z90.710 Acquired absence of both cervix and uterus; Z95.5 Presence of coronary angioplasty implant and graft; Z95.810 Presence of automatic (implantable) cardiac defibrillator; Z79.4 Long term (current) use of insulin; Z79.02 Long term (current) use of antithrombotics/antiplatelets; Z68.26 Body mass index [BMI] 26.0-26.9, adult; R11.0 Nausea
CPT/HCPCS: 36415; 71045; 71250; 74176; 76705; 80048; 80053; 80076; 81003; 81015; 82150; 82378; 82533; 82728; 83540; 83550; 83605; 83690; 83735; 83880; 84134; 84443; 84484; 85025; 85060; 85652; 87086; 93005; 99223; 99285; A9270-GY; G8978-GP-CM; G8979-GP-CL; J0780; J0834; J1644; J2916; J3480

== ENCOUNTER 2019-12-30 13:11 | Emergency (ER) | payer MEDICARE ==
[2019-12-30 13:17] VITALS: BP 0/0
--- NOTE | 2019-12-30 13:45 | ED ---
GI/ HPI - HPI Summary HPI Summary: 69-year-old female with a complicated past medical history including LVAD placement at [facility] in June, G-tube placement 3 months ago, anaphylactic reaction to contrast dye, presenting with clogged G-tube. Patient' s states that she is on continuous feeds at home, has a G-tube flushed with water before and after. This morning around 738 he noticed that the G- tube was clogged after they're giving medications. They give medications by gravity. They were unable to unclog at home so they came to ED. Of note, they report patient was clenching her left wrist, which is intermittent at the hospital, they deny weakness at this time. No additional complaints. 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 Onset/Duration: Started Hours Ago Timing: Constant Current Severity: None Pain Intensity: 0 Associated Signs and Symptoms: Negative: Weakness - Additional Pertinent History Primary Care Physician: CURT - Allergy/Home Medications Allergies/Adverse Reactions: Allergies Allergy/AdvReac Type Severity Reaction Status Date / Time atorvastatin [From Lipitor] Allergy Unknown Verified 12/30/19 13:31 Reaction Details Iodinated Contrast Media Allergy Anaphylatic Verified 12/30/19 13:31 Shock iodine Allergy Anaphylatic Verified 12/30/19 13:31 Shock morphine Allergy Altered Verified 12/30/19 13:31 Mental Status nickel Allergy Unknown Verified 12/30/19 13:31 Reaction Details shellfish derived Allergy Hives Verified 12/30/19 13:31 Home Medications: Home Medications Aspirin 81 mg CHEW TAB* 81 mg PO DAILY 12/05/17 [History Confirmed 05/30/19] Metoclopramide TAB* [Reglan TAB*] 10 mg PO BID AC PRN 12/05/17 [History Confirmed 05/30/19] Montelukast Sodium TAB* [Singulair 10 MG TAB*] 10 mg PO BEDTIME 12/05/17 [ History Confirmed 05/30/19] Omeprazole CAP (NF) [Prilosec CAP* 20 MG] 20 mg PO DAILY 12/05/17 [History Confirmed 05/30/19] Carvedilol TAB* [Coreg TAB*] 12.5 mg PO QAM 01/06/19 [History Confirmed 05/30/19 ] Clopidogrel TAB* [Plavix TAB*] 75 mg PO DAILY 01/06/19 [History Confirmed ] FLUoxetine CAP* [Prozac CAP*] 20 mg PO QAM 01/06/19 [History Confirmed 05/30/19] Gabapentin CAP(*) [Neurontin 400 mg CAP(*)] 400 mg PO QID 01/06/19 [History Confirmed 05/30/19] Rosuvastatin (NF) [Crestor (NF)] 10 mg PO BEDTIME 01/06/19 [History Confirmed ] Torsemide TAB* [Demadex 20 MG*] 20 mg PO DAILY 01/06/19 [History Confirmed 05/30] Torsemide [Demadex 20 MG] 40 mg PO EVERY OTHER DAY 01/06/19 [History Confirmed 05/30/19] glipiZIDE TAB* [Glucotrol TAB*] 10 mg PO BID 01/06/19 [History Confirmed ] Carvedilol TAB* [Coreg TAB*] 6.25 mg PO QPM 03/14/19 [History Confirmed 05/30/19 ] Exenatide Microspheres [Bydureon] 2 mg SUBCUT WEEKLY 03/14/19 [History Confirmed 05/30/19] Fexofenadine (NF) [Lacey (NF)] 60 mg PO BID PRN 03/14/19 [History Confirmed ] Lisinopril TAB* [Prinivil TAB*] 2.5 mg PO DAILY 03/14/19 [History Confirmed 07/10] traMADol TAB* [Ultram*] 100 mg PO DAILY PRN 03/14/19 [History Confirmed 05/30/19 ] Exenatide Microspheres [Bydureon] 2 mg SQ WEEKLY 05/30/19 [History Confirmed 07/10] Spironolactone TAB* [Aldactone TAB*] 25 mg PO DAILY 05/30/19 [History Confirmed 05/30/19] Tiotropium CAPSULE (NF) [Spiriva CAP.INH*] 1 cap.inh INH DAILY 05/30/19 [ History Confirmed 05/30/19] traMADol TAB* [Ultram*] 50 mg PO DAILY PRN MDD 1 05/30/19 [History Confirmed 07/10] PMH/Surg Hx/FS Hx/Imm Hx Endocrine/Hematology History: Reports: Hx Anticoagulant Therapy, Hx Diabetes Denies: Hx Blood Disorders, Hx Blood Transfusions, Hx Bone Marrow Disease, Hx Sickle Cell Disease, Hx Thyroid Disease, Hx Anemia, Hx Unexplained Bleeding, Other Endocrine/Hematological Disorders Cardiovascular History: Reports: Hx Auto Implanted Cardiovert Defib - 2002, Hx Congestive Heart Failure - in the past, Hx Coronary Artery Disease, Hx Hypercholesterolemia, Hx Hypertension, Hx Pacemaker/ICD, Other Cardiovascular Problems/Disorders - heart failure Denies: Hx Aneurysm, Hx Angina, Hx Angioplasty, Hx Cardiac Arrest, Hx Cardiomegaly, Hx Congenital Heart Disease, Hx Deep Vein Thrombosis, Hx Embolism , Hx Hypotension, Hx Peripheral Vascular Disease, Hx Rheumatic Fever, Hx Syncope , Hx Valvular Heart Disease Respiratory History: Reports: Hx Asthma - hospitalization 05/21/18 for asthma (3 days), Hx Pneumonia - 13 yrs ago Denies: Hx Chronic Bronchitis, Hx Chronic Obstructive Pulmonary Disease (COPD ), Hx Cystic Fibrosis, Hx Lung Cancer, Hx Pleural Effusion, Hx Pulmonary Edema, Hx Pulmonary Embolism, Hx Seasonal Allergies, Hx Sleep Apnea, Other Respiratory Problems/Disorders GI History: Reports: Hx Gastroesophageal Reflux Disease Denies: Hx Cirrhosis, Hx Crohn's Disease, Hx Diverticulosis, Hx Gall Bladder Disease, Hx Gastrointestinal Bleed, Hx Hiatal Hernia, Hx Irritable Bowel, Hx Jaundice, Hx Obstructive Bowel, Hx Ileostomy, Hx Pyloric Stenosis, Hx Ulcer, Other GI Disorders History: Denies: Hx Renal Disease Musculoskeletal History: Reports: Hx Arthritis, Hx Back Problems, Hx Scoliosis Denies: Hx Bursitis, Hx Congenital Bone Abnormalities, Hx Fibromyalgia, Hx Gout, Hx Orthopedic Injury, Hx Osteoporosis, Hx Tendonitis, Other Musculoskeletal History Sensory History: Reports: Hx Cataracts, Hx Contacts or Glasses Denies: Hx Eye Injury, Hx Eye Prosthesis, Hx Glaucoma, Hx Legally Blind, Hx Macular Degeneration, Hx Vision Problem, Hx Deafness, Hx Hearing Aid, Hx Hearing Problem, Other Sensory Impairments Opthamlomology History: Reports: Hx Cataracts, Hx Contacts or Glasses Denies: Hx Eye Injury, Hx Eye Prosthesis, Hx Glaucoma, Hx Legally Blind, Hx Macular Degeneration, Hx Vision Problem, Other Sensory Impairments Neurological History: Reports: Hx Nerve Disease - "bulging disc", "fusion 80's" , Other Neuro Impairments/Disorders - PAIN CLINIC PT Denies: Hx Dementia, Hx Developmental Delay, Hx Headaches, Hx Migraine, Hx Seizures, Hx Spinal Cord Injury, Hx Transient Ischemic Attacks (TIA) Psychiatric History: Reports: Hx Depression Denies: Hx Anxiety, Hx Attention Deficit Hyperactivity Disorder, Hx Eating Disorder, Hx Panic Disorder, Hx Post Traumatic Stress Disorder, Hx Inpatient Treatment, Hx Community Mental Health Tx, Hx Schizophrenia, Hx Bipolar Disorder , Hx Suicide Attempt, Hx of Violent Episodes Against Others, Hx Substance Abuse , Other Psychiatric Issues/Disorders - Cancer History Hx Chemotherapy: No Hx Radiation Therapy: No - Surgical History Surgery Procedure, Year, and Place: Bilat carpal tunnel , Hysterectomy, femoral artery bypass bilateral 2009, heart cath with stent placement 2013, difibrillator/pacemaker 2014, back surgery "a long time ago" Hx Anesthesia Reactions: No Infectious Disease History: No Infectious Disease History: Reports: Hx Shingles - 5 years ago Denies: Hx Clostridium Difficile, Hx Hepatitis, Hx Human Immunodeficiency Virus (HIV), Hx of Known/Suspected MRSA, Hx Tuberculosis, History Other Infectious Disease, Traveled Outside the [place] in Last 30 Days - Family History Known Family History: Positive: Other Family History: No FHx of Breast Cancer - Social History Alcohol Use: None Substance Use Type: Reports: None Smoking Status (MU): Former Smoker Type: Cigarettes Have You Smoked in the Last Year: No - 20 year smoker, quit in 2002 Review of Systems Positive: Other - Clogged G-tube Positive: Other - Left wrist clenched Negative: Weakness All Other Systems Reviewed And Are Negative: Yes Physical Exam - Summary Physical Exam Summary: Constitutional: chronically ill-appearing Skin: Warm, Dry HENT: Normocephalic; Atraumatic, tracheostomy site w clean dressing. Eyes: Conjunctiva normal Neck: Musculoskeletal ROM normal neck. (-) JVD, (-) Stridor Cardio: Rhythm regular, rate normal, Heart sounds normal; Intact distal pulses; Radial pulses are 2+ and symmetric. (-) Murmur Pulmonary/Chest wall: Effort normal. (-) Respiratory distress, (-) Wheezes, (-) Rales Abd: Soft, (-) tenderness, (-) Distension, (-) Guarding, (-) Rebound, G-tube site clean and dry. White material in NG tube. LVAD site clean and dry. Musculoskeletal: (-) Edema Neuro: Alert, Oriented x3 Psych: Mood and affect Normal Triage Information Reviewed: Yes Vital Signs On Initial Exam: Initial Vitals Temp Pulse Resp BP Pulse Ox 98.6 F 0 20 0/0 0 12/30/19 13:11 12/30/19 13:11 12/30/19 13:11 12/30/19 13:11 12/30/19 13:11 Vital Signs Reviewed: Yes Procedures - Sedation Patient Received Moderate/Deep Sedation with Procedure: No Diagnostics - Vital Signs Vital Signs Temp Pulse Resp BP Pulse Ox 12/30/19 13:11 98.6 F 0 20 0/0 0 - Laboratory Lab Statement: Any lab studies that have been ordered have been reviewed, and results considered in the medical decision making process. GIGU Course/Dx - Course Course Of Treatment: 69 y/o F w hx LVAD, g tube, chronic deconditioning 2/2 prolonged ICU stay p/w clogged g tube. - VSS NAD. Strength 5/5 UE. 5/5 R hand. Able to relax hand, no pain. - no weakness of UE, LE, face. Patient denies current symptoms. Family has been giving her a towel to [facility] sometimes. - gtube clogged, able to dislodge medicine particles w wire. Tube flushing well. No further concerns - Diagnoses Provider Diagnoses: Gastrostomy tube dysfunction Discharge ED - Sign-Out/Discharge Documenting (check all that apply): Patient Departure - Discharge Plan Condition: Stable Disposition: HOME Patient Education Materials: Tube Feeding (DC) Referrals: Abran Gordon MD [Primary Care Provider] - Additional Instructions: You were seen in the emergency department for a clogged G-tube. We were able to successfully unclog this. Please follow up with your primary care doctor in next 2-3 days and return to emergency department for worsening or concerning symptoms. It was a pleasure taking care of you today. - Attestation Statements Document Initiated by Scribe: Yes Documenting Scribe: Meryl Muller Provider For Whom Scribe is Documenting (Include Credential): Christiano Perez MD Scribe Attestation: Meryl Castillo, scribed for Christiano Perez MD on 12/30/19 at 1435. Status of Scribe Document: Ready
--- OUTSIDE RECORDS SUMMARY | 2019-12-30 13:58 | XMS REPORT ---
:1950 Author Organization [facility] Care Team Providers Name Role Phone Unavailable Unavailable Unavailable Problems Condition Condition Condition Status Onset Resolution Last Treating Comments Name Details Category Date Date Treatment Clinician Date Heart Heart Diagnosis Active 2019-0 Zoila failure, failure, 3-02 Malnoske unspecified unspecified RN Test/Treatm venipunctur Test/Injec Active 2020-0 Shyann ent e ordered t/Roberto 3-06 (Jeannine) Heavenly [id number] Pain frequent Pain Mgmt Active 2020-0 Shyann pain 3-06 (Jeannine) 10:00: Heavenly [id number] Cardio edema Cardiovasc Active 2020-0 Shyann ular 3-06 (Jeannine) 10:00: Heavenly [id number] Respiratory dyspnea Respirator Active 2020-0 Shyann present y 3-06 (Jeannine) 10:00: Heavenly [id number] Endo/Lamont glucose Endo/Lamont Active 2020-0 Shyann testing 3-06 (Jeannine) dependence 10:00: Heavenly [id number] Endo/Lamont diabetic Endo/Lamont Active 2020-0 Shyann foot care 3-06 (Jeannine) 10:00: Heavenly [id number] Endo/Lamont anti-coagul Endo/Lamont Active 2020-0 Shyann ation 3-06 (Jeannine) therapy 10:00: Heavenly [id number] Sensory impaired Sensory Active 2020-0 Shyann hearing 3-06 (Jeannine) 10:00: Heavenly [id number] Integument skin Integument Active 2020-0 Shyann integrity 3-06 (Jeannine) risk 10:00: Heavenly [id number] Nutrition changing Nutrition Active 2020-0 Shyann weight/appe 3-06 (Jeannine) tite 10:00: Heavenly [id number] Nutrition nutritional Nutrition Active 2020-0 Shyann risk 3-06 (Jeannine) 10:00: [id number] Nutrition nutritional Nutrition Active 2020-0 Shyann restriction 3-06 (Jeannine) s 10:00: [id number] Elimination urinary Eliminatio Active 2020-0 Shyann incontinenc n 3-06 (Jeannine) e 10:00: [id number] Elimination GI drain or Eliminatio Active 2020-0 Shyann tube n 3-06 (Jeannine) present 10:00: [id number] Elimination nausea/vomi Eliminatio Active 2020-0 Shyann ting n 3-06 (Jeannine) 10:00: [id number] Neuro confusion Neuro/Emot Active 2020-0 Shyann present ion 3-06 (Jeannine) 10:00: [place] [id number] Neuro anxiety Neuro/Emot Active 2020-0 Shyann present ion 3-06 (Jeannine) 10:00: [place] [id number] Neuro depressive Neuro/Emot Active 2020-0 Shyann feelings ion 3-06 (Jeannine) present 10:00: [place] [id number] Neuro impaired Neuro/Emot Active 2020-0 Shyann decision-ma ion 3-06 (Jeannine) diya 10:00: [place] [id number] Neuro memory Neuro/Emot Active 2020-0 Shyann deficit ion 3-06 (Jeannine) needing 10:00: [place]ick supervision [id number] Activity ADL Activity Active 2020-0 Shyann assistance 3-06 (Jeannine) required 10:00: Bur[place]ick [id number] Activity self-care Activity Active 2020-0 Shyann deficit 3-06 (Jeannine) 10:00: [place]ick [id number] Safety cannot be Safety Active 2020-0 Shyann left alone 3-06 (Jeannine) 10:00: Bur[place]ick [id number] Safety fall risk Safety Active 2020-0 Shyann factor 3-06 (Jeannine) present 10:00: [place]ick [id number] Safety risk for Safety Active 2020-0 Shyann hospitaliza 3-06 (Jeannine) tion 10:00: [place]ick [id number] Medication oral med Meds Active 2020-0 Shyann assistance 3-06 (Jeannine) required 10:00: [place] [id number] Musculoskel transfer Musculoske Active 2020-0 Shyann etal assistance letal 12-25 (Jeannine) required 10:00: [place] [id number] Musculoskel requires Musculoske Active Shyann etal human letal 12-25 (Jeannine) assist to 10:00: Burdick leave home [id number] Allergies, Adverse Reactions, Alerts Allergy Name Allergy Status Severity Reaction(s) Onset Inactive Treating Comments Type Date Date Clinician atorvastatin Base Active Unknown Reaction Interface Ingredient Unknown 03-14 iodine Unknown Active Unknown Reaction Unknown Unknown 03-18 Iodine and Unknown Active Unknown Reaction Interface Iodide Unknown 03-18 Containing Produc morphine Base Active Unknown Reaction Interface Ingredient Unknown 03-14 nickel Base Active Unknown Reaction Unknown Ingredient Unknown 03-14 shellfish Unknown Active Unknown Reaction Interface derived Unknown 03-14 Medications Ordered Filled Start Stop Current Ordering Indication Dosage Frequency Signature Comments Components Medication Medication Date Date Medication? Clinician (SIG) Name Name lisinopril lisinopril No Midura Unknown Unknown 2.5 mg 2.5 mg Abran MCKEON tablet tablet ipratropium ipratropium Yes Midura Unknown Unknown -albuterol -albuterol 12-25 MDAbran 0.5 mg-3 0.5 mg-3 mg(2.5 mg mg(2.5 mg base)/3 mL base)/3 mL nebulizatio nebulizatio n soln n soln ipratropium ipratropium No Midura Unknown Unknown -albuterol -albuterol MD,Abran 0.5 mg-3 0.5 mg-3 mg(2.5 mg mg(2.5 mg base)/3 mL base)/3 mL nebulizatio nebulizatio n soln n soln Aspir-81 mg Aspir-81 mg No Midura Unknown Unknown tablet,michael tablet,michael Abran MCKEON yed release yed release buPROPion buPROPion Yes Midura Unknown Unknown HCl 75 mg HCl 75 mg 12-25 Abran MCKEON tablet tablet rosuvastati rosuvastati No Midura Unknown Unknown n 10 mg n 10 mg MD,Abran tablet tablet omeprazole omeprazole Yes Midura Unknown Unknown 20 mg 20 mg 12-25 Abran MCKEON capsule,del capsule,del ayed ayed release release Singulair Singulair 2019-0 Yes Midura Unknown Unknown 10 mg 10 mg 3-06 Abran MCKEON tablet tablet Plavix 75 Plavix 75 No Midura Unknown Unknown mg tablet mg tablet Abran MCKEON Symbicort Symbicort No Midura Unknown Unknown 160 mcg-4.5 160 mcg-4.5 Abran MCKEON mcg/actuati mcg/actuati on HFA on HFA aerosol aerosol inhaler inhaler Multiple Multiple 2020-0 Yes Midura Unknown Unknown Vitamin, Vitamin, 3- Abran MCKEON Womens Womens tablet tablet FLUoxetine FLUoxetine No Midura Unknown Unknown 20 mg 20 mg Abran MCKEON capsule capsule Spiriva Spiriva No Midura Unknown Unknown with with Abran MCKEON HandiHaler HandiHaler 18 mcg and 18 mcg and inhalation inhalation capsules capsules glipiZIDE glipiZIDE No Midura Unknown Unknown ER 2.5 mg ER 2.5 mg Abran MCKEON tablet, tablet, extended extended release 24 release 24 hr hr torsemide torsemide Yes Midura Unknown Unknown 20 mg 20 mg 3- MDAbran tablet tablet spironolact spironolact No Mauser Unknown Unknown one 25 mg one 25 mg ,Jonatha tablet tablet n acetaminoph acetaminoph No Midura Unknown Unknown en 500 mg en 500 mg MDAbran tablet tablet Bydureon 2 Bydureon 2 No Midura Unknown Unknown mg/0.65 mL mg/0.65 mL Abran MCKEON subcutaneou subcutaneou s pen s pen injector injector allopurinol allopurinol 0 Yes Midura Unknown Unknown 100 mg 100 mg 3-06 MDAbran tablet tablet ALPRAZolam ALPRAZolam 0 Yes Midura Unknown Unknown 0.25 mg 0.25 mg 3- ,Abran tablet tablet calcium calcium 2020-0 Yes Midura Unknown Unknown carbonate carbonate 3-06 Abran MCKEON 200 mg 200 mg calcium calcium (500 mg) (500 mg) chewable chewable tablet tablet carvedilol carvedilol 2019-0 Yes Midura Unknown Unknown 6.25 mg 6.25 mg 3-06 ,Abran tablet tablet enalapril enalapril 2019-0 Yes Midura Unknown Unknown maleate 20 maleate 20 3-06 MDAbran mg tablet mg tablet folic acid folic acid 2019-0 Yes Midura Unknown Unknown 1 mg tablet 1 mg tablet 3- Abran MCKEON guaiFENesin guaiFENesin 2020-0 Yes Midura Unknown Unknown 100 mg/5 mL 100 mg/5 mL 3- Abran MCKEON oral liquid oral liquid lactulose lactulose 2019-0 Yes Midura Unknown Unknown 10 gram/15 10 gram/15 3- Abran MCKEON mL oral mL oral solution solution levothyroxi levothyroxi 2019-0 Yes Midura Unknown Unknown ne 75 mcg ne 75 mcg 3- Abran MCKEON tablet tablet Lidocaine Lidocaine 2020-0 Yes Midura Unknown Unknown Plus 4 % Plus 4 % 3- Abran MCKEON topical topical cream cream magnesium magnesium 2020-0 Yes Midura Unknown Unknown hydroxide hydroxide 3- Abran MCKEON 400 mg/5 mL 400 mg/5 mL oral oral suspension suspension metroNIDAZO metroNIDAZO 2019-0 Yes Midura Unknown Unknown LE 0.75 % LE 0.75 % 3- Abran MCKEON topical gel topical gel ondansetron ondansetron 2019-0 Yes Midura Unknown Unknown 4 mg 4 mg 3- Abran MCKEON disintegrat disintegrat ing tablet ing tablet traMADol 50 traMADol 50 2020-0 Yes Midura Unknown Unknown mg tablet mg tablet 3- Abran MCKEON venlafaxine venlafaxine 2019-0 Yes Midura Unknown Unknown 75 mg 75 mg 3- Abran MCKEON tablet tablet warfarin 4 warfarin 4 2020-0 Yes Midura Unknown Unknown mg tablet mg tablet 3- Abran MCKEON warfarin 5 warfarin 5 2019-0 Yes Midura Unknown Unknown mg mg 3- Abran MCKEON Vital Signs Vital Name Observation Time Observation Value Comments PULSE 2019-12-29 18:10:47 80 /min /min RESP RATE 2019-12-29 18:10:47 20 /min /min TEMP 2019-12-29 18:10:47 98.9 [degF] Procedures This patient has no known procedures. Results This patient has no known results.
--- OUTSIDE RECORDS SUMMARY | 2019-12-30 13:58 | XMS REPORT ---
:1950 Author Organization [facility] Care Team Providers Name Role Phone Unavailable Unavailable Unavailable Problems Condition Condition Condition Status Onset Resolution Last Treating Comments Name Details Category Date Date Treatment Clinician Date Heart Heart Diagnosis Active Zoila failure, failure, 3-02 Malnoske unspecified unspecified RN Allergies, Adverse Reactions, Alerts Allergy Name Allergy Status Severity Reaction(s) Onset Inactive Treating Comments Type Date Date Clinician atorvastatin Base Active Unknown Reaction Interface Ingredient Unknown 5-24 iodine Unknown Active Unknown Reaction Unknown Unknown 5-28 Iodine and Unknown Active Unknown Reaction Interface Iodide Unknown 5-28 Containing Produc morphine Base Active Unknown Reaction Interface Ingredient Unknown 5-24 nickel Base Active Unknown Reaction Unknown Ingredient Unknown 5-24 shellfish Unknown Active Unknown Reaction Interface derived Unknown 5-24 Medications Ordered Filled Start Stop Current Ordering Indication Dosage Frequency Signature Comments Components Medication Medication Date Date Medication? Clinician (SIG) Name Name No Known No Known No None None None Medications Medications For This For This Patient Patient Procedures This patient has no known procedures. Results This patient has no known results.
--- OUTSIDE RECORDS SUMMARY | 2019-12-30 13:58 | XMS REPORT ---
:1950 Author Organization [facility] Care Team Providers Name Role Phone Unavailable [...] Medications For This For This Patient Patient Vital Signs Vital Name Observation Time Observation Value Comments PULSE 2019-12-26 18:10:44 72 /min /min TEMP 2019-12-26 18:10:44 97.0 [degF] Procedures This patient has no known procedures. Results This patient has no known results.
--- OUTSIDE RECORDS SUMMARY | 2019-12-30 13:58 | XMS REPORT ---
:1950 Author Organization [facility] Care Team Providers Name Role [...]
--- OUTSIDE RECORDS SUMMARY | 2019-12-30 13:58 | XMS REPORT ---
:1950 Author Organization [facility] Care Team Providers Name Role Phone Unavailable Unavailable Unavailable Problems Condition Condition Condition Status Onset Resolution Last Treating Comments Name Details Category Date Date Treatment Clinician Date Heart Heart Diagnosis Active 2019-0 Zoila failure, failure, 3-02 Malnoske unspecified unspecified RN Test/Treatm venipunctur Test/Injec Active 2020-0 Shyann ent e ordered t/Roberto 3-06 (Jeannine) Heavenly [id number] Pain frequent Pain Mgmt Active 2020-0 Shyann pain 3-06 (Jeannine) 10:00: Heavenly [id number] Cardio edema Cardiovasc Active 2020-0 Shyann ular 3-06 (Jeannine) 10:00: Heavenly [id number] Respiratory dyspnea Respirator Active 2020-0 Shyann present y 3-06 (Jeannine) 10:00: Heavenly [id number] Endo/Lamont glucose Endo/Lamont Active 2020-0 Shyann testing 3-06 (Jeannine) dependence 10:00: Heavenly [id number] Endo/Lamont diabetic Endo/Lamont Active 2020-0 Shyann foot care 3-06 (Jeannine) 10:00: Heavenly [id number] Endo/Lamont anti-coagul Endo/Lamont Active 2020-0 Shyann ation 3-06 (Jeannine) therapy 10:00: Heavenly [id number] Sensory impaired Sensory Active 2020-0 Shyann hearing 3-06 (Jeannine) 10:00: Heavenly [id number] Integument skin Integument Active 2020-0 Shyann integrity 3-06 (Jeannine) risk 10:00: Heavenly [id number] Nutrition changing Nutrition Active 2020-0 Shyann weight/appe 3-06 (Jeannine) tite 10:00: Heavenly [id number] Nutrition nutritional Nutrition Active 2020-0 Shyann risk 3-06 (Jeannine) 10:00: [id number] Nutrition nutritional Nutrition Active 2020-0 Shyann restriction 3-06 (Jeannine) s 10:00: [id number] Elimination urinary Eliminatio Active 2020-0 Shyann incontinenc n 3-06 (Jeannine) e 10:00: [id number] Elimination GI drain or Eliminatio Active 2020-0 Shyann tube n 3-06 (Jeannine) present 10:00: [id number] Elimination nausea/vomi Eliminatio Active 2020-0 Shyann ting n 3-06 (Jeannine) 10:00: [id number] Neuro confusion Neuro/Emot Active 2020-0 Shyann present ion 3-06 (Jeannine) 10:00: Burdick [id number] Neuro anxiety Neuro/Emot Active 2020-0 Shyann present ion 3-06 (Jeannine) 10:00: Burdick [id number] Neuro depressive Neuro/Emot Active 2020-0 Shyann feelings ion 3-06 (Jeannine) present 10:00: Burdick [id number] Neuro impaired Neuro/Emot Active 2020-0 Shyann decision-ma ion 3-06 (Jeannine) diya 10:00: Burdick [id number] Neuro memory Neuro/Emot Active 2020-0 Shyann deficit ion 3-06 (Jeannine) needing 10:00: Burdick supervision [id number] Activity ADL Activity Active 2020-0 Shyann assistance 3-06 (Jeannine) required 10:00: Burdick [id number] Activity self-care Activity Active 2020-0 Shyann deficit 3-06 (Jeannine) 10:00: Burdick [id number] Safety cannot be Safety Active 2020-0 Shyann left alone 3-06 (Jeannine) 10:00: Burdick [id number] Safety fall risk Safety Active 2020-0 Shyann factor 3-06 (Jeannine) present 10:00: Burdick [id number] Safety risk for Safety Active 2020-0 Shyann hospitaliza 3-06 (Jeannine) tion 10:00: Burdick [id number] Medication oral med Meds Active 2020-0 Shyann assistance 3-06 (Jeannine) required 10:00: Burdick [id number] Musculoskel transfer Musculoske Active 2020-0 Shyann etal assistance letal 12-25 (Jeannine) required 10:00: Burdick [id number] Musculoskel requires Musculoske Active Shyann etal human letal 12-25 (Jeannine) assist to 10:00: Burdick leave home [id number] Allergies, Adverse Reactions, Alerts Allergy Name Allergy [...] Midura Unknown Unknown 10 gram/15 10 gram/15 - Abran MCKEON mL oral mL oral solution solution levothyroxi levothyroxi 2019-0 Yes Midura Unknown Unknown ne 75 mcg ne 75 mcg - Abran MCKEON tablet tablet Lidocaine Lidocaine 2019-0 Yes Midura Unknown Unknown Plus 4 % Plus 4 % 3 Abran MCKEON topical topical cream cream magnesium magnesium 2020-0 Yes Midura Unknown Unknown hydroxide hydroxide 12-25 Abran MCKEON 400 mg/5 mL 400 mg/5 mL oral oral suspension suspension metroNIDAZO metroNIDAZO 2019-0 Yes Midura Unknown Unknown LE 0.75 % LE 0.75 % 12-25 Abrna MCKEON topical gel topical gel ondansetron ondansetron [...] Midura Unknown Unknown mg tablet mg tablet - Abran MCKEON warfarin 5 warfarin 5 2019-0 Yes Midura Unknown Unknown mg mg 3- Abran MCKEON Vital Signs Vital Name Observation Time Observation Value Comments PULSE 2019-12-26 18:10:44 72 /min /min RESP RATE 2019-12-28 18:10:46 18 /min /min TEMP 2019-12-26 18:10:44 97.0 [degF] Procedures This patient has no known procedures. Results This patient has no known results.
--- OUTSIDE RECORDS SUMMARY | 2019-12-30 13:58 | XMS REPORT ---
:1950 Author Organization [facility] Care Team Providers Name Role Phone [...]
--- OUTSIDE RECORDS SUMMARY | 2019-12-30 13:59 | XMS REPORT ---
:1950 Author Organization [facility] Care Team Providers Name Role Phone Unavailable Unavailable Unavailable Problems This patient has no known problems. Allergies, Adverse Reactions, Alerts Allergy Name Allergy [...]
--- OUTSIDE RECORDS SUMMARY | 2019-12-30 13:59 | XMS REPORT ---
:1950 Author Organization [facility] Care Team Providers Name Role [...]
== END 2019-12-30 14:34 | disposition home or self-care (01) ==
LOC: ED 13:11
DX: K94.23 Gastrostomy malfunction (principal); Z87.891 Personal history of nicotine dependence
CPT/HCPCS: 99283

== ENCOUNTER 2020-01-07 12:35 | Emergency (ER) | payer MEDICARE ==
--- OUTSIDE RECORDS SUMMARY | 2020-01-07 12:43 | XMS REPORT ---
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, disease, RN unspecified unspecified 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 RN without without complicatio complicatio ns ns 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, disease, unspecified unspecified 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 Spinal Spinal Diagnosis Active Zoila stenosis, stenosis, Malnoske lumbar lumbar RN region region without without neurogenic neurogenic claudicatio claudicatio n n 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, disorder, RN recurrent, recurrent, unspecified unspecified Hypothyroid Hypothyroid Diagnosis Active Zoila ism, ism, Malnoske unspecified unspecified RN 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 correction correction Diagnosis Active Zoila (current) (current) Malnoske use of use of RN anticoagula anticoagula nts nts Test/Treatm venipunctur Test/Injec Active Shyann ent e ordered t/Roberto 12-25 (Jeannine) Heavenly [id number] Pain frequent Pain Mgmt Active 2020-0 Shyann pain 3-06 (Jeannine) 10:00: Burdick [id number] Cardio edema Cardiovasc Active 2020-0 Shyann ular 3-06 (Jeannine) 10:00: Burdick [id number] Respiratory dyspnea Respirator Active 2020-0 Shyann present y 3-06 (Jeannine) 10:00: Burdick [id number] Endo/Lamont glucose Endo/Lamont Active 2020-0 Shyann testing 3-06 (Jeannine) dependence 10:00: Burdick [id number] Endo/Lamont diabetic Endo/Lamont Active 2020-0 Shyann foot care 3-06 (Jeannine) 10:00: Burdick [id number] Endo/Lamont anti-coagul Endo/Lamont Resolve 2019-0 2019-12-29 Shyann ation d 3-06 11:40:00 (Jeannine) therapy 10:00: Heavenly [id number] Sensory impaired Sensory Active 2019-0 Shyann hearing 3-06 (Jeannine) 10:00: Heavenly [id number] Integument skin Integument Active 2020-0 Shyann integrity 3-06 (Jeannine) risk 10:00: Burdick [id number] Nutrition changing Nutrition Active 2020-0 Shyann weight/appe 3-06 (Jeannine) tite 10:00: Burdick [id number] Nutrition nutritional Nutrition Active 2020-0 Shyann risk 3-06 (Jeannine) 10:00: Burdick [id number] Nutrition nutritional Nutrition Active 2020-0 Shyann restriction 3-06 (Jeannine) s 10:00: Heavenly [id number] Elimination urinary Eliminatio Active 2020-0 Shyann incontinenc n 3-06 (Jeannine) e 10:00: Burdick [id number] Elimination GI drain or Eliminatio Active 2020-0 Shyann tube n 3-06 (Jeannine) present 10:00: Heavenly [id number] Elimination nausea/vomi Eliminatio Active 2020-0 Shyann ting n 3-06 (Jeannine) 10:00: Heavenly [id number] Neuro confusion Neuro/Emot Active 2020-0 Shyann present ion 3-06 (Jeannine) 10:00: Heavenly [id number] Neuro anxiety Neuro/Emot Active 2020-0 Shyann present ion 3-06 (Jeannine) 10:00: Heavenly [id number] Neuro depressive Neuro/Emot Active 2020-0 Shyann feelings ion 3-06 (Jeannine) present 10:00: Burdick [id number] Neuro impaired Neuro/Emot Active 2020-0 Shyann decision-ma ion 3-06 (Jeannine) diya 10:00: Burdick [id number] Neuro memory Neuro/Emot Active 2020-0 Shyann deficit ion 3-06 (Jeannine) needing 10:00: Burdick supervision 00 [id number] Activity ADL Activity Active 2019-0 Shyann assistance 3-06 (Jeannine) required 10:00: Burdick [id number] Activity self-care Activity Resolve 2019-0 2019-12-29 Shyann deficit d 3-06 11:40:00 (Jeannine) 10:00: Burdick [id number] Safety cannot be Safety Active 2019-0 Shyann left alone 3-06 (Jeannine) 10:00: Burdick [id number] Safety fall risk Safety Active 2019-0 Shyann factor 3-06 (Jeannine) present 10:00: Burdick [id number] Safety risk for Safety Active 2019-0 Shyann hospitaliza 3-06 (Jeannine) tion 10:00: Burdick [id number] Medication oral med Meds Resolve 2019-0 2019-12-31 Shyann assistance d 3-06 13:02:00 (Jeannine) required 10:00: Burdick [id number] Musculoskel transfer Musculoske Active 2019-0 Shyann etal assistance letal 3-06 (Jeannine) required 10:00: Burdick [id number] Musculoskel requires Musculoske Active 2019-0 Shyann etal human letal 3- (Jeannine) assist to 10:00: Burdick leave home 00 [id number] Respiratory lung sounds Respirator Resolve 2020-0 2019-12-31 Zoila deficit y d 3-09 13:02:00 Malnoske 11:40: RN 00 Respiratory nebulizer Respirator Active 2019-0 Zoila treatment y 3-09 Malnoske in home 11:40: RN 00 Nutrition enteral Nutrition Active 2020-0 Zoila therapy 3-09 Malnoske 11:40: RN 00 Nutrition enteral Nutrition Active 2019-0 Zoila equip 3-09 Malnoske assistance 11:40: RN req: pt/cg 00 Elimination bowel Eliminatio Active Zoila incontinenc n 12-28 Malnoske e 11:40: RN 00 Endo/Lamont anti-coagul Endo/Lamont Active Zoila ation 3 Malnoske therapy 13:02: RN 00 Allergies, Adverse Reactions, Alerts Allergy Name Allergy Status Severity Reaction(s) Onset Inactive Treating Comments Type Date Date Clinician atorvastatin Base Active Unknown Reaction Interface Ingredient Unknown 524 iodine Unknown Active Unknown Reaction Unknown Unknown 5-28 Iodine and Unknown Active Unknown Reaction Interface Iodide Unknown - Containing Produc morphine Base Active Unknown Reaction Interface Ingredient Unknown 24 nickel Base Active Unknown Reaction Unknown Ingredient Unknown 24 shellfish Unknown Active Unknown Reaction Interface derived Unknown 03-14 Medications Ordered Filled Start Stop Current Ordering Indication Dosage Frequency Signature Comments Components Medication Medication Date Date Medication? Clinician (SIG) Name Name lisinopril lisinopril No Midura Unknown Unknown 2.5 mg 2.5 mg Abran MCKEON tablet tablet ipratropium ipratropium 2019- Yes Midura Unknown Unknown -albuterol -albuterol 12-25 Abran MCKOEN 0.5 mg-3 0.5 mg-3 mg(2.5 mg mg(2.5 mg base)/3 mL base)/3 mL nebulizatio nebulizatio n soln n soln ipratropium ipratropium No Midura Unknown Unknown -albuterol -albuterol MDAbran 0.5 mg-3 0.5 mg-3 mg(2.5 mg [...] Unknown n 10 mg n 10 mg Abran MCKEON tablet tablet omeprazole omeprazole Yes Midura Unknown [...] HFA aerosol aerosol inhaler inhaler Multiple Multiple 2019-0 Yes Midura Unknown Unknown Vitamin, Vitamin, 3- [...] Midura Unknown Unknown 20 mg 20 mg 3-06 Abran MCKEON tablet tablet spironolact spironolact No Mauser Unknown Unknown one 25 mg one 25 mg ,Jonatha tablet tablet n acetaminoph acetaminoph No Midura Unknown Unknown en 500 mg en 500 mg Abran MCKEON tablet tablet Bydureon 2 Bydureon 2 No Midura Unknown Unknown mg/0.65 mL mg/0.65 mL Abran MCKEON subcutaneou subcutaneou s pen s pen injector injector allopurinol allopurinol 0 Yes Midura Unknown Unknown 100 mg 100 mg 3-06 Abran MCKEON tablet tablet ALPRAZolam ALPRAZolam 0 Yes Midura Unknown Unknown 0.25 mg 0.25 mg 3- MDAbran tablet tablet calcium calcium 2020-0 Yes Midura Unknown Unknown carbonate carbonate 3-06 Abran MCKEON 200 mg 200 mg calcium calcium (500 mg) (500 mg) chewable chewable tablet tablet carvedilol carvedilol 2019-0 Yes Midura Unknown Unknown 6.25 mg 6.25 mg 3-06 MDAbran tablet tablet enalapril enalapril 2019-0 Yes Midura Unknown Unknown maleate 20 maleate 20 3- Abran MCKEON mg tablet mg tablet folic acid folic acid 2020-0 Yes Midura Unknown Unknown 1 mg tablet 1 mg tablet 3 Abran MCKEON guaiFENesin guaiFENesin 2019-0 Yes Midura Unknown Unknown 100 mg/5 mL 100 mg/5 mL 12-25 Abran MCKEON oral liquid oral liquid lactulose lactulose 2019- Yes Midura Unknown Unknown 10 gram/15 10 gram/15 12-25 Abran MCKEON mL oral mL oral solution solution levothyroxi levothyroxi 2019-0 Yes Midura Unknown Unknown ne 75 mcg ne 75 mcg 12-25 Abran MCKEON tablet tablet Lidocaine Lidocaine Yes Midura Unknown Unknown Plus 4 % Plus 4 % 12-25 Abran MCKEON topical topical cream cream magnesium magnesium 2019-0 Yes Midura Unknown Unknown hydroxide hydroxide 12-25 Abran MCKEON 400 mg/5 mL 400 mg/5 mL oral oral suspension suspension metroNIDAZO metroNIDAZO Yes Midura Unknown Unknown LE 0.75 % LE 0.75 % 12-25 Abran MCKEON topical gel topical gel ondansetron ondansetron 2019- Yes Midura Unknown Unknown 4 mg 4 mg 3 Abran MCKEON disintegrat disintegrat ing tablet ing tablet traMADol 50 traMADol 50 2019-0 Yes Midura Unknown Unknown mg tablet mg tablet 3 Abran MCKEON venlafaxine venlafaxine 2019- Yes Midura Unknown Unknown 75 mg 75 mg 12-25 Abran MCKEON tablet tablet warfarin 4 warfarin 4 2019-0 Yes Midura Unknown Unknown mg tablet mg tablet 12-25 Abran MCKEON warfarin 5 warfarin 5 2019-0 Yes Midura Unknown Unknown mg mg 12-25 Abran MCKEON ipratropium ipratropium 2019-0 Yes Midura Unknown Unknown -albuterol -albuterol 12-28 MDAbran 0.5 mg-3 0.5 mg-3 mg(2.5 mg mg(2.5 mg base)/3 mL base)/3 mL nebulizatio nebulizatio n soln n soln buPROPion buPROPion 2019-0 Yes Midura Unknown Unknown HCl 100 mg HCl 100 mg 3 ,Abran tablet tablet amLODIPine amLODIPine 2019-0 Yes Midura Unknown Unknown 2.5 mg 2.5 mg 3 ,Abran tablet tablet budesonide budesonide 2020-0 Yes Midura Unknown Unknown 0.5 mg/2 mL 0.5 mg/2 mL - Abran MCKEON suspension suspension for for nebulizatio nebulizatio n n Vital Signs Vital Name Observation Time Observation Value Comments PULSE 2019-12-31 18:10:49 82 /min /min RESP RATE 2019-12-30 18:10:48 20 /min /min TEMP 2019-12-31 18:10:49 98.2 [degF] Procedures This patient has no known procedures. Results This patient has no known results.
--- OUTSIDE RECORDS SUMMARY | 2020-01-07 12:43 | XMS REPORT ---
:1950 Author Organization [facility] Care Team Providers Name Role Phone Unavailable Unavailable Unavailable Problems Condition Condition Condition Status Onset Resolution Last Treating Comments Name Details Category Date Date Treatment Clinician Date Chronic Chronic Diagnosis Active Zoila systolic systolic 3- Malnoske (congestive (congestive RN ) heart ) heart failure failure Ischemic Ischemic Diagnosis Active Zoila cardiomyopa cardiomyopa 3- Malnoske thy thy RN Peripheral Peripheral Diagnosis Active Zoila vascular vascular 3 Malnoske disease, disease, RN unspecified unspecified Type [...] brennane brennane RN malnutritio malnutritio n n nursing home nursing home Diagnosis Active Zoila (current) (current) Malnoske use of use of RN anticoagula anticoagula nts nts Test/Treatm venipunctur Test/Injec Active Shyann ent e ordered t/Roberto 12-25 (Jeannine) Heavenly [id number] Pain frequent Pain Mgmt Resolve 2019-12-31 Shyann pain d 3-06 13:02:00 (Jeannine) 10:00: Burdick [id number] Cardio edema Cardiovasc Active 2019- Shyann ular 3-06 (Jeannine) 10:00: Burdick [id number] Respiratory dyspnea Respirator Resolve 2019-12-31 Shyann present y d 3-06 13:02:00 (Jeannine) 10:00: Burdick [id number] Endo/Lamont glucose Endo/Lamont Active 2019- Shyann testing 3-06 (Jeannine) dependence 10:00: Burdick [id number] Endo/Lamont diabetic Endo/Lamont Resolve 2019-12-31 Shyann foot care d 3-06 13:02:00 (Jeannine) 10:00: Burdick [id number] Endo/Lamont anti-coagul Endo/Lamont Resolve 2019-12-29 Shyann ation d 3-06 11:40:00 (Jeannine) therapy 10:00: Burdick [id number] Sensory impaired Sensory Active 2019- Shyann hearing 3-06 (Jeannine) 10:00: Burdick [id number] Integument skin Integument Resolve 2019-12-31 Shyann integrity d 3-06 13:02:00 (Jeannine) risk 10:00: Burdick [id number] Nutrition changing Nutrition Active 2019-0 Shyann weight/appe 3-06 (Jeannine) tite 10:00: Burdick [id number] Nutrition nutritional Nutrition Active 2019-0 Shyann risk 3-06 (Jeannine) 10:00: Burdick [id number] Nutrition nutritional Nutrition Active 2019-0 Shyann restriction 3-06 (Jeannine) s 10:00: Burdick [id number] Elimination urinary Eliminatio Active 2019-0 Shyann incontinenc n 3-06 (Jeannine) e 10:00: Burdick [id number] Elimination GI drain or Eliminatio Active 2019-0 Shyann tube n 3-06 (Jeannine) present 10:00: Burdick [id number] Elimination nausea/vomi Eliminatio Active 2019-0 Shyann ting n 3-06 (Jeannine) 10:00: Burdick [id number] Neuro confusion Neuro/Emot Active 2020-0 Shyann present ion 3-06 (Jeannine) 10:00: [id number] Neuro anxiety Neuro/Emot Active 2019-0 Shyann present ion 3-06 (Jeannine) 10:00: [id number] Neuro depressive Neuro/Emot Active 2019- Shyann feelings ion 3-06 (Jeannine) present 10:00: [id number] Neuro impaired Neuro/Emot Active 2019- Shyann decision-ma ion 3-06 (Jeannine) diya 10:00: [id number] Neuro memory Neuro/Emot Active 2019- Shyann deficit ion 3-06 (Ejannine) needing 10:00: Burdick supervision 00 [id number] Activity ADL Activity Resolve 2019-12-31 Shyann assistance d 3-06 13:02:00 (Jeannine) required 10:00: [id number] Activity self-care Activity Resolve 2019-12-29 Shyann deficit d 3-06 11:40:00 (Jeannine) 10:00: [id number] Safety cannot be Safety Resolve 2019-12-31 Shyann left alone d 3-06 13:02:00 (Jeannine) 10:00: [id number] Safety fall risk Safety Resolve 2019-12-31 Shyann factor d 3-06 13:02:00 (Jeannine) present 10:00: [id number] Safety risk for Safety Resolve 2019-2019-12-31 Shyann hospitaliza d 3-06 13:02:00 (Jeannine) tion 10:00: [id number] Medication oral med Meds Resolve 2019-12-31 Shyann assistance d 3-06 13:02:00 (Jeannine) required 10:00: [id number] Musculoskel transfer Musculoske Active Shyann etal assistance letal 3-06 (Jeannine) required 10:00: [id number] Musculoskel requires Musculoske Active Shyann etal human letal 3-06 (Jeannine) assist to 10:00: Burdick leave home 00 [id number] Respiratory lung sounds Respirator Resolve 2019-12-31 Zoila deficit y d 3-09 13:02:00 Malnoske 11:40: RN 00 Respiratory nebulizer Respirator Resolve 2019-12-31 Zoila treatment y d 12-28 13:02:00 Malnoske in home 11:40: RN 00 Nutrition enteral Nutrition Resolve 2019-12-31 Zoila therapy d 12-28 13:02:00 Malnoske 11:40: RN 00 Nutrition enteral Nutrition Resolve 2019-12-31 Zoila equip d 12-28 13:02:00 Malnoske assistance 11:40: RN req: pt/cg 00 Elimination bowel Eliminatio Active Zoila incontinenc n 12-28 Malnoske e 11:40: RN 00 Endo/Lamont anti-coagul Endo/Lamont Resolve 2019-12-31 Zoila ation d 12-30 13:02:00 Malnoske therapy 13:02: RN 00 Respiratory lung sounds Respirator Active Zoila deficit y 3-13 Malnoske 10:18: RN 00 [facility] 12:15: [id number] Allergies, Adverse Reactions, Alerts Allergy Name [...] Abran MCKEON tablet tablet ipratropium ipratropium 2019- Midura Unknown Unknown -albuterol -albuterol 12-25 Abran MCKEON 0.5 mg-3 0.5 mg-3 mg(2.5 mg mg(2.5 mg base)/3 mL base)/3 mL nebulizatio nebulizatio n soln n soln ipratropium ipratropium No Midura Unknown Unknown -albuterol -albuterol Abran MCKEON 0.5 mg-3 0.5 mg-3 mg(2.5 mg mg(2.5 mg base)/3 mL base)/3 mL nebulizatio nebulizatio n soln n soln Aspir-81 mg Aspir-81 mg No Midura Unknown Unknown tablet,michael tablet,michael Abran MCKEON yed release yed release buPROPion buPROPion Yes Midura Unknown Unknown HCl 75 mg HCl 75 mg 3- ,Abran tablet tablet rosuvastati rosuvastati No Midura Unknown Unknown n 10 mg n 10 mg ,Abran tablet tablet omeprazole omeprazole Yes Midura Unknown Unknown 20 mg 20 mg 3- Abran MCKEON capsule,del capsule,del ayed ayed release release Singulair Singulair Yes Midura Unknown Unknown 10 mg 10 mg 3- Abran MCKEON tablet tablet Plavix 75 Plavix 75 No Midura Unknown Unknown mg tablet mg tablet Abran MCKEON Symbicort Symbicort No Midura Unknown Unknown 160 mcg-4.5 160 mcg-4.5 Abran MCKEON mcg/actuati mcg/actuati on HFA on HFA aerosol aerosol inhaler inhaler Multiple Multiple Yes Midura Unknown Unknown Vitamin, Vitamin, 3- [...] Unknown one 25 mg one 25 mg MDJonatha tablet tablet n acetaminoph acetaminoph No Midura Unknown Unknown en 500 mg en 500 mg Abran MCKEON tablet tablet Bydureon 2 Bydureon 2 No Midura Unknown Unknown mg/0.65 mL mg/0.65 mL Abran MCKEON subcutaneou subcutaneou s pen s pen injector injector allopurinol allopurinol 2019-0 Yes Midura Unknown Unknown 100 mg 100 mg 3- Abran MCKEON tablet tablet ALPRAZolam ALPRAZolam 2019-0 Yes Midura Unknown Unknown 0.25 mg 0.25 mg 3 Abran MCKEON tablet tablet calcium calcium 2019-0 Yes Midura Unknown Unknown carbonate carbonate 3 Abran MCKEON 200 mg 200 mg calcium calcium (500 mg) (500 mg) chewable chewable tablet tablet carvedilol carvedilol 2019-0 Yes Midura Unknown Unknown 6.25 mg 6.25 mg 3 Abran MCKEON tablet tablet enalapril enalapril 2019-0 Yes Midura Unknown Unknown maleate 20 maleate 20 3 Abran MCKEON mg tablet mg tablet folic acid folic acid Yes Midura Unknown Unknown 1 mg tablet 1 mg tablet 12-25 Abran MCKEON guaiFENesin guaiFENesin Yes Midura Unknown Unknown 100 mg/5 mL 100 mg/5 mL 3 Abran MCKEON oral liquid oral liquid lactulose lactulose Yes Midura Unknown Unknown 10 gram/15 10 gram/15 12-25 Abran MCKEON mL oral mL oral solution solution levothyroxi levothyroxi Yes Midura Unknown Unknown ne 75 mcg ne 75 mcg 3 Abran MCKEON tablet tablet Lidocaine Lidocaine Yes Midura Unknown Unknown Plus 4 % Plus 4 % 12-25 Abran MCKEON topical topical cream cream magnesium magnesium 2019-0 Yes Midura Unknown Unknown hydroxide hydroxide 3 Abran MCKEON 400 mg/5 mL 400 mg/5 mL oral oral suspension suspension metroNIDAZO metroNIDAZO 0 Yes Midura Unknown Unknown LE 0.75 % LE 0.75 % 3 Abran MCKEON topical gel topical gel ondansetron ondansetron 2019-0 Yes Midura Unknown Unknown 4 mg 4 mg 3- Abran MCKEON disintegrat disintegrat ing tablet ing tablet traMADol 50 traMADol 50 2020-0 Yes Midura Unknown Unknown mg tablet mg tablet 3 Abran MCKEON venlafaxine venlafaxine 2019-0 Yes Midura Unknown Unknown 75 mg 75 mg 3- Abran MCKEON tablet tablet warfarin 4 warfarin 4 2019-0 Yes Midura Unknown Unknown mg tablet mg tablet 12-25 MD,Abran warfarin 5 warfarin 5 2019- Yes Midura Unknown Unknown mg mg 12-25 MD,Abran ipratropium ipratropium Yes Midura Unknown Unknown -albuterol -albuterol 12-28 MD,Abran 0.5 mg-3 0.5 mg-3 mg(2.5 mg mg(2.5 mg base)/3 mL base)/3 mL nebulizatio nebulizatio n soln n soln buPROPion buPROPion Yes Midura Unknown Unknown HCl 100 mg HCl 100 mg 12-28 MD,Abran tablet tablet amLODIPine amLODIPine Yes Midura Unknown Unknown 2.5 mg 2.5 mg 12-28 MD,Abran tablet tablet budesonide budesonide Yes Midura Unknown Unknown 0.5 mg/2 mL 0.5 mg/2 mL 12-28 MD,Abran suspension suspension for for nebulizatio nebulizatio n n Vital Signs Vital Name Observation Time Observation Value Comments PULSE 2020-01-04 18:10:53 82 /min /min RESP RATE 2020-01-02 18:10:51 20 /min /min TEMP 2020-01-02 18:10:51 97.8 [degF] Procedures This patient has no known procedures. Results This patient has no known results.
--- OUTSIDE RECORDS SUMMARY | 2020-01-07 12:43 | XMS REPORT ---
:1950 Author Organization [facility] Care Team Providers Name Role Phone Unavailable [...] brennane brennane RN malnutritio malnutritio n n detention detention Diagnosis Active Zoila (current) (current) Malnoske use of use of RN anticoagula anticoagula nts nts Test/Treatm venipunctur Test/Injec Active Shyann ent e ordered t/Roberto 12-25 (Jeannine) Heavenly [id number] Pain frequent Pain Mgmt Active 2020-0 Shyann pain 3-06 (Jeannine) 10:00: Burdick [id number] Cardio edema Cardiovasc Active 2020-0 Shyann ular 3-06 (Jeannine) 10:00: Burdick [id number] Respiratory dyspnea Respirator Active 2020-0 Shyann present y 3-06 (Jeannine) 10:00: Burdick [id number] Endo/Lamont glucose Endo/Lamont Active 2020-0 Shyann testing 3-06 (Jeannine) dependence 10:00: Burdick [id number] Endo/Lamont diabetic Endo/Lamont Active 2020-0 Shyann foot care 3-06 (Jeannine) 10:00: Burdick [id number] Endo/Lamont anti-coagul Endo/Lamont Resolve 2019-0 2019-12-29 Shyann ation d 3-06 11:40:00 (Jeannine) therapy 10:00: Heavenly [id number] Sensory impaired Sensory Active 2019-0 Shyann hearing 3-06 (Jeannine) 10:00: Heavenly [id number] Integument skin Integument Active 2020-0 Shyann integrity 3-06 (Jeannine) risk 10:00: Burdick [id number] Nutrition changing Nutrition Active 2020-0 Shyann weight/appe 3-06 (Jeannine) tite 10:00: Burdick [id number] Nutrition nutritional Nutrition Active 2020-0 Shyann risk 3-06 (Jeannine) 10:00: Burdick [id number] Nutrition nutritional Nutrition Active 2020-0 Shyann restriction 3-06 (Jeannine) s 10:00: Heavenly [id number] Elimination urinary Eliminatio Active 2020-0 Shyann incontinenc n 3-06 (Jeannine) e 10:00: Burdick [id number] Elimination GI drain or Eliminatio Active 2020-0 Shyann tube n 3-06 (Jeannine) present 10:00: Heavenly [id number] Elimination nausea/vomi Eliminatio Active 2020-0 Shyann ting n 3-06 (Jeannine) 10:00: Heavenly [id number] Neuro confusion Neuro/Emot Active 2020-0 Shyann present ion 3-06 (Jeannine) 10:00: Heavenly [id number] Neuro anxiety Neuro/Emot Active 2020-0 Shyann present ion 3-06 (Jeannine) 10:00: Heavenly [id number] Neuro depressive Neuro/Emot Active 2020-0 Shyann feelings ion 3-06 (Jeannine) present 10:00: Burdick [id number] Neuro impaired Neuro/Emot Active 2020-0 Shyann decision-ma ion 3-06 (Jeannine) diya 10:00: Burdick [id number] Neuro memory Neuro/Emot Active 2020-0 Shyann deficit ion 3-06 (Jeannine) needing 10:00: Burdick supervision 00 [id number] Activity ADL Activity Active 2019-0 Shyann assistance 3-06 (Jeannine) required 10:00: Burdick [id number] Activity self-care Activity Resolve 2019-0 2019-12-29 Shyann deficit d 3-06 11:40:00 (Jeannine) 10:00: Burdick [id number] Safety cannot be Safety Active 2019-0 Shyann left alone 3-06 (Jeannine) 10:00: Burdick [id number] Safety fall risk Safety Active 2019-0 Shyann factor 3-06 (Jeannine) present 10:00: Burdick [id number] Safety risk for Safety Active 2019-0 Shyann hospitaliza 3-06 (Jeannine) tion 10:00: Burdick [id number] Medication oral med Meds Resolve 2019-0 2019-12-31 Shyann assistance d 3-06 13:02:00 (Jeannine) required 10:00: Burdick [id number] Musculoskel transfer Musculoske Active 2019-0 Shyann etal assistance letal 3-06 (Jeannine) required 10:00: Burdick [id number] Musculoskel requires Musculoske Active 2019-0 Shyann etal human letal 3- (Jeannine) assist to 10:00: Burdick leave home 00 [id number] Respiratory lung sounds Respirator Resolve 2020-0 2019-12-31 [...]
--- OUTSIDE RECORDS SUMMARY | 2020-01-07 12:43 | XMS REPORT ---
:1950 Author Organization [facility] Care Team Providers Name Role Phone Unavailable [...] brennane brennane RN malnutritio malnutritio n n longterm longterm Diagnosis Active Zoila (current) (current) Mal[place]ke use of use of RN anticoagula anticoagula nts nts Test/Treatm venipunctur Test/Injec Active Shyann ent e ordered t/Roberto 12-25 (Jeannine) Heavenly [id number] Pain frequent Pain Mgmt Resolve 2019-12-31 Shyann pain d 3-06 13:02:00 (Jeannine) 10:00: Burdick [id number] Cardio edema Cardiovasc Active 2019- Shyann ular 3-06 (Jeannine) 10:00: Burdick [id number] Respiratory dyspnea Respirator Resolve 2019-12-31 Shyann present y d 3-06 13:02:00 (Jeannine) 10:00: Burdick [id number] Endo/Lamont glucose Endo/Lamont Resolve 2020-01-02 Shyann testing d 3-06 10:18:00 (Jeannine) dependence 10:00: Burdick [id number] Endo/Lamont diabetic Endo/Lamont Resolve 2019-12-31 Shyann foot care d 3-06 13:02:00 (Jeannine) 10:00: Burdick [id number] Endo/Lamont anti-coagul Endo/Lamont Resolve 2019-12-29 Shyann ation d 3-06 11:40:00 (Jeannine) therapy 10:00: Burdick [id number] Sensory impaired Sensory Active 2019-0 Shyann hearing 3-06 (Jeannine) 10:00: Burdick [id number] Integument skin Integument Resolve 2019-12-31 Shyann integrity d 3-06 13:02:00 (Jeannine) risk 10:00: Burdick [id number] Nutrition changing Nutrition Active 2019-0 Shyann weight/appe 3-06 (Jeannine) tite 10:00: Burdick [id number] Nutrition nutritional Nutrition Active 2020-0 Shyann risk 3-06 (Jeannine) 10:00: Burdick [id number] Nutrition nutritional Nutrition Active 2020-0 Shyann restriction 3-06 (Jeannine) s 10:00: Burdick [id number] Elimination urinary Eliminatio Active 2020-0 Shyann incontinenc n 3-06 (Jeannine) e 10:00: Burdick [id number] Elimination GI drain or Eliminatio Active 2020-0 Shyann tube n 3-06 (Jeannine) present 10:00: Burdick [id number] Elimination nausea/vomi Eliminatio Active 2020-0 Shyann ting n 3-06 (Jeannine) 10:00: Burdick 00 [id number] Neuro confusion Neuro/Emot Active 2020-0 Shyann present ion 3-06 (Jeannine) 10:00: Burdick [id number] Neuro anxiety Neuro/Emot Active 2020-0 Shyann present ion 3-06 (Jeannine) 10:00: Burdick [id number] Neuro depressive Neuro/Emot Active 2019-0 Shyann feelings ion 3-06 (Jeannine) present 10:00: Burdick [id number] Neuro impaired Neuro/Emot Active 2020-0 Shyann decision-ma ion 3-06 (Jeannine) diya 10:00: Burdick [id number] Neuro memory Neuro/Emot Active 2019-0 Shyann deficit ion 3-06 (Jeannine) needing 10:00: Burdick supervision 00 [id number] Activity ADL Activity Resolve 2019-12-31 Shyann assistance d 3-06 13:02:00 (Jeannine) required 10:00: Burdick [id number] Activity self-care Activity Resolve 2019-12-29 Shyann deficit d 3-06 11:40:00 (Jeannine) 10:00: Burdick [id number] Safety cannot be Safety Resolve 2019-0 2019-12-31 Shyann left alone d 3-06 13:02:00 (Jeannine) 10:00: Burdick [id number] Safety fall risk Safety Resolve 2019-0 2019-12-31 Shyann factor d 3-06 13:02:00 (Jeannine) present 10:00: Burdick [id number] Safety risk for Safety Resolve 2019-0 2019-12-31 Shyann hospitaliza d 3-06 13:02:00 (Jeannine) tion 10:00: Burdick [id number] Medication oral med Meds Resolve 2019-0 2019-12-31 Shyann assistance d 3-06 13:02:00 (Jeannine) required 10:00: Burdick [id number] Musculoskel transfer Musculoske Active 2019- Shyann etal assistance letal 3-06 (Jeannine) required 10:00: Burdick [id number] Musculoskel requires Musculoske Active Shyann etal human letal 3-06 (Jeannine) assist to 10:00: Burdick leave home 00 [id number] Respiratory lung sounds Respirator Resolve 2019-12-31 Zoila [...] lung sounds Respirator Active Zoila deficit y - Malnoske 10:18: RN 00 Respiratory nebulizer Respirator Active Zoila treatment y -13 Mal[place] in home 10:18: RN 00 Endo/Lamont anti-coagul Endo/Lamont Resolve 2020-01-02 Zoila ation d 01-01 10:18:00 Mal[place]ke therapy 10:18: RN 00 Nutrition enteral Nutrition Active Zoila equip - [place] assistance 10:18: RN req: pt/cg 00 Safety risk for Safety Resolve 2020-01-02 Zoila hospitaliza d 01-01 10:18:00 [place] tion 10:18: RN 00 Safety cannot be Safety Active Zoila left alone - Malnoske 10:18: RN 00 Allergies, Adverse Reactions, Alerts Allergy [...] mg Abran MCKEON tablet tablet ipratropium ipratropium 2020- Yes Midura Unknown Unknown -albuterol -albuterol 12-25- Abran MCKEON 0.5 mg-3 0.5 mg-3 mg(2.5 mg mg(2.5 mg base)/3 mL base)/3 mL nebulizatio nebulizatio n soln n soln ipratropium ipratropium No Midura Unknown Unknown -albuterol -albuterol Abran MCKEON 0.5 mg-3 0.5 mg-3 mg(2.5 mg mg(2.5 mg base)/3 mL base)/3 mL nebulizatio nebulizatio n soln n soln Aspir-81 mg Aspir-81 mg No Midura Unknown Unknown tablet,michael tablet,michaelAbran hidalgo MD yed release yed release buPROPion buPROPion 0 Yes Midura Unknown Unknown HCl 75 mg HCl 75 mg 12-25 Abran MCKEON tablet tablet rosuvastati rosuvastati No Midura Unknown Unknown n 10 mg n 10 mg Abran MCKEON tablet tablet omeprazole omeprazole 0 Yes Midura Unknown Unknown 20 mg 20 mg 12-25 Abran MCKEON capsule,del capsule,del ayed ayed release release Singulair Singulair 0 Yes Midura Unknown Unknown 10 mg 10 mg - Abran MCKEON tablet tablet Plavix 75 Plavix [...] 24 release 24 hr hr torsemide torsemide 2020-0 Yes Midura Unknown Unknown 20 mg 20 mg 3- ,Abarn tablet tablet spironolact spironolact No Mauser Unknown Unknown one 25 mg one 25 mg ,Jonatha tablet tablet n acetaminoph acetaminoph No Midura Unknown Unknown en 500 mg en 500 mg ,Abran tablet tablet Bydureon 2 Bydureon 2 No Midura Unknown Unknown mg/0.65 mL mg/0.65 mL Abran MCKEON subcutaneou subcutaneou s pen s pen injector injector allopurinol allopurinol 2020-0 Yes Midura Unknown Unknown 100 mg 100 mg 3- Abran MCKEON tablet tablet ALPRAZolam ALPRAZolam 2020-0 Yes Midura Unknown Unknown 0.25 mg 0.25 mg 3 MDAbran tablet tablet calcium calcium 2020-0 Yes Midura Unknown Unknown carbonate carbonate 3- MDAbran 200 mg 200 mg calcium calcium (500 mg) (500 mg) chewable chewable tablet tablet carvedilol carvedilol 2020-0 Yes Midura Unknown Unknown 6.25 mg 6.25 mg 3 Abran MCKEON tablet tablet enalapril enalapril 2020-0 Yes Midura Unknown Unknown maleate 20 maleate 20 3 Abran MCKEON mg tablet mg tablet folic acid folic acid 2020-0 Yes Midura Unknown Unknown 1 mg tablet 1 mg tablet 12-25 Abran MCKEON guaiFENesin guaiFENesin 2020-0 Yes Midura Unknown Unknown 100 mg/5 mL 100 mg/5 mL 12-25 Abran MCKEON oral liquid oral liquid lactulose lactulose 2020-0 Yes Midura Unknown Unknown 10 gram/15 10 gram/15 - Abran MCKEON mL oral mL oral solution solution levothyroxi levothyroxi 2020-0 Yes Midura Unknown Unknown ne 75 mcg ne 75 mcg 12-25 MDAbran tablet tablet Lidocaine Lidocaine 2020-0 Yes Midura Unknown Unknown Plus 4 % Plus 4 % 3- Abran MCKEON topical topical cream cream magnesium magnesium 2020-0 Yes Midura Unknown Unknown hydroxide hydroxide 12-25 MD,Abran 400 mg/5 mL 400 mg/5 mL oral oral suspension suspension metroNIDAZO metroNIDAZO Yes Midura Unknown Unknown LE 0.75 % LE 0.75 % 12-25 Abran MCKEON topical gel topical gel ondansetron ondansetron 2019- Yes Midura Unknown Unknown 4 mg 4 mg 12-25 ,Abran disintegrat disintegrat ing tablet ing tablet traMADol 50 traMADol 50 2019- Yes Midura Unknown Unknown mg tablet mg tablet 12-25 ,Abran venlafaxine venlafaxine Yes Midura Unknown Unknown 75 mg 75 mg 12-25 ,Abran tablet tablet warfarin 4 warfarin 4 2019- Yes Midura Unknown Unknown mg tablet mg tablet 12-25 ,Abran warfarin 5 warfarin 5 2019- Yes Midura Unknown Unknown mg mg 12-25 Abran MCEKON ipratropium ipratropium Yes Midura Unknown Unknown -albuterol -albuterol 12-28 Abran MCKEON 0.5 mg-3 0.5 mg-3 mg(2.5 mg mg(2.5 mg base)/3 mL base)/3 mL nebulizatio nebulizatio n soln n soln buPROPion buPROPion Yes Midura Unknown Unknown HCl 100 mg HCl 100 mg 12-28 ,Abran tablet tablet amLODIPine amLODIPine Yes Midura Unknown Unknown 2.5 mg 2.5 mg 12-28 MD,Abran tablet tablet budesonide budesonide Yes Midura Unknown Unknown 0.5 mg/2 mL 0.5 mg/2 mL 12-28 Abran MCKEON suspension suspension for for nebulizatio nebulizatio n n warfarin 4 warfarin 4 Yes Midura Unknown Unknown mg tablet mg tablet 01-01 Abran MCKEON Vital Signs Vital Name Observation Time Observation Value Comments PULSE 2020-01-05 18:10:54 84 /min /min RESP RATE 2020-01-05 18:10:54 18 /min /min TEMP 2020-01-05 18:10:54 98.4 [degF] Procedures This patient has no known procedures. Results This patient has no known results.
--- OUTSIDE RECORDS SUMMARY | 2020-01-07 12:43 | XMS REPORT ---
:1950 Author Organization [facility] Care Team Providers Name Role Phone [...] brennane brennane RN malnutritio malnutritio n n snf snf Diagnosis Active Zoila (current) (current) Malnoske use of use of RN anticoagula anticoagula nts nts Test/Treatm venipunctur Test/Injec Active Shyann ent e ordered t/Roberto 12-25 (Jeannine) Heavenly [id number] Pain frequent Pain Mgmt Resolve 2019-12-31 Shyann pain d 3-06 13:02:00 (Jeannine) 10:00: Burdick [id number] Cardio edema Cardiovasc Active 2019- Hsyann ular 3-06 (Jeannine) 10:00: Burdick [id number] Respiratory dyspnea Respirator Resolve 2019-12-31 Shyann present y d 3-06 13:02:00 (Jeannine) 10:00: Burdick [id number] Endo/Lamont glucose Endo/Lamont Active 2019- Shyann testing 3-06 (Jeannine) dependence 10:00: Burdick [id number] Endo/Lamont diabetic Endo/Lamont Resolve 2019-12-31 Shyann foot care d 3-06 13:02:00 (Jeannine) 10:00: Burdick [id number] Endo/Lamont anti-coagul Endo/Lamont Resolve 2019-12-29 Shyann ation d 3-06 11:40:00 (Jeannine) therapy 10:00: Burdick [id number] Sensory impaired Sensory Active 2019- Shyann hearing 3-06 (Jeannine) 10:00: Burdick [id number] Integument skin Integument Resolve 2019-12-31 Shyann integrity d 3-06 13:02:00 (Jeannine) risk 10:00: Burdick [id number] Nutrition changing Nutrition Active 2019-0 Shyann weight/appe 3-06 (Jeannine) tite 10:00: Burdick [id number] Nutrition nutritional Nutrition Active 2019-0 Shyann risk 3-06 (Jeannine) 10:00: Burdick [id number] Nutrition nutritional Nutrition Active 2019-0 Shyann restriction 3-06 (Jeannine) s 10:00: Burdick [id number] Elimination urinary Eliminatio Active 2019-0 Shyann incontinenc n 3-06 (Jeannine) e 10:00: Burdick [id number] Elimination GI drain or Eliminatio Active 2019-0 Shyann tube n 3-06 (Jeannine) present 10:00: Burdick [id number] Elimination nausea/vomi Eliminatio Active 2019-0 Shyann ting n 3-06 (Jeannine) 10:00: Burdick [id number] Neuro confusion Neuro/Emot Active 2020-0 Shyann present ion 3-06 (Jeannine) 10:00: [id number] Neuro anxiety Neuro/Emot Active 2019-0 Shyann present ion 3-06 (Jeannine) 10:00: [id number] Neuro depressive Neuro/Emot Active 2019- Shyann feelings ion 3-06 (Jeannine) present 10:00: [id number] Neuro impaired Neuro/Emot Active 2019- Shyann decision-ma ion 3-06 (Jeannine) diya 10:00: [id number] Neuro memory Neuro/Emot Active 2019- Shyann deficit ion 3-06 (Jeannine) needing 10:00: Burdick supervision 00 [id number] Activity ADL Activity Resolve 2019-12-31 Shyann assistance d 3-06 13:02:00 (Jeannine) required 10:00: [id number] Activity self-care Activity Resolve 2019-12-29 Shyann deficit d 3-06 11:40:00 (Jeannine) 10:00: [id number] Safety cannot be Safety Resolve 2019-12-31 Shyann left alone d 3-06 13:02:00 (Jeannine) 10:00: [id number] Safety fall risk Safety Resolve 2019-12-31 Shyann factor d 3-06 13:02:00 (Jeannine) present 10:00: [id number] Safety risk for Safety Resolve 2019-2019-12-31 Shyann hospitaliza d 3-06 13:02:00 (Jeannine) tion 10:00: [id number] Medication oral med Meds Resolve 2019-12-31 Shyann assistance d 3-06 13:02:00 (Jeannine) required 10:00: [id number] Musculoskel transfer Musculoske Active Shyann etal assistance letal 3-06 (Jeannine) required 10:00: [id number] Musculoskel requires Musculoske Active Shyann etal human letal 3-06 (Jeannine) assist to 10:00: Burdick leave home 00 [id number] Respiratory lung sounds Respirator Resolve 2019-12-31 Zoila [...] lung sounds Respirator Active Zoila deficit y 01-01 [place] 10:18: RN 00 Allergies, Adverse Reactions, [...] 2020- Yes Midura Unknown Unknown -albuterol -albuterol 12-25 [...] Unknown Unknown 10 mg 10 mg 3- ,Abran tablet tablet Plavix 75 Plavix 75 No [...] Unknown Unknown 20 mg 20 mg 3-06 MDAbran tablet tablet spironolact spironolact No Mauser [...] Unknown Unknown 100 mg 100 mg 3- ,Abran tablet tablet ALPRAZolam ALPRAZolam 2019-0 Yes Midura Unknown Unknown 0.25 mg 0.25 mg 3- ,Abran tablet tablet calcium calcium 2019-0 Yes Midura Unknown Unknown carbonate carbonate - ,Abran 200 mg 200 mg calcium calcium (500 mg) (500 mg) chewable chewable tablet tablet carvedilol carvedilol 0 Yes Midura Unknown Unknown 6.25 mg 6.25 mg 3- ,Abran tablet tablet enalapril enalapril 2019-0 Yes Midura Unknown Unknown maleate 20 maleate 20 3 ,Abran mg tablet mg tablet folic acid folic acid Yes Midura Unknown Unknown 1 mg tablet 1 mg tablet 12-25 ,Abran guaiFENesin guaiFENesin Yes Midura Unknown Unknown 100 mg/5 mL 100 mg/5 mL 12-25 Abran MCKEON oral liquid oral liquid lactulose lactulose Yes Midura Unknown Unknown 10 gram/15 10 gram/15 12-25 MDAbran mL oral mL oral solution solution levothyroxi levothyroxi 2019-0 Yes Midura Unknown Unknown ne 75 mcg ne 75 mcg 3 ,Abran tablet tablet Lidocaine Lidocaine Yes Midura Unknown Unknown Plus 4 % Plus 4 % 12-25 Abran MCKEON topical topical cream cream magnesium magnesium 2019-0 Yes Midura Unknown Unknown hydroxide hydroxide 12-25 Abran MCKEON 400 mg/5 mL 400 mg/5 mL oral oral suspension suspension metroNIDAZO metroNIDAZO 2019- Yes Midura Unknown Unknown LE 0.75 % LE 0.75 % 12-25 Abran MCKEON topical gel topical gel ondansetron ondansetron 2019-0 Yes Midura Unknown Unknown 4 mg 4 mg 3- Abran MCKEON disintegrat disintegrat ing tablet ing tablet traMADol 50 traMADol 50 2019-0 Yes Midura Unknown Unknown mg tablet mg tablet 12-25 Abran MCKEON venlafaxine venlafaxine 2019-0 Yes Midura Unknown Unknown 75 mg 75 mg 3- ,Abran tablet tablet warfarin 4 warfarin 4 2019-0 Yes Midura Unknown Unknown mg tablet mg tablet 3- Abran MCKEON warfarin 5 warfarin 5 2019-0 Yes Midura Unknown Unknown mg mg 3- MD,Abran ipratropium ipratropium Yes Midura Unknown Unknown -albuterol -albuterol - MD,Abran 0.5 mg-3 0.5 mg-3 mg(2.5 mg [...] Name Observation Time Observation Value Comments PULSE 2020-01-02 18:10:51 82 /min /min RESP RATE 2020-01-02 18:10:51 20 /min /min TEMP 2020-01-02 18:10:51 97.8 [degF] Procedures This patient has no known procedures. Results This patient has no known results.
--- OUTSIDE RECORDS SUMMARY | 2020-01-07 12:43 | XMS REPORT ---
:1950 Author Organization [facility] Care Team Providers Name Role Phone Unavailable [...] brennane brennane RN malnutritio malnutritio n n halfway halfway Diagnosis Active Zoila (current) (current) [place] use of use of RN anticoagula anticoagula nts nts Test/Treatm venipunctur Test/Injec Active Shyann ent e ordered t/Roberto 12-25 (Jeannine) Heavenly [id number] Pain frequent Pain Mgmt Resolve 2019-12-31 Shyann pain d 3-06 13:02:00 (Jeannine) 10:00: Burdick [id number] Cardio edema Cardiovasc Active 2019- Shyann ular 3-06 (Jeannine) 10:00: Burdick [id number] Respiratory dyspnea Respirator Resolve 2019-12-31 Shyann present y d 3-06 13:02:00 (Jeannine) 10:00: Burdick [id number] Endo/Lamont glucose Endo/Lamont Active 2019- Shyann testing 3-06 (Jeannine) dependence 10:00: Burdick [id number] Endo/Lamont diabetic Endo/Lamont Resolve 2019-12-31 Shyann foot care d 3-06 13:02:00 (Jeannine) 10:00: Burdick [id number] Endo/Lamont anti-coagul Endo/Lamont Resolve 2019-12-29 Shyann ation d 3-06 11:40:00 (Jeannine) therapy 10:00: Burdick [id number] Sensory impaired Sensory Active 2019- Shyann hearing 3-06 (Jeannine) 10:00: Burdick [id number] Integument skin Integument Resolve 2019-12-31 Shyann integrity d 3-06 13:02:00 (Jeannine) risk 10:00: Burdick [id number] Nutrition changing Nutrition Active 2019-0 Shyann weight/appe 3-06 (Jeannine) tite 10:00: Burdick [id number] Nutrition nutritional Nutrition Active 2019-0 Shyann risk 3-06 (Jeannine) 10:00: Burdick [id number] Nutrition nutritional Nutrition Active 2019-0 Shyann restriction 3-06 (Jeannine) s 10:00: Burdick [id number] Elimination urinary Eliminatio Active 2019-0 Shyann incontinenc n 3-06 (Jeannine) e 10:00: Burdick [id number] Elimination GI drain or Eliminatio Active 2019-0 Shyann tube n 3-06 (Jeannine) present 10:00: Burdick [id number] Elimination nausea/vomi Eliminatio Active 2019-0 Shyann ting n 3-06 (Jeannine) 10:00: Burdick [id number] Neuro confusion Neuro/Emot Active 2020-0 Shyann present ion 3-06 (Jeannine) 10:00: [id number] Neuro anxiety Neuro/Emot Active 2019-0 Shyann present ion 3-06 (Jeannine) 10:00: [id number] Neuro depressive Neuro/Emot Active 2019- Shyann feelings ion 3-06 (Jeannine) present 10:00: [id number] Neuro impaired Neuro/Emot Active 2019- Shyann decision-ma ion 3-06 (Jeannine) diya 10:00: [id number] Neuro memory Neuro/Emot Active 2019- Shyann deficit ion 3-06 (Jeannine) needing 10:00: Burdick supervision 00 [id number] Activity ADL Activity Resolve 2019-12-31 Shyann assistance d 3-06 13:02:00 (Jeannine) required 10:00: [id number] Activity self-care Activity Resolve 2019-12-29 Shyann deficit d 3-06 11:40:00 (Jeannine) 10:00: [id number] Safety cannot be Safety Resolve 2019-12-31 Shyann left alone d 3-06 13:02:00 (Jeannine) 10:00: [id number] Safety fall risk Safety Resolve 2019-12-31 Shyann factor d 3-06 13:02:00 (Jeannine) present 10:00: [id number] Safety risk for Safety Resolve 2019-2019-12-31 Shyann hospitaliza d 3-06 13:02:00 (Jeannine) tion 10:00: [id number] Medication oral med Meds Resolve 2019-12-31 Shyann assistance d 3-06 13:02:00 (Jeannine) required 10:00: [id number] Musculoskel transfer Musculoske Active Shyann etal assistance letal 3-06 (Jeannine) required 10:00: [id number] Musculoskel requires Musculoske Active Shyann etal human letal 3-06 (Jeannine) assist to 10:00: Burdick leave home 00 [id number] Respiratory lung sounds Respirator Resolve 2019-12-31 Zoila [...]
--- OUTSIDE RECORDS SUMMARY | 2020-01-07 12:43 | XMS REPORT ---
:1950 Author Organization [facility] Care Team Providers Name Role Phone Unavailable [...] brennane brennane RN malnutritio malnutritio n n retirement retirement Diagnosis Active Zoila (current) (current) Malnoske use of use of RN anticoagula anticoagula nts nts Test/Treatm venipunctur Test/Injec Active Shyann ent e ordered t/Roberto 12-25 (Jeannine) Heavenly [id number] Pain frequent Pain Mgmt Active 2020-0 Shyann pain 3-06 (Jeannine) 10:00: Burdick [id number] Cardio edema Cardiovasc Active 2020-0 Shyann ular 3-06 (Jeannine) 10:00: Burdick [id number] Respiratory dyspnea Respirator Active 2020-0 Shyann present y 3-06 (Jeannine) 10:00: Burdick [id number] Endo/Lamont glucose Endo/Lamont Active 2020-0 Shyann testing 3-06 (Jeannine) dependence 10:00: Burdick [id number] Endo/Lamont diabetic Endo/Lamont Active 2020-0 Shyann foot care 3-06 (Jeannine) 10:00: Burdick [id number] Endo/Lamont anti-coagul Endo/Lamont Resolve 2019-0 2019-12-29 Shyann ation d 3-06 11:40:00 (Jeannine) therapy 10:00: Heavenly [id number] Sensory impaired Sensory Active 2019-0 Shyann hearing 3-06 (Jeannine) 10:00: Heavenly [id number] Integument skin Integument Active 2020-0 Shyann integrity 3-06 (Jeannine) risk 10:00: Burdick [id number] Nutrition changing Nutrition Active 2020-0 Shyann weight/appe 3-06 (Jeannine) tite 10:00: Burdick [id number] Nutrition nutritional Nutrition Active 2020-0 Shyann risk 3-06 (Jeannine) 10:00: Burdick [id number] Nutrition nutritional Nutrition Active 2020-0 Shyann restriction 3-06 (Jeannine) s 10:00: Heavenly [id number] Elimination urinary Eliminatio Active 2020-0 Shyann incontinenc n 3-06 (Jeannine) e 10:00: Burdick [id number] Elimination GI drain or Eliminatio Active 2020-0 Shyann tube n 3-06 (Jeannine) present 10:00: Heavenly [id number] Elimination nausea/vomi Eliminatio Active 2020-0 Shyann ting n 3-06 (Jeannine) 10:00: Heavenly [id number] Neuro confusion Neuro/Emot Active 2020-0 Shyann present ion 3-06 (Jeannine) 10:00: Heavenly [id number] Neuro anxiety Neuro/Emot Active 2020-0 Shyann present ion 3-06 (Jeannine) 10:00: Heavenly [id number] Neuro depressive Neuro/Emot Active 2020-0 Shyann feelings ion 3-06 (Jeannine) present 10:00: Burdick [id number] Neuro impaired Neuro/Emot Active 2020-0 Shyann decision-ma ion 3-06 (Jeannine) diya 10:00: Burdick [id number] Neuro memory Neuro/Emot Active 2020-0 Shyann deficit ion 3-06 (Jeannine) needing 10:00: Burdick supervision 00 [id number] Activity ADL Activity Active 2019-0 Shyann assistance 3-06 (Jeannine) required 10:00: Burdick [id number] Activity self-care Activity Resolve 2020-0 2019-12-29 Shyann deficit d 3-06 11:40:00 (Jeannine) 10:00: Burdick [id number] Safety cannot be Safety Active 2020-0 Shyann left alone 3-06 (Jeannine) 10:00: Burdick [id number] Safety fall risk Safety Active 2020-0 Shyann factor 3-06 (Jeannine) present 10:00: Burdick [id number] Safety risk for Safety Active 2020-0 Shyann hospitaliza 3-06 (Jeannine) tion 10:00: Burdick [id number] Medication oral med Meds Active 2020-0 Shyann assistance 3-06 (Jeannine) required 10:00: Burdick [id number] Musculoskel transfer Musculoske Active 2019-0 Shyann etal assistance letal 3- (Jeannine) required 10:00: Burdick [id number] Musculoskel requires Musculoske Active 2019-0 Shyann etal human letal 3- (Jeannine) assist to 10:00: Burdick leave home 00 [id number] Respiratory lung sounds Respirator Active 2020-0 Zoila deficit y 3-09 Mal[place] 11:40: RN 00 Respiratory nebulizer Respirator Active 2020-0 Zoila treatment y 3-09 [place] in home 11:40: RN 00 Nutrition enteral Nutrition Active 2020-0 Zoila therapy 3- Mal[place]ke 11:40: RN 00 Nutrition enteral Nutrition Active 2020-0 Zoila equip 3-09 [place] assistance 11:40: RN req: pt/cg 00 Elimination bowel Eliminatio Active 2020-0 Zoila incontinenc n 3- Malnoske e 11:40: RN 00 Allergies, Adverse Reactions, Alerts Allergy [...] Midura Unknown Unknown 2.5 mg 2.5 mg MD,Abran tablet tablet ipratropium ipratropium 2019-0 2020- Yes Midura Unknown Unknown -albuterol -albuterol -03 24- ,Abran 0.5 mg-3 0.5 mg-3 mg(2.5 mg mg(2.5 mg base)/3 mL base)/3 mL nebulizatio nebulizatio n soln n soln ipratropium ipratropium No Midura Unknown Unknown -albuterol -albuterol MD,Abran 0.5 mg-3 0.5 mg-3 mg(2.5 mg mg(2.5 mg base)/3 mL base)/3 mL nebulizatio nebulizatio n soln n soln Aspir-81 mg Aspir-81 mg No Midura Unknown Unknown tablet,michael tablet,michael ,Abran yed release yed release buPROPion buPROPion 2019-0 Yes Midura Unknown Unknown HCl 75 mg HCl 75 mg 3-06 MD,Abran tablet tablet rosuvastati rosuvastati No Midura Unknown Unknown n 10 mg n 10 mg MD,Abran tablet tablet omeprazole omeprazole 2019-0 Yes Midura Unknown Unknown 20 mg 20 mg 3- MD,Abran capsule,del capsule,del ayed ayed release release Singulair Singulair 2019-0 Yes Midura Unknown Unknown 10 mg 10 mg 3-06 MD,Abran tablet tablet Plavix 75 Plavix 75 No Midura Unknown Unknown mg tablet mg tablet MDAbran Symbicort Symbicort No Midura Unknown Unknown 160 mcg-4.5 160 mcg-4.5 Abran MCKEON mcg/actuati mcg/actuati on HFA on HFA aerosol aerosol inhaler inhaler Multiple Multiple 2020-0 Yes Midura Unknown Unknown Vitamin, Vitamin, 3- Abran MCKEON Womens Womens tablet tablet FLUoxetine FLUoxetine No Midura Unknown Unknown 20 mg 20 mg ,Abran capsule capsule Spiriva Spiriva No Midura Unknown Unknown with with Abran MCKEON HandiHaler HandiHaler 18 mcg and 18 mcg and inhalation inhalation capsules capsules glipiZIDE glipiZIDE No Midura Unknown Unknown ER 2.5 mg ER 2.5 mg ,Abran tablet, tablet, extended extended release 24 release 24 hr hr torsemide torsemide 2020-0 Yes Midura Unknown Unknown 20 mg 20 mg 3- ,Abran tablet tablet spironolact spironolact No Mauser Unknown Unknown one 25 mg one 25 mg MD,Jonatha tablet tablet n acetaminoph acetaminoph No Midura Unknown Unknown en 500 mg en 500 mg ,Abran tablet tablet Bydureon 2 Bydureon 2 No Midura Unknown Unknown mg/0.65 mL mg/0.65 mL Abran MCKEON subcutaneou subcutaneou s pen s pen injector injector allopurinol allopurinol 2020-0 Yes Midura Unknown Unknown 100 mg 100 mg 3- ,Abran tablet tablet ALPRAZolam ALPRAZolam 2020-0 Yes Midura Unknown Unknown 0.25 mg 0.25 mg 3- ,Abran tablet tablet calcium calcium 2020-0 Yes Midura Unknown Unknown carbonate carbonate 3- MDAbran 200 mg 200 mg calcium calcium (500 mg) (500 mg) chewable chewable tablet tablet carvedilol carvedilol 2020-0 Yes Midura Unknown Unknown 6.25 mg 6.25 mg 3- ,Abran tablet tablet enalapril enalapril 2020-0 Yes Midura Unknown Unknown maleate 20 maleate 20 3- ,Abran mg tablet mg tablet folic acid folic acid 2020-0 Yes Midura Unknown Unknown 1 mg tablet 1 mg tablet 3- ,Abran guaiFENesin guaiFENesin 2020-0 Yes Midura Unknown Unknown 100 mg/5 mL 100 mg/5 mL 3- ,Abran oral liquid oral liquid lactulose lactulose 2019- Yes Midura Unknown Unknown 10 gram/15 10 gram/15 12-25 Abran MCKEON mL oral mL oral solution solution levothyroxi levothyroxi Yes Midura Unknown Unknown ne 75 mcg ne 75 mcg 12-25 ,Abran tablet tablet Lidocaine Lidocaine Yes Midura Unknown Unknown Plus 4 % Plus 4 % 12-25 ,Abran topical topical cream cream magnesium magnesium Yes Midura Unknown Unknown hydroxide hydroxide 12-25 ,Abran 400 mg/5 mL 400 mg/5 mL oral oral suspension suspension metroNIDAZO metroNIDAZO Yes Midura Unknown Unknown LE 0.75 % LE 0.75 % 12-25 Abran MCKEON topical gel topical gel ondansetron ondansetron Yes Midura Unknown Unknown 4 mg 4 mg 12-25 ,Abran disintegrat disintegrat ing tablet ing tablet traMADol 50 traMADol 50 Yes Midura Unknown Unknown mg tablet mg tablet 12-25 ,Abran venlafaxine venlafaxine Yes Midura Unknown Unknown 75 mg 75 mg 12-25 Abrna MCKEON tablet tablet warfarin 4 warfarin 4 2019- Yes Midura Unknown Unknown mg tablet mg tablet 12-25 Abran MCKEON warfarin 5 warfarin 5 Yes Midura Unknown Unknown mg mg 12-25 ,Abran ipratropium ipratropium Yes Midura Unknown Unknown -albuterol -albuterol 12-28 ,Abran 0.5 mg-3 0.5 mg-3 mg(2.5 mg mg(2.5 mg base)/3 mL base)/3 mL nebulizatio nebulizatio n soln n soln buPROPion buPROPion Yes Midura Unknown Unknown HCl 100 mg HCl 100 mg 3 ,Abran tablet tablet amLODIPine amLODIPine Yes Midura Unknown Unknown 2.5 mg 2.5 mg 12-28 ,Abran tablet tablet budesonide budesonide Yes Midura Unknown Unknown 0.5 mg/2 mL 0.5 mg/2 mL 12-28 Abran MCKEON suspension suspension for for nebulizatio nebulizatio n n Vital Signs Vital Name Observation Time Observation Value Comments PULSE 2019-12-30 18:10:48 79 /min /min RESP RATE 2019-12-30 18:10:48 20 /min /min TEMP 2019-12-30 18:10:48 97.9 [degF] Procedures This patient has no known procedures. Results This patient has no known results.
--- OUTSIDE RECORDS SUMMARY | 2020-01-07 12:43 | XMS REPORT ---
:1950 Author Organization [facility] Care Team Providers Name Role Phone Unavailable [...] brennane brennane RN malnutritio malnutritio n n long-term long-term Diagnosis Active Zoila (current) (current) Malnoske use of use of RN anticoagula anticoagula nts nts Test/Treatm venipunctur Test/Injec Active Shyann ent e ordered t/Roberto 12-25 (Jeannine) Heavenly [id number] Pain frequent Pain Mgmt Resolve 2019-12-31 Shyann pain d 3-06 13:02:00 (Jeannine) 10:00: Burdick [id number] Cardio edema Cardiovasc Active 2019- Shyann ular 3-06 (Jeannine) 10:00: Burdick 00 [id number] Respiratory dyspnea Respirator Resolve 2019-12-31 Shyann present y d 3-06 13:02:00 (Jeannine) 10:00: Burdick [id number] Endo/Lamont glucose Endo/Lamont Resolve 2020-01-02 Shyann testing d 3-06 10:18:00 (Jeannine) dependence 10:00: Burdick [id number] Endo/Lamont diabetic Endo/Lamont Resolve 2019-12-31 Hsyann foot care d 3-06 13:02:00 (Jeannine) 10:00: Burdick [id number] Endo/Lamont anti-coagul Endo/Lamont Resolve 2019-12-29 Shyann ation d 3-06 11:40:00 (Jeannine) therapy 10:00: Burdick [id number] Sensory impaired Sensory Active Shyann hearing 3-06 (Jeannine) 10:00: Burdick [id number] Integument skin Integument Resolve 2019-12-31 Shyann integrity d 3-06 13:02:00 (Jeannine) risk 10:00: Burdick [id number] Nutrition changing Nutrition Active 2019-0 Shyann weight/appe 3-06 (Jeannine) tite 10:00: Burdick [id number] Nutrition nutritional Nutrition Active 2019-0 Shyann risk 3-06 (Jeannine) 10:00: Burdick [id number] Nutrition nutritional Nutrition Active 2019-0 Shyann restriction 3-06 (Jeannine) s 10:00: Burdick [id number] Elimination urinary Eliminatio Active Shyann incontinenc n 3-06 (Jeannine) e 10:00: Burdick [id number] Elimination GI drain or Eliminatio Resolve 2020-01-05 Shyann tube n d 3-06 10:00:00 (Jeannine) present 10:00: Burdick [id number] Elimination nausea/vomi Eliminatio Active 2019- Shyann ting n 3-06 (Jeannine) 10:00: Burdick [id number] Neuro confusion Neuro/Emot Active 2020-0 Shyann present ion 3-06 (Jeannine) 10:00: Burdick [id number] Neuro anxiety Neuro/Emot Active 2020-0 Shyann present ion 3-06 (Jeannine) 10:00: Burdick [id number] Neuro depressive Neuro/Emot Active 2019-0 Shyann feelings ion 3-06 (Jeannine) present 10:00: Burdick [id number] Neuro impaired Neuro/Emot Active 2020-0 Shyann decision-ma ion 3-06 (Jeannine) diya 10:00: Burdick [id number] Neuro memory Neuro/Emot Active 2020-0 Shyann deficit ion 3-06 (Jeannine) needing 10:00: Burdick supervision 00 [id number] Activity ADL Activity Resolve 2019-0 2019-12-31 Shyann assistance d 3-06 13:02:00 (Jeannine) required 10:00: [id number] Activity self-care Activity Resolve 2019-0 2019-12-29 Shyann deficit d 3-06 11:40:00 (Jeannine) 10:00: [id number] Safety cannot be Safety Resolve 2019-0 2019-12-31 Shyann left alone d 3-06 13:02:00 (Jeannine) 10:00: Burdick [id number] Safety fall risk Safety Resolve 2019-0 2019-12-31 Shyann factor d 3-06 13:02:00 (Jeannine) present 10:00: [id number] Safety risk for Safety Resolve 2019-0 2019-12-31 Shyann hospitaliza d 3-06 13:02:00 (Jeannine) tion 10:00: [id number] Medication oral med Meds Resolve 2019-0 2019-12-31 Shyann assistance d 3-06 13:02:00 (Jeannine) required 10:00: Burdick [id number] Musculoskel transfer Musculoske Active 2019-0 Shyann etal assistance letal 3-06 (Jeannine) required 10:00: Burdick [id number] Musculoskel requires Musculoske Active 2019-0 Shyann etal human letal 3-06 (Jeannine) assist to 10:00: Burdick leave home 00 [id number] Respiratory lung sounds Respirator Resolve 2019-12-31 Zoila deficit y d 12-28 13:02:00 Mal[place]ke 11:40: RN 00 Respiratory nebulizer [...] lung sounds Respirator Active Zoila deficit y -13 [place] 10:18: RN 00 Respiratory nebulizer Respirator Active Zoila treatment y -13 [place] in home 10:18: RN 00 Endo/Lamont anti-coagul Endo/Lamont Resolve 2020-01-02 Zoila ation d - 10:18:00 [place] therapy 10:18: RN 00 Nutrition enteral Nutrition Active Zoila equip -13 [place] assistance 10:18: RN req: pt/cg 00 Safety risk for Safety Resolve 2020-01-02 Zoila hospitaliza d - 10:18:00 [place] tion 10:18: RN 00 Safety cannot be Safety Active Zoila left alone - [place] 10:18: RN 00 Endo/Lamont glucose Endo/Lamont Active 2019- Zoila testing -16 [place] dependence 10:00: RN 00 Safety risk for Safety Resolve 2020-01-05 Zoila hospitaliza d -16 10:00:00 [place] tion 10:00: RN 00 Allergies, Adverse Reactions, Alerts Allergy [...] Yes Midura Unknown Unknown -albuterol -albuterol 12-25- MDAbran 0.5 mg-3 0.5 mg-3 mg(2.5 mg [...] HCl 75 mg HCl 75 mg 3- Abran MCKEON tablet tablet rosuvastati rosuvastati No Midura Unknown Unknown n 10 mg n 10 mg Abran MCKEON tablet tablet omeprazole omeprazole Yes Midura Unknown Unknown 20 mg 20 mg 3- Abran MCKEON capsule,del capsule,del ayed ayed release release Singulair Singulair Yes Midura Unknown Unknown 10 mg 10 mg 3-06 ,Abran tablet tablet Plavix 75 Plavix 75 [...] Midura Unknown Unknown 20 mg 20 mg MD,Abran capsule capsule Spiriva Spiriva No Midura Unknown Unknown with with Abran MCKEON HandiHaler HandiHaler 18 mcg and 18 mcg and inhalation inhalation capsules capsules glipiZIDE glipiZIDE No Midura Unknown Unknown ER 2.5 mg ER 2.5 mg ,Abran tablet, tablet, extended extended release 24 release 24 hr hr torsemide torsemide 2020-0 Yes Midura Unknown Unknown 20 mg 20 mg 3- MD,Abran tablet tablet spironolact spironolact No Mauser Unknown Unknown one 25 mg one 25 mg MD,Jonatha tablet tablet n acetaminoph acetaminoph No Midura Unknown Unknown en 500 mg en 500 mg MD,Abran tablet tablet Bydureon 2 Bydureon 2 No Midura Unknown Unknown mg/0.65 mL mg/0.65 mL Abran MCKEON subcutaneou subcutaneou s pen s pen injector injector allopurinol allopurinol 2019-0 Yes Midura Unknown Unknown 100 mg 100 mg 3- ,Abran tablet tablet ALPRAZolam ALPRAZolam 2020-0 Yes Midura Unknown Unknown 0.25 mg 0.25 mg 3- MD,Abran tablet tablet calcium calcium 2020-0 Yes Midura Unknown Unknown carbonate carbonate - ,Abran 200 mg 200 mg calcium calcium (500 mg) (500 mg) chewable chewable tablet tablet carvedilol carvedilol 2019-0 Yes Midura Unknown Unknown 6.25 mg 6.25 mg 3- ,Abran tablet tablet enalapril enalapril 2020-0 Yes Midura Unknown Unknown maleate 20 maleate 20 - MDAbran mg tablet mg tablet folic acid folic acid 2019-0 Yes Midura Unknown Unknown 1 mg tablet 1 mg tablet - Abran MCKEON guaiFENesin guaiFENesin 2019-0 Yes Midura Unknown Unknown 100 mg/5 mL 100 mg/5 mL - MDAbran oral liquid oral liquid lactulose lactulose 2019-0 Yes Midura Unknown Unknown 10 gram/15 10 gram/15 12-25 Abran MCKEON mL oral mL oral solution solution levothyroxi levothyroxi 2019-0 Yes Midura Unknown Unknown ne 75 mcg ne 75 mcg 12-25 Abran MCKEON tablet tablet Lidocaine Lidocaine Yes Midura Unknown Unknown Plus 4 % Plus 4 % 12-25 Abran MCKEON topical topical cream cream magnesium magnesium 2019- Yes Midura Unknown Unknown hydroxide hydroxide 12-25 Abran MCKEON 400 mg/5 mL 400 mg/5 mL oral oral suspension suspension metroNIDAZO metroNIDAZO Yes Midura Unknown Unknown LE 0.75 % LE 0.75 % 12-25 Abran MCKEON topical gel topical gel ondansetron ondansetron Yes Midura Unknown Unknown 4 mg 4 mg 12-25 Abran MCKEON disintegrat disintegrat ing tablet ing tablet traMADol 50 traMADol 50 2019- Yes Midura Unknown Unknown mg tablet mg tablet 12-25 Abran MCKEON venlafaxine venlafaxine Yes Midura Unknown Unknown 75 mg 75 mg 12-25 Abran MCKEON tablet tablet warfarin 4 warfarin 4 0 2020- Yes Midura Unknown Unknown mg tablet mg tablet 12-25 Abran MCKEON warfarin 5 warfarin 5 2019-0 2020- Yes Midura Unknown Unknown mg mg 12-25 Abran MCKEON ipratropium ipratropium 2019-0 Yes Midura Unknown Unknown -albuterol -albuterol 12-28 Abran MCKEON 0.5 mg-3 0.5 mg-3 mg(2.5 mg mg(2.5 mg base)/3 mL base)/3 mL nebulizatio nebulizatio n solbetty n solbetty buPROPion buPROPion 0 Yes Midura Unknown Unknown HCl 100 mg HCl 100 mg 12-28 Abran MCKEON tablet tablet amLODIPine amLODIPine 2019-0 Yes Midura Unknown Unknown 2.5 mg 2.5 mg 12-28 Abran MCKEON tablet tablet budesonide budesonide Yes Midura Unknown Unknown 0.5 mg/2 mL 0.5 mg/2 mL 12-28 Abran MCKEON suspension suspension for for nebulizatio nebulizatio n n warfarin 4 warfarin 4 2019-0 Yes Midura Unknown Unknown mg tablet mg tablet 01-01 Abran MCKEON digoxin 125 digoxin 125 2019-0 Yes Midura Unknown Unknown mcg (0.125 mcg (0.125 3-17 MD,Abran mg) tablet mg) tablet Vital Signs Vital Name Observation Time Observation Value Comments PULSE 2020-01-05 18:10:54 84 /min /min RESP RATE 2020-01-05 18:10:54 18 /min /min TEMP 2020-01-05 18:10:54 98.4 [degF] Procedures This patient has no known procedures. Results This patient has no known results.
[2020-01-07 12:46] VITALS: BP 0/0
--- NOTE | 2020-01-07 12:47 | ED ---
Shortness of Breath - HPI Summary HPI Summary: This patient is a 69 y/o female presenting to [facility] via EMS for worsening shortness of breath. EMS reports she was in the hospital last week for difficulty breathing and was diagnosed with pneumonia and admitted. Per EMS patient was discharged on Sunday (12/31/19) or (01/01/20). Per EMS, patient's daughter reported patient has had difficulty breathing since being discharged but much worse today. Patient notes she is fatigued, weak, and with a nonproductive cough. Denies fever, chills, chest pain, sore throat. Per EMS patient has not had a bowel movement since Sunday01/02/20. Patient is still taking antibiotics, Cefuroxime 500 mg BID. PMHx: LVAD in place. Home Medications Medication Instructions Recorded Confirmed Type Aspirin 81 mg CHEW TAB* 81 mg PO DAILY 12/05/17 01/07/20 History Metoclopramide TAB* [Reglan TAB*] 10 mg PO Q6H PRN 12/05/17 01/07/20 History Montelukast Sodium TAB* [Singulair 10 mg PO BEDTIME 12/05/17 01/07/20 History 10 MG TAB*] Omeprazole CAP (NF) [Prilosec CAP* 20 mg PO DAILY 12/05/17 01/07/20 History 20 MG] Clopidogrel TAB* [Plavix TAB*] 75 mg PO DAILY 01/06/19 01/07/20 History FLUoxetine CAP* [Prozac CAP*] 20 mg PO DAILY 01/06/19 01/07/20 History Gabapentin CAP(*) [Neurontin 400 400 mg PO TID 01/06/19 01/07/20 History mg CAP(*)] Rosuvastatin (NF) [Crestor (NF)] 10 mg PO BEDTIME 01/06/19 01/07/20 History Torsemide TAB* [Demadex 20 MG*] 20 mg PO EVERY OTHER DAY 01/06/19 01/07/20 History Torsemide [Demadex 20 MG] 40 mg PO EVERY OTHER DAY 01/06/19 01/07/20 History glipiZIDE TAB* [Glucotrol TAB*] 2.5 - 5 mg PO QAM 01/06/19 01/07/20 History Exenatide Microspheres [Bydureon] 2 mg SUBCUT WEEKLY 03/14/19 01/07/20 History Fexofenadine (NF) [Lacey (NF)] 60 mg PO BID PRN 03/14/19 01/07/20 History Lisinopril TAB* [Prinivil TAB*] 2.5 mg PO DAILY 03/14/19 01/07/20 History Tiotropium CAPSULE (NF) [Spiriva 1 cap.inh INH DAILY 05/30/19 01/07/20 History CAP.INH*] traMADol TAB* [Ultram*] 50 mg PO .Q4-6H PRN 05/30/19 01/07/20 History Amoxicillin PO (*) [Amoxicillin 2,000 mg PO ONCE 01/07/20 01/07/20 History 500 MG CAP*] Budesonide/Formote 160/4.5(NF) 2 puff INH BID PRN 01/07/20 01/07/20 History [Symbicort 160/4.5 (NF)] Carvedilol TAB* [Coreg TAB*] 3.125 mg PO BID 01/07/20 01/07/20 History Cefuroxime 500 MG TAB (NF) [Ceftin 500 mg PO BID 01/07/20 01/07/20 History 500 MG TAB (NF)] DULoxetine DR CAP* [Cymbalta CAP*] 30 mg PO DAILY 01/07/20 01/07/20 History Docusate CAP* [Colace Cap*] 100 - 200 mg PO DAILY 01/07/20 01/07/20 History Fluocinonide 0.05% CM (NF) [Lidex 1 applic TOPICAL DAILY 01/07/20 01/07/20 History 0.05% CREAM (NF)] Ipratropium 0.5MG/2.5ML NEB* 0.5 mg INH BID 01/07/20 01/07/20 History [Atrovent 0.5 MG NEB.JAREN*] Nystatin CREAM* 1 applic TOPICAL TID 01/07/20 01/07/20 History buPROPion TAB* [Wellbutrin TAB*] 75 mg PO BID 01/07/20 01/07/20 History metroNIDAZOLE [Metrogel] 0.75 % TOPICAL BID 01/07/20 01/07/20 History - History of Current Complaint Hx Obtained From: Patient, EMS Onset/Duration: Lasting Days, Still Present, Worse Since - today Timing: Constant Current Severity: Moderate Dyspnea At: Rest Aggravating Factors: Nothing Alleviating Factors: Nothing Associated Signs & Symptoms: Cough (Nonproductive) - Allergy/Home Medications Allergies/Adverse Reactions: Allergies Allergy/AdvReac Type Severity Reaction Status Date / Time atorvastatin [From Lipitor] Allergy Unknown Verified 12/30/19 13:31 Reaction Details Iodinated Contrast Media Allergy Anaphylatic Verified 12/30/19 13:31 Shock iodine Allergy Anaphylatic Verified 12/30/19 13:31 Shock morphine Allergy Altered Verified 12/30/19 13:31 Mental Status nickel Allergy Unknown Verified 12/30/19 13:31 Reaction Details shellfish derived Allergy Hives Verified 12/30/19 13:31 Home Medications: Home Medications Aspirin 81 mg CHEW TAB* 81 mg PO DAILY 12/05/17 [History Confirmed 01/07/20] Metoclopramide TAB* [Reglan TAB*] 10 mg PO Q6H PRN 12/05/17 [History Confirmed 01/07/20] Montelukast Sodium TAB* [Singulair 10 MG TAB*] 10 mg PO BEDTIME 12/05/17 [ History Confirmed 01/07/20] Omeprazole CAP (NF) [Prilosec CAP* 20 MG] 20 mg PO DAILY 12/05/17 [History Confirmed 01/07/20] Clopidogrel TAB* [Plavix TAB*] 75 mg PO DAILY 01/06/19 [History Confirmed ] FLUoxetine CAP* [Prozac CAP*] 20 mg PO DAILY 01/06/19 [History Confirmed ] Gabapentin CAP(*) [Neurontin 400 mg CAP(*)] 400 mg PO TID 01/06/19 [History Confirmed 01/07/20] Rosuvastatin (NF) [Crestor (NF)] 10 mg PO BEDTIME 01/06/19 [History Confirmed ] Torsemide TAB* [Demadex 20 MG*] 20 mg PO EVERY OTHER DAY 01/06/19 [History Confirmed 01/07/20] Torsemide [Demadex 20 MG] 40 mg PO EVERY OTHER DAY 01/06/19 [History Confirmed 01/07/20] glipiZIDE TAB* [Glucotrol TAB*] 2.5 - 5 mg PO QAM 01/06/19 [History Confirmed ] Exenatide Microspheres [Bydureon] 2 mg SUBCUT WEEKLY 03/14/19 [History Confirmed 01/07/20] Fexofenadine (NF) [Lacey (NF)] 60 mg PO BID PRN 03/14/19 [History Confirmed ] Lisinopril TAB* [Prinivil TAB*] 2.5 mg PO DAILY 03/14/19 [History Confirmed ] Tiotropium CAPSULE (NF) [Spiriva CAP.INH*] 1 cap.inh INH DAILY 05/30/19 [ History Confirmed 01/07/20] traMADol TAB* [Ultram*] 50 mg PO .Q4-6H PRN 05/30/19 [History Confirmed 01/07/20 ] Amoxicillin PO (*) [Amoxicillin 500 MG CAP*] 2,000 mg PO ONCE 01/07/20 [History Confirmed 01/07/20] Budesonide/Formote 160/4.5(NF) [Symbicort 160/4.5 (NF)] 2 puff INH BID PRN 01/06 [History Confirmed 01/07/20] Carvedilol TAB* [Coreg TAB*] 3.125 mg PO BID 01/07/20 [History Confirmed ] Cefuroxime 500 MG TAB (NF) [Ceftin 500 MG TAB (NF)] 500 mg PO BID 01/07/20 [ History Confirmed 01/07/20] DULoxetine DR CAP* [Cymbalta CAP*] 30 mg PO DAILY 01/07/20 [History Confirmed ] Docusate CAP* [Colace Cap*] 100 - 200 mg PO DAILY 01/07/20 [History Confirmed ] Fluocinonide 0.05% CM (NF) [Lidex 0.05% CREAM (NF)] 1 applic TOPICAL DAILY 01/06 [History Confirmed 01/07/20] Ipratropium 0.5MG/2.5ML NEB* [Atrovent 0.5 MG NEB.JAREN*] 0.5 mg INH BID 01/07/20 [History Confirmed 01/07/20] Nystatin CREAM* 1 applic TOPICAL TID 01/07/20 [History Confirmed 01/07/20] buPROPion TAB* [Wellbutrin TAB*] 75 mg PO BID 01/07/20 [History Confirmed ] metroNIDAZOLE [Metrogel] 0.75 % TOPICAL BID 01/07/20 [History Confirmed 01/07/20 ] PMH/Surg Hx/FS Hx/Imm Hx Endocrine/Hematology History: Reports: Hx Anticoagulant Therapy, Hx Diabetes Denies: Hx Blood Disorders, Hx Blood Transfusions, Hx Bone Marrow Disease, Hx Sickle Cell Disease, Hx Thyroid Disease, Hx Anemia, Hx Unexplained Bleeding, Other Endocrine/Hematological Disorders Cardiovascular History: Reports: Hx Auto Implanted Cardiovert Defib - 2002, Hx Congestive Heart Failure - in the past, Hx Coronary Artery Disease, Hx Hypercholesterolemia, Hx Hypertension, Hx Pacemaker/ICD, Other Cardiovascular Problems/Disorders - heart failure Denies: Hx Aneurysm, Hx Angina, Hx Angioplasty, Hx Cardiac Arrest, Hx Cardiomegaly, Hx Congenital Heart Disease, Hx Deep Vein Thrombosis, Hx Embolism , Hx Hypotension, Hx Peripheral Vascular Disease, Hx Rheumatic Fever, Hx Syncope , Hx Valvular Heart Disease Respiratory History: Reports: Hx Asthma - hospitalization 05/21/18 for asthma (3 days), Hx Pneumonia - 13 yrs ago Denies: Hx Chronic Bronchitis, Hx Chronic Obstructive Pulmonary Disease (COPD ), Hx Cystic Fibrosis, Hx Lung Cancer, Hx Pleural Effusion, Hx Pulmonary Edema, Hx Pulmonary Embolism, Hx Seasonal Allergies, Hx Sleep Apnea, Other Respiratory Problems/Disorders GI History: Reports: Hx Gastroesophageal Reflux Disease Denies: Hx Cirrhosis, Hx Crohn's Disease, Hx Diverticulosis, Hx Gall Bladder Disease, Hx Gastrointestinal Bleed, Hx Hiatal Hernia, Hx Irritable Bowel, Hx Jaundice, Hx Obstructive Bowel, Hx Ileostomy, Hx Pyloric Stenosis, Hx Ulcer, Other GI Disorders History: Denies: Hx Renal Disease Musculoskeletal History: Reports: Hx Arthritis, Hx Back Problems, Hx Scoliosis Denies: Hx Bursitis, Hx Congenital Bone Abnormalities, Hx Fibromyalgia, Hx Gout, Hx Orthopedic Injury, Hx Osteoporosis, Hx Tendonitis, Other Musculoskeletal History Sensory History: Reports: Hx Cataracts, Hx Contacts or Glasses Denies: Hx Eye Injury, Hx Eye Prosthesis, Hx Glaucoma, Hx Legally Blind, Hx Macular Degeneration, Hx Vision Problem, Hx Deafness, Hx Hearing Aid, Hx Hearing Problem, Other Sensory Impairments Opthamlomology History: Reports: Hx Cataracts, Hx Contacts or Glasses Denies: Hx Eye Injury, Hx Eye Prosthesis, Hx Glaucoma, Hx Legally Blind, Hx Macular Degeneration, Hx Vision Problem, Other Sensory Impairments Neurological History: Reports: Hx Nerve Disease - "bulging disc", "fusion 80's" , Other Neuro Impairments/Disorders - PAIN CLINIC PT Denies: Hx Dementia, Hx Developmental Delay, Hx Headaches, Hx Migraine, Hx Seizures, Hx Spinal Cord Injury, Hx Transient Ischemic Attacks (TIA) Psychiatric History: Reports: Hx Depression Denies: Hx Anxiety, Hx Attention Deficit Hyperactivity Disorder, Hx Eating Disorder, Hx Panic Disorder, Hx Post Traumatic Stress Disorder, Hx Inpatient Treatment, Hx Community Mental Health Tx, Hx Schizophrenia, Hx Bipolar Disorder , Hx Suicide Attempt, Hx of Violent Episodes Against Others, Hx Substance Abuse , Other Psychiatric Issues/Disorders - Cancer History Hx Chemotherapy: No Hx Radiation Therapy: No - Surgical History Surgery Procedure, Year, and Place: Bilat carpal tunnel , Hysterectomy, femoral artery bypass bilateral 2009, heart cath with stent placement 2013, difibrillator/pacemaker 2014, back surgery "a long time ago" Hx Anesthesia Reactions: No Infectious Disease History: Reports: Hx Shingles - 5 years ago Denies: Hx Clostridium Difficile, Hx Hepatitis, Hx Human Immunodeficiency Virus (HIV), Hx of Known/Suspected MRSA, Hx Tuberculosis, History Other Infectious Disease, Traveled Outside the [place] in Last 30 Days - Family History Known Family History: Positive: Other Family History: No FHx of Breast Cancer - Social History Alcohol Use: None Substance Use Type: Reports: None Smoking Status (MU): Former Smoker Type: Cigarettes Have You Smoked in the Last Year: No - 20 year smoker, quit in 2002 Review of Systems Positive: Fatigue. Negative: Fever, Chills Negative: Sore Throat Negative: Chest Pain Positive: Shortness Of Breath, Cough Positive: Weakness - generalized All Other Systems Reviewed And Are Negative: Yes Physical Exam - Summary Physical Exam Summary: VITAL SIGNS: Reviewed. GENERAL: Patient is an elderly and very fragile female who is tired and ill- looking. HEAD AND FACE: No signs of trauma. No ecchymosis, hematomas or skull depressions. No sinus tenderness. EYES: PERRLA, EOMI x 2, No injected conjunctiva, no nystagmus. EARS: Hearing grossly intact. Ear canals and tympanic membranes are within normal limits. MOUTH: Oropharynx within normal limits. NECK: Supple, trachea is midline, no adenopathy, positive JVD, no carotid bruit , no c-spine tenderness, neck with full ROM. CHEST: Symmetric, no tenderness at palpation LUNGS: Crackles in both bases of the lungs. CVS: LVAD is working. Regular rate and rhythm, S1 and S2 present, no murmurs or gallops appreciated. ABDOMEN: Soft, non-tender. No signs of distention. No rebound, no guarding, and no masses palpated. Bowel sounds are normal. Urostomy tube. EXTREMITIES: FROM in all major joints, no edema, no cyanosis or clubbing. NEURO: Alert and oriented x 3. No acute neurological deficits. Speech is normal and follows commands. SKIN: Dry and warm Triage Information Reviewed: Yes Vital Signs Reviewed: Yes Procedures - Sedation Patient Received Moderate/Deep Sedation with Procedure: No Diagnostics - Laboratory Result Diagrams: 01/07/20 13:04 01/07/20 13:04 Lab Statement: Any lab studies that have been ordered have been reviewed, and results considered in the medical decision making process. - Radiology Chest XR Radiology Interpretation Completed By: Radiologist Summary of Radiographic Findings: IMPRESSION: 1. Pulmonary intestitial edema. 2. Right pleural effusion. 3. Patchy airspace disease of the right upper lobe. Dr. Gonzalez has reviewed this report. - EKG 14:19 Cardiac Rate: NL - at 81 bpm Summary of EKG Findings: EKG at 1419 shows atrial ventricular paced rhythm at a rate of 81 bpm. This EKG was interpreted and reviewed by ED physician. Course/Dx - Course Assessment/Plan: This patient is a 69 y/o female presenting to [facility] via EMS for worsening shortness of breath. EMS reports she was in the hospital last week for difficulty breathing and was diagnosed with pneumonia and admitted. Per EMS patient was discharged on Sunday (12/31/19) or (01/01/20). Per EMS, patient's daughter reported patient has had difficulty breathing since being discharged but much worse today. Patient notes she is fatigued, weak, and with a nonproductive cough. Denies fever, chills, chest pain, sore throat. Per EMS patient has not had a bowel movement since Sunday01/02/20. Patient is still taking antibiotics. PMHx: LVAD in place. In the ED course the patient was placed in a invoicing specialist, IV access was obtained. Past medical records reviewed. Blood test w/o a significant abnormality except for hemoglobin 11.1, hematocrit 33, INR 2.88, PTT of 45.5, sodium 128, chloride 91, BUN is 29, glucose 223, total bilirubin is 1.2, alkaline phosphatase is 210, troponin of 0.04, CRP is 59.9 and BNP 801. Influenza A and B is negative. CXR IMPRESSION: 1. PULMONARY INTERSTITIAL EDEMA. 2. RIGHT PLEURAL EFFUSION. 3. PATCHY AIRSPACE DISEASE OF THE RIGHT UPPER LOBE. It seems the chest x-ray shows right upper lobe pneumonia and the CRP is elevated. The patient is complaining of productive cough therefore the patient will be given Zosyn. This time I discussed the case with Annette Clifton, physician market research assistant from [facility], who recommends for the patient to be transferred to their services. She is arranging the transfer for this patient to [facility]. At 3:25 PM I discussed my physical exam and findings with Annette Clifton physician market research assistant from [facility] and she reports that the patient has been accepted at the hospital by Dr. Mc at their hospitalist services. She has been assigned bed #2936. She also requests to give Lasix 10 mg IV and to test the patient for COVID-[address] the patient in droplet precautions. At this time the patient will be transferred to [facility]. The patient is hemodynamically stable at this time. - Diagnoses Differential Diagnosis/HQI/PQRI: Positive: CHF, COPD Exacerbation, CA, Pneumonia , Pulmonary Edema, Unstable Angina Provider Diagnoses: Pneumonia, CHF exacerbation, LVAD (left ventricular assist device) present - Physician Notifications Discussed Care of Patient With: ARIES Lozano Time Discussed With Above Provider: 14:26 Instructed by Provider To: Other - Discussed the case with ARIES Lozano in the transfer center at [facility], who would like the patient transferred back to them. She will arrange everything and call back. [15:20] Annette reports the patient has been accepted for transfer and the accepting doctor is Dr. Mc. Bed number assigned for patient is [id number]. Phone number: [phone]. Annette recommends giving the patient 10 mg IV lasix and test the patient for COVID-19. - Critical Care Time Critical Care Time: 30-74 min - 30 minutes Discharge ED - Sign-Out/Discharge Documenting (check all that apply): Patient Departure - Transfer to [facility] - Discharge Plan Condition: Stable Disposition: TRANS HIGHER LVL OF CARE FAC Referrals: Abran Gordon MD [Primary Care Provider] - - Billing Disposition and Condition Condition: STABLE Disposition: Trans Higher Lvl of Care Fac - Attestation Statements Document Initiated by Eugneio: Yes Documenting Scribe: Justine Sandoval Provider For Whom Eugenio is Documenting (Include Credential): Bharat Gonzalez MD Scribe Attestation: Justine Castillo, scribed for Bharat Gonzalez MD on 01/07/20 at 1708. Scribe Documentation Reviewed: Yes Provider Attestation: The documentation as recorded by the Justine murphy accurately reflects the service I personally performed and the decisions made by me, Bharat Gonzalez MD Status of Scribe Document: Viewed
[2020-01-07 13:41] LABS: Influenza A Molecular Negative (Negative); Influenza B Molecular Negative (Negative)
[2020-01-07 13:44] LABS: ABS Basophils 0.1 10^3/ul (0-0.2); ABS Lymphocytes 0.5 10^3/ul (1.0-4.8); ABS Neutrophils 7.5 10^3/ul (1.5-7.7); Eosinophil % 0.5 %; Hematocrit 33 % (35-47); Hemoglobin 11.1 g/dL (12.0-16.0); Lymphocyte % 5.2 %; Mean Corpuscular HGB Conc 34 g/dL (31-36); Mean Corpuscular Hemoglobin 32 pg (27-31); Mean Corpuscular Volume 94 fL (80-97); Mean Platelet Volume 7.9 fL (7.4-10.4); Platelet Count 164 10^3/uL (150-450); Red Blood Count 3.48 10^6 /uL (3.70-4.87); Red Cell Distribution Width 19 % (10-15); White Blood Count 9.1 10^3/uL (3.5-10.8)
[2020-01-07 13:58] LABS: ALT 19 U/L (7-52); AST 23 U/L (13-39); Activated Partial Thrombo Time 44.5 seconds (26.0-38.0); Albumin 3.7 g/dL (3.2-5.2); Albumin/Globulin Ratio 1.1 (1-3); Alkaline Phosphatase 210 U/L (34-104); Anion Gap 7 mmol/L (2-11); BUN/Creatinine Ratio 41.4 (8-20); Blood Urea Nitrogen 29 mg/dL (6-24); C Reactive Protein 59.97 mg/L (<8.01); CO2 Carbon Dioxide 30 mmol/L (22-32); Calcium 9.4 mg/dL (8.6-10.3); Chloride 91 mmol/L (101-111); Creatine Kinase 13 U/L (10-223); EGFR African American 100.4 (>60); Globulin 3.4 g/dL (2-4); Glucose 223 mg/dL (70-100); INR 2.88 (0.82-1.09); Potassium 4.3 mmol/L (3.5-5.0); Sodium 128 mmol/L (135-145); Total Protein 7.1 g/dL (6.4-8.9)
[2020-01-07] MEDS: Piperacillin/Tazobac ADVAN(*) 3.375 GM in NS 0.9% 100 ML* 100 ML IVPB ONE (14:13)
[2020-01-07 14:17] LABS: Troponin I 0.04 ng/mL (<0.03)
[2020-01-07 14:57] LABS: Erythrocyte Sed Rate 67 mm/Hr (0-29)
[2020-01-07] MEDS: Furosemide IV* 10 MG/ML 2 ML VIAL (20 MG) IV ONE (15:58)
== END 2020-01-07 17:51 | disposition short-term general hospital (02) ==
LOC: ED 12:35
DX: J18.9 Pneumonia, unspecified organism (principal); I50.9 Heart failure, unspecified; Z95.810 Presence of automatic (implantable) cardiac defibrillator; J90 Pleural effusion, not elsewhere classified; E11.9 Type 2 diabetes mellitus without complications; I25.10 Atherosclerotic heart disease of native coronary artery without angina pectoris; E78.00 Pure hypercholesterolemia, unspecified; I11.0 Hypertensive heart disease with heart failure; J45.909 Unspecified asthma, uncomplicated; K21.9 Gastro-esophageal reflux disease without esophagitis; F32.9 Major depressive disorder, single episode, unspecified; Z90.710 Acquired absence of both cervix and uterus; Z95.5 Presence of coronary angioplasty implant and graft; Z87.891 Personal history of nicotine dependence; Z79.02 Long term (current) use of antithrombotics/antiplatelets; Z79.82 Long term (current) use of aspirin; Z79.84 Long term (current) use of oral hypoglycemic drugs; Z79.899 Other long term (current) drug therapy; Z88.5 Allergy status to narcotic agent; Z88.8 Allergy status to other drugs, medicaments and biological substances; Z91.041 Radiographic dye allergy status
CPT/HCPCS: 36415; 71045; 80053; 82550; 82803; 83605; 83880; 84484; 85025; 85610; 85652; 85730; 86140; 87040; 93005; 96365; 96366; 96375; 99285; J1940; J2543; U0002

== ENCOUNTER 2020-01-27 14:27 | Emergency (ER) | payer MEDICARE ==
--- NOTE | 2020-01-27 14:43 | ED ---
GI/ HPI - HPI Summary HPI Summary: Patient is a 69 y/o F presenting to [facility] via EMS for leaking G-tube. She is unsure exactly when the tube was placed. Patient states that it was first noticed two weeks ago. She claims that she has a surgery scheduled tomorrow and was advised to come to ED to resolve her G-tube issue. Pain is denied. No N/V reported. G-tube is for medication, patient reports she can do PO intake. Patient is on antibiotics for PNA, currently on the last two days. Patient had LVAD as well. Home medications and allergies are reviewed. Home Medications Medication Instructions Recorded Confirmed Type Aspirin 81 mg CHEW TAB* 81 mg PO DAILY 12/05/17 01/07/20 History Metoclopramide TAB* [Reglan TAB*] 10 mg PO Q6H PRN 12/05/17 01/07/20 History Montelukast Sodium TAB* [Singulair 10 mg PO BEDTIME 12/05/17 01/07/20 History 10 MG TAB*] Omeprazole CAP (NF) [Prilosec CAP* 20 mg PO DAILY 12/05/17 01/07/20 History 20 MG] Clopidogrel TAB* [Plavix TAB*] 75 mg PO DAILY 01/06/19 01/07/20 History FLUoxetine CAP* [Prozac CAP*] 20 mg PO DAILY 01/06/19 01/07/20 History Gabapentin CAP(*) [Neurontin 400 400 mg PO TID 01/06/19 01/07/20 History mg CAP(*)] Rosuvastatin (NF) [Crestor (NF)] 10 mg PO BEDTIME 01/06/19 01/07/20 History Torsemide TAB* [Demadex 20 MG*] 20 mg PO EVERY OTHER DAY 01/06/19 01/07/20 History Torsemide [Demadex 20 MG] 40 mg PO EVERY OTHER DAY 01/06/19 01/07/20 History glipiZIDE TAB* [Glucotrol TAB*] 2.5 - 5 mg PO QAM 01/06/19 01/07/20 History Exenatide Microspheres [Bydureon] 2 mg SUBCUT WEEKLY 03/14/19 01/07/20 History Fexofenadine (NF) [Lacey (NF)] 60 mg PO BID PRN 03/14/19 01/07/20 History Lisinopril TAB* [Prinivil TAB*] 2.5 mg PO DAILY 03/14/19 01/07/20 History Tiotropium CAPSULE (NF) [Spiriva 1 cap.inh INH DAILY 05/30/19 01/07/20 History CAP.INH*] traMADol TAB* [Ultram*] 50 mg PO .Q4-6H PRN 05/30/19 01/07/20 History Amoxicillin PO (*) [Amoxicillin 2,000 mg PO ONCE 01/07/20 01/07/20 History 500 MG CAP*] Budesonide/Formote 160/4.5(NF) 2 puff INH BID PRN 01/07/20 01/07/20 History [Symbicort 160/4.5 (NF)] Carvedilol TAB* [Coreg TAB*] 3.125 mg PO BID 01/07/20 01/07/20 History Cefuroxime 500 MG TAB (NF) [Ceftin 500 mg PO BID 01/07/20 01/07/20 History 500 MG TAB (NF)] DULoxetine DR CAP* [Cymbalta CAP*] 30 mg PO DAILY 01/07/20 01/07/20 History Docusate CAP* [Colace Cap*] 100 - 200 mg PO DAILY 01/07/20 01/07/20 History Fluocinonide 0.05% CM (NF) [Lidex 1 applic TOPICAL DAILY 01/07/20 01/07/20 History 0.05% CREAM (NF)] Ipratropium 0.5MG/2.5ML NEB* 0.5 mg INH BID 01/07/20 01/07/20 History [Atrovent 0.5 MG NEB.JAREN*] Nystatin CREAM* 1 applic TOPICAL TID 01/07/20 01/07/20 History buPROPion TAB* [Wellbutrin TAB*] 75 mg PO BID 01/07/20 01/07/20 History metroNIDAZOLE [Metrogel] 0.75 % TOPICAL BID 01/07/20 01/07/20 History - History of Current Complaint Time Seen by Provider: 01/27/20 14:31 Stated Complaint: LEAKAGE G TUBE PER EMS Hx Obtained From: Patient Onset/Duration: Started Weeks Ago, Still Present Timing: Constant, Lasting Weeks Current Severity: None Associated Signs and Symptoms: Positive: Other: - G-tube leaking. Negative: Nausea, Vomiting, Abdominal Pain - Additional Pertinent History Primary Care Physician: [id number] - Allergy/Home Medications Allergies/Adverse Reactions: Allergies Allergy/AdvReac Type Severity Reaction Status Date / Time atorvastatin [From Lipitor] Allergy Unknown Verified 12/30/19 13:31 Reaction Details Iodinated Contrast Media Allergy Anaphylatic Verified 12/30/19 13:31 Shock iodine Allergy Anaphylatic Verified 12/30/19 13:31 Shock morphine Allergy Altered Verified 12/30/19 13:31 Mental Status nickel Allergy Unknown Verified 12/30/19 13:31 Reaction Details shellfish derived Allergy Hives Verified 12/30/19 13:31 Home Medications: Home Medications Aspirin 81 mg CHEW TAB* 81 mg PO DAILY 12/05/17 [History Confirmed 01/27/20] Metoclopramide TAB* [Reglan TAB*] 10 mg PO Q6H PRN 12/05/17 [History Confirmed 01/27/20] Montelukast Sodium TAB* [Singulair 10 MG TAB*] 10 mg PO BEDTIME 12/05/17 [ History Confirmed 01/27/20] Omeprazole CAP (NF) [Prilosec CAP* 20 MG] 20 mg PO DAILY 12/05/17 [History Confirmed 01/27/20] Clopidogrel TAB* [Plavix TAB*] 75 mg PO DAILY 01/06/19 [History Confirmed ] FLUoxetine CAP* [Prozac CAP*] 20 mg PO DAILY 01/06/19 [History Confirmed ] Gabapentin CAP(*) [Neurontin 400 mg CAP(*)] 400 mg PO TID 01/06/19 [History Confirmed 01/27/20] Rosuvastatin (NF) [Crestor (NF)] 10 mg PO BEDTIME 01/06/19 [History Confirmed ] Torsemide TAB* [Demadex 20 MG*] 20 mg PO EVERY OTHER DAY 01/06/19 [History Confirmed 01/27/20] Torsemide [Demadex 20 MG] 40 mg PO EVERY OTHER DAY 01/06/19 [History Confirmed 01/27/20] glipiZIDE TAB* [Glucotrol TAB*] 2.5 - 5 mg PO QAM 01/06/19 [History Confirmed ] Exenatide Microspheres [Bydureon] 2 mg SUBCUT WEEKLY 03/14/19 [History Confirmed 01/27/20] Fexofenadine (NF) [Lacey (NF)] 60 mg PO BID PRN 03/14/19 [History Confirmed ] Lisinopril TAB* [Prinivil TAB*] 2.5 mg PO DAILY 03/14/19 [History Confirmed 05/10] Tiotropium CAPSULE (NF) [Spiriva CAP.INH*] 1 cap.inh INH DAILY 05/30/19 [ History Confirmed 01/27/20] traMADol TAB* [Ultram*] 50 mg PO .Q4-6H PRN 05/30/19 [History Confirmed 01/27/20 ] Amoxicillin PO (*) [Amoxicillin 500 MG CAP*] 2,000 mg PO ONCE 01/07/20 [History Confirmed 01/27/20] Budesonide/Formote 160/4.5(NF) [Symbicort 160/4.5 (NF)] 2 puff INH BID PRN 01/06 [History Confirmed 01/27/20] Carvedilol TAB* [Coreg TAB*] 3.125 mg PO BID 01/07/20 [History Confirmed ] Cefuroxime 500 MG TAB (NF) [Ceftin 500 MG TAB (NF)] 500 mg PO BID 01/07/20 [ History Confirmed 01/27/20] DULoxetine DR CAP* [Cymbalta CAP*] 30 mg PO DAILY 01/07/20 [History Confirmed ] Docusate CAP* [Colace Cap*] 100 - 200 mg PO DAILY 01/07/20 [History Confirmed ] Fluocinonide 0.05% CM (NF) [Lidex 0.05% CREAM (NF)] 1 applic TOPICAL DAILY 01/06 [History Confirmed 01/27/20] Ipratropium 0.5MG/2.5ML NEB* [Atrovent 0.5 MG NEB.JAREN*] 0.5 mg INH BID 01/07/20 [History Confirmed 01/27/20] Nystatin CREAM* 1 applic TOPICAL TID 01/07/20 [History Confirmed 01/27/20] buPROPion TAB* [Wellbutrin TAB*] 75 mg PO BID 01/07/20 [History Confirmed ] metroNIDAZOLE [Metrogel] 0.75 % TOPICAL BID 01/07/20 [History Confirmed 01/27/20 ] PMH/Surg Hx/FS Hx/Imm Hx Endocrine/Hematology History: Reports: Hx Anticoagulant Therapy, Hx Diabetes Denies: Hx Blood Disorders, Hx Blood Transfusions, Hx Bone Marrow Disease, Hx Sickle Cell Disease, Hx Thyroid Disease, Hx Anemia, Hx Unexplained Bleeding, Other Endocrine/Hematological Disorders Cardiovascular History: Reports: Hx Auto Implanted Cardiovert Defib - 2002, Hx Congestive Heart Failure - in the past, Hx Coronary Artery Disease, Hx Hypercholesterolemia, Hx Hypertension, Hx Pacemaker/ICD, Other Cardiovascular Problems/Disorders - heart failure Denies: Hx Aneurysm, Hx Angina, Hx Angioplasty, Hx Cardiac Arrest, Hx Cardiomegaly, Hx Congenital Heart Disease, Hx Deep Vein Thrombosis, Hx Embolism , Hx Hypotension, Hx Peripheral Vascular Disease, Hx Rheumatic Fever, Hx Syncope , Hx Valvular Heart Disease Respiratory History: Reports: Hx Asthma - hospitalization 05/21/18 for asthma (3 days), Hx Pneumonia - 13 yrs ago Denies: Hx Chronic Bronchitis, Hx Chronic Obstructive Pulmonary Disease (COPD ), Hx Cystic Fibrosis, Hx Lung Cancer, Hx Pleural Effusion, Hx Pulmonary Edema, Hx Pulmonary Embolism, Hx Seasonal Allergies, Hx Sleep Apnea, Other Respiratory Problems/Disorders GI History: Reports: Hx Gastroesophageal Reflux Disease Denies: Hx Cirrhosis, Hx Crohn's Disease, Hx Diverticulosis, Hx Gall Bladder Disease, Hx Gastrointestinal Bleed, Hx Hiatal Hernia, Hx Irritable Bowel, Hx Jaundice, Hx Obstructive Bowel, Hx Ileostomy, Hx Pyloric Stenosis, Hx Ulcer, Other GI Disorders History: Denies: Hx Renal Disease Musculoskeletal History: Reports: Hx Arthritis, Hx Back Problems, Hx Scoliosis Denies: Hx Bursitis, Hx Congenital Bone Abnormalities, Hx Fibromyalgia, Hx Gout, Hx Orthopedic Injury, Hx Osteoporosis, Hx Tendonitis, Other Musculoskeletal History Sensory History: Reports: Hx Cataracts, Hx Contacts or Glasses Denies: Hx Eye Injury, Hx Eye Prosthesis, Hx Glaucoma, Hx Legally Blind, Hx Macular Degeneration, Hx Vision Problem, Hx Deafness, Hx Hearing Aid, Hx Hearing Problem, Other Sensory Impairments Opthamlomology History: Reports: Hx Cataracts, Hx Contacts or Glasses Denies: Hx Eye Injury, Hx Eye Prosthesis, Hx Glaucoma, Hx Legally Blind, Hx Macular Degeneration, Hx Vision Problem, Other Sensory Impairments Neurological History: Reports: Hx Nerve Disease - "bulging disc", "fusion 80's" , Other Neuro Impairments/Disorders - PAIN CLINIC PT Denies: Hx Dementia, Hx Developmental Delay, Hx Headaches, Hx Migraine, Hx Seizures, Hx Spinal Cord Injury, Hx Transient Ischemic Attacks (TIA) Psychiatric History: Reports: Hx Depression Denies: Hx Anxiety, Hx Attention Deficit Hyperactivity Disorder, Hx Eating Disorder, Hx Panic Disorder, Hx Post Traumatic Stress Disorder, Hx Inpatient Treatment, Hx Community Mental Health Tx, Hx Schizophrenia, Hx Bipolar Disorder , Hx Suicide Attempt, Hx of Violent Episodes Against Others, Hx Substance Abuse , Other Psychiatric Issues/Disorders - Cancer History Hx Chemotherapy: No Hx Radiation Therapy: No - Surgical History Surgery Procedure, Year, and Place: Bilat carpal tunnel , Hysterectomy, femoral artery bypass bilateral 2009, heart cath with stent placement 2013, difibrillator/pacemaker 2014, back surgery "a long time ago" Hx Anesthesia Reactions: No Infectious Disease History: Reports: Hx Shingles - 5 years ago Denies: Hx Clostridium Difficile, Hx Hepatitis, Hx Human Immunodeficiency Virus (HIV), Hx of Known/Suspected MRSA, Hx Tuberculosis, History Other Infectious Disease - Family History Known Family History: Positive: Other Family History: No FHx of Breast Cancer - Social History Alcohol Use: None Substance Use Type: Reports: None Smoking Status (MU): Former Smoker Type: Cigarettes Have You Smoked in the Last Year: No - 20 year smoker, quit in 2002 Review of Systems Positive: Other - G-tube leakage Negative: Abdominal Pain, Vomiting, Nausea All Other Systems Reviewed And Are Negative: Yes Physical Exam - Summary Physical Exam Summary: Constitutional: Well-developed, Well-nourished, Alert. (-) Distressed Skin: Warm, Dry HENT: Normocephalic; Atraumatic Eyes: Conjunctiva normal Neck: Musculoskeletal ROM normal neck. (-) JVD, (-) Stridor, (-) Tracheal deviation Cardio: Rhythm regular, rate normal, Heart sounds normal; Intact distal pulses; Radial pulses are 2+ and symmetric. (-) Murmur Pulmonary/Chest wall: Effort normal. (-) Respiratory distress, (-) Wheezes, (-) Rales Abd: G-tube with fluid is noted to be in place. There is dressing around the tube without saturation. Soft, (-) tenderness, (-) Distension, (-) Guarding, (- ) Rebound Musculoskeletal: (-) Edema Lymph: (-) Cervical adenopathy Neuro: Alert, Oriented x3 Psych: Mood and affect Normal Triage Information Reviewed: Yes Vital Signs On Initial Exam: Initial Vital Signs Temp 98.3 F 01/27/20 14:35 Pulse 83 01/27/20 14:35 Resp 16 01/27/20 14:35 BP 0/0 01/27/20 14:35 Pulse Ox 0 01/27/20 14:35 Vital Signs Reviewed: Yes Procedures - Sedation Patient Received Moderate/Deep Sedation with Procedure: No Diagnostics - Laboratory Result Diagrams: 01/27/20 15:05 01/27/20 15:05 Lab Statement: Any lab studies that have been ordered have been reviewed, and results considered in the medical decision making process. - Radiology CXR Radiology Interpretation Completed By: Radiologist Summary of Radiographic Findings: IMPRESSION: #. Mild pulmonary vascular congestion and interstitial edema similar to the prior exam. No compelling evidence for pneumonia. THIS REPORT WAS REVIEWED BY ED PHYSICIAN. - CT CT ABD/PEL CT Interpretation Completed By: Radiologist Summary of CT Findings: IMPRESSION: #. Percutaneous gastric tube in place. Associated apposition of the anterior wall of the. gastric body antrum junction into the anterior pleural surface. No fluid surrounding the. percutaneous gastric tube site or abscess collection evident. #. Negative for bowel obstruction. Moderately large volume of stool within the rectum. #. Interstitial pulmonary edema noted at the lung bases. Small RIGHT pleural effusion. LEFT ventricular assist device in place. THIS REPORT WAS REVIEWED BY ED PHYSICIAN. Re-Evaluation - Re-Evaluation First Eval Re-Evaluation Time: 14:53 Comment: Patient's case was discussed with patient's daughter. She states that the patient has been leaking around the tube and notes mucous and black-colored material come out of the tube. Daughter was concerned for bleeding. She notes that the patient was scheduled to have a larger tube placed at [facility] tomorrow. Second Eval Re-Evaluation Time: 15:36 Comment: Called [facility], patient's physician will return call with more information on patient. Third Eval Re-Evaluation Time: 15:56 Comment: Spoke with LVAD MACHINE ADJUSTER LEADER of the patient, patient scheduled to have G-tube upgraded tomorrow due to concerns of leakage. MACHINE ADJUSTER LEADER states that replacement can be attempted at [facility]. Fourth Eval Re-Evaluation Time: 16:10 Comment: Nurse Mikhail reports that [facility] [place] does not have larger G-tube available. Tube replacement to be done at [facility] tomorrow. Fifth Eval Re-Evaluation Time: 17:25 Comment: [facility] called back to ask about possible outpatient G-tube replacment in [place] as family cannot get patient to appointment in [place] tomorrow. GIGU Course/Dx - Course Course Of Treatment: Patient is here with 2 weeks of leaking around her G-tube. Patient is a poor historian so her daughter was called and gave a thorough history. Patient had blood work performed which was grossly unremarkable. Since family had concerned about an infection so CT scan was performed which showed no abnormality. Patient's LVAD spinner hydraulic was called multiple times and patient was initially going to be seen tomorrow in [place] for replacement of her tube. Patient has an 18 [place] tube. We do not have a larger tube to replace it with. Family could not get patient to [facility] so I called Dr. Velasquez who will replace the tube tomorrow as an outpatient. - Diagnoses Provider Diagnoses: Gastrostomy tube dysfunction, LVAD (left ventricular assist device) present - Physician Notifications Discussed Care Of Patient With: Slava Fisher Time Discussed With Above Provider: 17:33 Instructed by Provider To: Other - Patient's case was discussed with Dr. Fisher , Dr. Fisher will perform G-tube placement tomorrow on out-patient basis. - Critical Care Time Critical Care Time: 30-74 min - 60 minutes CCT Discharge ED - Sign-Out/Discharge Documenting (check all that apply): Patient Departure - discharge - Discharge Plan Condition: Stable Disposition: HOME Patient Education Materials: Tube Feeding (DC), LVAD (Left Ventricular Assist Device) (DC) Referrals: Abran Gordon MD [Primary Care Provider] - Slava Fisher MD [Medical Doctor] - Additional Instructions: FOLLOW UP WITH DR. FISHER TOMORROW, CALL NUMBER THAT HAS BEEN PROVIDED. CONTINUE TO FOLLOW FEEDING INSTRUCTIONS. PLEASE RETURN TO ED FOR SEVERE ABDOMINAL PAIN, FEVER, OR ANY OTHER CONCERNING SYMPTOMS. - Billing Disposition and Condition Condition: STABLE Disposition: Home - Attestation Statements Document Initiated by Scribe: Yes Documenting Scribe: RANULFO KNAPP Provider For Whom Scribe is Documenting (Include Credential): ANASTACIO MONTERROSO MD Scribe Attestation: I, RANULFO KNAPP, scribed for ANASTACIO MONTERROSO MD on 01/27/20 at 1959. Scribe Documentation Reviewed: Yes Provider Attestation: The documentation as recorded by the RANULFO murphy accurately reflects the service I personally performed and the decisions made by me, ANASTACIO MONTERROSO MD Status of Scribe Document: Viewed
[2020-01-27 14:44] VITALS: BP 0/0
[2020-01-27 15:16] LABS: ABS Basophils 0.1 10^3/ul (0-0.2); ABS Lymphocytes 0.6 10^3/ul (1.0-4.8); ABS Monocytes 0.6 10^3/ul (0-0.8); ABS Neutrophils 8.6 10^3/ul (1.5-7.7); Eosinophil % 0.5 %; Hematocrit 34 % (35-47); Hemoglobin 11.8 g/dL (12.0-16.0); Lymphocyte % 6.4 %; Mean Corpuscular HGB Conc 35 g/dL (31-36); Mean Corpuscular Hemoglobin 32 pg (27-31); Mean Corpuscular Volume 93 fL (80-97); Mean Platelet Volume 7.4 fL (7.4-10.4); Platelet Count 191 10^3/uL (150-450); Red Blood Count 3.65 10^6 /uL (3.70-4.87); Red Cell Distribution Width 18 % (10-15); White Blood Count 9.9 10^3/uL (3.5-10.8)
[2020-01-27 15:25] LABS: INR 2.45 (0.82-1.09)
[2020-01-27 15:35] LABS: Albumin 3.3 g/dL (3.2-5.2); Albumin/Globulin Ratio 0.9 (1-3); BUN/Creatinine Ratio 32.8 (8-20); C Reactive Protein 93.77 mg/L (<8.01); Calcium 9.1 mg/dL (8.6-10.3); EGFR Non-African American 46.3 (>60); Globulin 3.5 g/dL (2-4); Potassium 3.9 mmol/L (3.5-5.0); Total Protein 6.8 g/dL (6.4-8.9)
--- OUTSIDE RECORDS SUMMARY | 2020-01-27 16:03 | XMS REPORT ---
:1950 Author Organization [facility] Care Team Providers Name Role Phone Unavailable Unavailable Unavailable Problems Condition Condition Condition Status Onset Resolution Last Treating Comments Name Details Category Date Date Treatment Clinician Date Chronic Chronic Diagnosis Active Zoila systolic systolic 3- Mal[place]ke (congestive (congestive RN ) heart ) heart failure failure Ischemic Ischemic Diagnosis Active Zoila cardiomyopa cardiomyopa - [place] thy thy RN Peripheral Peripheral Diagnosis Active Zoila vascular vascular 12-25 [place] disease, disease, RN unspecified unspecified 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 RN without without complicatio complicatio ns ns 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, disease, unspecified unspecified Gastrostomy Gastrostomy Diagnosis Active Zoila status status - [place] RN Spinal Spinal Diagnosis Active Zoila stenosis, stenosis, [place] lumbar lumbar RN region region without without neurogenic neurogenic claudicatio claudicatio n n 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, disorder, RN recurrent, recurrent, unspecified unspecified Hypothyroid Hypothyroid Diagnosis Active Zoila ism, ism, [place] unspecified unspecified RN Unspecified 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 [place]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 assisted assisted Diagnosis Active Zoila (current) (current) [place] use of use of RN anticoagula anticoagula nts nts Test/Treatm venipunctur Test/Injec Active Shyann ent e ordered t/Roberto 12-25 (Jeannine) Heavenly [id number] Pain frequent Pain Mgmt Resolve 2019-12-31 Shyann pain d 3-06 13:02:00 (Jeannine) 10:00: Burdick [id number] Cardio edema Cardiovasc Resolve 2020-01-21 Shyann ular d 3-06 14:00:00 (Jeannine) 10:00: Burdick [id number] Respiratory dyspnea Respirator Resolve 2019-12-31 Shyann present y d 3-06 13:02:00 (Jeannine) 10:00: Burdick [id number] Endo/Lamont glucose Endo/Lamont Resolve 2020-01-02 Shyann testing d 3-06 10:18:00 (Jeannine) dependence 10:00: Heavenly [id number] Endo/Lamont diabetic Endo/Lamont Resolve 2019-12-31 Shyann foot care d 3-06 13:02:00 (Jeannine) 10:00: Heavenly [id number] Endo/Lamont anti-coagul Endo/Lamont Resolve 2019-12-29 Shyann ation d 3-06 11:40:00 (Jeannine) therapy 10:00: Heavenly [id number] Sensory impaired Sensory Active Shyann hearing 3-06 (Jeannine) 10:00: Heavenly [id number] Integument skin Integument Resolve 2019-12-31 Shyann integrity d 3-06 13:02:00 (Jeannine) risk 10:00: Burdick [id number] Nutrition changing Nutrition Active 0 Shyann weight/appe 3-06 (Jeannine) tite 10:00: Burdick [id number] Nutrition nutritional Nutrition Active 2019-0 Shyann risk 3-06 (Jeannine) 10:00: Heavenly [id number] Nutrition nutritional Nutrition Active 0 Shyann restriction 3-06 (Jeannine) s 10:00: Heavenly [id number] Elimination urinary Eliminatio Resolve 2020-01-21 Shyann incontinenc n d 3-06 14:00:00 (Jeannine) e 10:00: Heavenly [id number] Elimination GI drain or Eliminatio Resolve 2020-01-05 Shyann tube n d 3-06 10:00:00 (Jeannine) present 10:00: Heavenly [id number] Elimination nausea/vomi Eliminatio Resolve 2019-0 2020-01-21 Shyann ting n d 3-06 14:00:00 (Jeannine) 10:00: Burdick [id number] Neuro confusion Neuro/Emot Active 2019- Shyann present ion 3-06 (Jeannine) 10:00: Burdick [id number] Neuro anxiety Neuro/Emot Active 2019- Shyann present ion 3-06 (Jeannine) 10:00: Burdick [id number] Neuro depressive Neuro/Emot Active 2019- Shyann feelings ion 3-06 (Jeannine) present 10:00: Burdick [id number] Neuro impaired Neuro/Emot Active 2019- Shyann decision-ma ion 3-06 (Jeannine) diya 10:00: Burdick [id number] Neuro memory Neuro/Emot Active 2019- Shyann deficit ion 3-06 (Jeannine) needing 10:00: Burdick supervision 00 [id number] Activity ADL Activity Resolve 2019-12-31 Shyann assistance d 3-06 13:02:00 (Jeannine) required 10:00: Burdick [id number] Activity self-care Activity Resolve 2019-12-29 Shyann deficit d 3-06 11:40:00 (Jeannine) 10:00: Burdick [id number] Safety cannot be Safety Resolve 2019-12-31 Shyann left alone d 3-06 13:02:00 (Jeannine) 10:00: Burdick [id number] Safety fall risk Safety Resolve 2019-12-31 Shyann factor d 3-06 13:02:00 (Jeannine) present 10:00: Burdick [id number] Safety risk for Safety Resolve 2019-0 2019-12-31 Shyann hospitaliza d 3-06 13:02:00 (Jeannine) tion 10:00: [id number] Medication oral med Meds Resolve 2019-12-31 Shyann assistance d 3-06 13:02:00 (Jeannine) required 10:00: Burdick [id number] Musculoskel transfer Musculoske Resolve 2020-01-19 Shyann etal assistance letal d 3-06 11:50:00 (Jeannine) required 10:00: Burdick [id number] Musculoskel requires Musculoske Resolve 2020-01-19 Shyann etal human letal d 12-25 11:50:00 (Jeannine) assist to 10:00: Burdick leave home 00 [id number] Respiratory lung sounds Respirator Resolve 2019-12-31 Zoila [...] RN req: pt/cg 00 Elimination bowel Eliminatio Resolve 2020-01-21 Zoila incontinenc n d 12-28 14:00:00 [place] e 11:40: RN 00 Endo/Lamont anti-coagul [...] [place] 10:18: RN 00 Endo/Lamont glucose Endo/Lamont Resolve 2020-01-19 Zoila testing d 01-04 11:50:00 [place] dependence 10:00: RN 00 Safety risk for Safety Resolve 2020-01-05 Zoila hospitaliza d 3-16 10:00:00 [place] tion 10:00: RN 00 Endo/Lamont anti-coagul Endo/Lamont Resolve 2020-01-19 Zoila ation d 3-18 11:50:00 [place] therapy 10:35: RN 00 Safety risk for Safety Resolve 2020-01-19 Zoila hospitaliza d 3-18 11:50:00 [place] tion 10:35: RN 00 Medication oral med Meds Active Zoila assistance 01-07 [place] required 15:32: RN 00 Medication potential Meds Active Zoila clinically 01-07 [place] significant 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 issue Pain frequent Pain Mgmt Resolve 2020-01-19 Rachel pain d 01-14 11:50:00 Delma 13:00: [id number] Integument skin Integument Resolve 2020-01-19 Rachel integrity d 01-14 11:50:00 Delma risk 13:00: [id number] Nutrition enteral Nutrition Active Rachel therapy 01-14 Delma 13:00: [id number] 00 Activity ADL Activity Active Rachel assistance 01-14 Delma required 13:00: [id number] Activity self-care Activity Resolve 2020-01-19 Rachel deficit d 01-14 11:50:00 Delma 13:00: [id number] Safety fall risk Safety Resolve 2020-01-19 Rachel factor d 01-14 11:50:00 Delma present 13:00: [id number] Respiratory dyspnea Respirator Active Zoila present y 01-18 [place] 11:50: RN 00 Endo/Lamont glucose Endo/Lamont Active Zoila tolerance 3 [place] problem 11:50: RN 00 Elimination GI drain or Eliminatio Active Zoila tube n 01-18 [place] present 11:50: RN 00 Safety risk for Safety Unknown Shannon hilliard 330 Lilli tion 15:30: t 00 [id number] 24 Hr Diet knowledge/s NT: 24Hr Resolve 2020-01-20 Vanessa kill Diet d 01-19 14:15:00 [place] deficit - 14:15: [id number] pt 00 24 Hr Diet knowledge/s NT: 24Hr Resolve 2020-01-20 Vanessa kill Diet d 01-19 14:15:00 [place] deficit - 14:15: [id number] cg 00 Nutritional food NT: Resolve 2020-01-20 Vanessa Barrier storage/pre Barriers d 01-19 14:15:00 [place] p deficit 14:15: [id number] Nutritional eating NT: Resolve 2020-01-20 Vanessa Barrier difficultie Barriers d 01-19 14:15:00 [place] s present 14:15: [id number] Nutritional swallowing NT: Resolve 2020-01-20 Vanessa Barrier difficultie Barriers d 01-19 14:15:00 [place] s present 14:15: [id number] Nutritional knowledge/s NT: Resolve 2020-01-20 Vanessa Barrier kill Barriers d 01-19 14:15:00 [place] deficit - 14:15: [id number] pt 00 Nutritional knowledge/s NT: Resolve 2020-01-20 Vanessa Barrier kill Barriers d 01-19 14:15:00 [place] deficit - 14:15: [id number] cg 00 Nutritional food NT: Resolve 2020-01-20 Vanessa Barrier consistency Barriers d 01-19 14:15:00 [place] requirement 14:15: [id number] Musculoskel requires Musculoske Active Zoila etal human letal 01-20 Deejaynomackenziee assist to 14:00: RN leave home 00 Allergies, Adverse Reactions, Alerts Allergy Name [...] Date Date Medication? Clinician (SIG) Name Name lisinopriL lisinopriL No Midura Unknown Unknown 2.5 mg 2.5 mg Abran MCKEON tablet tablet ipratropium ipratropium 2020- Yes Midura Unknown Unknown 0.5 0.5 12-25- Abran MCKEON mg-albutero mg-albutero L 3 mg (2.5 L 3 mg (2.5 mg base)/3 mg base)/3 mL mL nebulizatio nebulizatio n soln n soln ipratropium ipratropium No Midura Unknown Unknown 0.5 0.5 Abran MCKEON mg-albutero mg-albutero L 3 mg (2.5 L 3 mg (2.5 mg base)/3 mg base)/3 mL mL nebulizatio nebulizatio n soln n soln Aspir-81 mg Aspir-81 mg No Midura Unknown Unknown tablet,michael tablet,michaelAbran hidalgo MD yed release yed release buPROPion buPROPion 2020- Yes Midura Unknown Unknown HCL 75 mg HCL 75 mg 3- Abran MCKEON tablet tablet [...] release 24 hr hr torsemide torsemide 2020-0 2020- Yes Midura Unknown Unknown 20 mg 20 mg 301-14 ,Abran tablet tablet spironolact spironolact No Mauser Unknown Unknown one 25 mg one 25 mg MD,Jonatha tablet tablet n acetaminoph acetaminoph No Midura Unknown Unknown en 500 mg en 500 mg MD,Abran tablet tablet Bydureon 2 Bydureon 2 No Midura Unknown Unknown mg/0.65 mL mg/0.65 mL Abran MCKEON subcutaneou subcutaneou s pen s pen injector injector allopurinoL allopurinoL 2019-0 Yes Midura Unknown Unknown 100 mg 100 mg 12-25 ,Abran tablet tablet ALPRAZolam ALPRAZolam 2019-0 Yes Midura Unknown Unknown 0.25 mg 0.25 mg 12-25 ,Abran tablet tablet calcium calcium 2020-0 Yes Midura Unknown Unknown carbonate carbonate 12-25 ,Abran 200 mg 200 mg calcium calcium (500 mg) (500 mg) chewable chewable tablet tablet carvediloL carvediloL 2019-0 2020- Yes Midura Unknown Unknown 6.25 mg 6.25 mg 12-25 MDAbran tablet tablet enalapril enalapril 2019-0 Yes Midura Unknown Unknown maleate 20 maleate 20 12-25 MDAbran mg tablet mg tablet folic acid folic acid 2020-0 Yes Midura Unknown Unknown 1 mg tablet 1 mg tablet 12-25 MDAbran guaiFENesin guaiFENesin 2019-0 Yes Midura Unknown Unknown 100 mg/5 mL 100 mg/5 mL 12-25 MDAbran oral liquid oral liquid lactulose lactulose 2020-0 Yes Midura Unknown Unknown 10 gram/15 10 gram/15 12-25 Abran MCKEON mL oral mL oral solution solution levothyroxi levothyroxi 2020-0 Yes Midura Unknown Unknown ne 75 mcg ne 75 mcg 12-25 ,Abran tablet tablet Lidocaine Lidocaine 2020-0 Yes Midura Unknown Unknown Plus 4 % Plus 4 % 12-25 ,Abran topical topical cream cream magnesium magnesium 2020-0 Yes Midura Unknown Unknown hydroxide hydroxide 3-06 Abran MCKEON 400 mg/5 mL 400 mg/5 mL oral oral suspension suspension metroNIDAZO metroNIDAZO Yes Midura Unknown Unknown LE 0.75 % LE 0.75 % 12-25 Abran MCKEON topical gel topical gel ondansetron ondansetron Yes Midura Unknown Unknown 4 mg 4 mg 12-25 Abran MCKEON disintegrat disintegrat ing tablet ing tablet traMADoL 50 traMADoL 50 Yes Midura Unknown Unknown mg tablet mg tablet 12-25 ,Abran venlafaxine venlafaxine Yes Midura Unknown Unknown 75 mg 75 mg 12-25 ,Abran tablet tablet warfarin 4 warfarin 4 2019- Yes Midura Unknown Unknown mg tablet mg tablet 12-25 Abran MCKEON warfarin 5 warfarin 5 2019- Yes Midura Unknown Unknown mg mg 12-25 Abran MCKEON ipratropium ipratropium Yes Midura Unknown Unknown 0.5 0.5 12-28 Abran MCKEON mg-albutero mg-albutero L 3 mg (2.5 L 3 mg (2.5 mg base)/3 mg base)/3 mL mL nebulizatio nebulizatio n solbetty n solbetty buPROPion buPROPion Yes Midura Unknown Unknown HCL 100 mg HCL 100 mg 12-28 Abran MCKEON tablet tablet amLODIPine amLODIPine Yes Midura Unknown Unknown 2.5 mg 2.5 mg 12-28 ,Abran tablet tablet budesonide budesonide Yes Midura Unknown Unknown 0.5 mg/2 mL 0.5 mg/2 mL 12-28 Abran MCKEON suspension suspension for for nebulizatio nebulizatio n n warfarin 4 warfarin 4 2020- Yes Midura Unknown Unknown mg tablet mg tablet 01-01 Abran MCKEON digoxin 125 digoxin 125 Yes Midura Unknown Unknown mcg (0.125 mcg (0.125 01-05 ,Abran mg) tablet mg) tablet torsemide torsemide Yes Feitell Unknown Unknown 20 mg 20 mg 01-14 MD,Sumanth tablet tablet carvediloL carvediloL Yes Feitell Unknown Unknown 6.25 mg 6.25 mg 01-14 ,Sumanth tablet tablet warfarin 1 warfarin 1 2019- Yes Midura Unknown Unknown mg tablet mg tablet 01-14 ,Abran cefUROXime cefUROXime 2019- Yes Midura Unknown Unknown axetiL 500 axetiL 500 01-06 ,Abran mg tablet mg tablet warfarin 1 warfarin 1 Yes Feitell Unknown Unknown mg tablet mg tablet 01-20 Sumanth MCKEON metFORMIN metFORMIN Yes Feitell Unknown Unknown 500 mg 500 mg 01-20 ,Sumanth tablet tablet Vital Signs Vital Name Observation Time Observation Value Comments PULSE 2020-01-21 18:11:10 78 /min /min RESP RATE 2020-01-21 18:11:10 26 /min /min TEMP 2020-01-21 18:11:10 98.1 [degF] Procedures This patient has no known procedures. Results This patient has no known results.
--- OUTSIDE RECORDS SUMMARY | 2020-01-27 16:03 | XMS REPORT ---
[...] brennane brennane RN malnutritio malnutritio n n [facility] Diagnosis Active Zoila (current) (current) [place] use of use of RN anticoagula anticoagula nts nts Test/Treatm venipunctur Test/Injec Active Shyann ent e ordered t/Roberto 12-25 (Jeannine) Heavenly [id number] Pain frequent Pain Mgmt Resolve 2019-12-31 Shyann pain d 3-06 13:02:00 (Jeannine) 10:00: Burdick [id number] Cardio edema Cardiovasc Active 2019- Shyann ular 3-06 (Jeannine) 10:00: Burdick 00 [id number] Respiratory dyspnea Respirator Resolve 2019-12-31 Shyann present y d 3-06 13:02:00 (Jeannine) 10:00: Burdick [id number] Endo/Lamont glucose Endo/Lamont Resolve 2020-01-02 Shyann testing d 3-06 10:18:00 (Jeannine) dependence 10:00: Burdick [id number] Endo/Lamont diabetic Endo/Lamont Resolve 2019-12-31 Shyann foot care d 3-06 13:02:00 (Jeannine) 10:00: Burdick [id number] Endo/Lamont anti-coagul Endo/Lamont Resolve 2019-12-29 Shyann ation d 3-06 11:40:00 (Jeannine) therapy 10:00: Burdick [id number] Sensory impaired Sensory Active Shyann hearing 3-06 (Jeannine) 10:00: Burdick [id number] Integument skin Integument Resolve 2019-12-31 Shyann integrity d 3-06 13:02:00 (Jeannine) risk 10:00: Burdick [id number] Nutrition changing Nutrition Active 2019-0 Shyann weight/appe 3-06 (Jeannine) tite 10:00: Burdick [id number] Nutrition nutritional Nutrition Active 2019-0 Shyann risk 3-06 (Jeannine) 10:00: Burdick [id number] Nutrition nutritional Nutrition Active 2019-0 Shyann restriction 3-06 (Jeannine) s 10:00: Burdick [id number] Elimination urinary Eliminatio Active Shyann incontinenc n 3-06 (Jeannine) e 10:00: Burdick [id number] Elimination GI drain or Eliminatio Resolve 2020-01-05 Shyann tube n d 3-06 10:00:00 (Jeannine) present 10:00: Burdick [id number] Elimination nausea/vomi Eliminatio Active 2019- Shyann ting n 3-06 (Jeannine) 10:00: Burdick [id number] Neuro confusion Neuro/Emot Active 2020-0 Shyann present ion 3-06 (Jeannine) 10:00: Burdick [id number] Neuro anxiety Neuro/Emot Active 2020-0 Shyann present ion 3-06 (Jeannine) 10:00: Burdick [id number] Neuro depressive Neuro/Emot Active 2019-0 Shyann feelings ion 3-06 (Jeannine) present 10:00: Burdick [id number] Neuro impaired Neuro/Emot Active 2020-0 Shyann decision-ma ion 3-06 (Jeannine) diya 10:00: Burdick [id number] Neuro memory Neuro/Emot Active 2020-0 Shyann deficit ion 3-06 (Jeannine) needing 10:00: Burdick supervision 00 [id number] Activity ADL Activity Resolve 2019-0 2019-12-31 Shyann assistance d 3-06 13:02:00 (Jeannine) required 10:00: [id number] Activity self-care Activity Resolve 2019-0 2019-12-29 Shyann deficit d 3-06 11:40:00 (Jeannine) 10:00: [id number] Safety cannot be Safety Resolve 2019-0 2019-12-31 Shyann left alone d 3-06 13:02:00 (Jeannine) 10:00: Brudick [id number] Safety fall risk Safety Resolve 2019-0 2019-12-31 Shyann factor d 3-06 13:02:00 (Jeannine) present 10:00: [id number] Safety risk for Safety Resolve 2019-0 2019-12-31 Shyann hospitaliza d 3-06 13:02:00 (Jeannine) tion 10:00: [id number] Medication oral med Meds Resolve 2019-0 2019-12-31 Shyann assistance d 3-06 13:02:00 (Jeannine) required 10:00: Burdick [id number] Musculoskel transfer Musculoske Active 2019-0 Shyann etal assistance letal 3-06 (Jeannine) required 10:00: Burdick [id number] Musculoskel requires Musculoske Active 2019-0 Shyann etal human letal 3-06 (Jeannine) assist to 10:00: Burdick leave home 00 [id number] Respiratory lung sounds Respirator Resolve 2019-12-31 Zoila [...] Respiratory nebulizer Respirator Active Zoila treatment y - Mal[place]ke in home 10:18: RN 00 Endo/Lamont anti-coagul Endo/Lamont Resolve 2020-01-02 Zoila ation d 01-01 10:18:00 [place] therapy 10:18: RN 00 Nutrition enteral Nutrition Active Zoila equip -13 [place] assistance 10:18: RN req: pt/cg 00 Safety risk for Safety Resolve 2020-01-02 Zoila hospitaliza d - 10:18:00 [place] tion 10:18: RN 00 Safety cannot be Safety Active Zoila left alone -13 [place] 10:18: RN 00 Endo/Lamont glucose Endo/Lamont Active 2019- Zoila testing -16 [place] dependence 10:00: RN 00 Safety risk for Safety Resolve 2020-01-05 Zoila hospitaliza d -16 10:00:00 [place] tion 10:00: RN 00 Endo/Lamont anti-coagul Endo/Lamont Active Zoila ation 3-18 [place] therapy 10:35: RN 00 Safety risk for Safety Active Zoila hospitaliza 01-06 [place] tion 10:35: RN 00 Medication oral med Meds Active Zoila assistance 01-07 [place] required 15:32: RN 00 Medication potential Meds Active Zoila clinically - [place]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 Pain frequent Pain Mgmt Active Rachel pain 01-14 Delma 13:00: [id number] Integument skin Integument Active Rachel integrity 01-14 Delma risk 13:00: [id number] Nutrition enteral Nutrition Active Rachel therapy 01-14 Delma 13:00: [id number] Activity ADL Activity Active Rachel assistance 01-14 Delma required 13:00: [id number] Activity self-care Activity Active Rachel deficit 01-14 Delma 13:00: [id number] 00 Safety fall risk Safety Active Rachel factor 01-14 Delma present 13:00: [id number] 00 Allergies, Adverse Reactions, Alerts Allergy Name [...] 2.5 mg MD,Abran tablet tablet ipratropium ipratropium 2020- Yes Midura Unknown Unknown -albuterol -albuterol 12-25 03-09 MD,Abran 0.5 mg-3 0.5 mg-3 mg(2.5 mg [...] MCKEON yed release yed release buPROPion buPROPion 0 Yes Midura Unknown Unknown HCl 75 mg HCl 75 mg - Abran MCKEON tablet tablet rosuvastati rosuvastati No Midura Unknown Unknown n 10 mg n 10 mg ,Abran tablet tablet omeprazole omeprazole 0 Yes Midura Unknown Unknown 20 mg 20 mg - Abran MCKEON capsule,del capsule,del ayed ayed release release Singulair Singulair 0 Yes Midura Unknown Unknown 10 mg 10 mg - Abran MCKEON tablet tablet Plavix 75 Plavix 75 No Midura Unknown Unknown mg tablet mg tablet Abran MCKEON Symbicort Symbicort No Midura Unknown Unknown 160 mcg-4.5 160 mcg-4.5 Abran MCKEON mcg/actuati mcg/actuati on HFA on HFA aerosol aerosol inhaler inhaler Multiple Multiple 0 Yes Midura Unknown Unknown Vitamin, Vitamin, - Abran MCKEON Womens Womens tablet tablet FLUoxetine [...] 24 release 24 hr hr torsemide torsemide 2019-0 2020- Yes Midura Unknown Unknown 20 mg 20 mg 12-25 03- ,Abran tablet tablet spironolact spironolact No Mauser [...] 2019-0 Yes Midura Unknown Unknown carbonate carbonate 12-25 Abran MCKEON 200 mg 200 mg calcium calcium (500 mg) (500 mg) chewable chewable tablet tablet carvedilol carvedilol 2019-0 2020- Yes Midura Unknown Unknown 6.25 mg 6.25 mg 12-25 Abran MCKEON tablet tablet enalapril enalapril 2019-0 Yes Midura Unknown Unknown maleate 20 maleate 20 12-25 Abran MCKEON mg tablet mg tablet folic acid folic acid 2019-0 Yes Midura Unknown Unknown 1 mg tablet 1 mg tablet 12-25 Abran MCKEON guaiFENesin guaiFENesin 2019-0 Yes Midura Unknown Unknown 100 mg/5 mL 100 mg/5 mL 12-25 Abran MCKEON oral liquid oral liquid lactulose lactulose 2019-0 Yes Midura Unknown Unknown 10 gram/15 10 gram/15 12-25 Abran MCKEON mL oral mL oral solution solution levothyroxi levothyroxi 2019-0 Yes Midura Unknown Unknown ne 75 mcg ne 75 mcg 12-25 Abran MCKEON tablet tablet Lidocaine Lidocaine 0 Yes Midura Unknown Unknown Plus 4 % [...] MCKEON tablet tablet warfarin 4 warfarin 4 2019-2019- Yes Midura Unknown Unknown mg tablet mg tablet 12-25 Abran MCKEON warfarin 5 warfarin 5 2019-2019- Yes Midura Unknown Unknown mg mg 12-25 Abran MCKEON ipratropium ipratropium 2019- Yes Midura Unknown Unknown -albuterol -albuterol 12-28 [...] nebulizatio n n warfarin 4 warfarin 4 2019- Yes Midura Unknown Unknown mg tablet mg tablet 01-01 Abran MCKEON digoxin 125 digoxin 125 Yes Midura Unknown Unknown mcg (0.125 mcg (0.125 01-05 Abran MCKEON mg) tablet mg) tablet torsemide torsemide Yes Feitell Unknown Unknown 20 mg 20 mg 01-14 Sumanth MCKEON tablet tablet carvedilol carvedilol Yes Feitell Unknown Unknown 6.25 mg 6.25 mg 01-14 ,Sumanth tablet tablet warfarin 1 warfarin 1 2019- Yes Midura Unknown Unknown mg tablet mg tablet 01-14 Abran MCKEON Vital Signs Vital Name Observation Time Observation Value Comments PULSE 2020-01-16 18:11:05 83 /min /min RESP RATE 2020-01-16 18:11:05 18 /min /min TEMP 2020-01-16 18:11:05 98 [degF] Procedures This patient has no known procedures. Results This patient has no known results.
--- OUTSIDE RECORDS SUMMARY | 2020-01-27 16:03 | XMS REPORT ---
:1950 Author Organization [facility] Care Team Providers Name Role Phone [...]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 long-term long-term Diagnosis Active Zoila (current) (current) [place] use of use of RN anticoagula anticoagula nts nts Test/Treatm venipunctur Test/Injec Active Shyann ent e ordered t/Roberto 12-25 (Jeannine) Heavenly [id number] Pain frequent Pain Mgmt Resolve 2019-12-31 Shyann pain d 3-06 13:02:00 (Jeannine) 10:00: Burdick [id number] Cardio edema Cardiovasc Active Shyann ular 3-06 (Jeannine) 10:00: Burdick [id number] Respiratory dyspnea Respirator Resolve 2019-12-31 Shyann present y d 3-06 13:02:00 (Jeannine) 10:00: Burdick [id number] Endo/Lamont glucose Endo/Lamont Resolve 2020-01-02 Shyann testing d 3-06 10:18:00 (Jeannine) dependence 10:00: Burdick [id number] Endo/Lamont diabetic Endo/Lamont Resolve 2019-12-31 Shyann foot care d 3-06 13:02:00 (Jeannine) 10:00: Burdick [id number] Endo/Lamont anti-coagul Endo/Lamont Resolve 2019-12-29 Shyann ation d 3-06 11:40:00 (Jeannine) therapy 10:00: Burdick [id number] Sensory impaired Sensory Active Shyann hearing 3-06 (Jeannine) 10:00: Burdick [id number] Integument skin Integument Resolve 2019-12-31 Shyann integrity d 3-06 13:02:00 (Jeannine) risk 10:00: Burdick [id number] Nutrition changing Nutrition Active 2019-0 Shyann weight/appe 3-06 (Jeannine) tite 10:00: Burdick [id number] Nutrition nutritional Nutrition Active 2019-0 Shyann risk 3-06 (Jeannine) 10:00: Burdick [id number] Nutrition nutritional Nutrition Active 2019-0 Shyann restriction 3-06 (Jeannine) s 10:00: Burdick [id number] Elimination urinary Eliminatio Active 2019- Shyann incontinenc n 3-06 (Jeannine) e 10:00: Burdick [id number] Elimination GI drain or Eliminatio Resolve 2020-01-05 Shyann tube n d 3-06 10:00:00 (Jeannine) present 10:00: Burdick [id number] Elimination nausea/vomi Eliminatio Active Shyann ting n 3-06 (Jeannine) 10:00: Burdick [id number] Neuro confusion Neuro/Emot Active 2019-0 Shyann present ion 3-06 (Jeannine) 10:00: Burdick [id number] Neuro anxiety Neuro/Emot Active 2019-0 Shyann present ion 3-06 (Jeannine) 10:00: Burdick [id number] Neuro depressive Neuro/Emot Active 2019- Shyann feelings ion 3-06 (Jeannine) present 10:00: Burdick [id number] Neuro impaired Neuro/Emot Active 2019- Shyann decision-ma ion 3-06 (Jeannine) diya 10:00: Burdick [id number] Neuro memory Neuro/Emot Active 2019- Shyann deficit ion 3-06 (Jeannine) needing 10:00: Burdick supervision 00 [id number] Activity ADL Activity Resolve 2019-12-31 Shyann assistance d 3-06 13:02:00 (Jeannine) required 10:00: [id number] Activity self-care Activity Resolve 2019-12-29 Shyann deficit d 3-06 11:40:00 (Jeannine) 10:00: Burdick [id number] Safety cannot be Safety Resolve 2019-12-31 Shyann left alone d 3-06 13:02:00 (Jeannine) 10:00: [id number] Safety fall risk Safety Resolve 2019-12-31 Shyann factor d 3-06 13:02:00 (Jeannine) present 10:00: [id number] Safety risk for Safety Resolve 2019-12-31 Shyann hospitaliza d 3-06 13:02:00 (Jeannine) tion 10:00: [id number] Medication oral med Meds Resolve 2019-12-31 Shyann assistance d 3-06 13:02:00 (Jeannine) required 10:00: [id number] Musculoskel transfer Musculoske Resolve 2020-01-19 Shyann etal assistance letal d 3-06 11:50:00 (Jeannine) required 10:00: Burdick [id number] Musculoskel requires Musculoske Resolve 2020-01-19 Shyann etal human letal d 3-06 11:50:00 (Jeannine) assist to 10:00: Burdick leave home 00 [id number] Respiratory lung sounds Respirator Resolve 2019-12-31 Zoila deficit y d - 13:02:00 [place] 11:40: RN 00 Respiratory nebulizer Respirator Resolve 2019-12-31 Zoila treatment y d - 13:02:00 [place] in home 11:40: RN 00 Nutrition enteral Nutrition Resolve 2019-12-31 Zoila therapy d 12-28 13:02:00 [place] 11:40: RN 00 Nutrition enteral Nutrition Resolve 2019-12-31 Zoila equip d 12-28 13:02:00 [place] assistance 11:40: RN req: pt/cg 00 Elimination bowel Eliminatio Active Zoila incontinenc n 12-28 [place] e 11:40: RN 00 Endo/Lamont anti-coagul Endo/Lamont Resolve 2019-12-31 Zoila ation d - 13:02:00 [place] therapy 13:02: RN 00 Respiratory lung sounds Respirator Active Zoila deficit y 3-13 [place] 10:18: RN 00 Respiratory nebulizer Respirator Active Zoila treatment y 3-13 [place] in home 10:18: RN 00 Endo/Lamont anti-coagul Endo/Lamont Resolve 2020-01-02 Zoila ation d 3-13 10:18:00 [place] therapy 10:18: RN 00 Nutrition enteral Nutrition Active Zoila equip 3-13 [place] assistance 10:18: RN req: pt/cg 00 Safety risk for Safety Resolve 2020-01-02 Zoila hospitaliza d 3-13 10:18:00 [place] tion 10:18: RN 00 Safety cannot be Safety Active Zoila left alone 3-13 [place] 10:18: RN 00 Endo/Lamont glucose Endo/Lamont Resolve 2020-01-19 Zoila testing d 01-04 11:50:00 [place] dependence 10:00: RN 00 Safety risk for Safety Resolve 2020-01-05 Zoila hospitaliza d - 10:00:00 [place] tion 10:00: RN 00 Endo/Lamont anti-coagul Endo/Lamont Resolve 2020-01-19 Zoila ation d 3-18 11:50:00 [place] therapy 10:35: RN 00 Safety risk for Safety Resolve 2020-01-19 Zoila hospitaliza d 01-06 11:50:00 [place] tion 10:35: RN 00 Medication oral med Meds Active Zoila assistance 01-07 [place] required 15:32: RN 00 Medication potential Meds Active Zoila clinically 01-07 [place] 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 00 issue Pain frequent Pain Mgmt Resolve 2020-01-19 Rachel pain d 01-14 11:50:00 Delma 13:00: [id number] Integument skin Integument Resolve 2020-01-19 Rachel integrity d 01-14 11:50:00 Delma risk 13:00: [id number] Nutrition enteral Nutrition Active Rachel therapy 01-14 Delma 13:00: [id number] Activity ADL Activity Active Rachel assistance 01-14 Delma required 13:00: [id number] Activity self-care Activity Resolve 2020-01-19 Rachel deficit d 01-14 11:50:00 Delma 13:00: [id number] Safety fall risk Safety Resolve 2020-01-19 Rachel factor d 01-14 11:50:00 Delma present 13:00: [id number] Respiratory dyspnea Respirator Active Zoila present y 01-18 [place] 11:50: RN 00 Endo/Lamont glucose Endo/Lamont Active Zoila tolerance 01-18 [place] problem 11:50: RN 00 Elimination GI drain or Eliminatio Active Zoila tube n 01-18 [place] present 11:50: RN 00 Safety risk for Safety Unknown Shannon hospitaliza 01-18 Hillebrand tion 15:30: t 00 [id number] Allergies, Adverse Reactions, Alerts Allergy Name Allergy [...] 2020- Yes Midura Unknown Unknown 0.5 0.5 12-25 ,Abran mg-albutero mg-albutero L 3 mg (2.5 L 3 mg (2.5 mg base)/3 mg base)/3 mL mL nebulizatio nebulizatio n soln n soln ipratropium ipratropium No Midura Unknown Unknown 0.5 0.5 MDAbran mg-albutero mg-albutero L 3 mg (2.5 L 3 mg (2.5 mg base)/3 mg base)/3 mL mL nebulizatio nebulizatio n soln n soln Aspir-81 mg Aspir-81 mg No Midura Unknown Unknown tablet,michael tablet,michael ,Abran yed release yed release buPROPion buPROPion 2020- Yes Midura Unknown Unknown HCL 75 mg HCL 75 mg 3-03 24- ,Abran tablet tablet rosuvastati rosuvastati No Midura Unknown Unknown n 10 mg n 10 mg MD,Abran tablet tablet omeprazole omeprazole Yes Midura Unknown Unknown 20 mg 20 mg 12-25 ,Abran capsule,del capsule,del ayed ayed release release Singulair Singulair Yes Midura Unknown Unknown 10 mg 10 mg - MD,Abran tablet tablet Plavix 75 Plavix 75 [...] 20 mg 20 mg 12-25 Abran MCKEON tablet tablet spironolact spironolact No Mauser Unknown Unknown one 25 mg one 25 mg ,Jonatha tablet tablet n acetaminoph acetaminoph No Midura Unknown Unknown en 500 mg en 500 mg Abran MCKEON tablet tablet Bydureon 2 Bydureon 2 No Midura Unknown Unknown mg/0.65 mL mg/0.65 mL Abran MCKEON subcutaneou subcutaneou s pen s pen injector injector allopurinoL allopurinoL 2020-0 Yes Midura Unknown Unknown 100 mg 100 mg 12-25 Abran MCKEON tablet tablet ALPRAZolam ALPRAZolam 2020-0 Yes Midura Unknown Unknown 0.25 mg 0.25 mg 12-25 Abran MCKEON tablet tablet calcium calcium 2020-0 Yes Midura Unknown Unknown carbonate carbonate 12-25 Abran MCKEON 200 mg 200 mg calcium calcium (500 mg) (500 mg) chewable chewable tablet tablet carvediloL carvediloL 2020-0 2020- Yes Midura Unknown Unknown 6.25 mg 6.25 mg 12-25 Abran MCKEON tablet tablet enalapril enalapril 2020-0 Yes Midura Unknown Unknown maleate 20 maleate 20 - Abran MCKEON mg tablet mg tablet folic [...] LE 0.75 % LE 0.75 % 12-25 ,Abran topical gel topical gel ondansetron ondansetron Yes Midura Unknown Unknown 4 mg 4 mg 12-25 ,Abran disintegrat disintegrat ing tablet ing tablet traMADoL 50 traMADoL 50 Yes Midura Unknown Unknown mg tablet mg tablet 12-25 ,Abran venlafaxine venlafaxine Yes Midura Unknown Unknown 75 mg 75 mg 12-25 ,Abran tablet tablet warfarin 4 warfarin 4 2020- Yes Midura Unknown Unknown mg tablet mg tablet 12-25 ,Abran warfarin 5 warfarin 5 0 2020- Yes Midura Unknown Unknown mg mg 12-25 ,Abran ipratropium ipratropium Yes Midura Unknown Unknown 0.5 0.5 12-28 ,Abran mg-albutero mg-albutero L 3 mg (2.5 L 3 mg (2.5 mg base)/3 mg base)/3 mL mL nebulizatio nebulizatio n solbetty n soln buPROPion buPROPion Yes Midura Unknown Unknown HCL 100 mg HCL 100 mg 3 ,Abran tablet tablet amLODIPine amLODIPine Yes Midura Unknown Unknown 2.5 mg 2.5 mg 12-28 MD,Abran tablet tablet budesonide budesonide Yes Midura Unknown Unknown 0.5 mg/2 mL 0.5 mg/2 mL 12-28 ,Abran suspension suspension for for nebulizatio nebulizatio n n warfarin 4 warfarin 4 0 2020- Yes Midura Unknown Unknown mg tablet mg tablet 01-01 Abran MCKEON digoxin 125 digoxin 125 Yes Midura Unknown Unknown mcg (0.125 mcg (0.125 01-05 Abran MCKEON mg) tablet mg) tablet torsemide torsemide Yes Feitell Unknown Unknown 20 mg 20 mg 01-14 ,Sumanth tablet tablet carvediloL carvediloL Yes Feitell Unknown Unknown 6.25 mg 6.25 mg 01-14 Sumanth MCKEON tablet tablet warfarin 1 warfarin 1 2019- Yes Midura Unknown Unknown mg tablet mg tablet 01-14 Abran MCKEON cefUROXime cefUROXime 2019- Yes Midura Unknown Unknown axetiL 500 axetiL 500 01-06 Abran MCKEON mg tablet mg tablet warfarin 1 warfarin 1 Yes Feitell Unknown Unknown mg tablet mg tablet 01-20 Sumanth MCKEON Vital Signs Vital Name Observation Time Observation Value Comments PULSE 2020-01-21 18:11:10 78 /min /min RESP RATE 2020-01-21 18:11:10 26 /min /min TEMP 2020-01-21 18:11:10 98.1 [degF] Procedures This patient has no known procedures. Results This patient has no known results.
--- OUTSIDE RECORDS SUMMARY | 2020-01-27 16:03 | XMS REPORT ---
:1950 Author Organization [facility] Care Team Providers Name Role Phone Unavailable [...] brennane brennane RN malnutritio malnutritio n n MCFP MCFP Diagnosis Active Zoila (current) (current) [place] use of use of RN anticoagula anticoagula nts nts Test/Treatm venipunctur Test/Injec Active Shyann ent e ordered t/Roberto 12-25 (Jeannine) Heavenly [id number] Pain frequent Pain Mgmt Resolve 2019-12-31 Shyann pain d 3-06 13:02:00 (Jeannine) 10:00: Burdick [id number] Cardio edema Cardiovasc Active 2019- Shyann ular 3-06 (Jeannine) 10:00: Burdick 00 [id number] Respiratory dyspnea Respirator Resolve 2019-12-31 Shyann present y d 3-06 13:02:00 (Jeannine) 10:00: Burdick [id number] Endo/Lamont glucose Endo/Lamont Resolve 2020-01-02 Shyann testing d 3-06 10:18:00 (Jeannine) dependence 10:00: Burdick [id number] Endo/Lamont diabetic Endo/Lamont Resolve 2019-12-31 Shyann foot care d 3-06 13:02:00 (Jeannine) 10:00: Burdick [id number] Endo/Lamont anti-coagul Endo/Lamont Resolve 2019-12-29 Shyann ation d 3-06 11:40:00 (Jeannine) therapy 10:00: Burdick [id number] Sensory impaired Sensory Active Shyann hearing 3-06 (Jeannine) 10:00: Burdick [id number] Integument skin Integument Resolve 2019-12-31 Shyann integrity d 3-06 13:02:00 (Jeannine) risk 10:00: Burdick [id number] Nutrition changing Nutrition Active 2019-0 Shyann weight/appe 3-06 (Jeannine) tite 10:00: Burdick [id number] Nutrition nutritional Nutrition Active 2019-0 Shyann risk 3-06 (Jeannine) 10:00: Burdick [id number] Nutrition nutritional Nutrition Active 2019-0 Shyann restriction 3-06 (Jeannine) s 10:00: Burdick [id number] Elimination urinary Eliminatio Active Shyann incontinenc n 3-06 (Jeannine) e 10:00: Burdick [id number] Elimination GI drain or Eliminatio Resolve 2020-01-05 Shyann tube n d 3-06 10:00:00 (Jeannine) present 10:00: Burdick [id number] Elimination nausea/vomi Eliminatio Active 2019- Shyann ting n 3-06 (Jeannine) 10:00: Burdick [id number] Neuro confusion Neuro/Emot Active 2020-0 Shyann present ion 3-06 (Jeannine) 10:00: Burdick [id number] Neuro anxiety Neuro/Emot Active 2020-0 Shyann present ion 3-06 (Jeannine) 10:00: Burdick [id number] Neuro depressive Neuro/Emot Active 2019-0 Shyann feelings ion 3-06 (Jeannine) present 10:00: Burdick [id number] Neuro impaired Neuro/Emot Active 2020-0 Shyann decision-ma ion 3-06 (Jeannine) diya 10:00: Burdick [id number] Neuro memory Neuro/Emot Active 2020-0 Shyann deficit ion 3-06 (Jeannine) needing 10:00: Burdick supervision 00 [id number] Activity ADL Activity Resolve 2019-0 2019-12-31 Shyann assistance d 3-06 13:02:00 (Jeannine) required 10:00: [id number] Activity self-care Activity Resolve 2019-0 2019-12-29 Shyann deficit d 3-06 11:40:00 (Jeannine) 10:00: [id number] Safety cannot be Safety Resolve 2019-0 2019-12-31 Shyann left alone d 3-06 13:02:00 (Jeannine) 10:00: Burdick [id number] Safety fall risk Safety Resolve 2019-0 2019-12-31 Shyann factor d 3-06 13:02:00 (Jeannine) present 10:00: [id number] Safety risk for Safety Resolve 2019-0 2019-12-31 Shyann hospitaliza d 3-06 13:02:00 (Jeannine) tion 10:00: [id number] Medication oral med Meds Resolve 2019-0 2019-12-31 Shyann assistance d 3-06 13:02:00 (Jeannine) required 10:00: Burdick [id number] Musculoskel transfer Musculoske Active 2019-0 Shyann etal assistance letal 3-06 (Jeannine) required 10:00: Burdick [id number] Musculoskel requires Musculoske Active 2019-0 Shyann etal human letal 3-06 (Jeannine) assist to 10:00: Burdick leave home 00 [id number] Respiratory lung sounds Respirator Resolve 2019-12-31 Zoila [...] Safety risk for Safety Active Zoila hospitaliza 3-18 [place] tion 10:35: RN 00 Medication oral med Meds Active Zoila assistance 3-19 [place] required 15:32: RN 00 Medication potential Meds Active Zoila clinically 3-19 [place]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 Clinician (SIG) Name Name lisinopril lisinopril No Midura Unknown Unknown 2.5 mg 2.5 mg Abran MCKEON tablet tablet ipratropium ipratropium 2020- Yes Midura Unknown Unknown -albuterol -albuterol 12-25 03- Abran MCKEON 0.5 mg-3 0.5 mg-3 mg(2.5 [...] MD yed release yed release buPROPion buPROPion Yes Midura Unknown Unknown HCl 75 mg HCl 75 mg 12-25 Abran MCKEON tablet tablet rosuvastati rosuvastati No Midura Unknown Unknown n 10 mg n 10 mg Abran MCKEON tablet tablet omeprazole omeprazole 2020-0 Yes Midura Unknown Unknown 20 mg 20 mg 3-06 Abran MCKEON capsule,del capsule,del ayed ayed release release Singulair Singulair 2019-0 Yes Midura Unknown Unknown 10 mg 10 mg 3- MDAbran tablet tablet Plavix 75 Plavix 75 No [...] 3- Abran MCKEON tablet tablet ALPRAZolam ALPRAZolam 0 Yes Midura Unknown Unknown 0.25 mg 0.25 mg 3-06 ,Abran tablet tablet calcium calcium 2019-0 Yes Midura Unknown Unknown carbonate carbonate 3- Abran MCKEON 200 mg 200 mg calcium calcium (500 mg) (500 mg) chewable chewable tablet tablet carvedilol carvedilol Yes Midura Unknown Unknown 6.25 mg 6.25 mg 3-06 MDAbran tablet tablet enalapril enalapril 2020-0 Yes Midura [...] oral mL oral solution solution levothyroxi levothyroxi 0 Yes Midura Unknown Unknown ne 75 mcg [...] MCKEON topical gel topical gel ondansetron ondansetron 0 Yes Midura Unknown Unknown 4 mg 4 mg 3 Abran MCKEON disintegrat disintegrat ing tablet ing tablet traMADol 50 traMADol 50 2019-0 Yes Midura Unknown Unknown mg tablet mg tablet 12-25 Abran MCKEON venlafaxine venlafaxine 2019-0 Yes Midura Unknown Unknown 75 mg 75 mg 12-25 Abran MCKEON tablet tablet warfarin 4 warfarin 4 2019-0 2020- Yes Midura Unknown Unknown mg tablet mg tablet 12-25 Abran MCKEON warfarin 5 warfarin 5 2020-0 2020- Yes Midura Unknown Unknown mg mg 12-25 Abran MCKEON ipratropium ipratropium 2019-0 Yes Midura Unknown Unknown -albuterol -albuterol 12-28 Abran MCKEON 0.5 mg-3 0.5 mg-3 mg(2.5 mg mg(2.5 mg base)/3 mL base)/3 mL nebulizatio nebulizatio n soln n soln buPROPion buPROPion 2019-0 Yes Midura Unknown Unknown HCl 100 mg HCl 100 mg 3 MD,Abran tablet tablet amLODIPine amLODIPine Yes Midura Unknown Unknown 2.5 mg 2.5 mg 12-28 MD,Abran tablet tablet budesonide budesonide Yes Midura Unknown Unknown 0.5 mg/2 mL 0.5 mg/2 mL 12-28 MD,Abran suspension suspension for for nebulizatio nebulizatio n n warfarin 4 warfarin 4 Yes Midura Unknown Unknown mg tablet mg tablet 01-01 MD,Abran digoxin 125 digoxin 125 Yes Midura Unknown Unknown mcg (0.125 mcg (0.125 01-05 MD,Abran mg) tablet mg) tablet Vital Signs Vital Name Observation Time Observation Value Comments PULSE 2020-01-08 18:10:57 80 /min /min RESP RATE 2020-01-08 18:10:57 22 /min /min TEMP 2020-01-08 18:10:57 97.8 [degF] Procedures This patient has no known procedures. Results This patient has no known results.
--- OUTSIDE RECORDS SUMMARY | 2020-01-27 16:03 | XMS REPORT ---
[...] Peripheral Peripheral Diagnosis Active Zoila vascular vascular - [place] disease, disease, RN unspecified unspecified Type [...]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 detention detention Diagnosis Active Zoila (current) (current) [place] use of use of RN anticoagula anticoagula nts nts Test/Treatm venipunctur Test/Injec Active Shyann ent e ordered t/Roberto 12-25 (Jeannine) Heavenly [id number] Pain frequent Pain Mgmt Resolve 2019-12-31 Shyann pain d 3-06 13:02:00 (Jeannine) 10:00: Burdick [id number] Cardio edema Cardiovasc Resolve 2020-01-21 Shyann ular d 3-06 14:00:00 (Jeannine) 10:00: Burdick [id number] Respiratory dyspnea Respirator Resolve 2019-12-31 Shyann present y d 3-06 13:02:00 (Jeannine) 10:00: Burdick [id number] Endo/Lamont glucose Endo/Lamont Resolve 2020-01-02 Shyann testing d 3-06 10:18:00 (Jeannine) dependence 10:00: Heavenly [id number] Endo/Lamont diabetic Endo/Lamont Resolve 2019-12-31 Shyann foot care d 3-06 13:02:00 (Jeannine) 10:00: Heavenly [id number] Endo/Lamont anti-coagul Endo/Lamont Resolve 2019-12-29 Shyann ation d 3-06 11:40:00 (Jeannine) therapy 10:00: Heavenly [id number] Sensory impaired Sensory Active Shyann hearing 3-06 (Jeannine) 10:00: Heavenly [id number] Integument skin Integument Resolve 2019-12-31 Shyann integrity d 3-06 13:02:00 (Jeannine) risk 10:00: Burdick [id number] Nutrition changing Nutrition Active 0 Shyann weight/appe 3-06 (Jeannine) tite 10:00: Burdick [id number] Nutrition nutritional Nutrition Active 2019-0 Shyann risk 3-06 (Jeannine) 10:00: Heavenly [id number] Nutrition nutritional Nutrition Active 0 Shyann restriction 3-06 (Jeannine) s 10:00: Heavenly [id number] Elimination urinary Eliminatio Resolve 2020-01-21 Shyann incontinenc n d 3-06 14:00:00 (Jeannine) e 10:00: Heavenly [id number] Elimination GI drain or Eliminatio Resolve 2020-01-05 Shyann tube n d 3-06 10:00:00 (Jeannine) present 10:00: Heavenly [id number] Elimination nausea/vomi Eliminatio Resolve 2019-0 2020-01-21 Shyann ting n d 3-06 14:00:00 (Jeannine) 10:00: Burdick [id number] Neuro confusion Neuro/Emot Active 2019- Shyann present ion 3-06 (Jeaninne) 10:00: Burdick [id number] Neuro anxiety Neuro/Emot Active 2019- Shyann present ion 3-06 (Jeannine) 10:00: Burdick [id number] Neuro depressive Neuro/Emot Active 2019- Shyann feelings ion 3-06 (Jeannine) present 10:00: Burdick [id number] Neuro impaired Neuro/Emot Active 2019- Shyann decision-ma ion 3-06 (Jeannine) diya 10:00: Burdick [id number] Neuro memory Neuro/Emot Active 2019- Shyann deficit ion 3-06 (Jeannine) needing 10:00: Burdick supervision 00 [id number] Activity ADL Activity Resolve 2019-12-31 Shyann assistance d 3-06 13:02:00 (Jeannine) required 10:00: Burdick [id number] Activity self-care Activity Resolve 2019-12-29 Shyann deficit d 3-06 11:40:00 (Jeannine) 10:00: Burdick [id number] Safety cannot be Safety Resolve 2019-12-31 Shyann left alone d 3-06 13:02:00 (Jeannine) 10:00: Burdick [id number] Safety fall risk Safety Resolve 2019-12-31 Shyann factor d 3-06 13:02:00 (Jeannine) present 10:00: Burdick [id number] Safety risk for Safety Resolve 2019-0 2019-12-31 Shyann hospitaliza d 3-06 13:02:00 (Jeannine) tion 10:00: [id number] Medication oral med Meds Resolve 2019-12-31 Shyann assistance d 3-06 13:02:00 (Jeannine) required 10:00: Burdick [id number] Musculoskel transfer Musculoske Resolve 2020-01-19 Shyann etal assistance letal d 3-06 11:50:00 (Jeannine) required 10:00: Burdick [id number] Musculoskel requires Musculoske Resolve 2020-01-19 Shyann etal human letal d 12-25 11:50:00 (Jeannine) assist to 10:00: Burdick leave home 00 [id number] Respiratory lung sounds Respirator Resolve 2019-12-31 Zoila [...] RN 00 Endo/Lamont anti-coagul Endo/Lamont Resolve 2019-12-31 Ozila ation d 12-30 13:02:00 [place] therapy 13:02: [...] Active Zoila clinically 01-07 [place]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 Pain frequent Pain Mgmt Resolve 2020-01-19 Rachel pain d 01-14 11:50:00 Delma 13:00: [id number] Integument skin Integument Resolve 2020-01-19 Rachel integrity d 01-14 11:50:00 Delma risk 13:00: [id number] Nutrition enteral Nutrition Active Rachel therapy 01-14 Delma 13:00: [id number] Activity ADL Activity Active Rachel assistance 01-14 Delma required 13:00: [id number] Activity self-care Activity Resolve 2020-01-19 Rachel deficit d 01-14 11:50:00 Delma 13:00: [id number] 00 Safety fall risk Safety Resolve 2020-01-19 Rachel factor d 01-14 11:50:00 Delma present 13:00: [id number] 00 Respiratory dyspnea Respirator Active Zoila present y 01-18 [place] 11:50: RN 00 Endo/Lamont glucose Endo/Lamont Active Zoila tolerance 3 [place] problem 11:50: RN 00 Elimination GI drain or Eliminatio Active Zoila tube n 01-18 [place] present 11:50: RN 00 Safety risk for Safety Unknown Shannon hilliard 330 Lilli tion 15:30: t 00 [id number] 24 Hr Diet knowledge/s NT: 24Hr Resolve 2020-01-20 Vanessa kill Diet d 01-19 14:15:00 [place] deficit - 14:15: [id number] pt 00 24 Hr Diet knowledge/s NT: 24Hr Resolve 2020-01-20 Vanessa kill Diet d 01-19 14:15:00 [place] deficit - 14:15: [id number] cg 00 Nutritional food NT: Resolve 2020-01-20 Vanessa Barrier storage/pre Barriers d 01-19 14:15:00 [place] p deficit 14:15: [id number] Nutritional eating NT: Resolve 2020-01-20 Vanessa Barrier difficultie Barriers d 01-19 14:15:00 [place] s present 14:15: [id number] Nutritional swallowing NT: Resolve 2020-01-20 Vanessa Barrier difficultie Barriers d 01-19 14:15:00 [place] s present 14:15: [id number] Nutritional knowledge/s NT: Resolve 2020-01-20 Vanessa Barrier kill Barriers d 01-19 14:15:00 [place] deficit - 14:15: [id number] pt 00 Nutritional knowledge/s NT: Resolve 2020-01-20 Vanessa Barrier kill Barriers d 01-19 14:15:00 [place] deficit - 14:15: [id number] cg 00 Nutritional food NT: Resolve 2020-01-20 Vanessa Barrier consistency Barriers d 01-19 14:15:00 [place] requirement 14:15: [id number] 00 Musculoskel requires Musculoske Active Zoila etal [...]
--- OUTSIDE RECORDS SUMMARY | 2020-01-27 16:03 | XMS REPORT ---
:1950 Author Organization [facility] Care Team Providers Name Role Phone [...]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 USP USP Diagnosis Active Zoila (current) (current) Mal[place]ke use of use of RN anticoagula anticoagula nts nts Test/Treatm venipunctur Test/Injec Active Shyann ent e ordered t/Roberto 12-25 (Jeannine) Heavenly [id number] Pain frequent Pain Mgmt Resolve 2019-12-31 Shyann pain d 3-06 13:02:00 (Jeannine) 10:00: Burdick [id number] Cardio edema Cardiovasc Resolve 2020-01-21 Shyann ular d 3-06 14:00:00 (Jeannine) 10:00: Burdick [id number] Respiratory dyspnea Respirator Resolve 2019-12-31 Shyann present y d 3-06 13:02:00 (Jeannine) 10:00: Burdick [id number] Endo/Lamont glucose Endo/Lamont Resolve 2020-01-02 Shyann testing d 3-06 10:18:00 (Jeannine) dependence 10:00: Heavenly [id number] Endo/Lamont diabetic Endo/Lamont Resolve 2019-12-31 Shyann foot care d 3-06 13:02:00 (Jeannine) 10:00: Heavenly [id number] Endo/Lamont anti-coagul Endo/Lamont Resolve 2019-12-29 Shyann ation d 3-06 11:40:00 (Jeannine) therapy 10:00: Heavenly [id number] Sensory impaired Sensory Active Shyann hearing 3-06 (Jeannine) 10:00: Heavenly [id number] Integument skin Integument Resolve 2019-12-31 Shyann integrity d 3-06 13:02:00 (Jeannine) risk 10:00: Burdick [id number] Nutrition changing Nutrition Active 0 Shyann weight/appe 3-06 (Jeannine) tite 10:00: Burdick [id number] Nutrition nutritional Nutrition Active 2019-0 Shyann risk 3-06 (Jeannine) 10:00: Heavenly [id number] Nutrition nutritional Nutrition Active 0 Shyann restriction 3-06 (Jeannine) s 10:00: Heavenly [id number] Elimination urinary Eliminatio Resolve 2020-01-21 Shyann incontinenc n d 3-06 14:00:00 (Jeannine) e 10:00: Heavenly [id number] Elimination GI drain or Eliminatio Resolve 2020-01-05 Shyann tube n d 3-06 10:00:00 (Jeannine) present 10:00: Heavenly [id number] Elimination nausea/vomi Eliminatio Resolve 2019-0 2020-01-21 Shyann ting n d 3-06 14:00:00 (Jeannine) 10:00: Burdick [id number] Neuro confusion Neuro/Emot Active 2019- Shyann present ion 3-06 (Jeannine) 10:00: Burdick [id number] Neuro anxiety Neuro/Emot Active 2019- Shyann present ion 3-06 (Jeannine) 10:00: Burdick [id number] Neuro depressive Neuro/Emot Active 2019- Shyann feelings ion 3-06 (Jeannine) present 10:00: Burdick [id number] Neuro impaired Neuro/Emot Active 2019- Shyann decision-ma ion 3-06 (Jeannine) diya 10:00: Burdick [id number] Neuro memory Neuro/Emot Active 2019- Shyann deficit ion 3-06 (Jeannine) needing 10:00: Burdick supervision 00 [id number] Activity ADL Activity Resolve 2019-12-31 Shyann assistance d 3-06 13:02:00 (Jeannine) required 10:00: Burdick [id number] Activity self-care Activity Resolve 2019-12-29 Shyann deficit d 3-06 11:40:00 (Jeannine) 10:00: Burdick [id number] Safety cannot be Safety Resolve 2019-12-31 Shyann left alone d 3-06 13:02:00 (Jeannine) 10:00: Burdick [id number] Safety fall risk Safety Resolve 2019-12-31 Shyann factor d 3-06 13:02:00 (Jeannine) present 10:00: Burdick [id number] Safety risk for Safety Resolve 2019-0 2019-12-31 Shyann hospitaliza d 3-06 13:02:00 (Jeannine) tion 10:00: [id number] Medication oral med Meds Resolve 2019-12-31 Shyann assistance d 3-06 13:02:00 (Jeannine) required 10:00: Burdick [id number] Musculoskel transfer Musculoske Resolve 2020-01-19 Shyann etal assistance letal d 3-06 11:50:00 (Jeannine) required 10:00: Burdick [id number] Musculoskel requires Musculoske Resolve 2020-01-19 Shyann etal human letal d 12-25 11:50:00 (Jeannine) assist to 10:00: Burdick leave home 00 [id number] Respiratory lung sounds Respirator Resolve 2019-12-31 Zoila [...] Active 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 Pain frequent Pain Mgmt Resolve 2020-01-19 Rachel pain d 01-14 11:50:00 Delma 13:00: [id number] Integument skin Integument Resolve 2020-01-19 Rachel integrity d 01-14 11:50:00 Delma risk 13:00: [id number] Nutrition enteral Nutrition Active Rachel therapy 01-14 Delma 13:00: [id number] Activity ADL Activity Active Rachel assistance 01-14 Delma required 13:00: [id number] Activity self-care Activity Resolve 2020-01-19 Rachel deficit d 01-14 11:50:00 Delma 13:00: [id number] Safety fall risk Safety Resolve 2020-01-19 Rachel factor d 01-14 11:50:00 Delma present 13:00: [id number] Respiratory dyspnea Respirator Active Zoila present y 01-18 [place] 11:50: RN 00 Endo/Lamont glucose Endo/Lamont Active Zoila tolerance 3 Malnoske problem 11:50: RN 00 Elimination GI drain or Eliminatio Active Zoila tube n 01-18 [place] present 11:50: RN 00 Safety [facility] for [facility] Lilli tion 15:30: t 00 [id number] 24 Hr Diet knowledge/s NT: 24Hr Resolve 2020-01-20 Vanessa kill Diet d 01-19 14:15:00 [place] deficit - 14:15: [id number] pt 00 24 Hr Diet knowledge/s NT: 24Hr Resolve 2020-01-20 Vanessa kill Diet d 01-19 14:15:00 [place] deficit - 14:15: [id number] cg 00 Nutritional food NT: Resolve 2020-01-20 Vanessa Barrier storage/pre Barriers d 01-19 14:15:00 [place] p deficit 14:15: [id number] Nutritional eating NT: Resolve 2020-01-20 Vanessa Barrier difficultie Barriers d 01-19 14:15:00 [place] s present 14:15: [id number] Nutritional swallowing NT: Resolve 2020-01-20 Vanessa Barrier difficultie Barriers d 01-19 14:15:00 [place] s present 14:15: [id number] Nutritional knowledge/s NT: Resolve 2020-01-20 Vanessa Barrier kill Barriers d 01-19 14:15:00 [place] deficit - 14:15: [id number] pt 00 Nutritional knowledge/s NT: Resolve 2020-01-20 Vanessa Barrier kill Barriers d 01-19 14:15:00 [place] deficit - 14:15: [id number] cg 00 Nutritional food NT: Resolve 2020-01-20 Vanessa Barrier consistency Barriers d 01-19 14:15:00 [place] requirement 14:15: [id number] Musculoskel requires Musculoske Active Zoila etal human letal 01-20 Mal[place] assist to 14:00: RN leave home 00 Endo/Lamont anti-coagul Endo/Lamont Active Zoila ation 01-22 Malnoske therapy 11:45: RN 00 Elimination urinary Eliminatio Active Zoila incontinenc n 01-22 Mal[place]ke e 11:45: RN 00 Elimination bowel Eliminatio Active Zoila incontinenc n 01-22 Malnoske e 11:45: RN 00 Safety risk for Safety Resolve 2020-01-23 Zoila hospitaliza d 01-22 11:45:00 Lonny tion 11:45: RN 00 Allergies, Adverse Reactions, Alerts Allergy [...] Midura Unknown Unknown 2.5 mg 2.5 mg ,Abran tablet tablet ipratropium ipratropium 2020- Yes Midura Unknown Unknown 0.5 0.5 12-25- ,Abran mg-albutero mg-albutero L 3 mg (2.5 L 3 mg (2.5 mg base)/3 mg base)/3 mL mL nebulizatio nebulizatio n soln n soln ipratropium ipratropium No Midura Unknown Unknown 0.5 0.5 MD,Abran mg-albutero mg-albutero L 3 mg (2.5 L 3 mg (2.5 mg base)/3 mg base)/3 mL mL nebulizatio nebulizatio n soln n soln Aspir-81 mg Aspir-81 mg No Midura Unknown Unknown tablet,michael tablet,michael Abran MCKEON yed release yed release buPROPion buPROPion 2020- Yes Midura Unknown Unknown HCL 75 mg HCL 75 mg 3- MDAbran tablet tablet rosuvastati rosuvastati No Midura Unknown Unknown n 10 mg n 10 mg MDAbran tablet tablet omeprazole omeprazole Yes Midura Unknown Unknown 20 mg 20 mg 12-25 Abran MCKEON capsule,del capsule,del ayed ayed release release Singulair Singulair Yes Midura Unknown Unknown 10 mg 10 mg - MDAbran tablet tablet Plavix 75 Plavix 75 No Midura Unknown Unknown mg tablet mg tablet MD,Abran Symbicort Symbicort No Midura Unknown Unknown 160 [...] Unknown Unknown 20 mg 20 mg 301-14 Abran MCKEON tablet tablet spironolact spironolact No [...] Midura Unknown Unknown 100 mg 100 mg 3 Abran MCKEON tablet tablet ALPRAZolam ALPRAZolam 20200 Yes Midura Unknown Unknown 0.25 mg 0.25 mg 3- Abran MCKEON tablet tablet calcium calcium 2020-0 Yes Midura Unknown Unknown carbonate carbonate - Abran MCKEON 200 mg 200 mg calcium [...] mg tablet - Abran MCKEON guaiFENesin guaiFENesin 2020-0 Yes Midura [...] tablet ing tablet traMADoL 50 traMADoL 50 2019- Yes Midura Unknown Unknown mg tablet mg tablet 12-25 Abran MCKEON venlafaxine venlafaxine 0 Yes Midura Unknown Unknown 75 mg 75 mg 12-25 Abran MCKEON tablet tablet warfarin 4 warfarin 4 2019-0 2020- Yes Midura Unknown Unknown mg tablet mg tablet 12-25 Abran MCKEON warfarin 5 warfarin 5 2019-0 2020- Yes Midura Unknown Unknown mg mg 12-25 Abran MCKEON ipratropium ipratropium 0 Yes Midura Unknown Unknown 0.5 0.5 12-28 Abran MCKEON mg-albutero mg-albutero L 3 mg (2.5 L 3 mg (2.5 mg base)/3 mg base)/3 mL mL nebulizatio nebulizatio n soln n solbetty buPROPion buPROPion 2019-0 Yes Midura Unknown Unknown HCL 100 mg HCL 100 mg 12-28 Abran MCKEON tablet tablet amLODIPine amLODIPine 0 Yes Midura Unknown Unknown 2.5 mg 2.5 mg 12-28 Abran MCKEON tablet tablet budesonide budesonide 2019-0 Yes Midura Unknown Unknown 0.5 mg/2 mL 0.5 mg/2 mL 12-28 Abran MCKEON suspension suspension for for nebulizatio nebulizatio n n warfarin 4 warfarin 4 2020- Yes Midura Unknown Unknown mg tablet mg tablet 01-01 Abran MCKEON digoxin 125 digoxin 125 Yes Midura Unknown Unknown mcg (0.125 mcg (0.125 01-05 MD,Abran mg) tablet mg) tablet torsemide torsemide Yes [...] mg tablet 01-20 Sumanth MCKEON metFORMIN metFORMIN 2019- Yes Feitell Unknown Unknown 500 mg 500 mg 01-20 Sumanth MCKEON tablet tablet amoxicillin amoxicillin 2019- Yes Feitell Unknown Unknown [id number] 01-22 Sumanth MCKEON-jorjeassifrances mg-gurpreet m m clavulanate clavulanate 125 mg 125 mg tablet tablet glipiZIDE glipiZIDE Yes Midura Unknown Unknown ER 2.5 mg ER 2.5 mg 01-22 Abran MCKEON tablet, tablet, extended extended release 24 release 24 hr hr Vital Signs Vital Name Observation Time Observation Value Comments PULSE 2020-01-24 18:11:13 81 /min /min RESP RATE 2020-01-24 18:11:13 22 /min /min TEMP 2020-01-24 18:11:13 97.9 [degF] Procedures This patient has no known procedures. Results This patient has no known results.
--- OUTSIDE RECORDS SUMMARY | 2020-01-27 16:03 | XMS REPORT ---
:1950 Author Organization [facility] Care Team Providers Name Role Phone Unavailable [...] ent e ordered t/Roberto 12-25 (Jeannine) Heavenly [id number] Pain frequent Pain Mgmt Resolve 2019-12-31 Shyann pain d 3-06 13:02:00 (Jeannine) 10:00: Burdick [id number] Cardio edema Cardiovasc Active 2019- Shyann ular 3-06 (Jeannine) 10:00: Burdick 00 [id number] Respiratory dyspnea Respirator Resolve 2019-12-31 Shyann present y d 3-06 13:02:00 (Jeannine) 10:00: Burdick [id number] Endo/Lamont glucose Endo/Lamont Resolve 2020-01-02 Shyann testing d 3-06 10:18:00 (Jeannine) dependence 10:00: Burdick [id number] Endo/Lamont diabetic Endo/Lamont Resolve 2019-12-31 Shyann foot care d 3-06 13:02:00 (Jeannine) 10:00: Burdick [id number] Endo/[place]ont anti-coagul Endo/Lamont Resolve 2019-12-29 Shyann ation d 3-06 11:40:00 (Jeannine) therapy 10:00: Burdick [id number] Sensory impaired Sensory Active Shyann hearing 3-06 (Jeannine) 10:00: Burdick [id number] Integument skin Integument Resolve 2019-12-31 Shyann integrity d 3-06 13:02:00 (Jeannine) risk 10:00: Burdick [id number] Nutrition changing Nutrition Active 2019-0 Shyann weight/appe 3-06 (Jeannine) tite 10:00: Burdick [id number] Nutrition nutritional Nutrition Active 2019-0 Shyann risk 3-06 (Jeannine) 10:00: Burdick [id number] Nutrition nutritional Nutrition Active 2019-0 Shyann restriction 3-06 (Jeannine) s 10:00: Burdick [id number] Elimination urinary Eliminatio Active Shyann incontinenc n 3-06 (Jeannine) e 10:00: Burdick [id number] Elimination GI drain or Eliminatio Resolve 2020-01-05 Shyann tube n d 3-06 10:00:00 (Jeannine) present 10:00: Burdick [id number] Elimination nausea/vomi Eliminatio Active 2019- Shyann ting n 3-06 (Jeannine) 10:00: Burdick [id number] Neuro confusion Neuro/Emot Active 2020-0 Shyann present ion 3-06 (Jeannine) 10:00: Burdick [id number] Neuro anxiety Neuro/Emot Active 2020-0 Shyann present ion 3-06 (Jeannine) 10:00: Burdick [id number] Neuro depressive Neuro/Emot Active 2019-0 Shyann feelings ion 3-06 (Jeannine) present 10:00: Burdick [id number] Neuro impaired Neuro/Emot Active 2020-0 Shyann decision-ma ion 3-06 (Jeannine) diya 10:00: Burdick [id number] Neuro memory Neuro/Emot Active 2020-0 Shyann deficit ion 3-06 (Jeannine) needing 10:00: Burdick supervision 00 [id number] Activity ADL Activity Resolve 2019-0 2019-12-31 Shyann assistance d 3-06 13:02:00 (Jeannine) required 10:00: [id number] Activity self-care Activity Resolve 2019-0 2019-12-29 Shyann deficit d 3-06 11:40:00 (Jeannine) 10:00: [id number] Safety cannot be Safety Resolve 2019-0 2019-12-31 Shyann left alone d 3-06 13:02:00 (Jeannine) 10:00: Burdick [id number] Safety fall risk Safety Resolve 2019-0 2019-12-31 Shyann factor d 3-06 13:02:00 (Jeannine) present 10:00: [id number] Safety risk for Safety Resolve 2019-0 2019-12-31 Shyann hospitaliza d 3-06 13:02:00 (Jeannine) tion 10:00: [id number] Medication oral med Meds Resolve 2019-0 2019-12-31 Shyann assistance d 3-06 13:02:00 (Jeannine) required 10:00: Burdick [id number] Musculoskel transfer Musculoske Active 2019-0 Shyann etal assistance letal 3-06 (Jeannine) required 10:00: Burdick [id number] Musculoskel requires Musculoske Active 2019-0 Shyann etal human letal 3-06 (Jeannine) assist to 10:00: Burdick leave home 00 [id number] Respiratory lung sounds Respirator Resolve 2019-12-31 Zoila [...] Active 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
--- OUTSIDE RECORDS SUMMARY | 2020-01-27 16:03 | XMS REPORT ---
:1950 Author Organization [facility] Care Team Providers Name Role Phone [...] brennane brennane RN malnutritio malnutritio n n MCC MCC Diagnosis Active Zoila (current) (current) [place] use of use of RN anticoagula anticoagula nts nts Test/Treatm venipunctur Test/Injec Active Shyann ent e ordered t/Roberto 12-25 (Jeannine) Heavenly [id number] Pain frequent Pain Mgmt Resolve 2019-12-31 Shyann pain d 3-06 13:02:00 (Jeannine) 10:00: Burdick [id number] Cardio edema Cardiovasc Active 2019- Shyann ular 3-06 (Jeannine) 10:00: Burdick 00 [id number] Respiratory dyspnea Respirator Resolve 2019-12-31 Shyann present y d 3-06 13:02:00 (Jeannine) 10:00: Burdick [id number] Endo/Lamont glucose Endo/Lamont Resolve 2020-01-02 Shyann testing d 3-06 10:18:00 (Jeannine) dependence 10:00: Burdick [id number] Endo/Lamont diabetic Endo/Lamont Resolve 2019-12-31 Shyann foot care d 3-06 13:02:00 (Jeannine) 10:00: Burdick [id number] Endo/Lamont anti-coagul Endo/Lamont Resolve 2019-12-29 Shyann ation d 3-06 11:40:00 (Jeannine) therapy 10:00: Burdick [id number] Sensory impaired Sensory Active Shyann hearing 3-06 (Jeannine) 10:00: Burdick [id number] Integument skin Integument Resolve 2019-12-31 Shyann integrity d 3-06 13:02:00 (Jeannine) risk 10:00: Burdick [id number] Nutrition changing Nutrition Active 2019-0 Shyann weight/appe 3-06 (Jeannine) tite 10:00: Burdick [id number] Nutrition nutritional Nutrition Active 2019-0 Shyann risk 3-06 (Jeannine) 10:00: Burdick [id number] Nutrition nutritional Nutrition Active 2019-0 Shyann restriction 3-06 (Jeannine) s 10:00: Burdick [id number] Elimination urinary Eliminatio Active Shyann incontinenc n 3-06 (Jeannine) e 10:00: Burdick [id number] Elimination GI drain or Eliminatio Resolve 2020-01-05 Shyann tube n d 3-06 10:00:00 (Jeannine) present 10:00: Burdick [id number] Elimination nausea/vomi Eliminatio Active 2019- Shyann ting n 3-06 (Jeannine) 10:00: Burdick [id number] Neuro confusion Neuro/Emot Active 2020-0 Shyann present ion 3-06 (Jeannine) 10:00: Burdick [id number] Neuro anxiety Neuro/Emot Active 2020-0 Shyann present ion 3-06 (Jeannine) 10:00: Burdick [id number] Neuro depressive Neuro/Emot Active 2019-0 Shyann feelings ion 3-06 (Jeannine) present 10:00: Burdick [id number] Neuro impaired Neuro/Emot Active 2020-0 Shyann decision-ma ion 3-06 (Jeannine) diya 10:00: Burdick [id number] Neuro memory Neuro/Emot Active 2020-0 Shyann deficit ion 3-06 (Jeannine) needing 10:00: Burdick supervision 00 [id number] Activity ADL Activity Resolve 2019-0 2019-12-31 Shyann assistance d 3-06 13:02:00 (Jeannine) required 10:00: [id number] Activity self-care Activity Resolve 2019-0 2019-12-29 Shyann deficit d 3-06 11:40:00 (Jeannine) 10:00: [id number] Safety cannot be Safety Resolve 2019-0 2019-12-31 Shyann left alone d 3-06 13:02:00 (Jeannine) 10:00: Burdick [id number] Safety fall risk Safety Resolve 2019-0 2019-12-31 Shyann factor d 3-06 13:02:00 (Jeannine) present 10:00: [id number] Safety risk for Safety Resolve 2019-0 2019-12-31 Shyann hospitaliza d 3-06 13:02:00 (Jeannine) tion 10:00: [id number] Medication oral med Meds Resolve 2019-0 2019-12-31 Shyann assistance d 3-06 13:02:00 (Jeannine) required 10:00: Burdick [id number] Musculoskel transfer Musculoske Active 2019-0 Shyann etal assistance letal 3-06 (Jeannine) required 10:00: Burdick [id number] Musculoskel requires Musculoske Active 2019-0 Shyann etal human letal 3-06 (Jeannine) assist to 10:00: Burdick leave home 00 [id number] Respiratory lung sounds Respirator Resolve 2019-12-31 Zoila [...] Active 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
--- OUTSIDE RECORDS SUMMARY | 2020-01-27 16:03 | XMS REPORT ---
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 Diagnosis Active Zoila (current) (current) Malnoske use of use of RN anticoagula anticoagula nts nts Test/Treatm venipunctur Test/Injec Active Shyann ent e ordered t/Roberto 12-25 (Jeannine) Heavenly [id number] Pain frequent Pain Mgmt Resolve 2019-12-31 Shyann pain d 3-06 13:02:00 (Jeannine) 10:00: Burdick [id number] Cardio edema Cardiovasc Active Shyann ular 3-06 (Jeannine) 10:00: Burdick [id number] Respiratory dyspnea Respirator Resolve 2019-12-31 Shyann present y d 3-06 13:02:00 (Jeannine) 10:00: Burdick [id number] Endo/Lamont glucose Endo/Lamont Resolve 2020-01-02 Shyann testing d 3-06 10:18:00 (Jeannine) dependence 10:00: Burdick [id number] Endo/Lamont diabetic Endo/Lamont Resolve 2019-12-31 Shyann foot care d 3-06 13:02:00 (Jeannine) 10:00: Burdick [id number] Endo/Lamont anti-coagul Endo/Lamont Resolve 2019-12-29 Shyann ation d 3-06 11:40:00 (Jeannine) therapy 10:00: Burdick [id number] Sensory impaired Sensory Active Shyann hearing 3-06 (Jeannine) 10:00: Burdick [id number] Integument skin Integument Resolve 2019-12-31 Shyann integrity d 3-06 13:02:00 (Jeannine) risk 10:00: Burdick [id number] Nutrition changing Nutrition Active 2019-0 Shyann weight/appe 3-06 (Jeannine) tite 10:00: Burdick [id number] Nutrition nutritional Nutrition Active 2019-0 Shyann risk 3-06 (Jeannine) 10:00: Burdick [id number] Nutrition nutritional Nutrition Active 2019-0 Shyann restriction 3-06 (Jeannine) s 10:00: Burdick [id number] Elimination urinary Eliminatio Active 2019- Shyann incontinenc n 3-06 (Jeannine) e 10:00: Burdick [id number] Elimination GI drain or Eliminatio Resolve 2020-01-05 Shyann tube n d 3-06 10:00:00 (Jeannine) present 10:00: Burdick [id number] Elimination nausea/vomi Eliminatio Active Shyann ting n 3-06 (Jeannine) 10:00: Burdick [id number] Neuro confusion Neuro/Emot Active 2019-0 Shyann present ion 3-06 (Jeannine) 10:00: Burdick [id number] Neuro anxiety Neuro/Emot Active 2019-0 Shyann present ion 3-06 (Jeannine) 10:00: Burdick [id number] Neuro depressive Neuro/Emot Active 2019- Shyann feelings ion 3-06 (Jeannine) present 10:00: Burdick [id number] Neuro impaired Neuro/Emot Active 2019- Shyann decision-ma ion 3-06 (Jeannine) diya 10:00: Burdick [id number] Neuro memory Neuro/Emot Active 2019- Shyann deficit ion 3-06 (Jeannine) needing 10:00: Burdick supervision 00 [id number] Activity ADL Activity Resolve 2019-12-31 Shyann assistance d 3-06 13:02:00 (Jeannine) required 10:00: [id number] Activity self-care Activity Resolve 2019-12-29 Shyann deficit d 3-06 11:40:00 (Jeannine) 10:00: Burdick [id number] Safety cannot be Safety Resolve 2019-12-31 Shyann left alone d 3-06 13:02:00 (Jeannine) 10:00: [id number] Safety fall risk Safety Resolve 2019-12-31 Shyann factor d 3-06 13:02:00 (Jeannine) present 10:00: [id number] Safety risk for Safety Resolve 2019-12-31 Shyann hospitaliza d 3-06 13:02:00 (Jeannine) tion 10:00: [id number] Medication oral med Meds Resolve 2019-12-31 Shyann assistance d 3-06 13:02:00 (Jeannine) required 10:00: [id number] Musculoskel transfer Musculoske Resolve 2020-01-19 Shyann etal assistance letal d 3-06 11:50:00 (Jeannine) required 10:00: Burdick [id number] Musculoskel requires Musculoske Resolve 2020-01-19 Shyann etal human letal d 3-06 11:50:00 (Jeannine) assist to 10:00: Burdick leave home 00 [id number] Respiratory lung sounds Respirator Resolve 2019-12-31 Zoila [...] anti-coagul Endo/Lamont Resolve 2020-01-19 Zoila ation d -18 11:50:00 Malnoske therapy 10:35: RN 00 Safety risk for Safety Resolve 2020-01-19 Zoila hospitaliza d 01-06 11:50:00 Malnoske tion 10:35: RN 00 Medication oral med Meds Active Zoila assistance 01-07 Malnoske required 15:32: RN 00 Medication potential Meds Active Zoila clinically 01-07 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 Pain frequent Pain Mgmt Resolve 2020-01-19 Rachel pain d 01-14 11:50:00 Delma 13:00: [id number] Integument skin Integument Resolve 2020-01-19 Rachel integrity d 01-14 11:50:00 Delma risk 13:00: [id number] Nutrition enteral Nutrition Active Rachel therapy 01-14 Delma 13:00: [id number] Activity ADL Activity Active Rachel assistance 01-14 Delma required 13:00: [id number] Activity self-care Activity Resolve 2020-01-19 Rachel deficit d 01-14 11:50:00 Delma 13:00: [id number] Safety fall risk Safety Resolve 2020-01-19 Rachel factor d 01-14 11:50:00 Delma present 13:00: [id number] Respiratory dyspnea Respirator Active Zoila present y 01-18 Malnoske 11:50: RN 00 Endo/Lamont glucose Endo/Lamont Resolve 2020-01-19 Zoila tolerance d 01-18 11:50:00 Malnoske problem 11:50: RN 00 Elimination GI drain or Eliminatio Active Zoila tube n 01-18 Malnoske present 11:50: RN 00 Allergies, Adverse Reactions, Alerts Allergy [...] 2020- Yes Midura Unknown Unknown 0.5 0.5 -03 24- ,Abran mg-albutero mg-albutero L 3 mg (2.5 [...] mg No Midura Unknown Unknown tablet,michael tablet,michael ,Abrna yed release yed release buPROPion buPROPion 2020- Yes Midura Unknown Unknown HCL 75 mg HCL 75 mg 3- 03- ,Abran tablet tablet rosuvastati rosuvastati No Midura Unknown Unknown n 10 mg n 10 mg MD,Abran tablet tablet omeprazole omeprazole Yes Midura Unknown Unknown 20 mg 20 mg 3- MD,Abran capsule,del capsule,del ayed ayed release release Singulair Singulair Yes Midura Unknown Unknown 10 mg 10 mg 3- MD,Abran tablet tablet Plavix 75 Plavix 75 No Midura Unknown Unknown mg tablet mg tablet MD,Abran Symbicort Symbicort No Midura Unknown Unknown 160 mcg-4.5 160 mcg-4.5 MDAbran mcg/actuati mcg/actuati on HFA on HFA aerosol aerosol inhaler inhaler Multiple Multiple 2019- Yes Midura Unknown Unknown Vitamin, Vitamin, 12-25 Abran MCKEON Womens Womens tablet tablet FLUoxetine [...] 24 release 24 hr hr torsemide torsemide 0 2020- Yes Midura Unknown Unknown 20 mg 20 mg 12-25 ,Abran tablet tablet spironolact spironolact No Mauser [...] 12-25 Abran MCKEON tablet tablet ALPRAZolam ALPRAZolam 0 Yes Midura Unknown Unknown 0.25 mg 0.25 mg 12-25 MDBaran tablet tablet calcium calcium 2019-0 Yes Midura Unknown Unknown carbonate carbonate 12-25 Abran MCKEON 200 mg 200 mg calcium calcium (500 mg) (500 mg) chewable chewable tablet tablet carvediloL carvediloL 0 2020- Yes Midura Unknown Unknown 6.25 mg 6.25 mg 12-25 MDAbran tablet tablet enalapril enalapril 2019-0 Yes Midura Unknown Unknown maleate 20 maleate 20 12-25 Abran MCKEON mg tablet mg tablet folic acid folic acid 2019-0 Yes Midura Unknown Unknown 1 mg tablet 1 mg tablet 12-25 Abran MCKEON guaiFENesin guaiFENesin 0 Yes Midura Unknown Unknown 100 mg/5 mL [...] MCKEON topical topical cream cream magnesium magnesium Yes [...] 12-25 Abran MCKEON warfarin 5 warfarin 5 0 2020- Yes Midura Unknown Unknown mg mg 12-25 Abran MCKEON ipratropium ipratropium Yes Midura Unknown Unknown 0.5 0.5 12-28 Abran MCKEON mg-albutero mg-albutero L 3 mg (2.5 L 3 mg (2.5 mg base)/3 mg base)/3 mL mL nebulizatio nebulizatio n solbetty n solbetty buPROPion buPROPion 0 Yes Midura Unknown Unknown HCL 100 mg HCL 100 mg 12-28 Abran MCKEON tablet tablet amLODIPine amLODIPine Yes Midura Unknown Unknown 2.5 mg 2.5 mg 12-28 Abran MCKEON tablet tablet budesonide budesonide Yes Midura Unknown Unknown 0.5 mg/2 mL 0.5 mg/2 mL 12-28 Abran MCKEON suspension suspension for for nebulizatio nebulizatio n n warfarin 4 warfarin 4 2019-0 2020- Yes Midura Unknown Unknown mg tablet mg tablet 01-01 Abran MCKEON digoxin 125 digoxin 125 2020-0 Yes Midura Unknown Unknown mcg (0.125 mcg (0.125 3-17 MD,Abran mg) tablet mg) tablet torsemide torsemide Yes Feitell Unknown Unknown 20 mg 20 mg 3- MD,Sumanth tablet tablet carvediloL carvediloL Yes Feitell Unknown Unknown 6.25 mg 6.25 mg - MD,Sumanth tablet tablet warfarin 1 warfarin 1 Yes Midura Unknown Unknown mg tablet mg tablet - MD,Abran cefUROXime cefUROXime Yes Midura Unknown Unknown axetiL 500 axetiL 500 -18 MD,Abran mg tablet mg tablet Vital Signs Vital Name Observation Time Observation Value Comments PULSE 2020-01-19 18:11:08 83 /min /min RESP RATE 2020-01-19 18:11:08 22 /min /min TEMP 2020-01-19 18:11:08 98.1 [degF] Procedures This patient has no known procedures. Results This patient has no known results.
--- OUTSIDE RECORDS SUMMARY | 2020-01-27 16:03 | XMS REPORT ---
:1950 Author Organization [facility] Care Team Providers Name Role [...] brennane brennane RN malnutritio malnutritio n n half-way half-way Diagnosis Active Zoila (current) (current) Malnoske use of use of RN anticoagula anticoagula nts nts Test/Treatm venipunctur Test/Injec Active Shyann ent e ordered t/Roberto 12-25 (Jeannine) Heavenly [id number] Pain frequent Pain Mgmt Resolve 2019-12-31 Shyann pain d 3-06 13:02:00 (Jeannine) 10:00: Burdick [id number] Cardio edema Cardiovasc Active 2019- Shyann ular 3-06 (Jeannine) 10:00: Burdick 00 [id number] Respiratory dyspnea Respirator Resolve 2019-12-31 Shyann present y d 3-06 13:02:00 (Jeannine) 10:00: Burdick [id number] Endo/Lamont glucose Endo/Lamont Resolve 2020-01-02 Shyann testing d 3-06 10:18:00 (Jeannine) dependence 10:00: Burdick [id number] Endo/Lamont diabetic Endo/Lamont Resolve 2019-12-31 Shyann foot care d 3-06 13:02:00 (Jeannine) 10:00: Burdick [id number] Endo/Lamont anti-coagul Endo/Lamont Resolve 2019-12-29 Shyann ation d 3-06 11:40:00 (Jeannine) therapy 10:00: Burdick [id number] Sensory impaired Sensory Active Shyann hearing 3-06 (Jeannine) 10:00: Burdick [id number] Integument skin Integument Resolve 2019-12-31 Shyann integrity d 3-06 13:02:00 (Jeannine) risk 10:00: Burdick [id number] Nutrition changing Nutrition Active 2019-0 Shyann weight/appe 3-06 (Jeannine) tite 10:00: Burdick [id number] Nutrition nutritional Nutrition Active 2019-0 Shyann risk 3-06 (Jeannine) 10:00: Burdick [id number] Nutrition nutritional Nutrition Active 2019-0 Shyann restriction 3-06 (Jeannine) s 10:00: Burdick [id number] Elimination urinary Eliminatio Active Shyann incontinenc n 3-06 (Jeannine) e 10:00: Burdick [id number] Elimination GI drain or Eliminatio Resolve 2020-01-05 Shyann tube n d 3-06 10:00:00 (Jeannine) present 10:00: Burdick [id number] Elimination nausea/vomi Eliminatio Active 2019- Shyann ting n 3-06 (Jeannine) 10:00: Burdick [id number] Neuro confusion Neuro/Emot Active 2020-0 Shyann present ion 3-06 (Jeannine) 10:00: Burdick [id number] Neuro anxiety Neuro/Emot Active 2020-0 Shyann present ion 3-06 (Jeannine) 10:00: Burdick [id number] Neuro depressive Neuro/Emot Active 2019-0 Shyann feelings ion 3-06 (Jeannine) present 10:00: Burdick [id number] Neuro impaired Neuro/Emot Active 2020-0 Shyann decision-ma ion 3-06 (Jeannine) diya 10:00: Burdick [id number] Neuro memory Neuro/Emot Active 2020-0 Shyann deficit ion 3-06 (Jeannine) needing 10:00: Burdick supervision 00 [id number] Activity ADL Activity Resolve 2019-0 2019-12-31 Shyann assistance d 3-06 13:02:00 (Jeannine) required 10:00: [id number] Activity self-care Activity Resolve 2019-0 2019-12-29 Shyann deficit d 3-06 11:40:00 (Jeannine) 10:00: [id number] Safety cannot be Safety Resolve 2019-0 2019-12-31 Shyann left alone d 3-06 13:02:00 (Jeannine) 10:00: Burdick [id number] Safety fall risk Safety Resolve 2019-0 2019-12-31 Shyann factor d 3-06 13:02:00 (Jeannine) present 10:00: [id number] Safety risk for Safety Resolve 2019-0 2019-12-31 Shyann hospitaliza d 3-06 13:02:00 (Jeannine) tion 10:00: [id number] Medication oral med Meds Resolve 2019-0 2019-12-31 Shyann assistance d 3-06 13:02:00 (Jeannine) required 10:00: Burdick [id number] Musculoskel transfer Musculoske Active 2019-0 Shyann etal assistance letal 3-06 (Jeannine) required 10:00: Burdick [id number] Musculoskel requires Musculoske Active 2019-0 Shyann etal human letal 3-06 (Jeannine) assist to 10:00: Burdick leave home 00 [id number] Respiratory lung sounds Respirator Resolve 2019-12-31 Zoila [...] Active Zoila clinically 3-19 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
--- OUTSIDE RECORDS SUMMARY | 2020-01-27 16:03 | XMS REPORT ---
:1950 Author Organization [facility] Care Team Providers Name Role Phone [...] brennane brennane RN malnutritio malnutritio n n [facility] Diagnosis Active Zoila (current) (current) Malnoske use of use of RN anticoagula anticoagula nts nts Test/Treatm venipunctur Test/Injec Active Shyann ent e ordered t/Roberto 12-25 (Jeannine) Heavenly [id number] Pain frequent Pain Mgmt Resolve 2019-12-31 Shyann pain d 3-06 13:02:00 (Jeannine) 10:00: Burdick [id number] Cardio edema Cardiovasc Active 2019- Shyann ular 3-06 (Jeannine) 10:00: Burdick 00 [id number] Respiratory dyspnea Respirator Resolve 2019-12-31 Shyann present y d 3-06 13:02:00 (Jeannine) 10:00: Burdick [id number] Endo/Lamont glucose Endo/Lamont Resolve 2020-01-02 Shyann testing d 3-06 10:18:00 (Jeannine) dependence 10:00: Burdick [id number] Endo/Lamont diabetic Endo/Lamont Resolve 2019-12-31 Shyann foot care d 3-06 13:02:00 (Jeannine) 10:00: Burdick [id number] Endo/Lamont anti-coagul Endo/Lamont Resolve 2019-12-29 Shyann ation d 3-06 11:40:00 (Jeannine) therapy 10:00: Burdick [id number] Sensory impaired Sensory Active Shyann hearing 3-06 (Jeannine) 10:00: Burdick [id number] Integument skin Integument Resolve 2019-12-31 Shyann integrity d 3-06 13:02:00 (Jeannine) risk 10:00: Burdick [id number] Nutrition changing Nutrition Active 2019-0 Shyann weight/appe 3-06 (Jeannine) tite 10:00: Burdick [id number] Nutrition nutritional Nutrition Active 2019-0 Shyann risk 3-06 (Jeannine) 10:00: Burdick [id number] Nutrition nutritional Nutrition Active 2019-0 Shyann restriction 3-06 (Jeannine) s 10:00: Burdick [id number] Elimination urinary Eliminatio Active Shyann incontinenc n 3-06 (Jeannine) e 10:00: Burdick [id number] Elimination GI drain or Eliminatio Resolve 2020-01-05 Shyann tube n d 3-06 10:00:00 (Jeannine) present 10:00: Burdick [id number] Elimination nausea/vomi Eliminatio Active 2019- Shyann ting n 3-06 (Jeannine) 10:00: Burdick [id number] Neuro confusion Neuro/Emot Active 2020-0 Shyann present ion 3-06 (Jeannine) 10:00: Burdick [id number] Neuro anxiety Neuro/Emot Active 2020-0 Shyann present ion 3-06 (Jeannine) 10:00: Burdick [id number] Neuro depressive Neuro/Emot Active 2019-0 Shyann feelings ion 3-06 (Jeannine) present 10:00: Burdick [id number] Neuro impaired Neuro/Emot Active 2020-0 Shyann decision-ma ion 3-06 (Jeannine) diya 10:00: Burdick [id number] Neuro memory Neuro/Emot Active 2020-0 Shyann deficit ion 3-06 (Jeannine) needing 10:00: Burdick supervision 00 [id number] Activity ADL Activity Resolve 2019-0 2019-12-31 Shyann assistance d 3-06 13:02:00 (Jeannine) required 10:00: [id number] Activity self-care Activity Resolve 2019-0 2019-12-29 Shyann deficit d 3-06 11:40:00 (Jeannine) 10:00: [id number] Safety cannot be Safety Resolve 2019-0 2019-12-31 Shyann left alone d 3-06 13:02:00 (Jeannine) 10:00: Burdick [id number] Safety fall risk Safety Resolve 2019-0 2019-12-31 Shyann factor d 3-06 13:02:00 (Jeannine) present 10:00: [id number] Safety risk for Safety Resolve 2019-0 2019-12-31 Shyann hospitaliza d 3-06 13:02:00 (Jeannine) tion 10:00: [id number] Medication oral med Meds Resolve 2019-0 2019-12-31 Shyann assistance d 3-06 13:02:00 (Jeannine) required 10:00: Burdick [id number] Musculoskel transfer Musculoske Active 2019-0 Shyann etal assistance letal 3-06 (Jeannine) required 10:00: Burdick [id number] Musculoskel requires Musculoske Active 2019-0 Shyann etal human letal 3-06 (Jeannine) assist to 10:00: Burdick leave home 00 [id number] Respiratory lung sounds Respirator Resolve 2019-12-31 Zoila [...] Active Zoila clinically - 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 Pain frequent Pain Mgmt Active Rachel pain 01-14 Delma 13:00: [id number] Integument skin Integument Active Rachel integrity 01-14 Delma risk 13:00: [id number] Nutrition enteral Nutrition Active Rachel therapy 01-14 Delma 13:00: [id number] Activity ADL Activity Active Rachel assistance 01-14 Delma required 13:00: [id number] Activity self-care Activity Active Rachel deficit 01-14 Delma 13:00: [id number] 00 Safety fall risk Safety Active Rachel factor 01-14 Delma present 13:00: [id number] 00 Allergies, Adverse Reactions, Alerts Allergy Name [...] Yes Midura Unknown Unknown 0.5 0.5 12-25 03-09 MD,Abran mg-albutero mg-albutero L 3 mg (2.5 [...] Unknown HCL 75 mg HCL 75 mg 12-25- Abran MCKEON tablet tablet rosuvastati rosuvastati No Midura Unknown Unknown n 10 mg n 10 mg ,Abran tablet tablet omeprazole omeprazole Yes Midura Unknown Unknown 20 mg 20 mg 12-25 Abran MCKEON capsule,del capsule,del ayed ayed release release Singulair Singulair Yes Midura Unknown Unknown 10 mg 10 mg 12-25 Abran MCKEON tablet tablet Plavix 75 Plavix 75 No Midura Unknown Unknown mg tablet mg tablet Abran MCKEON Symbicort Symbicort No Midura Unknown Unknown 160 mcg-4.5 160 mcg-4.5 Abran MCKEON mcg/actuati mcg/actuati on HFA on HFA aerosol aerosol inhaler inhaler Multiple Multiple Yes Midura Unknown Unknown Vitamin, Vitamin, 12-25 [...] 24 release 24 hr hr torsemide torsemide 2019- Yes Midura Unknown Unknown 20 mg 20 [...] 12-25 Abran MCKEON tablet tablet ALPRAZolam ALPRAZolam 2019- Yes Midura Unknown Unknown 0.25 mg 0.25 mg 12-25 Abran MCKEON tablet tablet calcium calcium 2019-0 Yes Midura Unknown Unknown carbonate carbonate 12-25 Abran MCKEON 200 mg 200 mg calcium calcium (500 mg) (500 mg) chewable chewable tablet tablet carvediloL carvediloL 2019-0 2020- Yes Midura Unknown Unknown 6.25 mg 6.25 mg 12-25 Abran MCKEON tablet tablet enalapril enalapril 2019- Yes Midura Unknown Unknown maleate 20 maleate [...] mL oral oral suspension suspension metroNIDAZO metroNIDAZO 2020-0 Yes Midura Unknown Unknown LE 0.75 % LE 0.75 % 12-25 Abran MCKEON topical gel topical gel ondansetron ondansetron 2019- Yes Midura Unknown Unknown 4 mg 4 mg 12-25 Abran MCKEON disintegrat disintegrat ing tablet ing tablet traMADoL 50 traMADoL 50 2020-0 Yes Midura Unknown Unknown mg tablet mg tablet 12-25 MD,Abran venlafaxine venlafaxine Yes Midura Unknown Unknown 75 mg 75 mg 12-25 ,Abran tablet tablet warfarin 4 warfarin 4 2019-2019- Yes Midura Unknown Unknown mg tablet mg tablet 12-25 Abran MCKEON warfarin 5 warfarin 5 2019-0 2019- Yes Midura Unknown Unknown mg mg 12-25 Abran MCKEON ipratropium ipratropium 2019- Yes Midura Unknown Unknown 0.5 0.5 12-28 Abran MCKEON mg-albutero mg-albutero L 3 mg (2.5 L 3 mg (2.5 mg base)/3 mg base)/3 mL mL nebulizatio nebulizatio n soln n soln buPROPion buPROPion Yes Midura Unknown Unknown HCL 100 mg HCL 100 mg 12-28 ,Abran tablet tablet amLODIPine [...] Name Observation Time Observation Value Comments PULSE 2020-01-18 18:11:07 92 /min /min RESP RATE 2020-01-16 18:11:05 18 /min /min TEMP 2020-01-16 18:11:05 98 [degF] Procedures This patient has no known procedures. Results This patient has no known results.
--- OUTSIDE RECORDS SUMMARY | 2020-01-27 16:03 | XMS REPORT ---
:1950 Author Organization [facility] Care Team Providers Name Role Phone Unavailable [...] brennane brennane RN malnutritio malnutritio n n FDC FDC Diagnosis Active Zoila (current) (current) Malnoske use of use of RN anticoagula anticoagula nts nts Test/Treatm venipunctur Test/Injec Active Shyann ent e ordered t/Roberto 12-25 (Jeannine) Heavenly [id number] Pain frequent Pain Mgmt Resolve 2019-12-31 Shyann pain d 3-06 13:02:00 (Jeannine) 10:00: Burdick [id number] Cardio edema Cardiovasc Active 2019- Shyann ular 3-06 (Jeannine) 10:00: Burdick 00 [id number] Respiratory dyspnea Respirator Resolve 2019-12-31 Shyann present y d 3-06 13:02:00 (Jeannine) 10:00: Burdick [id number] Endo/Lamont glucose Endo/Lamont Resolve 2020-01-02 Shyann testing d 3-06 10:18:00 (Jeannine) dependence 10:00: Burdick [id number] Endo/Lamont diabetic Endo/Lamont Resolve 2019-12-31 Shyann foot care d 3-06 13:02:00 (Jeannine) 10:00: Burdick [id number] Endo/Lamont anti-coagul Endo/Lamont Resolve 2019-12-29 Shyann ation d 3-06 11:40:00 (Jeannine) therapy 10:00: Burdick [id number] Sensory impaired Sensory Active Shyann hearing 3-06 (Jeannine) 10:00: Burdick [id number] Integument skin Integument Resolve 2019-12-31 Shyann integrity d 3-06 13:02:00 (Jeannine) risk 10:00: Burdick [id number] Nutrition changing Nutrition Active 2019-0 Shyann weight/appe 3-06 (Jeannine) tite 10:00: Burdick [id number] Nutrition nutritional Nutrition Active 2019-0 Shyann risk 3-06 (Jeannine) 10:00: Burdick [id number] Nutrition nutritional Nutrition Active 2019-0 Shyann restriction 3-06 (Jeannine) s 10:00: Burdick [id number] Elimination urinary Eliminatio Active Shyann incontinenc n 3-06 (Jeannine) e 10:00: Burdick [id number] Elimination GI drain or Eliminatio Resolve 2020-01-05 Shyann tube n d 3-06 10:00:00 (Jeannine) present 10:00: Burdick [id number] Elimination nausea/vomi Eliminatio Active 2019- Shyann ting n 3-06 (Jeannine) 10:00: Burdick [id number] Neuro confusion Neuro/Emot Active 2020-0 Shyann present ion 3-06 (Jeannine) 10:00: Burdick [id number] Neuro anxiety Neuro/Emot Active 2020-0 Shyann present ion 3-06 (Jeannine) 10:00: Burdick [id number] Neuro depressive Neuro/Emot Active 2019-0 Shyann feelings ion 3-06 (Jeannine) present 10:00: Burdick [id number] Neuro impaired Neuro/Emot Active 2020-0 Shyann decision-ma ion 3-06 (Jeannine) diya 10:00: Burdick [id number] Neuro memory Neuro/Emot Active 2020-0 Shyann deficit ion 3-06 (Jeannine) needing 10:00: Burdick supervision 00 [id number] Activity ADL Activity Resolve 2019-0 2019-12-31 Shyann assistance d 3-06 13:02:00 (Jeannine) required 10:00: [id number] Activity self-care Activity Resolve 2019-0 2019-12-29 Shyann deficit d 3-06 11:40:00 (Jeannine) 10:00: [id number] Safety cannot be Safety Resolve 2019-0 2019-12-31 Shyann left alone d 3-06 13:02:00 (Jeannine) 10:00: Burdick [id number] Safety fall risk Safety Resolve 2019-0 2019-12-31 Shyann factor d 3-06 13:02:00 (Jeannine) present 10:00: [id number] Safety risk for Safety Resolve 2019-0 2019-12-31 Shyann hospitaliza d 3-06 13:02:00 (Jeannine) tion 10:00: [id number] Medication oral med Meds Resolve 2019-0 2019-12-31 Shyann assistance d 3-06 13:02:00 (Jeannine) required 10:00: Burdick [id number] Musculoskel transfer Musculoske Active 2019-0 Shyann etal assistance letal 3-06 (Jeannine) required 10:00: Burdick [id number] Musculoskel requires Musculoske Active 2019-0 Shyann etal human letal 3-06 (Jeannine) assist to 10:00: Burdick leave home 00 [id number] Respiratory lung sounds Respirator Resolve 2019-12-31 Zoila [...] Active Zoila clinically 3-19 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
--- OUTSIDE RECORDS SUMMARY | 2020-01-27 16:03 | XMS REPORT ---
:1950 Author Organization [facility] Care Team Providers Name Role Phone [...] ent e ordered t/Roberto 12-25 (Jeannine) Heavenly [id number] Pain frequent Pain Mgmt Resolve 2019-12-31 Shyann pain d 3-06 13:02:00 (Jeannine) 10:00: Burdick [id number] Cardio edema Cardiovasc Active 2019- Shyann ular 3-06 (Jeannine) 10:00: Burdick 00 [id number] Respiratory dyspnea Respirator Resolve 2019-12-31 Shyann present y d 3-06 13:02:00 (Jeannine) 10:00: Burdick [id number] Endo/Lamont glucose Endo/Lamont Resolve 2020-01-02 Shyann testing d 3-06 10:18:00 (Jeannine) dependence 10:00: Burdick [id number] Endo/Lamont diabetic Endo/Lamont Resolve 2019-12-31 Shyann foot care d 3-06 13:02:00 (Jeannine) 10:00: Burdick [id number] Endo/Lamont anti-coagul Endo/Lamont Resolve 2019-12-29 Shyann ation d 3-06 11:40:00 (Jeannine) therapy 10:00: Burdick [id number] Sensory impaired Sensory Active Shyann hearing 3-06 (Jeannine) 10:00: Burdick [id number] Integument skin Integument Resolve 2019-12-31 Shyann integrity d 3-06 13:02:00 (Jeannine) risk 10:00: Burdick [id number] Nutrition changing Nutrition Active 2019-0 Shyann weight/appe 3-06 (Jeannine) tite 10:00: Burdick [id number] Nutrition nutritional Nutrition Active 2019-0 Shyann risk 3-06 (Jeannine) 10:00: Burdick [id number] Nutrition nutritional Nutrition Active 2019-0 Shyann restriction 3-06 (Jeannine) s 10:00: Burdick [id number] Elimination urinary Eliminatio Active Shyann incontinenc n 3-06 (Jeannine) e 10:00: Burdick [id number] Elimination GI drain or Eliminatio Resolve 2020-01-05 Shyann tube n d 3-06 10:00:00 (Jeannine) present 10:00: Burdick [id number] Elimination nausea/vomi Eliminatio Active 2019- Shyann ting n 3-06 (Jeannine) 10:00: Burdick [id number] Neuro confusion Neuro/Emot Active 2020-0 Shyann present ion 3-06 (Jeannine) 10:00: Burdick [id number] Neuro anxiety Neuro/Emot Active 2020-0 Shyann present ion 3-06 (Jeannine) 10:00: Burdick [id number] Neuro depressive Neuro/Emot Active 2019-0 Shyann feelings ion 3-06 (Jeannine) present 10:00: Brudick [id number] Neuro impaired Neuro/Emot Active 2020-0 Shyann decision-ma ion 3-06 (Jeannine) diya 10:00: Burdick [id number] Neuro memory Neuro/Emot Active 2020-0 Shyann deficit ion 3-06 (Jeannine) needing 10:00: Burdick supervision 00 [id number] Activity ADL Activity Resolve 2019-0 2019-12-31 Shyann assistance d 3-06 13:02:00 (Jeannine) required 10:00: [id number] Activity self-care Activity Resolve 2019-0 2019-12-29 Shyann deficit d 3-06 11:40:00 (Jeannine) 10:00: [id number] Safety cannot be Safety Resolve 2019-0 2019-12-31 Shyann left alone d 3-06 13:02:00 (Jeannine) 10:00: Burdick [id number] Safety fall risk Safety Resolve 2019-0 2019-12-31 Shyann factor d 3-06 13:02:00 (Jeannine) present 10:00: [id number] Safety risk for Safety Resolve 2019-0 2019-12-31 Shyann hospitaliza d 3-06 13:02:00 (Jeannine) tion 10:00: [id number] Medication oral med Meds Resolve 2019-0 2019-12-31 Shyann assistance d 3-06 13:02:00 (Jeannine) required 10:00: Burdick [id number] Musculoskel transfer Musculoske Active 2019-0 Shyann etal assistance letal 3-06 (Jeannine) required 10:00: Burdick [id number] Musculoskel requires Musculoske Active 2019-0 Shyann etal human letal 3-06 (Jeannine) assist to 10:00: Burdick leave home 00 [id number] Respiratory lung sounds Respirator Resolve 2019-12-31 Zoila [...] Active Zoila clinically - 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 issue Pain frequent Pain Mgmt Active Rachel pain 01-14 Delma 13:00: [id number] Integument skin Integument Active Rachel integrity 01-14 Delma risk 13:00: [id number] Nutrition enteral Nutrition Active Rachel therapy 01-14 Delma 13:00: [id number] 00 Activity ADL Activity Active Rachel assistance 01-14 Delma required 13:00: [id number] Activity self-care Activity Active Rachel deficit 01-14 Delma 13:00: [id number] 00 Safety fall risk Safety Active Rachel factor 01-14 Delma present 13:00: [id number] 00 Allergies, Adverse Reactions, Alerts Allergy Name [...] Unknown ER 2.5 mg ER 2.5 mg Abarn MCKEON tablet, tablet, extended extended release 24 [...]
--- OUTSIDE RECORDS SUMMARY | 2020-01-27 16:03 | XMS REPORT ---
[...]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 Diagnosis Active Zoila (current) (current) Malnoske use of use of RN anticoagula anticoagula nts nts Test/Treatm venipunctur Test/Injec Active Shyann ent e ordered t/Roberto 12-25 (Jeannine) Heavenly [id number] Pain frequent Pain Mgmt Resolve 2019-12-31 Shyann pain d 3-06 13:02:00 (Jeannine) 10:00: Burdick [id number] Cardio edema Cardiovasc Active Shyann ular 3-06 (Jeannine) 10:00: Burdick [id number] Respiratory dyspnea Respirator Resolve 2019-12-31 Shyann present y d 3-06 13:02:00 (Jeannine) 10:00: Burdick [id number] Endo/Lamont glucose Endo/Lamont Resolve 2020-01-02 Shyann testing d 3-06 10:18:00 (Jeannine) dependence 10:00: Burdick [id number] Endo/Lamont diabetic Endo/Lamont Resolve 2019-12-31 Shyann foot care d 3-06 13:02:00 (Jeannine) 10:00: Burdick [id number] Endo/Lamont anti-coagul Endo/Lamont Resolve 2019-12-29 Shyann ation d 3-06 11:40:00 (Jeannine) therapy 10:00: Burdick [id number] Sensory impaired Sensory Active Shyann hearing 3-06 (Jeannine) 10:00: Burdick [id number] Integument skin Integument Resolve 2019-12-31 Shyann integrity d 3-06 13:02:00 (Jeannine) risk 10:00: Burdick [id number] Nutrition changing Nutrition Active 2019-0 Shyann weight/appe 3-06 (Jeannine) tite 10:00: Burdick [id number] Nutrition nutritional Nutrition Active 2019-0 Shyann risk 3-06 (Jeannine) 10:00: Burdick [id number] Nutrition nutritional Nutrition Active 2019-0 Shyann restriction 3-06 (Jeannine) s 10:00: Burdick [id number] Elimination urinary Eliminatio Active 2019- Shyann incontinenc n 3-06 (Jeannine) e 10:00: Burdick [id number] Elimination GI drain or Eliminatio Resolve 2020-01-05 Shyann tube n d 3-06 10:00:00 (Jeannine) present 10:00: Burdick [id number] Elimination nausea/vomi Eliminatio Active Shyann ting n 3-06 (Jeannine) 10:00: Burdick [id number] Neuro confusion Neuro/Emot Active 2019-0 Shyann present ion 3-06 (Jeannine) 10:00: Burdick [id number] Neuro anxiety Neuro/Emot Active 2019-0 Shyann present ion 3-06 (Jeannine) 10:00: Burdick [id number] Neuro depressive Neuro/Emot Active 2019- Shyann feelings ion 3-06 (Jeannine) present 10:00: Burdick [id number] Neuro impaired Neuro/Emot Active 2019- Shyann decision-ma ion 3-06 (Jeannine) diya 10:00: Burdick [id number] Neuro memory Neuro/Emot Active 2019- Shyann deficit ion 3-06 (Jeannine) needing 10:00: Burdick supervision 00 [id number] Activity ADL Activity Resolve 2019-12-31 Shyann assistance d 3-06 13:02:00 (Jeannine) required 10:00: [id number] Activity self-care Activity Resolve 2019-12-29 Shyann deficit d 3-06 11:40:00 (Jeannine) 10:00: Burdick [id number] Safety cannot be Safety Resolve 2019-12-31 Shyann left alone d 3-06 13:02:00 (Jeannine) 10:00: [id number] Safety fall risk Safety Resolve 2019-12-31 Shyann factor d 3-06 13:02:00 (Jeannine) present 10:00: [id number] Safety risk for Safety Resolve 2019-12-31 Shyann hospitaliza d 3-06 13:02:00 (Jeannine) tion 10:00: [id number] Medication oral med Meds Resolve 2019-12-31 Shyann assistance d 3-06 13:02:00 (Jeannine) required 10:00: [id number] Musculoskel transfer Musculoske Resolve 2020-01-19 Shyann etal assistance letal d 3-06 11:50:00 (Jeannine) required 10:00: Burdick [id number] Musculoskel requires Musculoske Resolve 2020-01-19 Shyann etal human letal d 3-06 11:50:00 (Jeannine) assist to 10:00: Burdick leave home 00 [id number] Respiratory lung sounds Respirator Resolve 2019-12-31 Zoila [...] Active Zoila clinically 01-07 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 Pain frequent Pain Mgmt Resolve 2020-01-19 Rachel pain d 01-14 11:50:00 Delma 13:00: [id number] Integument skin Integument Resolve 2020-01-19 Rachel integrity d 01-14 11:50:00 Delma risk 13:00: [id number] Nutrition enteral Nutrition Active Rachel therapy 01-14 Delma 13:00: [id number] Activity ADL Activity Active Rachel assistance 01-14 Delma required 13:00: [id number] Activity self-care Activity Resolve 2020-01-19 Rachel deficit d 01-14 11:50:00 Delma 13:00: [id number] Safety fall risk Safety Resolve 2020-01-19 Rachel factor d 01-14 11:50:00 Delma present 13:00: [id number] 00 Respiratory dyspnea Respirator Active Zoila present [...] Unknown Unknown 0.25 mg 0.25 mg 12-25 MDAbran tablet tablet calcium calcium 2019-0 Yes Midura [...]
--- OUTSIDE RECORDS SUMMARY | 2020-01-27 16:04 | XMS REPORT ---
:1950 Author Organization [facility] Care Team Providers Name Role Phone Unavailable [...] brennane brennane RN malnutritio malnutritio n n residential residential Diagnosis Active Zoila (current) (current) Malnoske use of use of RN anticoagula anticoagula nts nts Test/Treatm venipunctur Test/Injec Active Shyann ent e ordered t/Roberto 12-25 (Jeannine) Heavenly [id number] Pain frequent Pain Mgmt Resolve 2019-12-31 Shyann pain d 3-06 13:02:00 (Jeannine) 10:00: Burdick [id number] Cardio edema Cardiovasc Active 2019- Shyann ular 3-06 (Jeannine) 10:00: Burdick 00 [id number] Respiratory dyspnea Respirator Resolve 2019-12-31 Shyann present y d 3-06 13:02:00 (Jeannine) 10:00: Burdick [id number] Endo/Lamont glucose Endo/Lamont Resolve 2020-01-02 Shyann testing d 3-06 10:18:00 (Jeannine) dependence 10:00: Burdick [id number] Endo/Lamont diabetic Endo/Lamont Resolve 2019-12-31 Shyann foot care d 3-06 13:02:00 (Jeannine) 10:00: Burdick [id number] Endo/Lamont anti-coagul Endo/Lamont Resolve 2019-12-29 Shyann ation d 3-06 11:40:00 (Jeannine) therapy 10:00: Burdick [id number] Sensory impaired Sensory Active Shyann hearing 3-06 (Jeannine) 10:00: Burdick [id number] Integument skin Integument Resolve 2019-12-31 Shyann integrity d 3-06 13:02:00 (Jeannine) risk 10:00: Ubrdick [id number] Nutrition changing Nutrition Active 2019-0 Shyann weight/appe 3-06 (Jeannine) tite 10:00: Burdick [id number] Nutrition nutritional Nutrition Active 2019-0 Shyann risk 3-06 (Jeannine) 10:00: Burdick [id number] Nutrition nutritional Nutrition Active 2019-0 Shyann restriction 3-06 (Jeannine) s 10:00: Burdick [id number] Elimination urinary Eliminatio Active Shyann incontinenc n 3-06 (Jeannine) e 10:00: Burdick [id number] Elimination GI drain or Eliminatio Resolve 2020-01-05 Shyann tube n d 3-06 10:00:00 (Jeannine) present 10:00: Burdick [id number] Elimination nausea/vomi Eliminatio Active 2019- Shyann ting n 3-06 (Jeannine) 10:00: Burdick [id number] Neuro confusion Neuro/Emot Active 2020-0 Shyann present ion 3-06 (Jeannine) 10:00: Burdick [id number] Neuro anxiety Neuro/Emot Active 2020-0 Shyann present ion 3-06 (Jeannine) 10:00: Burdick [id number] Neuro depressive Neuro/Emot Active 2019-0 Shyann feelings ion 3-06 (Jeannine) present 10:00: Burdick [id number] Neuro impaired Neuro/Emot Active 2020-0 Shyann decision-ma ion 3-06 (Jeannine) diya 10:00: Burdick [id number] Neuro memory Neuro/Emot Active 2020-0 Shyann deficit ion 3-06 (Jeannine) needing 10:00: Burdick supervision 00 [id number] Activity ADL Activity Resolve 2019-0 2019-12-31 Shyann assistance d 3-06 13:02:00 (Jeannine) required 10:00: [id number] Activity self-care Activity Resolve 2019-0 2019-12-29 Shyann deficit d 3-06 11:40:00 (Jeannine) 10:00: [id number] Safety cannot be Safety Resolve 2019-0 2019-12-31 Shyann left alone d 3-06 13:02:00 (Jeannine) 10:00: Burdick [id number] Safety fall risk Safety Resolve 2019-0 2019-12-31 Shyann factor d 3-06 13:02:00 (Jeannine) present 10:00: [id number] Safety risk for Safety Resolve 2019-0 2019-12-31 Shyann hospitaliza d 3-06 13:02:00 (Jeannine) tion 10:00: [id number] Medication oral med Meds Resolve 2019-0 2019-12-31 Shyann assistance d 3-06 13:02:00 (Jeannine) required 10:00: Burdick [id number] Musculoskel transfer Musculoske Active 2019-0 Shyann etal assistance letal 3-06 (Jeannine) required 10:00: Burdick [id number] Musculoskel requires Musculoske Active 2019-0 Shyann etal human letal 3-06 (Jeannine) assist to 10:00: Burdick leave home 00 [id number] Respiratory lung sounds Respirator Resolve 2019-12-31 Zoila [...] Active Zoila clinically 3-19 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
--- OUTSIDE RECORDS SUMMARY | 2020-01-27 16:04 | XMS REPORT ---
:1950 Author Organization [facility] Care Team Providers Name Role Phone [...] ent e ordered t/Roberto 12-25 (Jeannine) Heavenly [id number] Pain frequent Pain Mgmt Resolve 2019-12-31 Shyann pain d 3-06 13:02:00 (Jeannine) 10:00: Burdick [id number] Cardio edema Cardiovasc Active 2019- Shyann ular 3-06 (Jeannine) 10:00: Burdick 00 [id number] Respiratory dyspnea Respirator Resolve 2019-12-31 Shyann present y d 3-06 13:02:00 (Jeannine) 10:00: Burdick [id number] Endo/Lamont glucose Endo/Lamont Resolve 2020-01-02 Shyann testing d 3-06 10:18:00 (Jeannine) dependence 10:00: Burdick [id number] Endo/Lamont diabetic Endo/Lamont Resolve 2019-12-31 Shyann foot care d 3-06 13:02:00 (Jeannine) 10:00: Burdick [id number] Endo/Lamont anti-coagul Endo/Lamont Resolve 2019-12-29 Shyann ation d 3-06 11:40:00 (Jeannine) therapy 10:00: Burdick [id number] Sensory impaired Sensory Active Shyann hearing 3-06 (Jeannine) 10:00: Burdick [id number] Integument skin Integument Resolve 2019-12-31 Shyann integrity d 3-06 13:02:00 (Jeannine) risk 10:00: Burdick [id number] Nutrition changing Nutrition Active 2019-0 Shyann weight/appe 3-06 (Jeannine) tite 10:00: Burdick [id number] Nutrition nutritional Nutrition Active 2019-0 Shyann risk 3-06 (Jeannine) 10:00: Burdick [id number] Nutrition nutritional Nutrition Active 2019-0 Shyann restriction 3-06 (Jeannine) s 10:00: Burdick [id number] Elimination urinary Eliminatio Active Shyann incontinenc n 3-06 (Jeannine) e 10:00: Burdick [id number] Elimination GI drain or Eliminatio Resolve 2020-01-05 Shyann tube n d 3-06 10:00:00 (Jeannine) present 10:00: Burdick [id number] Elimination nausea/vomi Eliminatio Active 2019- Shyann ting n 3-06 (Jeannine) 10:00: Burdick [id number] Neuro confusion Neuro/Emot Active 2020-0 Shyann present ion 3-06 (Jeannine) 10:00: Burdick [id number] Neuro anxiety Neuro/Emot Active 2020-0 Shyann present ion 3-06 (Jeannine) 10:00: Burdick [id number] Neuro depressive Neuro/Emot Active 2019-0 Shyann feelings ion 3-06 (Jeannine) present 10:00: Burdick [id number] Neuro impaired Neuro/Emot Active 2020-0 Shyann decision-ma ion 3-06 (Jeannine) diya 10:00: Burdick [id number] Neuro memory Neuro/Emot Active 2020-0 Shyann deficit ion 3-06 (Jeannine) needing 10:00: Burdick supervision 00 [id number] Activity ADL Activity Resolve 2019-0 2019-12-31 Shyann assistance d 3-06 13:02:00 (Jeannine) required 10:00: [id number] Activity self-care Activity Resolve 2019-0 2019-12-29 Shyann deficit d 3-06 11:40:00 (Jeannine) 10:00: [id number] Safety cannot be Safety Resolve 2019-0 2019-12-31 Shyann left alone d 3-06 13:02:00 (Jeannine) 10:00: Burdick [id number] Safety fall risk Safety Resolve 2019-0 2019-12-31 Shyann factor d 3-06 13:02:00 (Jeannine) present 10:00: [id number] Safety risk for Safety Resolve 2019-0 2019-12-31 Shyann hospitaliza d 3-06 13:02:00 (Jeannine) tion 10:00: [id number] Medication oral med Meds Resolve 2019-0 2019-12-31 Shyann assistance d 3-06 13:02:00 (Jeannine) required 10:00: Burdick [id number] Musculoskel transfer Musculoske Active 2019-0 Shyann etal assistance letal 3-06 (Jeannine) required 10:00: Burdick [id number] Musculoskel requires Musculoske Active 2019-0 Shyann etal human letal 3-06 (Jeannine) assist to 10:00: Burdick leave home 00 [id number] Respiratory lung sounds Respirator Resolve 2019-12-31 Zoila [...]
== END 2020-01-27 18:06 | disposition home or self-care (01) ==
LOC: ED 14:27
DX: K94.23 Gastrostomy malfunction (principal); Z95.811 Presence of heart assist device; E11.9 Type 2 diabetes mellitus without complications; I11.0 Hypertensive heart disease with heart failure; I50.9 Heart failure, unspecified; I25.10 Atherosclerotic heart disease of native coronary artery without angina pectoris; E78.00 Pure hypercholesterolemia, unspecified; J45.909 Unspecified asthma, uncomplicated; K21.9 Gastro-esophageal reflux disease without esophagitis; Z95.810 Presence of automatic (implantable) cardiac defibrillator; Z79.02 Long term (current) use of antithrombotics/antiplatelets; Z79.82 Long term (current) use of aspirin; Z79.84 Long term (current) use of oral hypoglycemic drugs; Z79.899 Other long term (current) drug therapy; Z88.5 Allergy status to narcotic agent; Z88.8 Allergy status to other drugs, medicaments and biological substances; Z91.041 Radiographic dye allergy status
CPT/HCPCS: 36415; 71045; 74176; 80053; 83690; 85025; 85610; 86140; 99283

== ENCOUNTER 2020-09-12 07:03 | Inpatient (IN) ==
[2020-09-12] MEDS ORDERED: Piperacillin/Tazobac ADVAN 3.375 GM in NS 0.9% 100 ml BAG 100 ML IV ONE ×2 (07:43→16:00)
[2020-09-12 08:42] LABS: ABS Eosinophils 0.1 10^3/ul (0-0.6); ABS Lymphocytes 0.3 10^3/ul (1.0-4.8); ABS Monocytes 0.9 10^3/ul (0-0.8); ABS Neutrophils 8.7 10^3/ul (1.5-7.7); Eosinophil % 0.5 %; Hematocrit 27 % (35-47); Lymphocyte % 3.4 %; Mean Corpuscular HGB Conc 33 g/dL (31-36); Mean Corpuscular Hemoglobin 31 pg (27-31); Mean Corpuscular Volume 94 fL (80-97); Mean Platelet Volume 7.2 fL (7.4-10.4); Platelet Count 103 10^3/uL (150-450); Red Blood Count 2.91 10^6 /uL (3.70-4.87); Red Cell Distribution Width 17 % (10-15)
[2020-09-12 08:50] LABS: Activated Partial Thrombo Time 33.5 seconds (26.0-38.0); INR 1.34 (0.82-1.09)
[2020-09-12 09:00] LABS: Albumin 3.5 g/dL (3.2-5.2); Albumin/Globulin Ratio 0.9 (1-3); BUN/Creatinine Ratio 37.5 (8-20); C Reactive Protein 55.33 mg/L (<8.01); EGFR African American 85.8 (>60); EGFR Non-African American 70.9 (>60); Globulin 3.7 g/dL (2-4); Potassium 4.4 mmol/L (3.5-5.0); Total Bilirubin 0.7 mg/dL (0.2-1.0); Total Protein 7.2 g/dL (6.4-8.9)
[2020-09-12 09:03] LABS: Troponin I 0.01 ng/mL (<0.03)
[2020-09-12 09:27] LABS: Digoxin 0.5 ng/ml (0.8-2.0)
[2020-09-12] MEDS ORDERED: guaiFENesin 100 mg/5 ml LIQ unit dose cup FEED TUBE PRN (12:29)
[2020-09-12] MEDS ORDERED: Zosyn per Pharmacy NOTE FOLLOW UP SCH (13:00)
[2020-09-12] MEDS: Albuterol/Ipratropium NEB.SOL (2.5/0.5 MG) 3 ML NEB.SOLN INH SCH ×3 (13:35→20:47)
[2020-09-12 13:58] VITALS: BP 124/84
[2020-09-12] MEDS ORDERED: Ketorolac 0.5% OPHTH (NF) 0.5 % 5 ML BTL LEFT EYE SCH (14:00)
[2020-09-12] MEDS ORDERED: prednisoLONE 1% OPHTH.SUSP 5 ML OPHTH.SUSP LEFT EYE SCH (14:00)
[2020-09-12] MEDS ORDERED: Ciprofloxacin 0.3% OPTH.SOL 5 ML BTL LEFT EYE SCH (14:00)
[2020-09-12] MEDS ORDERED: Dextrose 50% Syringe 50 ml 25 GM/50 ML SYRINGE IV PUSH PRN (14:15)
[2020-09-12] MEDS: Saline FLUSH-CENTRAL 10 ML SYRINGE IV FLUSH SCH ×2 (16:06→16:20)
[2020-09-12] MEDS ORDERED: Pantoprazole VIAL 40 MG VIAL IV SCH (18:15)
[2020-09-12] MEDS ORDERED: ZOSYN 3.375 GM Q8H per EXTENDED INFUSION IV SCH (20:00)
[2020-09-12] MEDS ORDERED: Senna TAB 8.6 mg TAB PEG TUBE SCH (21:00)
[2020-09-12] MEDS ORDERED: Budesonide NEB 0.5 MG/2 ML NEB.SOLN INH SCH (21:00)
[2020-09-12] MEDS ORDERED: Venlafaxine XR 75 mg SCH (21:00)
== END 2020-09-12 20:45 | disposition home or self-care (01) | DRG 177 ==
LOC: ED 07:03 → MED 11:55
PROVIDERS: ADMIT Internal Medicine; ATTEND Internal Medicine